=== PATIENT | male | born 1940 | race Caucasian/White ===

== ENCOUNTER 2018-09-09 13:45 | Emergency (ER) | payer MEDICARE, OTHER ==
[~2018-09-09] VITALS: Ht 167.6 cm; Wt 72.7 kg
[~2018-09-09 13:45] MED LIST: ATOR20TA38 PO; FOLI-49 PO; HYDR-762 PO; OLME40TA13 PO; POTA8TAB2 PO; SERT-165 PO; [UNRECOGNIZED DRUG - CODE] IV; [UNRECOGNIZED DRUG - CODE] TP
--- NOTE | 2018-09-09 14:02 | ERD ---
ER Documentation Chief Complaint Chief Complaint [place] HPI The patient is a 77-year-old male, presenting to the ER because of headache for the last 3 days, denies any trauma, denies fever, chills, neck pain, chest pain, dyspnea, abdominal pain, vomiting, dizzy, diarrhea. He drinks every day, denies smoking or using illicit drug Past medical history: Depression, dyslipidemia, chronic bilateral lower extremity cellulitis Past surgical History: None ROS All systems reviewed and are negative except as per history of present illness. Medications Home Meds Active Scripts Clindamycin Hcl* (Clindamycin Hcl*) 300 Mg Capsule, 300 MG PO QID for 10 Days, CAP Prov:MIKY THOMPSON MD 09/09/18 Reported Medications Azelastine/Fluticasone (DYMISTA NASAL SPRAY) 23 Gm [place].pump, 1 SPRAY NASAL BID, #1 BOTTLE TO EACH NOSTRIL 09/09/18 Ketoconazole* (Nizoral*) 120 Ml Shampoo, 1 APPLIC TOP BID, BOTTLE WASH HAIR/SCALP AND RINSE OFF 09/09/18 Tamsulosin Hcl* (Flomax*) 0.4 Mg Cap.er.24h, 0.4 MG PO HS, CAP 09/09/18 Sertraline Hcl* (Sertraline Hcl*) 100 Mg Tablet, 100 MG PO DAILY, #30 TAB 09/09/18 Atorvastatin Calcium* (Atorvastatin Calcium*) 20 Mg Tablet, 20 MG PO QHS, #30 TAB 09/09/18 Celecoxib* (Celebrex*) 200 Mg Capsule, 200 MG PO DAILY, CAP 09/09/18 Icosapent Ethyl (VASCEPA) 1 Gm Capsule, 2 GM PO BID, CAP 09/09/18 Potassium Chloride* (Potassium Chloride*) 8 Meq Capsule.er, 8 MEQ PO DAILY, CAP 09/09/18 Omeprazole* (Omeprazole*) 20 Mg Capsule.dr, 20 MG PO BID, #60 CAP 09/09/18 Dutasteride* (Avodart*) 0.5 Mg Capsule, 0.5 MG PO DAILY, CAP 09/09/18 Furosemide* (Furosemide*) 40 Mg Tablet, 40 MG PO DAILY, TAB 09/09/18 Hydrocodone/Acetaminophen (Colony 10-325 Tablet) 1 Each Tablet, 1 EACH PO BID, TAB 09/09/18 Folic Acid* (Folic Acid*) 1 Mg Tablet, 1 MG PO DAILY, TAB 09/09/18 Olmesartan Medoxomil (Benicar) 40 Mg Tablet, 40 MG PO DAILY, #30 TAB 09/09/18 Discontinued Reported Medications Olmesartan Medoxomil (Benicar) 40 Mg Tablet, 40 MG PO DAILY, TAB 11/16/13 Potassium Chloride* (Klor-Con*) 8 Meq Tablet.sa, 8 MEQ PO DAILY, TAB 11/16/13 Furosemide* (Furosemide*) 40 Mg/4 Ml Vial, 40 MG IV DAILY, VIAL 11/16/13 Sertraline Hcl* (Sertraline Hcl*) 100 Mg Tablet, 100 MG PO DAILY, TAB 11/16/13 Folic Acid* (Folic Acid*) 1 Mg Tablet, 1 MG PO DAILY, TAB 11/16/13 Mineral Oil/Petrolatum,White (Eucerin Creme) 120 Gm Cream.gm., 120 GM TP 11/16/13 Atorvastatin Calcium* (Atorvastatin Calcium*) 20 Mg Tablet, 20 MG PO HS, TAB 11/16/13 Hydrocodone Bit-Acetaminophen* (Colony*) 10-325 Mg Tablet, 1 TAB PO BID PRN for PAIN, TAB 11/16/13 Allergies Allergies: Coded Allergies: No Known Drug Allergy (Verified Allergy, Unknown, 09/09/18) PMhx/Soc Hx Alcohol Use: No Hx Substance Use: No Hx Tobacco Use: No Physical Exam Vitals Vital Signs Date Temp Pulse Resp B/P (MAP) Pulse Ox O2 O2 Flow FiO2 Time Delivery Rate 09/09/18 98.1 76 18 154/79 98 Room Air 17:16 (104) 09/09/18 98.3 92 14 187/76 97 14:08 (113) Physical Exam Const: No acute distress. Head: Atraumatic. Eyes: Normal Conjunctiva. ENT: Normal External Ears, Nose and Mouth. Neck: Full range of motion. No meningismus. Resp: Clear to auscultation bilaterally. Cardio: Regular rate and rhythm. Abd: Soft, non distended, normal bowel sounds, non tender. Skin: No petechiae or rashes. Back: No midline or flank tenderness. Ext: Lower extremity chronic erythema, worse on the left than the right with weeping lesions, no calf tenderness Neur: Awake and alert. No focal deficit Psych: Normal Mood and Affect. Result Diagram: 09/09/18 1421 09/09/18 1421 Results 24 hrs Laboratory Tests Test 09/09/18 14:21 09/09/18 14:32 White Blood Count 4.6 10^3/ul Red Blood Count 3.52 10^6/ul Hemoglobin 10.2 g/dl Hematocrit 30.5 % Mean Corpuscular Volume 86.6 fl Mean Corpuscular Hemoglobin 29.0 pg Mean Corpuscular Hemoglobin Concent 33.4 g/dl Red Cell Distribution Width 15.8 % Platelet Count 82 10^3/UL Mean Platelet Volume 9.2 fl Immature Granulocytes % 0.400 % Neutrophils % 64.2 % Lymphocytes % 20.3 % Monocytes % 12.1 % Eosinophils % 2.4 % Basophils % 0.6 % Nucleated Red Blood Cells % 0.0 /100WBC Immature Granulocytes # 0.020 10^3/ul Neutrophils # 3.0 10^3/ul Lymphocytes # 0.9 10^3/ul Monocytes # 0.6 10^3/ul Eosinophils # 0.1 10^3/ul Basophils # 0.0 10^3/ul Nucleated Red Blood Cells # 0.0 10^3/ul Urine Color STRAW Urine Clarity CLEAR Urine pH 6.0 Urine Specific [place] 1.004 Urine Ketones NEGATIVE mg/dL Urine Nitrite NEGATIVE mg/dL Urine Bilirubin NEGATIVE mg/dL Urine Urobilinogen NEGATIVE mg/dL Urine Leukocyte Esterase NEGATIVE Que/ul Urine Hemoglobin NEGATIVE mg/dL Urine Glucose NEGATIVE mg/dL Urine Total Protein NEGATIVE mg/dl Sodium Level 127 mmol/L Potassium Level 4.3 mmol/L Chloride Level 91 mmol/L Carbon Dioxide Level 26 mmol/L Anion Gap 10 Blood Urea Nitrogen 8 mg/dl Creatinine 0.84 mg/dl Est Glomerular Filtrat Rate mL/min mL/min Glucose Level 126 mg/dl Calcium Level 8.9 mg/dl Total Bilirubin 0.5 mg/dl Direct Bilirubin 0.00 mg/dl Indirect Bilirubin 0.5 mg/dl Aspartate Amino Transf (AST/SGOT) 35 IU/L Alanine Aminotransferase (ALT/SGPT) 33 IU/L Alkaline Phosphatase 126 IU/L Total Protein 7.9 g/dl Albumin 4.3 g/dl Globulin 3.60 g/dl Albumin/Globulin Ratio 1.19 Salicylates Level < 1.0 mg/dl Acetaminophen Level < 10.0 ug/ml Ethyl Alcohol Level < 10.0 mg/dl Bedside Glucose 129 mg/dL Procedures/[place] [id number] Radiology Main Line: [phone] DIAGNOSTIC IMAGING REPORT Patient: LEODAN CAVAZOS : 1940 Age: 77 Sex: M MR #: [id number] DOS: 09/09/18 1417 Ordering MD: MIKY THOMPSON MD Location: E/R Room/Bed: PROCEDURE: CT Brain without contrast. CLINICAL INDICATION: Altered level of consciousness TECHNIQUE: A CT of the brain was performed on a [employer] 64-slice CT scanner utilizing axial imaging from the skull base through the vertex without IV contrast. Multiplanar reformatted images were made. Images were reviewed on a PACS workstation. The CTDIvol is 39.59 mGy and the DLP is 634.23 mGycm. One or more the following dose reduction techniques were utilized: Automated exposure control, adjustment of mA/ or kV according to patient's size, or use of iterative reconstruction technique. DICOM images are available for review. COMPARISON: None FINDINGS: There is no intracranial hemorrhage, mass effect, or midline shift. move ventricles larger than the sulci with confluent patchy hypoattenuation throughout the periventricular white matter. Within the upper right parietal c onvexity there is some volume loss however also mass effect and a underline arachnoid cyst is likely which measures approximate 3.6 by 1.4 cm. [place] holes are seen within the left frontal and parietal calvarium. No subdural fluid collections are present. 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 There is good mcguire-white matter differentiation throughout the cerebral hemispheres. The visualized brainstem and cerebellum are unremarkable. No extra-axial fluid collection is seen. The visualized paranasal sinuses and osseous structures are grossly unremarkable. IMPRESSION: No evidence of acute intracranial pathology. There is predominately central atrophy with microvascular changes. There is likely an arachnoid cyst along the right superior parietal convexity. RPTAT: HH RPhysician Beth Date Time Electronically viewed and signed by Physician Najma on 09/09/2018 16:14 RL/ CC: MIKY THOMPSON MD [id number] [place] [id number] Radiology Main Line: [phone] DIAGNOSTIC IMAGING REPORT Patient: LEODAN CAVAZOS : 1940 Age: 77 Sex: M MR #: [id number] DOS: 09/09/18 1417 Ordering MD: MIKY THOMPSON MD Location: E/R Room/Bed: PROCEDURE: XR Chest. CLINICAL INDICATION: Cough TECHNIQUE: Single portable view of the chest was obtained COMPARISON: No priors for comparison FINDINGS: The trachea is midline. The cardiac silhouette and pulmonary vascularity are prominent. The lungs are clear. The costophrenic angles are sharp. There is atherosclerotic calcification of the aortic knob. IMPRESSION: 1. Cardiomegaly and central pulmonary vascular congestion. 2. Atherosclerotic disease of the aorta. RPTAT: AAPP Physician Maurice Date Time Electronically viewed and signed by Physician Maurice on 09/09/2018 15:13 JL/ CC: MIKY THOMPSON MD [id number] MEDICAL MAKING DECISION: The patient is a 77-year-old male, presenting with acute on chronic bilateral lower extremity cellulitis, chronic hyponatremia due to chronic alcoholism. The family has been here and confirmed this is his normal mental status, he is stable for outpatient follow-up The differential diagnoses considered include but are not limited to cellulitis, abscess, DVT, lymphedema, malnutrition Departure Diagnosis: Primary Impression: Bilateral lower leg cellulitis Additional Impressions: Chronic alcohol abuse Pancytopenia Hyponatremia Condition: Good Comments He was discharged with clindamycin I discussed the findings with the patient. I advised the patient to follow-up with the primary physician and amputation prevention center in about 1-2 days, sooner if needed and return if any concern. Disclaimer: Inadvertent spelling and grammatical errors are likely due to EHR/dictation software use and do not reflect on the overall quality of patient care. Also, please note that the electronic time recorded on this note does not necessarily reflect the actual time of the patient encounter. MIKY THOMPSON MD Sep 09, 2018 14:01
[2018-09-09 14:08] VITALS: Ht 167.6 cm; Wt 72.7 kg
[2018-09-09] MEDS ORDERED: OLME40TA13 PO (16:49)
[2018-09-09] MEDS ORDERED: FOLI-49 PO (16:49)
[2018-09-09] MEDS ORDERED: HYDR-3980 PO (16:50)
[2018-09-09] MEDS ORDERED: DUTA0.5C PO (16:50)
[2018-09-09] MEDS ORDERED: FURO40TA4 PO (16:50)
[2018-09-09] MEDS ORDERED: POTA8CAP PO (16:51)
[2018-09-09] MEDS ORDERED: OMEP20CA16 PO (16:51)
[2018-09-09] MEDS ORDERED: ICOS1CAP PO (16:52)
[2018-09-09] MEDS ORDERED: CELE200C PO (16:52)
[2018-09-09] MEDS ORDERED: TAMS-14 PO (16:53)
[2018-09-09] MEDS ORDERED: SERT-165 PO (16:53)
[2018-09-09] MEDS ORDERED: ATOR20TA38 PO (16:53)
[2018-09-09] MEDS ORDERED: KETO120S5 TOP (16:54)
[2018-09-09] MEDS ORDERED: AZEL23SP NASAL (16:56)
[2018-09-09] MEDS ORDERED: CLIN300C10 PO (16:58)
[2018-09-09 17:16] VITALS: BP 154/79; PULSE 76; RESP 18
== END 2018-09-09 17:17 | disposition home or self-care (01) ==
LOC: E/R 13:45
DX: L03.115 Cellulitis of right lower limb (principal); L03.116 Cellulitis of left lower limb; F10.10 Alcohol abuse, uncomplicated; E87.1 Hypo-osmolality and hyponatremia
CPT/HCPCS: 36415; 70450; 71045; 80053; 80307; 81003; 82962; 85025

== ENCOUNTER 2018-09-11 18:19 | Emergency (ER) | payer MEDICARE, OTHER ==
[~2018-09-11] VITALS: Ht 170.2 cm; Wt 81.8 kg
[~2018-09-11 18:19] MED LIST changes: +AZEL23SP NASAL; +CELE200C PO; +CLIN300C10 PO; +DUTA0.5C PO; +FURO40TA4 PO; +HYDR-3980 PO; -HYDR-762 PO; +ICOS1CAP PO; +KETO120S5 TOP; +OMEP20CA16 PO; +POTA8CAP PO; -POTA8TAB2 PO; +TAMS-14 PO; -[UNRECOGNIZED DRUG - CODE] IV; -[UNRECOGNIZED DRUG - CODE] TP
[2018-09-11] MEDS ORDERED: SOD CHLORIDE 0.9% 1,000 ML IV STA (18:37)
[2018-09-11 18:39] VITALS: Ht 170.2 cm; Wt 81.8 kg
--- NOTE | 2018-09-11 21:51 | ERD ---
ER Documentation Chief Complaint Chief Complaint ETOH INTOXICATION HPI This is a 77-year-old male with a past medical history of significant alcohol abuse, hypertension, hyperlipidemia, constipation who is presenting for a transient episode of altered mental status. The patient reportedly has been drinking beer daily, but he only had a small cup this morning. The patient was evaluated 2 days ago for a mild headache in addition to bilateral lower extremity swelling and redness. The patient was ultimately diagnosed with bilateral lower extremity cellulitis and discharged with a prescription for clindamycin. The patient was also found to have sequelae of chronic alcohol abuse., But according to the patient's family, the patient seemed fine this afternoon while he was taking his clindamycin, the patient reportedly had a syncopal event with intermittent shaking, lasting approximately 1 minute before resolution. He seemed confused after, which is what prompted the family to call an ambulance. At this time, the patient is alert and oriented and has no complaints. He admits to drinking alcohol earlier today, but he does not feel intoxicated. The patient denies feeling sick recently. The patient denies fever or chills. The patient has had no headache or vision changes. The patient does not endorse neck or back pain. The patient denies lightheadedness or dizziness. The patient has had no chest pain or trouble breathing. The patient denies nausea or vomiting. The patient denies abdominal pain. The patient denies changes to bowel movements or urination. The patient has had no focal deficits. The patient has had no weakness or numbness or tingling to the face or extremities. ROS All systems reviewed and are negative except as per history of present illness. Medications Home Meds Active Scripts Clindamycin Hcl* (Clindamycin Hcl*) 300 Mg Capsule, 300 MG PO QID for 10 Days, CAP Prov:MIKY THOMPSON MD 09/09/18 Reported Medications Azelastine/Fluticasone (DYMISTA NASAL SPRAY) 23 Gm [place].pump, 1 SPRAY NASAL BID, #1 BOTTLE TO EACH NOSTRIL 09/09/18 Ketoconazole* (Nizoral*) 120 Ml Shampoo, 1 APPLIC TOP BID, BOTTLE WASH HAIR/SCALP AND RINSE OFF 09/09/18 Tamsulosin Hcl* (Flomax*) 0.4 Mg Cap.er.24h, 0.4 MG PO HS, CAP 09/09/18 Sertraline Hcl* (Sertraline Hcl*) 100 Mg Tablet, 100 MG PO DAILY, #30 TAB 09/09/18 Atorvastatin Calcium* (Atorvastatin Calcium*) 20 Mg Tablet, 20 MG PO QHS, #30 TAB 09/09/18 Celecoxib* (Celebrex*) 200 Mg Capsule, 200 MG PO DAILY, CAP 09/09/18 Icosapent Ethyl (VASCEPA) 1 Gm Capsule, 2 GM PO BID, CAP 09/09/18 Potassium Chloride* (Potassium Chloride*) 8 Meq Capsule.er, 8 MEQ PO DAILY, CAP 09/09/18 Omeprazole* (Omeprazole*) 20 Mg Capsule.dr, 20 MG PO BID, #60 CAP 09/09/18 Dutasteride* (Avodart*) 0.5 Mg Capsule, 0.5 MG PO DAILY, CAP 09/09/18 Furosemide* (Furosemide*) 40 Mg Tablet, 40 MG PO DAILY, TAB 09/09/18 Hydrocodone/Acetaminophen (Somers 10-325 Tablet) 1 Each Tablet, 1 EACH PO BID, TAB 09/09/18 Folic Acid* (Folic Acid*) 1 Mg Tablet, 1 MG PO DAILY, TAB 09/09/18 Olmesartan Medoxomil (Benicar) 40 Mg Tablet, 40 MG PO DAILY, #30 TAB 09/09/18 Discontinued Reported Medications Olmesartan Medoxomil (Benicar) 40 Mg Tablet, 40 MG PO DAILY, TAB 11/16/13 Potassium Chloride* (Klor-Con*) 8 Meq Tablet.sa, 8 MEQ PO DAILY, TAB 11/16/13 Furosemide* (Furosemide*) 40 Mg/4 Ml Vial, 40 MG IV DAILY, VIAL 11/16/13 Sertraline Hcl* (Sertraline Hcl*) 100 Mg Tablet, 100 MG PO DAILY, TAB 11/16/13 Folic Acid* (Folic Acid*) 1 Mg Tablet, 1 MG PO DAILY, TAB 11/16/13 Mineral Oil/Petrolatum,White (Eucerin Creme) 120 Gm Cream.gm., 120 GM TP 11/16/13 Atorvastatin Calcium* (Atorvastatin Calcium*) 20 Mg Tablet, 20 MG PO HS, TAB 11/16/13 Hydrocodone Bit-Acetaminophen* (Somers*) 10-325 Mg Tablet, 1 TAB PO BID PRN for PAIN, TAB 11/16/13 Allergies Allergies: Coded Allergies: No Known Drug Allergy (Verified Allergy, Unknown, 09/11/18) PMhx/Soc Medical and Surgical Hx: pt denies Surgical Hx History of Surgery: No Anesthesia Reaction: No Hx Respiratory Disorders: No Hx Cardiac Disorders: Yes (htn, cholesterol) Hx Psychiatric Problems: No Hx Miscellaneous Medical Probl: Yes (CELLULITIS, aneurysm) Hx Alcohol Use: Yes (daily, heavy use) Hx Substance Use: No Hx Tobacco Use: No Smoking Status: Unknown if ever smoked FmHx Family History: No diabetes Physical Exam Vitals Vital Signs Date Temp Pulse Resp B/P (MAP) Pulse Ox O2 O2 Flow FiO2 Time Delivery Rate 09/11/18 95 14 169/67 99 Room Air 18:50 (101) 09/11/18 97.9 94 20 194/76 97 18:39 (115) Physical Exam Const: No apparent distress, well-developed, well-nourished Head: Normocephalic, Atraumatic Eyes: Normal Conjunctiva. Extraocular movements intact. Pupils equal, round and reactive to light ENT: Normal External Ears, Nose. Poor dentition. Dry mucous membranes. Neck: Full range of motion. No meningismus. Resp: Clear to auscultation bilaterally, No wheezes, rales or rhonchi Cardio: Regular rate and rhythm. No murmurs, rubs or gallops Abd: Soft, non tender, non distended. Normal bowel sounds Skin: No petechiae or rashes Back: No midline tenderness. No CVA tenderness Ext: No cyanosis. Bilateral lower extremity erythema and edema. Neur: Awake and alert, oriented 4. Cranial nerves intact. No facial droop. Normal strength, sensation and coordination. Psych: Normal Mood and Affect Result Diagram: 09/11/18185709/11/181857 Results 24 hrs Laboratory Tests Test 09/11/18 18:58 09/11/18 18:59 09/11/18 19:05 09/11/18 19:23 White Blood Count 5.3 10^3/ul Red Blood Count 3.75 10^6/ul Hemoglobin 10.7 g/dl Hematocrit 33.5 % Mean Corpuscular 89.3 fl Volume Mean Corpuscular 28.5 pg Hemoglobin Mean Corpuscular 31.9 g/dl Hemoglobin Concen t Red Cell 16.4 % Distribution Width Platelet Count 90 10^3/UL Mean Platelet 10.2 fl Volume Immature 0.400 % Granulocytes % Neutrophils % 62.7 % Lymphocytes % 22.3 % Monocytes % 12.9 % Eosinophils % 1.3 % Basophils % 0.4 % Nucleated Red 0.0 /100WBC Blood Cells % Immature 0.020 10^3/ul Granulocytes # Neutrophils # 3.4 10^3/ul Lymphocytes # 1.2 10^3/ul Monocytes # 0.7 10^3/ul Eosinophils # 0.1 10^3/ul Basophils # 0.0 10^3/ul Nucleated Red 0.0 10^3/ul Blood Cells # Sodium Level 137 mmol/L Potassium Level 3.6 mmol/L Chloride Level 99 mmol/L Carbon Dioxide 28 mmol/L Level Anion Gap 10 Blood Urea 8 mg/dl Nitrogen Creatinine 0.94 mg/dl Est Glomerular mL/min Filtrat Rate mL/min Glucose Level 141 mg/dl Calcium Level 9.7 mg/dl Total Bilirubin 0.4 mg/dl Direct Bilirubin 0.00 mg/dl Indirect 0.4 mg/dl Bilirubin Aspartate Amino 36 IU/L Transf (AST/SGOT) Alanine 29 IU/L Aminotransferase (ALT/SGPT) Alkaline 109 IU/L Phosphatase Total Protein 8.0 g/dl Albumin 4.3 g/dl Globulin 3.70 g/dl Albumin/Globulin 1.16 Ratio Salicylates Level < 1.0 mg/dl Acetaminophen < 10.0 ug/ml Level Ethyl Alcohol < 10.0 mg/dl Level Prothrombin Time 14.1 Sec Prothrombin Time 1.1 Ratio INR International 1.08 Normalized Ratio Ammonia < 9 umol/l POC Venous 1.7 mmol/L Lactate Urine Color YELLOW Urine Clarity CLEAR Urine pH 6.0 Urine Specific 1.004 [place] Urine Ketones NEGATIVE mg/dL Urine Nitrite NEGATIVE mg/dL Urine Bilirubin NEGATIVE mg/dL Urine NEGATIVE mg/dL Urobilinogen Urine Leukocyte NEGATIVE Que/ul Esterase Urine Microscopic 0 /HPF RBC Urine Microscopic 1 /HPF WBC Urine Hemoglobin NEGATIVE mg/dL Urine Glucose NEGATIVE mg/dL Urine Total 1+ mg/dl Protein Urine Opiates Negative Screen Urine Negative Barbiturates Urine Negative Amphetamines Screen Urine Negative Benzodiazepines Screen Urine Cocaine Negative Screen Urine Positive Cannabinoids Current Medications Medications Dose Sig/[place] Start Time Status Last (Trade) Ordered Route PRN Stop Time Admin Dose Reason Admin Sodium 1,000 ml @ Q1H STAT 09/11/18 DC 09/11/18 Chloride 1,000 mls/hr IV 18:37 19:06 09/11/18 19:36 Procedures/MDM MDM The patient's presentation warrants further investigation. Previous medical records, if available, were reviewed. LABS The patient's laboratory testing was obtained and reviewed. No emergent treatment was required unless described below. CBC: Mild normocytic anemia, not emergent. Thrombocytopenia, likely from chronic liver disease. No E/o systemic infection. Chemistry: No E/o severe acidosis or alkalosis or renal failure or liver disease or diabetic ketoacidosis PT/INR: No E/o significant coagulopathy Lactate: No E/o severe sepsis Urine: No E/o acute infection or hematuria Tox: No E/o alcohol abuse. E/o marijuana use. No E/o salicylate or acetaminophen use. EKG EKG read by me: Rate/Rhythm: Regular rate and rhythm at a rate of 92 bpm Intervals: Normal [place]: Normal Impression: No evidence of acute ischemia or arrhythmia IMAGING Imaging and Radiology interpretation reviewed. CXR FINDINGS: The heart is enlarged. Mediastinum is not widened. Calcified plaque is seen in the aorta. No hilar masses seen. Lungs are clear of any infiltrates. There is a 2.6 cm rounded mass-like density in the medial left upper lung field. There is no effusion or pneumothorax. The osseous structures appear normal. IMPRESSION: Cardiomegaly. No pneumonia or failure. Question left upper lobe mass. CT is recommended for further evaluation. Electronically viewed and signed by .Samy Resendiz MD, on 09/11/2018 19:50 CT Head from 09/09/2018 FINDINGS: There is no intracranial hemorrhage, mass effect, or midline shift. move ventricles larger than the sulci with confluent patchy hypoattenuation throughout the periventricular white matter. Within the upper right parietal convexity there is some volume loss however also mass effect and a underline arachnoid cyst is likely which measures approximate 3.6 by 1.4 cm. [place] holes are seen within the left frontal and parietal calvarium. No subdural fluid collections are present. 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 There is good mcguire-white matter differentiation throughout the cerebral hemispheres. The visualized brainstem and cerebellum are unremarkable. No extra-axial fluid collection is seen. The visualized paranasal sinuses and osseous structures are grossly unremarkable. IMPRESSION: No evidence of acute intracranial pathology. There is predominately central atrophy with microvascular changes. There is likely an arachnoid cyst along the right superior parietal convexity. Electronically viewed and signed by Physician Najma on 09/09/2018 16:14 TREATMENT/DISPOSITION The patient presents with symptoms of a possible syncopal event. The patient's family reports the patient passing out and having intermittent shaking for about a minute. A seizure is certainly a possibility. The patient does not have a history of seizures. There is no trauma or injury today. The patient reportedly had a headache from 2 days ago, but he does not endorse a headache today. He does not endorse any neck stiffness or pain. Patient has no focal deficits. He is alert and oriented and has a normal neurologic exam. I have decreased suspicion for cerebral ischemia. This was not the worst headache of the patient's life. It was not acutely severe. It was progressive in nature and resolved prior to today. I have decreased suspicion for SAH or other ICH. I have low suspicion for temporal arteritis, cavernous venous thrombosis, subdural hematoma, epidural hematoma, meningitis. The patient did have a CT scan for his headache from 2 days ago that did not reveal any acute intracranial pathology. I do not feel that repeat imaging is warranted today. The patient may follow-up in an outpatient setting for this possible syncope versus seizure event. The patient's alcohol level is currently negative, but he does not have any symptoms concerning for alcohol withdrawal at this time. I have low suspicion for alcohol withdrawal seizure. I do not feel that the patient would benefit from a benzodiazepine taper, as I believe that he will continue to drink and I do not want to allow for concomitant use of alcohol and benzodiazepines. The patient has a reassuring physical exam. The patient is not clinically orthostatic. The patient is not dizzy. I have decreased suspicion for vertigo. The patient has no signs of emergent or symptomatic anemia. The patient does not have any emergent electrolyte or metabolic emergencies. I have decrease suspicion for a thyroid disorder. The patient is not toxic appearing. I have decreased suspicion for an infectious etiology of symptoms. The patient's EKG is reassuring. I have low suspicion for acute coronary syndrome. I do not see evide nce of any emergent cardiac arrhythmia, which includes but is not limited to heart block, Brugada syndrome or WPW. The patient has no heart murmurs or rales. I have low suspicion for hypertrophic cardiomyopathy. I do not see evidence of CHF. The patient does not endorse any chest or pleuritic pain. The history is negative for bleeding or clotting disorders. The patient has not been involved in any recent prolonged trips or surgeries or hospitalizations. The patient has no calf tenderness or swelling. I have decreased suspicion for PE as the etiology of symptoms. There is a question of a left upper lobe mass on the x- ray today, which was not reported on the previous study. The patient may follow-up for this in an outpatient setting, but I do not suspect this to be related to today's events. The [place] Syncope Rule was applied and the patient was found to be low risk for a serious outcome. The patient was treated with IV fluids in the emergency department. DISCHARGE Upon reevaluation of the patient, symptoms have improved. No emergent diagnoses were identified. At this time, I feel that the patient stable for discharge. The patient was instructed to follow-up with a primary care physician in 1-3 days. The patient will be given strict precautions with which to return to the emergency department. Prescriptions: None The patient's blood pressure was elevated at greater than 120/80 while in the emergency department. The patient was otherwise stable with no evidence of hypertensive urgency or emergency. The patient does not require admission for blood pressure control. I have discussed with the patient the risks of hypertension. I have instructed the patient to return to the ER for any new or worsening symptoms including chest pain, shortness of breath, headache, blurred vision, confusion, nausea, vomiting or LOC. I have advised the patient to follow up with the primary care physician for outpatient monitoring and treatment for hypertension in 1-3 days. Disclaimer: Inadvertent spelling and grammatical errors are likely due to EHR/dictation software use and do not reflect on the overall quality of patient care. Note that the electronic time recorded on this note does not necessarily reflect the actual time of the patient encounter. Departure Diagnosis: Primary Impression: Syncope Syncope type: unspecified Qualified Codes: R55 - Syncope and collapse Additional Impressions: Episode of shaking History of alcohol abuse Normocytic anemia Thrombocytopenia Mass of upper lobe of left lung Condition: Stable Patient Instructions: Alcohol Abuse, Anemia, Syncope, Unk Cause, Thrombocytopenia Additional Instructions: A lung mass was found on the x-ray. Please follow-up with your primary care physician, who can help coordinate an outpatient CT scan for further assessment of this. I do not suspect this to be related to today's events. We have a long-standing history of alcohol abuse. Is very important to consider alcohol cessation. Please also discuss with your primary care physician the possibility of rehabilitation. You had a syncopal event today with a possible shaking spell. Syncope is possible. Seizure is also possibility. Please return to the emergency department immediately for recurrence of symptoms. Thank you for for coming to [facility] for your care today. Please ask your nurse or provider if you have questions about your care today and do not leave until all your questions have been answered. Please use any medications given as directed and follow-up with your doctor (or the doctor you were referred to) in the next 1-3 days. If you do not have a primary care doctor you may follow up at the [facility] or [facility] (listed below). You may also use motrin and tylenol as needed for fever and/or pain unless instructed otherwise by your provider or nurse. Indications for more urgent follow-up have been discussed, but you may return to the Emergency Department at ANY time for any worrisome or worsening symptoms. If you have abdominal pain, please know that no test or exam you received is perfect and you should follow up within 8 hours for continued pain. If you had any imaging studies today, such as an X-Ray or CT Scan, these studies will be reviewed later by a radiologist. You will be called if there are important findings that were not identified today, so make sure the contact information you provided at registration is correct. If you received any narcotic pain control medicine today, such as Vicodin, Morphine or Dilaudid, your coordination and judgment may be affected for a number of hours. Please do not drive or operate heavy machinery, and you may want someone to assist you at home. If you were given a prescription for narcotic medication, be aware that it is very addictive- use sparingly and only if necessary. PLEASE SEEK FURTHER EVALUATION AND MANAGEMENT AT YOUR DOCTORS OFFICE WITHIN THE NEXT 1-3 DAYS. IT IS YOUR RESPONSIBILITY TO MAKE AN APPOINTMENT FOR FOLOW-UP CARE. IF YOU HAVE A PRIMARY DOCTOR, PLEASE CALL THEIR OFFICE TO SCHEDULE AN APPOINTM ENT FOR FOLLOW UP. IF YOU DO NOT HAVE A PRIMARY DOCTOR YOU CAN CALL OUR PHYSICIAN REFERRAL HOTLINE AT IF YOU CAN NOT AFFORD TO SEE A PHYSICIAN YOU CAN CHOSE FROM THE FOLLOWING [facility]: [facility] [address] [facility] [address] [facility] [address] [facility] [address] [facility] [address]. [facility]. [address] DIANA BERGER MD Sep 11, 2018 21:43
[2018-09-11 22:25] VITALS: BP 161/66; PULSE 87; RESP 22
[2018-09-12] MEDS ORDERED: LORA-441 PO (19:22)
== END 2018-09-11 22:35 | disposition home or self-care (01) ==
LOC: E/R 18:19
DX: D64.9 Anemia, unspecified (principal); R55 Syncope and collapse; R25.1 Tremor, unspecified; D69.6 Thrombocytopenia, unspecified; R91.8 Other nonspecific abnormal finding of lung field; I10 Essential (primary) hypertension; Z87.898 Personal history of other specified conditions
CPT/HCPCS: 36415; 71045; 80053; 80307; 81001; 82140; 83605; 85025; 85610; 93005; 99285; J7030

== ENCOUNTER 2018-09-12 15:47 | Emergency (ER) | payer MEDICARE, OTHER ==
[~2018-09-12] VITALS: Ht 165.1 cm; Wt 73.0 kg
[2018-09-12 15:55] VITALS: Ht 165.1 cm; Wt 73.0 kg
[2018-09-12] MEDS ORDERED: LORAZEPAM 2 MG INJ IV STA (17:16)
[2018-09-12] MEDS ORDERED: SOD CHLORIDE 0.9% 1,000 ML IV STA (17:16)
[2018-09-12] MEDS ORDERED: MAGNESIUM SULFATE 2 GM, MULTIVITAMINS 10 ML, THIAMINE 100 MG, FOLIC ACID 1 MG in SOD CH... IV STA (17:16)
--- NOTE | 2018-09-12 19:21 | ERD ---
ER Documentation Chief Complaint Chief Complaint SENT BY PMD FOR POSS. WITHDRAW FROM ETOH AND METHADONE. HPI This is a 77-year-old male that states he has a past medical history of alcohol abuse that he drinks several beers a day. He indicated that he no longer wants to consume alcohol and therefore 3 days ago stop drinking beer. Since that time he states he is felt very shaky, anxious but denies any hemoptysis hematemesis and no melanotic stools. The patient is also on methadone which has been taking for the past 8 years. Indicates he has continued to take the methadone. He went to see a primary care physician today who sent him to the emergency department for further evaluation as he was concerned for alcohol withdrawal. The patient indicates he has never experienced seizures when he stopped drinking in the past. He denies a headache. He denies any chest pain or pressure. He has no shortness of breath. He denies any abdominal pain or cramping of the abdomen. ROS All systems reviewed and are negative except as per history of present illness. Medications Home Meds Active Scripts Clindamycin Hcl* (Clindamycin Hcl*) 300 Mg Capsule, 300 MG PO QID for 10 Days, CAP Prov:MIKY THOMPSON MD 09/09/18 Reported Medications Azelastine/Fluticasone (DYMISTA NASAL SPRAY) 23 Gm [place].pump, 1 SPRAY NASAL BID, #1 BOTTLE TO EACH NOSTRIL 09/09/18 Ketoconazole* (Nizoral*) 120 Ml Shampoo, 1 APPLIC TOP BID, BOTTLE WASH HAIR/SCALP AND RINSE OFF 09/09/18 Tamsulosin Hcl* (Flomax*) 0.4 Mg Cap.er.24h, 0.4 MG PO HS, CAP 09/09/18 Sertraline Hcl* (Sertraline Hcl*) 100 Mg Tablet, 100 MG PO DAILY, #30 TAB 09/09/18 Atorvastatin Calcium* (Atorvastatin Calcium*) 20 Mg Tablet, 20 MG PO QHS, #30 TAB 09/09/18 Celecoxib* (Celebrex*) 200 Mg Capsule, 200 MG PO DAILY, CAP 09/09/18 Icosapent Ethyl (VASCEPA) 1 Gm Capsule, 2 GM PO BID, CAP 09/09/18 Potassium Chloride* (Potassium Chloride*) 8 Meq Capsule.er, 8 MEQ PO DAILY, CAP 09/09/18 Omeprazole* (Omeprazole*) 20 Mg Capsule.dr, 20 MG PO BID, #60 CAP 09/09/18 Dutasteride* (Avodart*) 0.5 Mg Capsule, 0.5 MG PO DAILY, CAP 09/09/18 Furosemide* (Furosemide*) 40 Mg Tablet, 40 MG PO DAILY, TAB 09/09/18 Hydrocodone/Acetaminophen ([place] 10-325 Tablet) 1 Each Tablet, 1 EACH PO BID, TAB 09/09/18 Folic Acid* (Folic Acid*) 1 Mg Tablet, 1 MG PO DAILY, TAB 09/09/18 Olmesartan Medoxomil (Benicar) 40 Mg Tablet, 40 MG PO DAILY, #30 TAB 09/09/18 Discontinued Reported Medications Olmesartan Medoxomil (Benicar) 40 Mg Tablet, 40 MG PO DAILY, TAB 11/16/13 Potassium Chloride* (Klor-Con*) 8 Meq Tablet.sa, 8 MEQ PO DAILY, TAB 11/16/13 Furosemide* (Furosemide*) 40 Mg/4 Ml Vial, 40 MG IV DAILY, VIAL 11/16/13 Sertraline Hcl* (Sertraline Hcl*) 100 Mg Tablet, 100 MG PO DAILY, TAB 11/16/13 Folic Acid* (Folic Acid*) 1 Mg Tablet, 1 MG PO DAILY, TAB 11/16/13 Mineral Oil/Petrolatum,White (Eucerin Creme) 120 Gm Cream.gm., 120 GM TP 11/16/13 Atorvastatin Calcium* (Atorvastatin Calcium*) 20 Mg Tablet, 20 MG PO HS, TAB 11/16/13 Hydrocodone Bit-Acetaminophen* ([place]*) 10-325 Mg Tablet, 1 TAB PO BID PRN for PAIN, TAB 11/16/13 Allergies Allergies: Coded Allergies: No Known Drug Allergy (Verified Allergy, Unknown, 09/12/18) PMhx/Soc History of Surgery: No Anesthesia Reaction: No Hx Respiratory Disorders: No Hx Cardiac Disorders: Yes (htn, cholesterol) Hx Psychiatric Problems: No Hx Miscellaneous Medical Probl: Yes (CELLULITIS, aneurysm) Hx Alcohol Use: Yes (daily, heavy use) Hx Substance Use: No Hx Tobacco Use: No Smoking Status: Unknown if ever smoked Physical Exam Vitals Vital Signs Date Temp Pulse Resp B/P (MAP) Pulse Ox O2 O2 Flow FiO2 Time Delivery Rate 09/12/18 97.4 68 20 150/93 97 Room Air 18:55 (112) 09/12/18 97.4 78 20 150/93 97 Room Air 18:08 (112) 09/12/18 97.4 81 20 198/62 97 Room Air 17:07 (107) 09/12/18 97.4 79 20 205/78 97 15:55 (120) Physical Exam Constitutional:Well-developed. Well-nourished. HEENT:Normocephalic. Atraumatic.Pupils were 3 mm equal round reactive to light. Moist mucous membranes.No tonsillar exudates. Neck: No nuchal rigidity. No lymphadenopathy. No posterior cervical spine tenderness or step-offs. Respiratory: Not using accessory muscles of respiration.Lungs were clear to auscultation bilaterally. No rhonchi. No rales. No wheezing. Cardiovascular: Regular rate regular rhythm.No murmurs. No rubs were appreciated.S1, S2 normal. Distal pulses are palpable 2+ bilaterally. GI: Abdomen was soft. Nontender. Non Distended. No pulsatile abdominal masses or bruits. No rebound. No guarding. Bowel sounds were present and normal. Muscle skeletal: Full range of motion of both the upper and lower extremities bilaterally.Normal muscle tone.No assymetrical calf tenderness or swelling. Skin: No petechia, no purpura. No lesions on the palms or the soles of the feet. No maculopapular rash. NEURO: Patient was alert, awake, orientated x3.No facial droop. Gait observed and normal with no ataxia.Speech had regular rate and rhythm. No focal neurological deficits. [place]ix[place]. Result Diagram: 09/12/18 1705 09/12/18 1705 Results 24 hrs Laboratory Tests Test 09/12/18 17:05 White Blood Count 7.1 10^3/ul Red Blood Count 3.86 10^6/ul Hemoglobin 11.0 g/dl Hematocrit 34.8 % Mean Corpuscular Volume 90.2 fl Mean Corpuscular Hemoglobin 28.5 pg Mean Corpuscular Hemoglobin Concent 31.6 g/dl Red Cell Distribution Width 16.8 % Platelet Count 103 10^3/UL Mean Platelet Volume 10.7 fl Immature Granulocytes % 0.400 % Neutrophils % 64.5 % Lymphocytes % 21.8 % Monocytes % 11.4 % Eosinophils % 1.3 % Basophils % 0.6 % Nucleated Red Blood Cells % 0.0 /100WBC Immature Granulocytes # 0.030 10^3/ul Neutrophils # 4.6 10^3/ul Lymphocytes # 1.5 10^3/ul Monocytes # 0.8 10^3/ul Eosinophils # 0.1 10^3/ul Basophils # 0.0 10^3/ul Nucleated Red Blood Cells # 0.0 10^3/ul Prothrombin Time 13.7 Sec Prothrombin Time Ratio 1.1 INR International Normalized Ratio 1.04 Activated Partial Thromboplast Time 27.8 Sec Urine Color YELLOW Urine Clarity CLEAR Urine pH 6.0 Urine Specific [place] 1.009 Urine Ketones NEGATIVE mg/dL Urine Nitrite NEGATIVE mg/dL Urine Bilirubin NEGATIVE mg/dL Urine Urobilinogen NEGATIVE mg/dL Urine Leukocyte Esterase NEGATIVE Que/ul Urine Hemoglobin NEGATIVE mg/dL Urine Glucose NEGATIVE mg/dL Urine Total Protein NEGATIVE mg/dl Sodium Level 135 mmol/L Potassium Level 3.4 mmol/L Chloride Level 99 mmol/L Carbon Dioxide Level 26 mmol/L Anion Gap 10 Blood Urea Nitrogen 7 mg/dl Creatinine 0.81 mg/dl Est Glomerular Filtrat Rate mL/min mL/min Glucose Level 114 mg/dl Calcium Level 9.8 mg/dl Total Bilirubin 0.5 mg/dl Direct Bilirubin 0.00 mg/dl Indirect Bilirubin 0.5 mg/dl Aspartate Amino Transf (AST/SGOT) 44 IU/L Alanine Aminotransferase (ALT/SGPT) 26 IU/L Alkaline Phosphatase 112 IU/L Total Protein 8.6 g/dl Albumin 4.7 g/dl Globulin 3.90 g/dl Albumin/Globulin Ratio 1.20 Salicylates Level < 1.0 mg/dl Acetaminophen Level < 10.0 ug/ml Ethyl Alcohol Level < 10.0 mg/dl Current Medications Medications Dose Sig/Kenrick Start Time Status Last (Trade) Ordered Route PRN Stop Time Admin Dose Reason Admin Sodium 1,000 ml @ Q1H STAT 09/12/18 DC 09/12/18 Chloride 1,000 mls/hr IV 17:16 17:22 09/12/18 18:15 Magnesium 1,015.2 ml Q2H2M STAT 09/12/18 DC 09/12/18 Sulfate 2 @ 500 mls/ IV 17:16 18:25 gm/ hr 09/12/18 19:17 Multivitamins 10 ml/Thiamine HCl 100 mg/Folic Acid 1 mg/Sodium Chloride Lorazepam 1 mg ONCE STAT 09/12/18 DC 09/12/18 (Ativan) IV 17:16 17:22 09/12/18 17:18 Procedures/MDM This is a 77-year-old male who presented to the emergency department with mild alcohol withdrawal. The patient was placed on a telemetry monitor continuous pulse oximetry and IV access was attempted by nursing staff. Her serum ethanol was undetected. The patient had no severe electrolyte abnormalities. The patient received IV Ativan and a banana bag which included folic acid thiamine and multivitamin and magnesium. 12 Lead EKG tracing ordered and reviewed by myself showed: Normal sinus rhythm of 76 bpm and no arrhythmia. IA interval normal. QRS duration normal. Incomplete right bundle branch block No ST segment elevation No ST segment depression. No changes consistent with acute ischemia. Observation Note: Time: 4 hours Family Hx: No Hypertension Evaluation: Multiple exams showed improving symptoms and no evidence of impending delirium tremors The patient was discharged home in fair condition. They were instructed to return to the emergency department at any time if there was any worsening of their condition. The patient stated they would follow up with their PCP in the next 24-48 hours to initiate a suitable medication regimen under the care of their PCP as well as to allow their PCP to monitor any drug reactions. The patient was discharged home with prescriptions after they gave informed consent to the new medication. They were also fully informed by myself on the adverse effects and adverse drug interactions in order to provide adequate safeguards to prevent possible adverse reactions to medications. Departure Diagnosis: Primary Impression: Alcohol withdrawal syndrome Complication of substance-induced condition: uncomplicated Qualified Codes: F10.230 - Alcohol dependence with withdrawal, uncomplicated Condition: HUSSEIN [place] MD Sep 12, 2018 19:21
[2018-09-12] MEDS ORDERED: LORA-441 PO (19:22)
[2018-09-12 21:02] VITALS: BP 180/85; PULSE 70; RESP 20
== END 2018-09-12 21:03 | disposition home or self-care (01) ==
LOC: E/R 15:47
DX: F10.230 Alcohol dependence with withdrawal, uncomplicated (principal); I10 Essential (primary) hypertension
CPT/HCPCS: 71045; 80053; 80307; 81003; 85025; 85610; 85730; 93005; 96365; 96375; 99285; J2060; J3411; J3475; J7030

== ENCOUNTER 2018-09-15 20:19 | Inpatient (IN) | payer MEDICARE, OTHER ==
[~2018-09-15] VITALS: Ht 167.6 cm; Wt 75.7 kg
[~2018-09-15 20:19] MED LIST changes: +LORA-441 PO
[2018-09-15] MEDS ORDERED: VANCOMYCIN 1 GM (PMX) 250 ML IVPB STA (20:23)
[2018-09-15] MEDS ORDERED: PIPER-TAZO 3.375 GM IV (PMX) 100 ML IVPB STA (20:23)
[2018-09-15] MEDS ORDERED: SODIUM CHLORIDE 0.9% 1L BAG IV* STA (20:38)
[2018-09-15] MEDS ORDERED: ACETAMINOPHEN 325 MG TAB PO ONE (21:00)
--- NOTE | 2018-09-15 21:25 | ERD ---
ER Documentation Chief Complaint Chief Complaint Fever HPI Patient is a 77-year-old male with a history of thrombus cytopenia, DVT, and PE who presents with weakness and fever. The patient was brought in by ambulance. He had generalized weakness which started today. He has left leg redness and oozing. He has headache as well. There is skin breakdown over the left leg wound. The patient does have a primary doctor but does not know the name. ROS All systems reviewed and are negative except as per history of present illness. Medications Home Meds Active Scripts Lorazepam* (Ativan*) 0.5 Mg Tablet, 0.5 MG PO Q8H PRN for CONTROL WITHDRAWAL SYMPTOMS, #10 TAB Prov:HUSSEIN SPEARS MD 09/12/18 Clindamycin Hcl* (Clindamycin Hcl*) 300 Mg Capsule, 300 MG PO QID for 10 Days, CAP Prov:MIKY THOMPSON MD 09/09/18 Reported Medications Azelastine/Fluticasone (DYMISTA NASAL SPRAY) 23 Gm [place].pump, 1 SPRAY NASAL BID, #1 BOTTLE TO EACH NOSTRIL 09/09/18 Ketoconazole* (Nizoral*) 120 Ml Shampoo, 1 APPLIC TOP BID, BOTTLE WASH HAIR/SCALP AND RINSE OFF 09/09/18 Tamsulosin Hcl* (Flomax*) 0.4 Mg Cap.er.24h, 0.4 MG PO HS, CAP 09/09/18 Sertraline Hcl* (Sertraline Hcl*) 100 Mg Tablet, 100 MG PO DAILY, #30 TAB 09/09/18 Atorvastatin Calcium* (Atorvastatin Calcium*) 20 Mg Tablet, 20 MG PO QHS, #30 TAB 09/09/18 Celecoxib* (Celebrex*) 200 Mg Capsule, 200 MG PO DAILY, CAP 09/09/18 Icosapent Ethyl (VASCEPA) 1 Gm Capsule, 2 GM PO BID, CAP 09/09/18 Potassium Chloride* (Potassium Chloride*) 8 Meq Capsule.er, 8 MEQ PO DAILY, CAP 09/09/18 Omeprazole* (Omeprazole*) 20 Mg Capsule.dr, 20 MG PO BID, #60 CAP 09/09/18 Dutasteride* (Avodart*) 0.5 Mg Capsule, 0.5 MG PO DAILY, CAP 09/09/18 Furosemide* (Furosemide*) 40 Mg Tablet, 40 MG PO DAILY, TAB 09/09/18 Hydrocodone/Acetaminophen ([place] 10-325 Tablet) 1 Each Tablet, 1 EACH PO BID, TAB 09/09/18 Folic Acid* (Folic Acid*) 1 Mg Tablet, 1 MG PO DAILY, TAB 09/09/18 Olmesartan Medoxomil (Benicar) 40 Mg Tablet, 40 MG PO DAILY, #30 TAB 09/09/18 Discontinued Reported Medications Olmesartan Medoxomil (Benicar) 40 Mg Tablet, 40 MG PO DAILY, TAB 11/16/13 Potassium Chloride* (Klor-Con*) 8 Meq Tablet.sa, 8 MEQ PO DAILY, TAB 11/16/13 Furosemide* (Furosemide*) 40 Mg/4 Ml Vial, 40 MG IV DAILY, VIAL 11/16/13 Sertraline Hcl* (Sertraline Hcl*) 100 Mg Tablet, 100 MG PO DAILY, TAB 11/16/13 Folic Acid* (Folic Acid*) 1 Mg Tablet, 1 MG PO DAILY, TAB 11/16/13 Mineral Oil/Petrolatum,White (Eucerin Creme) 120 Gm Cream.gm., 120 GM TP 11/16/13 Atorvastatin Calcium* (Atorvastatin Calcium*) 20 Mg Tablet, 20 MG PO HS, TAB 11/16/13 Hydrocodone Bit-Acetaminophen* ([place]*) 10-325 Mg Tablet, 1 TAB PO BID PRN for PAIN, TAB 11/16/13 Allergies Allergies: Coded Allergies: No Known Drug Allergy (Verified Allergy, Unknown, 09/12/18) PMhx/Soc History of Surgery: No Anesthesia Reaction: No Hx Neurological Disorder: No 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) Hx Cardiac Disorders: Yes (HTN,hyperlipidemia) Hx Psychiatric Problems: No Hx Miscellaneous Medical Probl: Yes (L leg cellulitis,aneurysm,thrombocytopenia) Hx Alcohol Use: Yes (daily, heavy use) Hx Substance Use: No Hx Tobacco Use: No Smoking Status: Unknown if ever smoked FmHx Family History: No diabetes Physical Exam Vitals Vital Signs Date Temp Pulse Resp B/P (MAP) Pulse Ox O2 O2 Flow FiO2 Time Delivery Rate 09/15/18 100.2 21:13 09/15/18 79 14 167/62 99 Room Air 21:00 (97) 09/15/18 100.2 85 20 134/65 96 Room Air 20:37 (88) 09/15/18 102.5 92 18 175/65 97 20:22 (101) Physical Exam Const: No acute distress Head: Atraumatic Eyes: Normal Conjunctiva ENT: Normal External Ears, Nose and Mouth. Neck: Full range of motion. No meningismus. Resp: Clear to auscultation bilaterally Cardio: Regular rate and rhythm, no murmurs Abd: Soft, non tender, non distended. Normal bowel sounds Skin: Cellulitis of the left lower extremity with skin breakdown and oozing with redness and erythema, no signs of necrotizing fasciitis Back: No midline or flank tenderness Ext: No cyanosis, or edema Neur: Awake and alert Psych: Normal Mood and Affect Result Diagram: 09/15/18203109/15/182031 Results 24 hrs Laboratory Tests Test 09/15/18 20:24 09/15/18 20:32 POC Venous Lactate 0.7 mmol/L White Blood Count 6.2 10^3/ul Red Blood Count 3.42 10^6/ul Hemoglobin 9.8 g/dl Hematocrit 30.2 % Mean Corpuscular Volume 88.3 fl Mean Corpuscular Hemoglobin 28.7 pg Mean Corpuscular Hemoglobin Concent 32.5 g/dl Red Cell Distribution Width 16.0 % Platelet Count 87 10^3/UL Mean Platelet Volume 9.2 fl Immature Granulocytes % 0.300 % Neutrophils % 75.2 % Lymphocytes % 9.6 % Monocytes % 12.5 % Eosinophils % 1.8 % Basophils % 0.6 % Nucleated Red Blood Cells % 0.0 /100WBC Immature Granulocytes # 0.020 10^3/ul Neutrophils # 4.6 10^3/ul Lymphocytes # 0.6 10^3/ul Monocytes # 0.8 10^3/ul Eosinophils # 0.1 10^3/ul Basophils # 0.0 10^3/ul Nucleated Red Blood Cells # 0.0 10^3/ul Prothrombin Time 14.0 Sec Prothrombin Time Ratio 1.1 INR International Normalized Ratio 1.07 Activated Partial Thromboplast Time 30.6 Sec Sodium Level 137 mmol/L Potassium Level 3.9 mmol/L Chloride Level 99 mmol/L Carbon Dioxide Level 29 mmol/L Anion Gap 9 Blood Urea Nitrogen 8 mg/dl Creatinine 0.77 mg/dl Est Glomerular Filtrat Rate mL/min mL/min Glucose Level 123 mg/dl Calcium Level 9.2 mg/dl Total Bilirubin 0.7 mg/dl Direct Bilirubin 0.00 mg/dl Indirect Bilirubin 0.7 mg/dl Aspartate Amino Transf (AST/SGOT) 100 IU/L Alanine Aminotransferase (ALT/SGPT) 58 IU/L Alkaline Phosphatase 211 IU/L Troponin I < 0.012 ng/ml Total Protein 7.4 g/dl Albumin 4.0 g/dl Globulin 3.40 g/dl Albumin/Globulin Ratio 1.17 Current Medications Medications Dose Sig/[place] Start Time Status Last (Trade) Ordered Route PRN Stop Time Admin Dose Reason Admin Vancomycin 250 ml @ ONCE STAT 09/15/18 HCl 125 mls/hr IVPB 20:23 09/15/18 22:22 Piperacillin 100 ml @ ONCE STAT 09/15/18 DC 09/15/18 Sod/ 200 mls/hr IVPB 20:23 20:54 Tazobactam 09/15/18 20:52 Sod Sodium 2,180 ml BOLUS OVER 2 09/15/18 DC 09/15/18 Chloride HOURS STAT 20:38 20:47 (NS) IV* 09/15/18 20:39 650 mg ONCE ONCE 09/15/18 DC Acetaminophen PO 21:00 (Tylenol 09/15/18 21:01 Tab) Ondansetron 4 mg BRIDGE ORDER 09/15/18 HCl (Zofran PRN IV 21:30 Inj) NAUSEA/VOMITI 09/16/18 21:29 NG 650 mg ER BRIDGE 09/15/18 Acetaminophen PRN PO 21:30 (Tylenol .MILD PAIN 09/16/18 21:29 Tab) 1-3 OR TEMP Procedures/MDM Chest x-ray read by radiology. EKG read by me: Rate/Rhythm: Regular rate and rhythm Intervals: Normal Impression: No evidence of ischemia or arrhythmia Patient is a 77-year-old male who presents with acute cellulitis. I doubt sepsis at this time. Initial lactic acid is normal. The patient was given vancomycin and Zosyn as well as a 30 mL/kg fluid bolus. The patient will be admitted to the care of Dr. Cotter to a medical surgical inpatient bed. Departure Diagnosis: Primary Impression: Cellulitis Site of cellulitis: extremity Site of cellulitis of extremity: lower extremity Laterality: left Qualified Codes: L03.116 - Cellulitis of left lower limb Additional Impression: Fever Fever type: unspecified Qualified Codes: R50.9 - Fever, unspecified Condition: SHELLI Saunders MD Sep 15, 2018 21:25
[2018-09-15] MEDS ORDERED: DOCUSATE SODIUM 100 MG CAP PO PRN (21:30)
[2018-09-15] MEDS ORDERED: ONDANSETRON 4 MG INJ IV PRN (21:30)
[2018-09-15] MEDS ORDERED: morphine 2 MG INJ IV PRN (21:30)
[2018-09-15] MEDS ORDERED: ACETAMINOPHEN 325 MG TAB PO PRN (21:30)
[2018-09-15] MEDS ORDERED: NACL 0.9% 3 ML SYG IV SCH (21:30)
[2018-09-15] MEDS ORDERED: BISACODYL (EC) 5 MG TAB PO PRN (21:30)
[2018-09-15] MEDS: HEPARIN 5,000 UNIT/1 ML VIAL SC SCH (21:47)
--- NOTE | 2018-09-15 22:13 | HP ---
Date/Time of Note Date/Time of Note DATE: 09/15/18 TIME: 22:13 Assessment/Plan VTE Prophylaxis SCD applied (from Nsg): Yes (right lower extremity) Pharmacological prophylaxis: NA/contraindicated Pharm contraindication: low risk/ambulating Lines/Catheters IV Catheter Type (from Nrsg): Saline Lock Assessment/Plan Hospital Course This is a 77-year-old male being admitted to the [facility] floor for: 1 left lower extremity cellulitis: There also appear to be chronic skin breakdown changes as well. Vancomycin IV for pharmacy. Will obtain bilateral lower extremity venous Dopplers to rule out DVT. Wound care consult. 2. Hypertension: We will continue on losartan by Dr. gabriela Gomez 3. Anxiety: We will continue Lorazepam, sertraline 4. Hyperlipidemia we will check lipid panel, continue atorvastatin 5. BPH: Continue Flomax, Avodart 6. Thrombocytopenia: Patient has a history of this, further work-up as outpatient. #7 history of DVT/PE: We will obtain bilateral lower extremity Dopplers prior to starting the patient on SCDs. #8 DVT GI prophylaxis: Bilateral lower extremity Dopplers to rule out for DVT and then can start on SCDs. Protonix Further treatment strategy will be implemented as per the clinical course Result Diagram: 09/15/18203109/15/182031 Results 24hrs Laboratory Tests Test 09/15/18 20:24 09/15/18 20:32 POC Venous Lactate 0.7 White Blood Count 6.2 Red Blood Count 3.42 L Hemoglobin 9.8 L Hematocrit 30.2 L Mean Corpuscular Volume 88.3 Mean Corpuscular Hemoglobin 28.7 L Mean Corpuscular Hemoglobin Concent 32.5 Red Cell Distribution Width 16.0 H Platelet Count 87 L Mean Platelet Volume 9.2 Immature Granulocytes % 0.300 Neutrophils % 75.2 Lymphocytes % 9.6 L Monocytes % 12.5 H Eosinophils % 1.8 Basophils % 0.6 Nucleated Red Blood Cells % 0.0 Immature Granulocytes # 0.020 Neutrophils # 4.6 Lymphocytes # 0.6 L Monocytes # 0.8 Eosinophils # 0.1 Basophils # 0.0 Nucleated Red Blood Cells # 0.0 Prothrombin Time 14.0 Prothrombin Time Ratio 1.1 INR International Normalized Ratio 1.07 Activated Partial Thromboplast Time 30.6 Sodium Level 137 Potassium Level 3.9 Chloride Level 99 Carbon Dioxide Level 29 Anion Gap 9 Blood Urea Nitrogen 8 Creatinine 0.77 Est Glomerular Filtrat Rate mL/min Glucose Level 123 Calcium Level 9.2 Total Bilirubin 0.7 Direct Bilirubin 0.00 Indirect Bilirubin 0.7 Aspartate Amino Transf (AST/SGOT) 100 H Alanine Aminotransferase (ALT/SGPT) 58 Alkaline Phosphatase 211 H Troponin I < 0.012 Total Protein 7.4 Albumin 4.0 Globulin 3.40 H Albumin/Globulin Ratio 1.17 HPI/ROS Admit Date/Time Admit Date/Time Hx of Present Illness Chief complaint: Left lower extremity redness swelling times fever This is a 37-year-old male with a history of Hypertension, BPH, anxiety, hyperlipidemia, DVT/PE/thrombocytopenia who presents to the emergency department with symptoms of 1 week of left lower extremity swelling and redness. Patient states that he has had 1 week of left lower extremity leg swelling redness and erythema. He has also had fevers at home. Reports mild pain. Denies any nausea vomiting or diarrhea. Denies any history of IV drug use. Allergies: NKDA Medications: See MARTÍNEZ DIETZ Const: As per HPI Eyes : No pain discharge or redness or change in visual acuity ENT: No pain, sore throat, congestion, congestion, dysphagia or discharge Respiratory: No shortness of breath, cough, sputum, wheezing, or pleuritic pain Cardiovascular: No chest pain, palpitation, PND, or edema GI : no change in appetite, abdominal pain, nausea, vomiting, diarrhea, constipation, or change in the color his stool Genitourinary: No dysuria, hematuria, flank pain , discharge or CVA tenderness Musculoskeletal: No joint pain, back pain, neck pain, restricted range of motion in neck or joints Skin: As per HPI Neuro: No headache, dizziness, syncope, seizure, focal weakness Endocrine: No polyuria, polydipsia, temperature intolerance Psych: No hallucination, depression, anxiety or suicidal ideation PMH/Family/Social Past Medical History Hypertension, BPH, anxiety, hyperlipidemia, DVT/PE/thrombocytopenia Medications Current Medications Vancomycin HCl 250 ml @ 125 mls/hr ONCE STAT IVPB Last administered on 09/15/18at 21:37; Admin Dose 125 MLS/HR; Start 09/15/18 at 20:23; Stop 09/15/18 at 22:22 Ondansetron HCl (Zofran Inj) 4 mg BRIDGE ORDER PRN IV NAUSEA/VOMITING; Start 09/15/18 at 21:30; Stop 09/16/18 at 21:29 Acetaminophen (Tylenol Tab) 650 mg ER BRIDGE PRN PO .MILD PAIN 1-3 OR TEMP; Start 09/15/18 at 21:30; Stop 09/16/18 at 21:29 IV Flush (NS 3 ml) 3 ml PER PROTOCOL IV ; Start 09/15/18 at 21:30 Ondansetron HCl (Zofran Inj) 4 mg Q6H PRN IV NAUSEA/VOMITING; Start 09/15/18 at 21:30 Acetaminophen (Tylenol Tab) 650 mg Q6H PRN PO .PAIN 1-3 OR TEMP; Start 09/15/18 at 21:30 Acetaminophen/ Hydrocodone Bitart ([place] (5/325)) 1 tab Q6H PRN PO .MOD PAIN 4- 6; Start 09/15/18 at 21:30 Morphine Sulfate (morphine) 2 mg Q4H PRN IV .SEVERE PAIN 7-10; Start 09/15/18 at 21:30 Docusate Sodium (Colace) 100 mg Q12H PRN PO .CONSTIPATION; Start 09/15/18 at 21:30 Bisacodyl (Dulcolax) 5 mg DAILY PRN PO .CONSTIPATION; Start 09/15/18 at 21:30 Heparin Sodium (Porcine) (Heparin (5000 Units/1ml)) 5,000 unit Q8 SC ; Start 09/15/18 at 22:00 Coded Allergies: No Known Drug Allergy (Verified Allergy, Unknown, 09/12/18) Past Surgical History Hernia repair, history of brain clot removal, bunion surgery Family History Significant Family History: no pertinent family hx Social History Alcohol Use: sober (Former heavy drinker) Smoking Status: Unknown if ever smoked Drug Use: none Exam/Review of Systems Vital Signs Vitals Vital Signs Date Temp Pulse Resp B/P (MAP) Pulse Ox O2 O2 Flow FiO2 Time Delivery Rate 09/15/18 100.2 21:13 09/15/18 79 14 167/62 99 Room Air 21:00 (97) Exam Exam General: Patient is a pleasant male currently lying in bed in no acute distress HEENT: Atraumatic, normocephalic. The pupils are equal, round and reactive. Extraocular motor are intact Neck: Supple with full range of motion. No rigidity or meningismus Chest: Nontender Lungs: Clear to auscultation bilaterally no crackles rales or wheezing Heart: Normal S1-S2, Regular rhythm and rate. No murmur, S3, or S4 Abdomen: Soft , nontender, nondistended , bowel sounds are present. No guarding no rebound tenderness , No masses or organomegaly. No costovertebral temporal angle mass Extremities: Left lower extremity chronic skin breakdown changes, weeping, erythema and redness Skin: Left lower extremity erythema redness and warmth, weeping, chronic skin breakdown changes Neurologic: Normal mental status, speech normal, cranial nerves II through XII are intact, motor and sensory are intact, Additional Comments PROCEDURE: XR Chest, 1 View CLINICAL INDICATION: Sepsis. TECHNIQUE: Frontal view of the chest. COMPARISON: 09/12/2018 (09/12/2018) FINDINGS: LUNGS: Mild atelectasis at the right lung base. No consolidative infiltrates. PLEURAL SPACE: Unremarkable. No pneumothorax. HEART: Mild cardiomegaly is noted. MEDIASTINUM: Unremarkable. BONES/JOINTS: Unremarkable. VASCULATURE: The abdominal aorta is atherosclerotic. No aneurysm. IMPRESSION: 1. Mild cardiomegaly is noted. 2. Mild atelectasis at the right lung base. No consolidative infiltrates. RPTAT: [facility] Bandar Minor Physician Mental Health Worker Date Time Electronically viewed and signed by Bandar Minor Physician Mental Health Worker on 09/15/2018 21:25 C/ CC: SHELLI MCKEON MD [id number] OSVALDO AJ Sep 15, 2018 22:13
[2018-09-15] MEDS ORDERED: VANCOMYCIN IV PER PHARMACY XX SCH (22:30)
[2018-09-15 23:10] VITALS: BP 187/76; PULSE 101; RESP 20
[2018-09-15 23:30] VITALS: BP 182/77; PULSE 101; RESP 17; Ht 167.6 cm; Wt 75.7 kg
[2018-09-16] VITALS (7 sets, daily range): BP systolic 163–198; BP diastolic 72–79; PULSE 65–98; RESP 17–20
[2018-09-16] MEDS ORDERED: METOPROLOL 25 MG TAB PO ONE
[2018-09-16] MEDS: HEPARIN 5,000 UNIT/1 ML VIAL SC SCH ×3 (06:09→21:56)
[2018-09-16] MEDS: [UNRECOGNIZED DRUG - REMARK] XX SCH ×3 (07:30→23:30)
[2018-09-16] MEDS ORDERED: NON-FORMULARY/PATIENT OWN MED (Azelastine/Fluticasone (Dymista Nasal Spray) 1 SPRAY) NASAL SCH (09:00)
[2018-09-16] MEDS ORDERED: LOSARTAN 50 MG TAB PO SCH (09:00)
[2018-09-16] MEDS: FISH OIL 1,000 MG CAP PO SCH ×2 (09:05→20:22)
[2018-09-16] MEDS: FOLIC ACID 1 MG TAB PO SCH (09:06)
[2018-09-16] MEDS: DUTASTERIDE 0.5 MG CAP PO SCH (09:06)
[2018-09-16] MEDS: SERTRALINE 100 MG TAB PO SCH (09:06)
[2018-09-16] MEDS: PANTOPRAZOLE (EC) 40 MG TAB PO SCH ×2 (09:07→17:30)
[2018-09-16] MEDS ORDERED: MAGNESIUM SULFATE 2 GM/50 ML 50 ML IVPB ONE (10:00)
[2018-09-16] MEDS: ENALAPRILAT 1.25 MG INJ IV PRN ×3 (11:05→20:22)
--- NOTE | 2018-09-16 12:51 | PN ---
Date/Time of Note Date/Time of Note DATE: 09/16/18 TIME: 12:36 Assessment/Plan VTE Prophylaxis Risk score (from Ns)>0 risk: 5 SCD applied (from Ns): Yes Pharmacological prophylaxis: heparin Lines/Catheters IV Catheter Type (from Nrs): Saline Lock Urinary Cath still in place: No Assessment/Plan Assessment/Plan 1. Left lower extremity cellulitis, zosyn/vancomycin, keep left leg elevated 2. Venous stasis dermatitis, US negative for DVT. 3. HTN, increase losartan 4. Anxiety: We will continue Lorazepam, sertraline 5. Hyperlipidemia we will check lipid panel, continue atorvastatin 6. BPH: Continue Flomax, Avodart 7. Thrombocytopenia: Patient has a history of this, further work-up as outpatient. 8. History of DVT/PE 9. Hypomagnesemia, Mg 10. DVT GI prophylaxis:heparin Result Diagram: 09/16/18 0541 09/16/18 0541 Results 24hrs Laboratory Tests Test 09/15/18 20:24 09/15/18 20:32 09/15/18 22:20 09/16/18 00:54 POC Venous Lactate 0.7 White Blood Count 6.2 Red Blood Count 3.42 L Hemoglobin 9.8 L Hematocrit 30.2 L Mean Corpuscular 88.3 Volume Mean Corpuscular 28.7 L Hemoglobin Mean Corpuscular 32.5 Hemoglobin Concent Red Cell 16.0 H Distribution Width Platelet Count 87 L Mean Platelet Volume 9.2 Immature 0.300 Granulocytes % Neutrophils % 75.2 Lymphocytes % 9.6 L Monocytes % 12.5 H Eosinophils % 1.8 Basophils % 0.6 Nucleated Red Blood 0.0 Cells % Immature 0.020 Granulocytes # Neutrophils # 4.6 Lymphocytes # 0.6 L Monocytes # 0.8 Eosinophils # 0.1 Basophils # 0.0 Nucleated Red Blood 0.0 Cells # Prothrombin Time 14.0 Prothrombin Time 1.1 Ratio INR International 1.07 Normalized Ratio Activated 30.6 Partial Thromboplast Time Sodium Level 137 Potassium Level 3.9 Chloride Level 99 Carbon Dioxide Level 29 Anion Gap 9 Blood Urea Nitrogen 8 Creatinine 0.77 Est Glomerular Filtrat Rate mL/min Glucose Level 123 Calcium Level 9.2 Total Bilirubin 0.7 Direct Bilirubin 0.00 Indirect Bilirubin 0.7 Aspartate Amino 100 H Transf (AST/SGOT) Alanine 58 Aminotransferase (AL T/SGPT) Alkaline Phosphatase 211 H Troponin I < 0.012 Total Protein 7.4 Albumin 4.0 Globulin 3.40 H Albumin/Globulin 1.17 Ratio Urine Color STRAW Urine Clarity CLEAR Urine pH 7.0 Urine Specific 1.005 Duarte Urine Ketones NEGATIVE Urine Nitrite NEGATIVE Urine Bilirubin NEGATIVE Urine Urobilinogen NEGATIVE Urine Leukocyte NEGATIVE Esterase Urine Hemoglobin NEGATIVE Urine Glucose NEGATIVE Urine Total Protein NEGATIVE Lactic Acid Level 1.0 1.0 Test 09/16/18 05:41 White Blood Count 5.4 Red Blood Count 3.51 L Hemoglobin 10.1 L Hematocrit 31.4 L Mean Corpuscular 89.5 Volume Mean Corpuscular 28.8 L Hemoglobin Mean Corpuscular 32.2 Hemoglobin Concent Red Cell 16.2 H Distribution Width Platelet Count 86 L Mean Platelet Volume 9.5 Immature 0.400 Granulocytes % Neutrophils % 76.3 Lymphocytes % 9.1 L Monocytes % 12.5 H Eosinophils % 1.1 Basophils % 0.6 Nucleated Red Blood 0.0 Cells % Immature 0.020 Granulocytes # Neutrophils # 4.1 Lymphocytes # 0.5 L Monocytes # 0.7 Eosinophils # 0.1 Basophils # 0.0 Nucleated Red Blood 0.0 Cells # Sodium Level 138 Potassium Level 3.8 Chloride Level 103 Carbon Dioxide Level 29 Anion Gap 6 Blood Urea Nitrogen 7 Creatinine 0.73 Est Glomerular Filtrat Rate mL/min Glucose Level 109 Hemoglobin A1c 5.0 Calcium Level 8.9 Magnesium Level 1.6 L Iron Level 40 Total Iron Binding 420 Capacity Percent Iron 10 L Saturation Ferritin 39.1 Total Bilirubin 0.9 Direct Bilirubin 0.00 Indirect Bilirubin 0.9 Aspartate Amino 155 #H Transf (AST/SGOT) Alanine 87 H Aminotransferase (AL T/SGPT) Alkaline Phosphatase 202 H Total Protein 7.1 Albumin 3.9 Globulin 3.20 Albumin/Globulin 1.21 Ratio Triglycerides Level 69 Cholesterol Level 119 LDL Cholesterol, 51 Calculated HDL Cholesterol 54 Cholesterol/HDL 2.2 Ratio Thyroid Stimulating 0.975 Hormone (TSH) Hepatitis B Surface NEGATIVE Antigen Hepatitis B Surface NEGATIVE Antibody Hepatitis C Antibody NEGATIVE Subjective 24 Hr Interval Summary Free Text/Dictation afebrile Exam/Review of Systems Exam Vitals Vital Signs Date Temp Pulse Resp B/P (MAP) Pulse Ox O2 O2 Flow FiO2 Time Delivery Rate 09/16/18 69 18 185/79 11:04 (114) 09/16/18 98.0 96 Room Air 08:00 Intake and Output 09/15/18 09/15/18 09/16/18 1515:00 23:00 07:00 IntakeIntake Total 2280 ml 450 ml OutputOutput Total 950 ml BalanceBalance 2280 ml -500 ml Constitutional: alert, oriented, well developed Head: normocephalic, atraumatic Eyes: nl conjunctiva, EOMI, nl lids ENMT: nl external ears & nose, nl lips & teeth, nl nasal mucosa & septum Neck: supple, non-tender Respiratory: clear to auscultation, normal air movement; No congested cough, No crackles/rales, No diminished breath sounds, No intercostal retraction, No labored breathing, No respirations, No tactile fremitus, No wheezing, No other Cardiovascular: regular rate and rhythm, nl pulses; No bruits, No diastolic murmur, No edema, No gallop, No irregular rhythm, No jugular venous distention (JVD), No murmurs/extra sounds, No rub, No systolic murmur, No S3, No S4, No other Gastrointestinal: soft, nl liver, spleen, non-tender Musculoskeletal: nl extremities to inspection Extremities: normal pulses, other (hyperpigmentation on both lower extremitites below the knees. There are open scatches on left lower extremity with swelling and redness) Neurological: [employer] II-XII intact, nl mental status, nl speech, nl strength Results Results 24hrs Laboratory Tests Test 09/15/18 20:24 09/15/18 20:32 09/15/18 22:20 09/16/18 00:54 POC Venous Lactate 0.7 White Blood Count 6.2 Red Blood Count 3.42 L Hemoglobin 9.8 L Hematocrit 30.2 L Mean Corpuscular 88.3 Volume Mean Corpuscular 28.7 L Hemoglobin Mean Corpuscular 32.5 Hemoglobin Concent Red Cell 16.0 H Distribution Width Platelet Count 87 L Mean Platelet Volume 9.2 Immature 0.300 Granulocytes % Neutrophils % 75.2 Lymphocytes % 9.6 L Monocytes % 12.5 H Eosinophils % 1.8 Basophils % 0.6 Nucleated Red Blood 0.0 Cells % Immature 0.020 Granulocytes # Neutrophils # 4.6 Lymphocytes # 0.6 L Monocytes # 0.8 Eosinophils # 0.1 Basophils # 0.0 Nucleated Red Blood 0.0 Cells # Prothrombin Time 14.0 Prothrombin Time 1.1 Ratio INR International 1.07 Normalized Ratio Activated 30.6 Partial Thromboplast Time Sodium Level 137 Potassium Level 3.9 Chloride Level 99 Carbon Dioxide Level 29 Anion Gap 9 Blood Urea Nitrogen 8 Creatinine 0.77 Est Glomerular Filtrat Rate mL/min Glucose Level 123 Calcium Level 9.2 Total Bilirubin 0.7 Direct Bilirubin 0.00 Indirect Bilirubin 0.7 Aspartate Amino 100 H Transf (AST/SGOT) Alanine 58 Aminotransferase (AL T/SGPT) Alkaline Phosphatase 211 H Troponin I < 0.012 Total Protein 7.4 Albumin 4.0 Globulin 3.40 H Albumin/Globulin 1.17 Ratio Urine Color STRAW Urine Clarity CLEAR Urine pH 7.0 Urine Specific 1.005 [place]arte Urine Ketones NEGATIVE Urine Nitrite NEGATIVE Urine Bilirubin NEGATIVE Urine Urobilinogen NEGATIVE Urine Leukocyte NEGATIVE Esterase Urine Hemoglobin NEGATIVE Urine Glucose NEGATIVE Urine Total Protein NEGATIVE Lactic Acid Level 1.0 1.0 Test 09/16/18 05:41 White Blood Count 5.4 Red Blood Count 3.51 L Hemoglobin 10.1 L Hematocrit 31.4 L Mean Corpuscular 89.5 Volume Mean Corpuscular 28.8 L Hemoglobin Mean Corpuscular 32.2 Hemoglobin Concent Red Cell 16.2 H Distribution Width Platelet Count 86 L Mean Platelet Volume 9.5 Immature 0.400 Granulocytes % Neutrophils % 76.3 Lymphocytes % 9.1 L Monocytes % 12.5 H Eosinophils % 1.1 Basophils % 0.6 Nucleated Red Blood 0.0 Cells % Immature 0.020 Granulocytes # Neutrophils # 4.1 Lymphocytes # 0.5 L Monocytes # 0.7 Eosinophils # 0.1 Basophils # 0.0 Nucleated Red Blood 0.0 Cells # Sodium Level 138 Potassium Level 3.8 Chloride Level 103 Carbon Dioxide Level 29 Anion Gap 6 Blood Urea Nitrogen 7 Creatinine 0.73 Est Glomerular Filtrat Rate mL/min Glucose Level 109 Hemoglobin A1c 5.0 Calcium Level 8.9 Magnesium Level 1.6 L Iron Level 40 Total Iron Binding 420 Capacity Percent Iron 10 L Saturation Ferritin 39.1 Total Bilirubin 0.9 Direct Bilirubin 0.00 Indirect Bilirubin 0.9 Aspartate Amino 155 #H Transf (AST/SGOT) Alanine 87 H Aminotransferase (AL T/SGPT) Alkaline Phosphatase 202 H Total Protein 7.1 Albumin 3.9 Globulin 3.20 Albumin/Globulin 1.21 Ratio Triglycerides Level 69 Cholesterol Level 119 LDL Cholesterol, 51 Calculated HDL Cholesterol 54 Cholesterol/HDL 2.2 Ratio Thyroid Stimulating 0.975 Hormone (TSH) Hepatitis B Surface NEGATIVE Antigen Hepatitis B Surface NEGATIVE Antibody Hepatitis C Antibody NEGATIVE Medications Medication Current Medications IV Flush (NS 3 ml) 3 ml PER PROTOCOL IV ; Start 09/15/18 at 21:30 Ondansetron HCl (Zofran Inj) 4 mg Q6H PRN IV NAUSEA/VOMITING; Start 09/15/18 at 21:30 Acetaminophen (Tylenol Tab) 650 mg Q6H PRN PO .PAIN 1-3 OR TEMP; Start 09/15/18 at 21:30 Acetaminophen/ Hydrocodone Bitart ([place] (5/325)) 1 tab Q6H PRN PO .MOD PAIN 4- 6; Start 09/15/18 at 21:30 Morphine Sulfate (morphine) 2 mg Q4H PRN IV .SEVERE PAIN 7-10; Start 09/15/18 at 21:30 Docusate Sodium (Colace) 100 mg Q12H PRN PO .CONSTIPATION; Start 09/15/18 at 21:30 Bisacodyl (Dulcolax) 5 mg DAILY PRN PO .CONSTIPATION; Start 09/15/18 at 21:30 Heparin Sodium (Porcine) (Heparin (5000 Units/1ml)) 5,000 unit Q8 SC Last administered on 09/16/18at 06:09; Admin Dose 5,000 UNIT; Start 09/15/18 at 22:00 Vancomycin HCl (Vanco Iv Per Pharmacy) VANCOMYCIN PER PHARMACY PER PROTOCOL XX ; Start 09/15/18 at 22:30 Vancomycin HCl 250 ml @ 125 mls/hr Q24H IVPB ; Start 09/16/18 at 18:00 Enalaprilat (Vasotec Iv) 1.25 mg Q4H PRN IV ELEVATED BLOOD PRESSURE Last administered on 09/16/18at 11:05; Admin Dose 1.25 MG; Start 09/16/18 at 00:00 Atorvastatin Calcium (Lipitor) 20 mg QHS PO ; Start 09/16/18 at 21:00 Dutasteride (Avodart) 0.5 mg DAILY PO Last administered on 09/16/18at 09:06; Admin Dose 0.5 MG; Start 09/16/18 at 09:00 Folic Acid (Folic Acid) 1 mg DAILY PO Last administered on 7/15/19at 09:06; Admin Dose 1 MG; Start 09/16/18 at 09:00 Lorazepam (Ativan) 0.5 mg Q8H PRN PO CONTROL WITHDRAWAL SYMPTOMS; Start 9 at 07:30 Sertraline HCl (Zoloft) 100 mg DAILY PO Last administered on 09/16/18 09:06; Admin Dose 100 MG; Start 09/16/18 at 09:00 Tamsulosin HCl (Flomax) 0.4 mg HS PO ; Start 09/16/18 at 21:00 Miscellaneous Information 1 spray BID NASAL ; Start 09/16/18 at 09:00; Status UNV Fish Oil (Fish Oil) 2,000 mg BID PO Last administered on 09/16/18 09:05; Admin Dose 2,000 MG; Start 09/16/18 at 09:00 Losartan Potassium (Cozaar) 50 mg DAILY PO Last administered on 09/16/18 09:06; Admin Dose 50 MG; Start 09/16/18 at 09:00 Pantoprazole (Protonix Tab) 40 mg BID@0600,1800 PO Last administered on 09/16 09:07; Admin Dose 40 MG; Start 09/16/18 at 07:30 Miscellaneous Information (*Order Clarification Bulletin) DYMISTA NASAL INHALER...IS NON-FORMUL... Q8H XX ; Start 09/16/18 at 07:30 TAMMY ISRAEL MD Sep 16, 2018 12:46
[2018-09-16] MEDS: PIPER-TAZO 3.375 GM IV (PMX) 100 ML IVPB SCH ×2 (13:17→21:49)
[2018-09-16] MEDS: VANCOMYCIN 500 MG (PMX) 100 ML IVPB SCH (14:33)
[2018-09-16] MEDS ORDERED: VANCOMYCIN 1 GM 250 ML IVPB SCH (18:00)
[2018-09-16] MEDS: LORAZEPAM 0.5 MG TAB PO PRN (20:22)
[2018-09-16] MEDS: TAMSULOSIN (SR) 0.4 MG CAP PO SCH (20:22)
[2018-09-16] MEDS ORDERED: ATORVASTATIN 20 MG TAB PO SCH (21:00)
--- NOTE | 2018-09-16 23:14 | QN ---
Documentation Comment transaminitis, US showing cbd dilation. hold statin, mrcp ordered. OSVALDO AJ Sep 16, 2018 23:14
[2018-09-17] VITALS (9 sets, daily range): BP systolic 178–214; BP diastolic 74–88; PULSE 65–95; RESP 16–22
[2018-09-17] MEDS: VANCOMYCIN 500 MG (PMX) 100 ML IVPB SCH ×2 (00:33→13:37)
--- NOTE | 2018-09-17 01:44 | CONS ---
DATE OF ADMISSION: 09/15/2018 DATE OF CONSULTATION: REASON FOR CONSULTATION: Evaluation for lower extremity cellulitis. HISTORY OF PRESENT ILLNESS: This is a 73-year-old male with history of peripheral vascular disease, DVT and a pulmonary embolism, who was admitted because of lower extremity cellulitis. He has been st arted on antibiotics. Part of his workup has included a lower extremity venous duplex which has show ed no evidence of any DVT in bilateral lower extremities. The patient is currently being treated wit h heparin and vancomycin. PAST MEDICAL HISTORY: Hypertension, hyperlipidemia. PAST SURGICAL HISTORY: None. ALLERGIES: NONE. SOCIAL HISTORY: Positive for alcohol use. Negative for tobacco or substance abuse. FAMILY HISTORY: Positive for diabetes. REVIEW OF SYSTEMS: As per HPI. MEDICATIONS: List reviewed. PHYSICAL EXAMINATION: VITAL SIGNS: T-max is 102, pulse is 97, respirations 18, and blood pressure is 134/65. HEENT: Normocephalic, atraumatic. EOMI. CARDIOVASCULAR: Normal S1, S2. No murmurs, gallops or rubs. LUNGS: Clear to auscultation and palpation. ABDOMEN: Soft. EXTREMITIES: Warm. There are palpable femoral pulses, popliteal and pedal pulses are diminished. T here is evidence of left lower extremity skin breakdown and oozing, redness and erythema. LABORATORY VALUES: White count 6.2, hemoglobin 9.8, creatinine 0.77. IMPRESSION: Breakdown of left lower extremity with cellulitis. No evidence of any DVT. The patient does have a history of PE. RECOMMENDATIONS: We will continue anticoagulation, antibiotics, elevation of the leg. Optimize vasc ular status with hydration, avoid vasopressors. Will discuss with the referring physician. Dictated By: MAXIME BOATENG MD FM/HERMELINDO Conf#: [id number] DID#: [id number] CC: OSVALDO AJ MD;*EndCC*
[2018-09-17] MEDS: ENALAPRILAT 1.25 MG INJ IV PRN ×3 (03:30→21:32)
[2018-09-17] MEDS: PANTOPRAZOLE (EC) 40 MG TAB PO SCH ×2 (06:17→17:09)
[2018-09-17] MEDS: PIPER-TAZO 3.375 GM IV (PMX) 100 ML IVPB SCH ×3 (06:18→21:14)
[2018-09-17] MEDS: HEPARIN 5,000 UNIT/1 ML VIAL SC SCH ×3 (06:31→21:28)
[2018-09-17] MEDS: [UNRECOGNIZED DRUG - REMARK] XX SCH ×3 (07:30→23:30)
[2018-09-17] MEDS: LOSARTAN 50 MG TAB PO SCH (08:43)
[2018-09-17] MEDS: FOLIC ACID 1 MG TAB PO SCH (12:04)
[2018-09-17] MEDS: SERTRALINE 100 MG TAB PO SCH (12:04)
[2018-09-17] MEDS: FISH OIL 1,000 MG CAP PO SCH ×2 (12:04→21:14)
[2018-09-17] MEDS: DUTASTERIDE 0.5 MG CAP PO SCH (12:05)
--- NOTE | 2018-09-17 12:40 | PN ---
Date/Time of Note Date/Time of Note DATE: 09/17/18 TIME: 12:38 Assessment/Plan Lines/Catheters IV Catheter Type (from Nrsg): Saline Lock Brown in Place (from Nrsg): No Assessment/Plan Assessment/Plan IMPRESSION: Breakdown of left lower extremity with cellulitis. No evidence of any DVT. The patient does have a history of PE. RECOMMENDATIONS: We will continue anticoagulation, antibiotics, elevation of the leg. Optimize vascular status with hydration, avoid vasopressors. Will discuss with the referring physician. Will check arterial duplex Subjective 24 Hr Interval Summary Constitutional: improved Pain Control: mild Exam/Review of Systems Vital Signs Vitals Vital Signs Date Temp Pulse Resp B/P (MAP) Pulse Ox O2 O2 Flow FiO2 Time Delivery Rate 09/17/18 98.7 78 16 178/74 96 07:42 (108) 09/16/18 Room Air 19:59 Intake and Output 09/16/18 09/16/18 09/17/18 1515:00 23:00 07:00 IntakeIntake Total 150 ml 800 ml 440 ml BalanceBalance 150 ml 800 ml 440 ml Exam Eyes: nl conjunctiva, EOMI, nl lids, nl sclera ENMT: nl external ears & nose, nl lips & teeth, nl nasal mucosa & septum, mucosa pink and moist Neck: supple, non-tender Respiratory: clear to auscultation, normal air movement Cardiovascular: regular rate and rhythm, nl pulses Gastrointestinal: soft, nl liver, spleen, non-tender Musculoskeletal: nl extremities to inspection, nl gait and stance Results Result Diagram: 09/17/18 0652 09/17/18 0652 MAXIME BOATENG MD Sep 17, 2018 12:40
[2018-09-17] MEDS ORDERED: hydrALAzine 20 MG INJ IV ONE (15:15)
--- NOTE | 2018-09-17 16:07 | PN ---
Date/Time of Note Date/Time of Note DATE: 09/17/18 TIME: 16:03 Assessment/Plan VTE Prophylaxis Risk score (from Ns)>0 risk: 4 SCD applied (from Ns): Yes (right lower extremity) Pharmacological prophylaxis: heparin Lines/Catheters IV [facility] Type [facility] Saline Lock Urinary Cath still in place: No Assessment/Plan Hospital Course 1. Left lower extremity cellulitis secondary to venous insufficiency and stasis Continue vancomycin and Zosyn Vascular surgery consultation appreciated, follow-up on arterial ultrasound Continue elevation of leg US negative for DVT 2. Severe hypertension Cozaar at maximum dose, have started Norvasc Hydralazine PRN 3. History of DVT/PE Patient no longer on blood thinners 4. Anxiety Continue Lorazepam, sertraline 5. Hyperlipidemia Continue atorvastatin 6. BPH Continue Flomax, Avodart 7. Thrombocytopenia Patient has a history of this, further work-up as outpatient. Prophylaxis: Heparin Result Diagram: 09/17/18 0652 09/17/18 0652 Results 24hrs Laboratory Tests Test 09/17/18 06:52 White Blood Count 3.5 #L Red Blood Count 3.67 L Hemoglobin 10.4 L Hematocrit 33.7 L Mean Corpuscular Volume 91.8 Mean Corpuscular Hemoglobin 28.3 L Mean Corpuscular Hemoglobin Concent 30.9 L Red Cell Distribution Width 16.1 H Platelet Count 92 L Mean Platelet Volume 11.0 H Immature Granulocytes % 0.600 H Neutrophils % 51.6 Lymphocytes % 29.4 Monocytes % 13.8 H Eosinophils % 4.0 Basophils % 0.6 Nucleated Red Blood Cells % 0.0 Immature Granulocytes # 0.020 Neutrophils # 1.8 Lymphocytes # 1.0 Monocytes # 0.5 Eosinophils # 0.1 Basophils # 0.0 Nucleated Red Blood Cells # 0.0 Sodium Level 139 Potassium Level 3.5 Chloride Level 103 Carbon Dioxide Level 28 Anion Gap 8 Blood Urea Nitrogen 7 Creatinine 0.82 Est Glomerular Filtrat Rate mL/min Glucose Level 110 Calcium Level 9.0 Total Bilirubin 0.6 Direct Bilirubin 0.00 Indirect Bilirubin 0.6 Aspartate Amino Transf (AST/SGOT) 173 H Alanine Aminotransferase (ALT/SGPT) 136 H Alkaline Phosphatase 244 H Total Protein 7.0 Albumin 3.6 Globulin 3.40 H Albumin/Globulin Ratio 1.05 Subjective 24 Hr Interval Summary Constitutional: no complaints Exam/Review of Systems Exam Vitals Vital Signs Date Temp Pulse Resp B/P (MAP) Pulse Ox O2 O2 Flow FiO2 Time Delivery Rate 09/17/18 81 180/74 14:24 (109) 09/17/18 98.7 16 96 07:42 09/16/18 Room Air 19:59 Intake and Output 09/16/18 09/16/18 09/17/18 1515:00 23:00 07:00 IntakeIntake Total 150 ml 800 ml 440 ml BalanceBalance 150 ml 800 ml 440 ml Constitutional: alert, oriented Respiratory: clear to auscultation Cardiovascular: regular rate and rhythm Gastrointestinal: soft; No distended Musculoskeletal: No nl extremities to inspection Results Results 24hrs Laboratory Tests Test 09/17/18 06:52 White Blood Count 3.5 #L Red Blood Count 3.67 L Hemoglobin 10.4 L Hematocrit 33.7 L Mean Corpuscular Volume 91.8 Mean Corpuscular Hemoglobin 28.3 L Mean Corpuscular Hemoglobin Concent 30.9 L Red Cell Distribution Width 16.1 H Platelet Count 92 L Mean Platelet Volume 11.0 H Immature Granulocytes % 0.600 H Neutrophils % 51.6 Lymphocytes % 29.4 Monocytes % 13.8 H Eosinophils % 4.0 Basophils % 0.6 Nucleated Red Blood Cells % 0.0 Immature Granulocytes # 0.020 Neutrophils # 1.8 Lymphocytes # 1.0 Monocytes # 0.5 Eosinophils # 0.1 Basophils # 0.0 Nucleated Red Blood Cells # 0.0 Sodium Level 139 Potassium Level 3.5 Chloride Level 103 Carbon Dioxide Level 28 Anion Gap 8 Blood Urea Nitrogen 7 Creatinine 0.82 Est Glomerular Filtrat Rate mL/min Glucose Level 110 Calcium Level 9.0 Total Bilirubin 0.6 Direct Bilirubin 0.00 Indirect Bilirubin 0.6 Aspartate Amino Transf (AST/SGOT) 173 H Alanine Aminotransferase (ALT/SGPT) 136 H Alkaline Phosphatase 244 H Total Protein 7.0 Albumin 3.6 Globulin 3.40 H Albumin/Globulin Ratio 1.05 Medications Medication Current Medications IV Flush (NS 3 ml) 3 ml PER PROTOCOL IV ; Start 09/15/18 at 21:30 Ondansetron HCl (Zofran Inj) 4 mg Q6H PRN IV NAUSEA/VOMITING; Start 09/15/18 at 21:30 Acetaminophen (Tylenol Tab) 650 mg Q6H PRN PO .PAIN 1-3 OR TEMP; Start 09/15/18 at 21:30 Acetaminophen/ Hydrocodone Bitart ([place] (5/325)) 1 tab Q6H PRN PO .MOD PAIN 4- 6; Start 09/15/18 at 21:30 Morphine Sulfate (morphine) 2 mg Q4H PRN IV .SEVERE PAIN 7-10; Start 09/15/18 at 21:30 Docusate Sodium (Colace) 100 mg Q12H PRN PO .CONSTIPATION; Start 09/15/18 at 21:30 Bisacodyl (Dulcolax) 5 mg DAILY PRN PO .CONSTIPATION; Start 09/15/18 at 21:30 Heparin Sodium (Porcine) (Heparin (5000 Units/1ml)) 5,000 unit Q8 SC Last administered on 09/17/18at 06:31; Admin Dose 5,000 UNIT; Start 09/15/18 at 22:00 Vancomycin HCl (Vanco Iv Per Pharmacy) VANCOMYCIN PER PHARMACY PER PROTOCOL XX ; Start 09/15/18 at 22:30 Enalaprilat (Vasotec Iv) 1.25 mg Q4H PRN IV ELEVATED BLOOD PRESSURE Last administered on 09/17/18 12:04; Admin Dose 1.25 MG; Start 09/16/18 at 00:00 Atorvastatin Calcium (Lipitor) 20 mg QHS PO Last administered on 09/16/18 20:22; Admin Dose 20 MG; Start 09/16/18 at 21:00; Status Hold Dutasteride (Avodart) 0.5 mg DAILY PO Last administered on 09/17/18 12:05; Admin Dose 0.5 MG; Start 09/16/18 at 09:00 Folic Acid (Folic Acid) 1 mg DAILY PO Last administered on 09/17/18 12:04; Admin Dose 1 MG; Start 09/16/18 at 09:00 Lorazepam (Ativan) 0.5 mg Q8H PRN PO CONTROL WITHDRAWAL SYMPTOMS Last administered on 09/16/18 20:22; Admin Dose 0.5 MG; Start 09/16/18 at 07:30 Sertraline HCl (Zoloft) 100 mg DAILY PO Last administered on 09/17/18 12:04; Admin Dose 100 MG; Start 09/16/18 at 09:00 Tamsulosin HCl (Flomax) 0.4 mg HS PO Last administered on 09/16/18at 20:22; Admin Dose 0.4 MG; Start 09/16/18 at 21:00 Miscellaneous Information 1 spray BID NASAL ; Start 09/16/18 at 09:00; Status UNV Fish Oil (Fish Oil) 2,000 mg BID PO Last administered on 09/17/18at 12:04; Admin Dose 2,000 MG; Start 09/16/18 at 09:00 Pantoprazole (Protonix Tab) 40 mg BID@0600,1800 PO Last administered on 09/17/18at 06:17; Admin Dose 40 MG; Start 09/16/18 at 07:30 Miscellaneous Information (*Order Clarification Bulletin) DYMISTA NASAL INHALER...IS NON-FORMUL... Q8H XX ; Start 09/16/18 at 07:30 Vancomycin HCl 100 ml @ 100 mls/hr Q12H IVPB Last administered on 09/17/18at 13:37; Admin Dose 100 MLS/HR; Start 09/16/18 at 13:30 Losartan Potassium (Cozaar) 100 mg DAILY PO Last administered on 09/17/18at 08:43; Admin Dose 100 MG; Start 09/17/18 at 09:00 Piperacillin Sod/ Tazobactam Sod 100 ml @ 100 mls/hr Q8 IVPB Last administered on 09/17/18at 15:22; Admin Dose 100 MLS/HR; Start 09/16/18 at 14:00 Miscellaneous Information (*Rx Drug Level Order Reminder*) VANCOMYCIN TROUGH AT 0030 0030 ONCE XX ; Start 09/18/18 at 00:30; Stop 09/18/18 at 00:31 STUART MATAMOROS Sep 17, 2018 16:07
[2018-09-17] MEDS: LORAZEPAM 0.5 MG TAB PO PRN ×2 (17:09→21:32)
[2018-09-17] MEDS: AMLODIPINE 5 MG TAB PO SCH (17:09)
[2018-09-17] MEDS: hydrALAzine 20 MG INJ IV PRN (18:59)
[2018-09-17] MEDS: TAMSULOSIN (SR) 0.4 MG CAP PO SCH (21:15)
[2018-09-18] MEDS: VANCOMYCIN 750 MG (PMX) 250 ML IVPB SCH ×2 (02:53→14:59)
[2018-09-18 03:52] VITALS: BP 166/76; PULSE 89; RESP 22
[2018-09-18] MEDS ORDERED: LORAZEPAM 2 MG INJ IV ONE (04:30)
[2018-09-18] MEDS ORDERED: HALOPERIDOL 5 MG INJ IM ONE (04:30)
[2018-09-18] MEDS: PANTOPRAZOLE (EC) 40 MG TAB PO SCH ×2 (05:50→17:46)
[2018-09-18] MEDS: PIPER-TAZO 3.375 GM IV (PMX) 100 ML IVPB SCH ×2 (05:51→14:59)
[2018-09-18] MEDS: HEPARIN 5,000 UNIT/1 ML VIAL SC SCH ×3 (06:01→22:07)
[2018-09-18 07:23] VITALS: BP 174/63; PULSE 88; RESP 19
[2018-09-18] MEDS: LORAZEPAM 0.5 MG TAB PO PRN (09:06)
[2018-09-18] MEDS: HYDROCODONE/APAP (5/325) TAB PO PRN ×2 (09:06→20:29)
[2018-09-18] MEDS: DUTASTERIDE 0.5 MG CAP PO SCH (09:06)
[2018-09-18] MEDS: LOSARTAN 50 MG TAB PO SCH (09:08)
[2018-09-18] MEDS: FOLIC ACID 1 MG TAB PO SCH (09:09)
[2018-09-18] MEDS: AMLODIPINE 5 MG TAB PO SCH (09:09)
[2018-09-18] MEDS: SERTRALINE 100 MG TAB PO SCH (09:09)
--- NOTE | 2018-09-18 12:27 | PN ---
Date/Time of Note Date/Time of Note DATE: 09/18/18 TIME: 12:26 Assessment/Plan Lines/Catheters IV Catheter Type (from Nrsg): Saline Lock Bronw in Place (from Nrsg): No Assessment/Plan Assessment/Plan IMPRESSION: Breakdown of left lower extremity with cellulitis. No evidence of any DVT. The patient does have a history of PE. RECOMMENDATIONS: We will continue anticoagulation, antibiotics, elevation of the leg. Optimize vascular status with hydration, avoid vasopressors. Will discuss with the referring physician. Will check arterial duplex Subjective 24 Hr Interval Summary Constitutional: improved Pain Control: mild Exam/Review of Systems Vital Signs Vitals Vital Signs Date Temp Pulse Resp B/P (MAP) Pulse Ox O2 O2 Flow FiO2 Time Delivery Rate 09/18/18 98.0 88 19 174/63 97 07:23 (100) 09/18/18 Room Air 03:52 Intake and Output 09/17/18 09/17/18 09/18/18 1515:00 23:00 07:00 IntakeIntake Total 340 ml 1000 ml 590 ml OutputOutput Total 200 ml 200 ml BalanceBalance 340 ml 800 ml 390 ml Exam Eyes: nl conjunctiva, EOMI, nl lids, nl sclera ENMT: nl external ears & nose, nl lips & teeth, nl nasal mucosa & septum, mucosa pink and moist Neck: supple, non-tender Respiratory: clear to auscultation, normal air movement Cardiovascular: regular rate and rhythm, nl pulses Musculoskeletal: nl extremities to inspection, nl gait and stance Results Result Diagram: 09/18/18 0648 09/18/18 0642 MAXIME BOATENG MD Sep 18, 2018 12:27
[2018-09-18] MEDS: FISH OIL 1,000 MG CAP PO SCH ×2 (15:13→20:25)
--- NOTE | 2018-09-18 15:34 | PN ---
Date/Time of Note Date/Time of Note DATE: 09/18/18 TIME: 15:21 Assessment/Plan VTE Prophylaxis Risk score (from Nsg)>0 risk: 4 SCD applied (from Nsg): Yes Pharmacological prophylaxis: heparin Lines/Catheters IV Catheter Type (from Nrsg): Saline Lock Urinary Cath still in place: No Assessment/Plan Hospital Course 1. Left lower extremity cellulitis secondary to venous insufficiency and stasis Etiology of venous insufficiency and stasis likely secondary to underlying liver disease DC vancomycin and Zosyn and start cefepime ID consultation obtained Vascular surgery consultation appreciated, arterial ultrasound shows no evidence of significant stenosis Continue elevation of leg US negative for DVT 2. Severe hypertension Cozaar at maximum dose, have started Norvasc, increased to 10 mg tomorrow Hydralazine PRN 3. History of DVT/PE Patient no longer on blood thinners 4. Delirium secondary to hospitalization and lack of sleep Encourage increased rest DC Ativan 5. Polysubstance abuse with likely underlying liver disease Patient with history of alcohol abuse as well as opiate abuse Continue multivitamin, folic acid and thiamine 6. 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 Thrombocytopenia like secondary liver disease Monitor 8. Anxiety Continue Lorazepam, sertraline 9. Hyperlipidemia Continue atorvastatin 10. BPH Continue Flomax, Avodart 11. Debility secondary to comorbidities PT eval Patient will likely need intermediate placement, this has been discussed with family and they are in agreement Prophylaxis: Heparin DC planning: Anticipate DC to intermediate the next several days Result Diagram: 09/18/18 0648 09/18/18 0642 Results 24hrs Laboratory Tests Test 09/18/18 00:47 09/18/18 06:42 09/18/18 06:48 Vancomycin Level Trough 7.0 L Sodium Level 140 Potassium Level 3.6 Chloride Level 104 Carbon Dioxide Level 27 Anion Gap 9 Blood Urea Nitrogen 7 Creatinine 0.69 Est Glomerular Filtrat Rate mL/min Glucose Level 129 Calcium Level 8.9 Total Bilirubin 0.5 Direct Bilirubin 0.00 Indirect Bilirubin 0.5 Aspartate Amino Transf (AST/SGOT) 56 #H Alanine Aminotransferase (ALT/SGPT) 89 H Alkaline Phosphatase 182 H Total Protein 6.4 Albumin 3.5 Globulin 2.90 Albumin/Globulin Ratio 1.20 White Blood Count 4.1 L Red Blood Count 3.35 L Hemoglobin 9.5 L Hematocrit 30.0 L Mean Corpuscular Volume 89.6 Mean Corpuscular Hemoglobin 28.4 L Mean Corpuscular Hemoglobin Concent 31.7 L Red Cell Distribution Width 15.9 H Platelet Count 101 L Mean Platelet Volume 10.7 H Immature Granulocytes % 0.200 Neutrophils % 64.7 Lymphocytes % 18.7 Monocytes % 12.8 H Eosinophils % 2.9 Basophils % 0.7 Nucleated Red Blood Cells % 0.0 Immature Granulocytes # 0.010 Neutrophils # 2.6 Lymphocytes # 0.8 Monocytes # 0.5 Eosinophils # 0.1 Basophils # 0.0 Nucleated Red Blood Cells # 0.0 Phosphorus Level 3.0 Magnesium Level 1.8 Ammonia 13 Subjective 24 Hr Interval Summary Constitutional: disoriented Exam/Review of Systems Exam Vitals Vital Signs Date Temp Pulse Resp B/P (MAP) Pulse Ox O2 O2 Flow FiO2 Time Delivery Rate 09/18/18 98.0 88 19 174/63 97 07:23 (100) 09/18/18 Room Air 03:52 Intake and Output 09/17/18 09/17/18 09/18/18 1515:00 23:00 07:00 IntakeIntake Total 340 ml 1000 ml 590 ml OutputOutput Total 200 ml 200 ml BalanceBalance 340 ml 800 ml 390 ml Psych: confusion Respiratory: clear to auscultation Cardiovascular: regular rate and rhythm Gastrointestinal: soft; No distended Musculoskeletal: nl extremities to inspection Results Results 24hrs Laboratory Tests Test 09/18/18 00:47 09/18/18 06:42 09/18/18 06:48 Vancomycin Level Trough 7.0 L Sodium Level 140 Potassium Level 3.6 Chloride Level 104 Carbon Dioxide Level 27 Anion Gap 9 Blood Urea Nitrogen 7 Creatinine 0.69 Est Glomerular Filtrat Rate mL/min Glucose Level 129 Calcium Level 8.9 Total Bilirubin 0.5 Direct Bilirubin 0.00 Indirect Bilirubin 0.5 Aspartate Amino Transf (AST/SGOT) 56 #H Alanine Aminotransferase (ALT/SGPT) 89 H Alkaline Phosphatase 182 H Total Protein 6.4 Albumin 3.5 Globulin 2.90 Albumin/Globulin Ratio 1.20 White Blood Count 4.1 L Red Blood Count 3.35 L Hemoglobin 9.5 L Hematocrit 30.0 L Mean Corpuscular Volume 89.6 Mean Corpuscular Hemoglobin 28.4 L Mean Corpuscular Hemoglobin Concent 31.7 L Red Cell Distribution Width 15.9 H Platelet Count 101 L Mean Platelet Volume 10.7 H Immature Granulocytes % 0.200 Neutrophils % 64.7 Lymphocytes % 18.7 Monocytes % 12.8 H Eosinophils % 2.9 Basophils % 0.7 Nucleated Red Blood Cells % 0.0 Immature Granulocytes # 0.010 Neutrophils # 2.6 Lymphocytes # 0.8 Monocytes # 0.5 Eosinophils # 0.1 Basophils # 0.0 Nucleated Red Blood Cells # 0.0 Phosphorus Level 3.0 Magnesium Level 1.8 Ammonia 13 Medications Medication Current Medications IV Flush (NS 3 ml) 3 ml PER PROTOCOL IV ; Start 09/15/18 at 21:30 Ondansetron HCl (Zofran Inj) 4 mg Q6H PRN IV NAUSEA/VOMITING; Start 09/15/18 at 21:30 Acetaminophen (Tylenol Tab) 650 mg Q6H PRN PO .PAIN 1-3 OR TEMP; Start 09/15/18 at 21:30 Acetaminophen/ Hydrocodone Bitart (Joppa (5/325)) 1 tab Q6H PRN PO .MOD PAIN 4- 6 Last administered on 09/18/18at 09:06; Admin Dose 1 TAB; Start 09/15/18 at 21:30 Morphine Sulfate (morphine) 2 mg Q4H PRN IV .SEVERE PAIN 7-10; Start 09/15/18 at 21:30 Docusate Sodium (Colace) 100 mg Q12H PRN PO .CONSTIPATION; Start 09/15/18 at 21:30 Bisacodyl (Dulcolax) 5 mg DAILY PRN PO .CONSTIPATION; Start 09/15/18 at 21:30 Heparin Sodium (Porcine) (Heparin (5000 Units/1ml)) 5,000 unit Q8 SC Last administered on 09/18/18at 15:09; Admin Dose 5,000 UNIT; Start 09/15/18 at 22:00 Vancomycin HCl (Vanco Iv Per Pharmacy) VANCOMYCIN PER PHARMACY PER PROTOCOL XX ; Start 09/15/18 at 22:30 Enalaprilat (Vasotec Iv) 1.25 mg Q4H PRN IV ELEVATED BLOOD PRESSURE Last administered on 09/17/18 21:32; Admin Dose 1.25 MG; Start 09/16/18 at 00:00 Atorvastatin Calcium (Lipitor) 20 mg QHS PO Last administered on 09/16/18 2 0:22; Admin Dose 20 MG; Start 09/16/18 at 21:00; Status Hold Dutasteride (Avodart) 0.5 mg DAILY PO Last administered on 09/18/18 09:06; Admin Dose 0.5 MG; Start 09/16/18 at 09:00 Folic Acid (Folic Acid) 1 mg DAILY PO Last administered on 09/18/18 09:09; Admin Dose 1 MG; Start 09/16/18 at 09:00 Lorazepam (Ativan) 0.5 mg Q8H PRN PO CONTROL WITHDRAWAL SYMPTOMS Last administered on 09/18/18 09:06; Admin Dose 0.5 MG; Start 09/16/18 at 07:30 Sertraline HCl (Zoloft) 100 mg DAILY PO Last administered on 09/18/18 09:09; Admin Dose 100 MG; Start 09/16/18 at 09:00 Tamsulosin HCl (Flomax) 0.4 mg HS PO Last administered on 09/17/18 21:15; Admin Dose 0.4 MG; Start 09/16/18 at 21:00 Miscellaneous Information 1 spray BID NASAL ; Start 09/16/18 at 09:00; Status UNV Fish Oil (Fish Oil) 2,000 mg BID PO Last administered on 09/18/18 15:13; Admin Dose 2,000 MG; Start 09/16/18 at 09:00 Pantoprazole (Protonix Tab) 40 mg BID@0600,1800 PO Last administered on 09/18/18 05:50; Admin Dose 40 MG; Start 09/16/18 at 07:30 Miscellaneous Information (*Order Clarification Bulletin) DYMISTA NASAL INHAL ER...IS NON-FORMUL... Q8H XX Last administered on 09/17/18 23:30; Admin Dose 1 EA; Start 09/16/18 at 07:30 Losartan Potassium (Cozaar) 100 mg DAILY PO Last administered on 09/18/18 09:08; Admin Dose 100 MG; Start 09/17/18 at 09:00 Piperacillin Sod/ Tazobactam Sod 100 ml @ 100 mls/hr Q8 IVPB Last administered on 09/18/18at 14:59; Admin Dose 100 MLS/HR; Start 09/16/18 at 14:00 Hydralazine HCl (Apresoline) 10 mg Q4H PRN IV sbp>170 Last administered on 09/17/18at 18:59; Admin Dose 10 MG; Start 09/17/18 at 16:30 Vancomycin/Sodium Chloride 250 ml @ 125 mls/hr Q12H IVPB Last administered on 09/18/18at 14:59; Admin Dose 125 MLS/HR; Start 09/18/18 at 02:00 Amlodipine Besylate (Norvasc) 10 mg DAILY PO ; Start 09/19/18 at 09:00 Miscellaneous Information (*Rx Drug Level Order Reminder*) KETAN TR AT 1300 1300 ONCE XX ; Start 09/19/18 at 13:00; Stop 09/19/18 at 13:01 STUART MATAMOROS Sep 18, 2018 15:32
[2018-09-18 16:11] VITALS: BP 155/62; PULSE 87; RESP 0
[2018-09-18] MEDS: MULTIVITAMINS THERAPEUTIC TAB PO SCH (17:42)
[2018-09-18] MEDS: THIAMINE 100 MG TAB PO SCH (17:46)
[2018-09-18] MEDS: ACETAMINOPHEN 325 MG TAB PO PRN (17:46)
[2018-09-18 20:00] VITALS: BP 200/86; PULSE 84; RESP 18
[2018-09-18] MEDS: CEFEPIME 2GM/50 ML (PMX) 50 ML IVPB SCH (20:24)
[2018-09-18] MEDS: TAMSULOSIN (SR) 0.4 MG CAP PO SCH (20:25)
[2018-09-18] MEDS: hydrALAzine 20 MG INJ IV PRN (20:27)
--- NOTE | 2018-09-18 22:45 | CONS ---
DATE OF ADMISSION: 09/15/2018 DATE OF CONSULTATION: 09/18/2018 TYPE OF CONSULTATION: Infectious Disease. REASON FOR CONSULTATION: Antibiotic management. HISTORY OF PRESENT ILLNESS: Cody Willams is an 78-year-old male who was admitted to telemetry with le ft lower extremity cellulitis. The patient comes in with a history of thrombocytopenia, DVT and pulm onary emboli. He presents with weakness and fever. He has generalized weakness. His has left leg r edness and oozing as well as headaches. The patient also has benign prostatic hypertrophy, hyperlipi demia. He has 1-week history of left lower extremity swelling and redness. He also had fever at [facility]. He denies any nausea, vomiting or diarrhea. PAST MEDICAL HISTORY: Essentially as outlined. 1. History of upper left lung mass. 2. Hypertension. 3. Hyperlipidemia. FAMILY HISTORY: Noncontributory. SOCIAL HISTORY: He is a heavy alcohol drinker. He does not smoke or abuse drugs. ALLERGIES: NONE TO PENICILLIN, SULFA OR FOODS. MEDICATIONS: Per chart. REVIEW OF SYSTEMS: As per HPI. HOSPITAL COURSE: The patient was seen by a number of different physicians including Dr. Pennington who not ed that he had left lower extremity cellulitis, was placed on vancomycin and Zosyn, venous stasis de rmatitis, ultrasound negative for DVT. His white count was 5.4 on the 15th with an H and H of 10.1 a nd 31.4, neutrophil count of 75, platelet count of 86,000. BUN and creatinine 7/0.73, glucose of 109 . He was seen by Dr. Aleman for lower extremity cellulitis and Dr. Aleman noted history of per ipheral vascular disease, DVT, pulmonary emboli. The patient was treated with heparin and also vanco mycin. Currently, the vancomycin and Zosyn were stopped and he was started on cefepime. Vascular fernandez rgery consultation was done, severe hypertension. Microbiology: Blood cultures are negative. Urine cultures showed mixed organisms. White count today is 4.1. Urine is negative. Chest x-ray: No ac livier cardiopulmonary disease. No interstitial pulmonary edema, improved right basilar subsegmental at electasis. Abdominal MRI showed mild dilatation of the common duct extends down to the ampulla witho ut evidence of cholelithiasis, choledocholithiasis. This could represent sequelae of prior obstructi on or ambulatory dysfunction. This can be further assessed with ERCP if clinically warranted. IMPRESSION AND PLAN: The patient is currently on cefepime alone. I think that vancomycin would be a ppropriate. His BUN and creatinine are fine. I will place him back on his vancomycin. He is off Zo syn. I will dictate my findings to the hospitalist and the aforementioned consultants. Dictated By: AARON BOUCHER MD, JD/NTS Conf#: [id number] DID#: [id number] CC: OSVALDO AJ MD;*EndCC*
[2018-09-18] MEDS ORDERED: LORAZEPAM 2 MG INJ ONE (23:47)
[2018-09-18] MEDS: ENALAPRILAT 1.25 MG INJ IV PRN (23:51)
[2018-09-19 00:36] VITALS: BP 160/76; PULSE 81; RESP 20
[2018-09-19 04:00] VITALS: BP 163/78; PULSE 89; RESP 20
[2018-09-19] MEDS: HEPARIN 5,000 UNIT/1 ML VIAL SC SCH ×3 (06:20→21:26)
[2018-09-19] MEDS: PANTOPRAZOLE (EC) 40 MG TAB PO SCH ×2 (06:21→17:26)
[2018-09-19 08:01] VITALS: BP 174/77; PULSE 99; RESP 20
[2018-09-19] MEDS: CEFEPIME 2GM/50 ML (PMX) 50 ML IVPB SCH ×2 (08:27→21:17)
[2018-09-19] MEDS: FISH OIL 1,000 MG CAP PO SCH ×2 (08:27→21:17)
[2018-09-19] MEDS: SERTRALINE 100 MG TAB PO SCH (08:27)
[2018-09-19] MEDS: FOLIC ACID 1 MG TAB PO SCH (08:27)
[2018-09-19] MEDS: DUTASTERIDE 0.5 MG CAP PO SCH (08:27)
[2018-09-19] MEDS: HYDROCODONE/APAP (5/325) TAB PO PRN (08:28)
[2018-09-19] MEDS: MULTIVITAMINS THERAPEUTIC TAB PO SCH (08:28)
[2018-09-19] MEDS: THIAMINE 100 MG TAB PO SCH (08:28)
[2018-09-19] MEDS: LOSARTAN 50 MG TAB PO SCH (08:29)
[2018-09-19] MEDS: AMLODIPINE 10 MG TAB PO SCH (08:54)
[2018-09-19] MEDS ORDERED: MULTIVITAMINS 10 ML, THIAMINE 100 MG, FOLIC ACID 1 MG in SOD CHLORIDE 0.9% 1,000 ML IVPB SCH (09:00)
[2018-09-19 12:00] VITALS: BP 153/79; PULSE 89; RESP 19
[2018-09-19 16:00] VITALS: BP 152/74; PULSE 88; RESP 19
--- NOTE | 2018-09-19 16:13 | PN ---
Date/Time of Note Date/Time of Note DATE: 09/19/18 TIME: 16:09 Assessment/Plan VTE Prophylaxis Risk score (from Nsg)>0 risk: 4 Pharmacological prophylaxis: heparin Lines/Catheters IV Catheter Type (from Nrsg): Saline Lock Urinary Cath still in place: No Assessment/Plan Hospital Course 1. Left lower extremity cellulitis secondary to venous insufficiency and stasis Etiology of venous insufficiency and stasis likely secondary to underlying liver disease Continue cefepime ID consultation appreciated Vascular surgery consultation appreciated, arterial ultrasound shows no evidence of significant stenosis Continue elevation of leg US negative for DVT 2. Severe hypertension-improving Cozaar and Norvasc now at maximum doses BP has improved but will also start chlorthalidone starting tomorrow morning Hydralazine PRN 3. History of DVT/PE Patient no longer on blood thinners 4. Delirium secondary to hospitalization and lack of sleep-resolved Patient back to normal mentation Encourage increased rest DC Ativan 5. Polysubstance abuse with likely underlying liver disease Patient with history of alcohol abuse as well as opiate abuse Continue multivitamin, folic acid and thiamine 6. 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 Thrombocytopenia like secondary liver disease Monitor 8. Anxiety Continue sertraline 9. Hyperlipidemia Continue atorvastatin 10. BPH Continue Flomax, Avodart 11. Debility secondary to comorbidities PT eval Patient will need care home placement, this has been discussed with family and patient and they are in agreement Prophylaxis: Heparin DC planning: Blood pressure still elevated, anticipate DC to care home tomorrow Result Diagram: 09/19/18 0712 09/19/18 0712 Results 24hrs Laboratory Tests Test 09/19/18 07:12 White Blood Count 3.4 L Red Blood Count 3.66 L Hemoglobin 10.3 L Hematocrit 32.9 L Mean Corpuscular Volume 89.9 Mean Corpuscular Hemoglobin 28.1 L Mean Corpuscular Hemoglobin Concent 31.3 L Red Cell Distribution Width 16.1 H Platelet Count 113 L Mean Platelet Volume 9.8 Immature Granulocytes % 0.300 Neutrophils % 51.8 Lymphocytes % 30.3 Monocytes % 11.9 H Eosinophils % 4.5 Basophils % 1.2 Nucleated Red Blood Cells % 0.0 Immature Granulocytes # 0.010 Neutrophils # 1.8 Lymphocytes # 1.0 Monocytes # 0.4 Eosinophils # 0.2 Basophils # 0.0 Nucleated Red Blood Cells # 0.0 Sodium Level 142 Potassium Level 3.5 Chloride Level 106 Carbon Dioxide Level 26 Anion Gap 10 Blood Urea Nitrogen 6 L Creatinine 0.66 Est Glomerular Filtrat Rate mL/min Glucose Level 124 Calcium Level 9.5 Magnesium Level 1.8 Total Bilirubin 0.5 Direct Bilirubin 0.00 Indirect Bilirubin 0.5 Aspartate Amino Transf (AST/SGOT) 45 Alanine Aminotransferase (ALT/SGPT) 69 Alkaline Phosphatase 175 H Total Protein 7.4 # Albumin 4.0 Globulin 3.40 H Albumin/Globulin Ratio 1.17 Subjective 24 Hr Interval Summary Constitutional: no complaints Exam/Review of Systems Exam Vitals Vital Signs Date Temp Pulse Resp B/P (MAP) Pulse Ox O2 O2 Flow FiO2 Time Delivery Rate 09/19/18 98.0 89 19 153/79 98 12:00 (103) 09/19/18 Room Air 04:00 Intake and Output 09/18/18 09/18/18 09/19/18 1515:00 23:00 07:00 OutputOutput Total 1 ml 300 ml BalanceBalance -1 ml -300 ml Constitutional: alert, oriented Respiratory: clear to auscultation Cardiovascular: regular rate and rhythm Gastrointestinal: soft; No distended Musculoskeletal: No nl extremities to inspection Results Results 24hrs Laboratory Tests Test 09/19/18 07:12 White Blood Count 3.4 L Red Blood Count 3.66 L Hemoglobin 10.3 L Hematocrit 32.9 L Mean Corpuscular Volume 89.9 Mean Corpuscular Hemoglobin 28.1 L Mean Corpuscular Hemoglobin Concent 31.3 L Red Cell Distribution Width 16.1 H Platelet Count 113 L Mean Platelet Volume 9.8 Immature Granulocytes % 0.300 Neutrophils % 51.8 Lymphocytes % 30.3 Monocytes % 11.9 H Eosinophils % 4.5 Basophils % 1.2 Nucleated Red Blood Cells % 0.0 Immature Granulocytes # 0.010 Neutrophils # 1.8 Lymphocytes # 1.0 Monocytes # 0.4 Eosinophils # 0.2 Basophils # 0.0 Nucleated Red Blood Cells # 0.0 Sodium Level 142 Potassium Level 3.5 Chloride Level 106 Carbon Dioxide Level 26 Anion Gap 10 Blood Urea Nitrogen 6 L Creatinine 0.66 Est Glomerular Filtrat Rate mL/min Glucose Level 124 Calcium Level 9.5 Magnesium Level 1.8 Total Bilirubin 0.5 Direct Bilirubin 0.00 Indirect Bilirubin 0.5 Aspartate Amino Transf (AST/SGOT) 45 Alanine Aminotransferase (ALT/SGPT) 69 Alkaline Phosphatase 175 H Total Protein 7.4 # Albumin 4.0 Globulin 3.40 H Albumin/Globulin Ratio 1.17 Medications Medication Current Medications IV Flush (NS 3 ml) 3 ml PER PROTOCOL IV ; Start 09/15/18 at 21:30 Ondansetron HCl (Zofran Inj) 4 mg Q6H PRN IV NAUSEA/VOMITING; Start 09/15/18 at 21:30 Acetaminophen (Tylenol Tab) 650 mg Q6H PRN PO .PAIN 1-3 OR TEMP Last administered on 09/18/18at 17:46; Admin Dose 650 MG; Start 09/15/18 at 21:30 Acetaminophen/ Hydrocodone Bitart (Ennice (5/325)) 1 tab Q6H PRN PO .MOD PAIN 4- 6 Last administered on 09/19/18at 08:28; Admin Dose 1 TAB; Start 09/15/18 at 21:30 Morphine Sulfate (morphine) 2 mg Q4H PRN IV .SEVERE PAIN 7-10; Start 09/15/18 at 21:30 Docusate Sodium (Colace) 100 mg Q12H PRN PO .CONSTIPATION Last administered on 09/18/18at 20:25; Admin Dose 100 MG; Start 09/15/18 at 21:30 Bisacodyl (Dulcolax) 5 mg DAILY PRN PO .CONSTIPATION; Start 09/15/18 at 21:30 Heparin Sodium (Porcine) (Heparin (5000 Units/1ml)) 5,000 unit Q8 SC Last a dministered on 09/19/18at 06:20; Admin Dose 5,000 UNIT; Start 09/15/18 at 22:00 Enalaprilat (Vasotec Iv) 1.25 mg Q4H PRN IV ELEVATED BLOOD PRESSURE Last administered on 09/18/18at 23:51; Admin Dose 1.25 MG; Start 09/16/18 at 00:00 Atorvastatin Calcium (Lipitor) 20 mg QHS PO Last administered on 09/16/18 20:22; Admin Dose 20 MG; Start 09/16/18 at 21:00; Status Hold Dutasteride (Avodart) 0.5 mg DAILY PO Last administered on 09/19/18 08:27; Admin Dose 0.5 MG; Start 09/16/18 at 09:00 Folic Acid (Folic Acid) 1 mg DAILY PO Last administered on 09/19/18 08:27; Admin Dose 1 MG; Start 09/16/18 at 09:00 Sertraline HCl (Zoloft) 100 mg DAILY PO Last administered on 09/19/18 08:27; Admin Dose 100 MG; Start 09/16/18 at 09:00 Tamsulosin HCl (Flomax) 0.4 mg HS PO Last administered on 09/18/18 20:25; Admin Dose 0.4 MG; Start 09/16/18 at 21:00 Fish Oil (Fish Oil) 2,000 mg BID PO Last administered on 09/19/18 08:27; Admin Dose 2,000 MG; Start 09/16/18 at 09:00 Pantoprazole (Protonix Tab) 40 mg BID@0600,1800 PO Last administered on 09/19/18 06:21; Admin Dose 40 MG; Start 09/16/18 at 07:30 Losartan Potassium (Cozaar) 100 mg DAILY PO Last administered on 09/19/18 08:29; Admin Dose 100 MG; Start 09/17/18 at 09:00 Hydralazine HCl (Apresoline) 10 mg Q4H PRN IV sbp>170 Last administered on 09/18/18 20:27; Admin Dose 10 MG; Start 09/17/18 at 16:30 Amlodipine Besylate (Norvasc) 10 mg DAILY PO Last administered on 09/19/18 08:54; Admin Dose 10 MG; Start 09/19/18 at 09:00 Cefepime HCl 50 ml @ 100 mls/hr Q12 IVPB Last administered on 09/19/18 08:27; Admin Dose 100 MLS/HR; Start 09/18/18 at 21:00 Multivitamins Therapeutic (Theragran) 1 tab DAILY PO Last administered on 09/19/18 08:28; Admin Dose 1 TAB; Start 09/18/18 at 16:00 Thiamine HCl (Vitamin B1) 100 mg DAILY PO Last administered on 09/19/18at 08:28; Admin Dose 100 MG; Start 09/18/18 at 16:00 STUART MATAMOROS Sep 19, 2018 16:13
[2018-09-19 19:15] VITALS: BP 178/79; PULSE 85; RESP 18
--- NOTE | 2018-09-19 19:31 | PN ---
DATE: 09/19/2018 TIME OF EXAMINATION: 1300 SUBJECTIVE: The patient is alert, feels good, eating lunch. Denies pain, no fevers overnight. WBC 3.4, no shift, no bands, platelets 113. BUN 6, creatinine 0.66. MICROBIOLOGY: Blood cultures negative. MRSA swab negative. Chest x-ray 2 days ago revealed no evidence for acute cardiopulmonary disease. ANTIMICROBIALS: The patient is on: 1. Cefepime. 2. Vancomycin. PHYSICAL EXAMINATION: GENERAL: This is a well-developed, chronically ill-appearing, elderly man who is alert, in no distre ss. HEENT: Head atraumatic, normocephalic. Sclerae anicteric. Buccal mucosa pink. NECK: Supple. CHEST: Rise symmetrical. Breath sounds clear, diminished to bases. HEART: S1, S2. ABDOMEN: Soft, bowel sounds present. EXTREMITIES: Bilateral lower extremities chronic venous stasis, left lower extremity Ramirez wrap. ASSESSMENT: 1. Bilateral lower extremities, chronic venous stasis with left lower extremity cellulitis. 2. Hypertension. 3. History of polysubstance abuse. 4. Improving transaminitis. 5. History of deep venous thrombosis and pulmonary embolism. PLAN: The patient remains stable and overall improving. Continue present care, antibiotics. Keep l ower extremities elevated. Vascular surgery recommendations noted. Dictated By: MARCIANO NAYLOR COT ASSEMBLER for AARON BOUCHER MD NI/NTS Conf#: [id number] DID#: [id number] CC: FARA OCONNELL MD;*EndCC*
[2018-09-19] MEDS: hydrALAzine 20 MG INJ IV PRN (19:36)
--- NOTE | 2018-09-19 19:39 | PN ---
Date/Time of Note Date/Time of Note DATE: 09/19/18 TIME: 19:38 Assessment/Plan Lines/Catheters IV C[facility]ter Type (from [facility]): Saline Lock Brown in Place (from Nrs): No Assessment/Plan Assessment/Plan IMPRESSION: Breakdown of left lower extremity with cellulitis.Venous stasis ulceration. No evidence of any DVT. The patient does have a history of PE. RECOMMENDATIONS: We will continue anticoagulation, antibiotics, elevation of the leg. Optimize vascular status with hydration, avoid vasopressors. BP control. Optimize vascular status. Will discuss with the referring physician. Will check arterial duplex Exam/Review of Systems Vital Signs Vitals Vital Signs Date Temp Pulse Resp B/P (MAP) Pulse Ox O2 O2 Flow FiO2 Time Delivery Rate 09/19/18 98.5 85 18 178/79 99 Room Air 19:15 (112) Intake and Output 09/18/18 09/18/18 09/19/18 1515:00 23:00 07:00 OutputOutput Total 1 ml 300 ml BalanceBalance -1 ml -300 ml Exam Eyes: nl conjunctiva, EOMI, nl lids, nl sclera ENMT: nl external ears & nose, nl lips & teeth, nl nasal mucosa & septum, mucosa pink and moist Neck: supple, non-tender Respiratory: clear to auscultation, normal air movement Cardiovascular: regular rate and rhythm, nl pulses Gastrointestinal: soft, nl liver, spleen, non-tender Musculoskeletal: nl extremities to inspection, nl gait and stance Extremities: normal pulses Results Result Diagram: 09/19/18 0712 09/19/18 0712 MAXIME BOATENG MD Sep 19, 2018 19:39
[2018-09-19] MEDS: TAMSULOSIN (SR) 0.4 MG CAP PO SCH (21:17)
[2018-09-20] VITALS (7 sets, daily range): BP systolic 138–192; BP diastolic 69–81; PULSE 78–119; RESP 18–20
[2018-09-20] MEDS: ENALAPRILAT 1.25 MG INJ IV PRN (01:57)
[2018-09-20] MEDS: hydrALAzine 20 MG INJ IV PRN (03:24)
[2018-09-20] MEDS: PANTOPRAZOLE (EC) 40 MG TAB PO SCH ×2 (05:40→17:29)
[2018-09-20] MEDS: HEPARIN 5,000 UNIT/1 ML VIAL SC SCH ×3 (05:45→21:55)
[2018-09-20] MEDS: DUTASTERIDE 0.5 MG CAP PO SCH (09:20)
[2018-09-20] MEDS: CEFEPIME 2GM/50 ML (PMX) 50 ML IVPB SCH (09:20)
[2018-09-20] MEDS: FISH OIL 1,000 MG CAP PO SCH ×2 (09:20→21:42)
[2018-09-20] MEDS: MULTIVITAMINS THERAPEUTIC TAB PO SCH (09:20)
[2018-09-20] MEDS: FOLIC ACID 1 MG TAB PO SCH (09:20)
[2018-09-20] MEDS: AMLODIPINE 10 MG TAB PO SCH (09:21)
[2018-09-20] MEDS: CHLORTHALIDONE 25 MG TAB PO SCH (09:21)
[2018-09-20] MEDS: SERTRALINE 100 MG TAB PO SCH (09:21)
[2018-09-20] MEDS: LOSARTAN 50 MG TAB PO SCH (09:21)
[2018-09-20] MEDS: THIAMINE 100 MG TAB PO SCH (09:21)
[2018-09-20] MEDS: HYDROCODONE/APAP (5/325) TAB PO PRN (10:02)
--- NOTE | 2018-09-20 14:39 | PN ---
Date/Time of Note Date/Time of Note DATE: 09/20/18 TIME: 14:32 Assessment/Plan VTE Prophylaxis Risk score (from Nsg)>0 risk: 7 Pharmacological prophylaxis: heparin Lines/Catheters IV Catheter Type (from Nrsg): Peripheral IV Urinary Cath still in place: No Assessment/Plan Hospital Course 1. Left lower extremity cellulitis secondary to venous insufficiency and stasis Etiology of venous insufficiency and stasis likely secondary to underlying liver disease Continue cefepime ID consultation appreciated Vascular surgery consultation appreciated, arterial ultrasound shows no evidence of significant stenosis Continue elevation of leg US negative for DVT 2. Severe hypertension-improving Cozaar and Norvasc now at maximum doses Patient started on chlorthalidone today Hydralazine PRN 3. History of DVT/PE Patient no longer on blood thinners 4. Delirium secondary to opiate withdrawal, prolonged hospitalization and lack of sleep-patient mentation has been labile and today is more confused than yesterday and was delirious overnight Patient has been on methadone for the past 9 years for unclear reasons Patient also has a history of alcohol abuse Psych eval Encourage increased rest DC Ativan Start melatonin 5. Polysubstance abuse with likely underlying liver disease Patient with history of alcohol abuse as well as opiate abuse Continue multivitamin, folic acid and thiamine 6. 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 Thrombocytopenia like secondary liver disease Monitor 8. Anxiety Continue sertraline 9. Hyperlipidemia Continue atorvastatin 10. BPH Continue Flomax, Avodart 11. Debility secondary to comorbidities PT eval Patient will need longterm placement, this has been discussed with family and patient and they are in agreement Prophylaxis: Heparin DC planning: Blood pressure still elevated and patient still with mild delirium, anticipate DC to longterm in the coming days, psych eval pending Result Diagram: 09/19/18 0712 09/19/18 0712 Subjective 24 Hr Interval Summary Constitutional: no complaints Exam/Review of Systems Exam Vitals Vital Signs Date Temp Pulse Resp B/P (MAP) Pulse Ox O2 O2 Flow FiO2 Time Delivery Rate 09/20/18 97.6 103 18 165/70 96 Room Air 11:40 (101) Intake and Output 09/19/18 09/19/18 09/20/18 1515:00 23:00 07:00 IntakeIntake Total 360 ml 1170 ml OutputOutput Total 1 ml 400 ml BalanceBalance 359 ml 770 ml Constitutional: alert Psych: confusion Respiratory: clear to auscultation Cardiovascular: regular rate and rhythm Gastrointestinal: soft; No distended Musculoskeletal: nl extremities to inspection Medications Medication Current Medications IV Flush (NS 3 ml) 3 ml PER PROTOCOL IV ; Start 09/15/18 at 21:30 Ondansetron HCl (Zofran Inj) 4 mg Q6H PRN IV NAUSEA/VOMITING; Start 09/15/18 at 21:30 Acetaminophen (Tylenol Tab) 650 mg Q6H PRN PO .PAIN 1-3 OR TEMP Last administered on 09/18/18 17:46; Admin Dose 650 MG; Start 09/15/18 at 21:30 Acetaminophen/ Hydrocodone Bitart ([place] (5/325)) 1 tab Q6H PRN PO .MOD PAIN 4- 6 Last administered on 09/20/18 10:02; Admin Dose 1 TAB; Start 09/15/18 at 21:30 Morphine Sulfate (morphine) 2 mg Q4H PRN IV .SEVERE PAIN 7-10; Start 09/15/18 at 21:30 Docusate Sodium (Colace) 100 mg Q12H PRN PO .CONSTIPATION Last administered on 09/18/18 20:25; Admin Dose 100 MG; Start 09/15/18 at 21:30 Bisacodyl (Dulcolax) 5 mg DAILY PRN PO .CONSTIPATION; Start 09/15/18 at 21:30 Heparin Sodium (Porcine) (Heparin (5000 Units/1ml)) 5,000 unit Q8 SC Last administered on 09/20/18 13:34; Admin Dose 5,000 UNIT; Start 09/15/18 at 22:00 Enalaprilat (Vasotec Iv) 1.25 mg Q4H PRN IV ELEVATED BLOOD PRESSURE Last administered on 09/20/18 01:57; Admin Dose 1.25 MG; Start 09/16/18 at 00:00 Atorvastatin Calcium (Lipitor) 20 mg QHS PO Last administered on 09/16/18 20:22; Admin Dose 20 MG; Start 09/16/18 at 21:00; Status Hold Dutasteride (Avodart) 0.5 mg DAILY PO Last administered on 09/20/18 09:20; Admin Dose 0.5 MG; Start 09/16/18 at 09:00 Folic Acid (Folic Acid) 1 mg DAILY PO Last administered on 09/20/18 09:20; Admin Dose 1 MG; Start 09/16/18 at 09:00 Sertraline HCl (Zoloft) 100 mg DAILY PO Last administered on 09/20/18 09:21; Admin Dose 100 MG; Start 09/16/18 at 09:00 Tamsulosin HCl (Flomax) 0.4 mg HS PO Last administered on 09/19/18 21:17; Admin Dose 0.4 MG; Start 09/16/18 at 21:00 Fish Oil (Fish Oil) 2,000 mg BID PO Last administered on 09/20/18 09:20; Admin Dose 2,000 MG; Start 09/16/18 at 09:00 Pantoprazole (Protonix Tab) 40 mg BID@0600,1800 PO Last administered on 09/20/18 05:40; Admin Dose 40 MG; Start 09/16/18 at 07:30 Losartan Potassium (Cozaar) 100 mg DAILY PO Last administered on 09/20/18 09:21; Admin Dose 100 MG; Start 09/17/18 at 09:00 Hydralazine HCl (Apresoline) 10 mg Q4H PRN IV sbp>170 Last administered on 09/20/18 03:24; Admin Dose 10 MG; Start 09/17/18 at 16:30 Amlodipine Besylate (Norvasc) 10 mg DAILY PO Last administered on 09/20/18 09: 21; Admin Dose 10 MG; Start 09/19/18 at 09:00 Cefepime HCl 50 ml @ 100 mls/hr Q12 IVPB Last administered on 09/20/18 09:20; Admin Dose 100 MLS/HR; Start 09/18/18 at 21:00 Multivitamins Therapeutic (Theragran) 1 tab DAILY PO Last administered on 09/20/18 09:20; Admin Dose 1 TAB; Start 09/18/18 at 16:00 Thiamine HCl (Vitamin B1) 100 mg DAILY PO Last administered on 09/20/18at 09:21; Admin Dose 100 MG; Start 09/18/18 at 16:00 Chlorthalidone (Hygroton) 25 mg DAILY PO Last administered on 09/20/18at 09:21; Admin Dose 25 MG; Start 09/20/18 at 09:00 Melatonin (Melatonin) 5 mg HS PO ; Start 09/20/18 at 21:00 STUART MATAMOROS Sep 20, 2018 14:39
--- NOTE | 2018-09-20 14:44 | CONS ---
Assessment/Plan Assessment/Plan Hospital Course (Demo Recall) Alert, feels good, no fevers MICROBIOLOGY: Blood cultures negative. MRSA swab negative. Chest x-ray 2 days ago revealed no evidence for acute cardiopulmonary disease. ANTIMICROBIALS: 1. Cefepime. 2. Vancomycin. PHYSICAL EXAMINATION: GENERAL: This is a well-developed, chronically ill-appearing, elderly man who is alert, in no distress. HEENT: Head atraumatic, normocephalic. Sclerae anicteric. Buccal mucosa pink. NECK: Supple. CHEST: Rise symmetrical. Breath sounds clear, diminished to bases. HEART: S1, S2. ABDOMEN: Soft, bowel sounds present. EXTREMITIES: Bilateral lower extremities chronic venous stasis, left lower extremity Ramirez wrapped. ASSESSMENT: 1. Bilateral lower extremities, chronic venous stasis with left lower extremity cellulitis. 2. Hypertension. 3. History of polysubstance abuse. 4. Improving transaminitis. 5. History of deep venous thrombosis and pulmonary embolism. PLAN: The patient remains stable, vascular surgery on case, change abx to oral Doxycycline Consultation Date/Type/Reason Admit Date/Time Sep 15, 2018 at 21:15 Initial Consult Date Type of Consult id Date/Time of Note DATE: 09/20/18 TIME: 14:42 Exam/Review of Systems Exam Vitals Vital Signs Date Temp Pulse Resp B/P (MAP) Pulse Ox O2 O2 Flow FiO2 Time Delivery Rate 09/20/18 97.6 103 18 165/70 96 Room Air 11:40 (101) Intake and Output 09/19/18 09/19/18 09/20/18 1515:00 23:00 07:00 IntakeIntake Total 360 ml 1170 ml OutputOutput Total 1 ml 400 ml BalanceBalance 359 ml 770 ml Results Result Diagram: 09/19/18 0712 09/19/18 0712 Medications Medication Current Medications IV Flush (NS 3 ml) 3 ml PER PROTOCOL IV ; Start 09/15/18 at 21:30 Ondansetron HCl (Zofran Inj) 4 mg Q6H PRN IV NAUSEA/VOMITING; Start 09/15/18 at 21:30 Acetaminophen (Tylenol Tab) 650 mg Q6H PRN PO .PAIN 1-3 OR TEMP Last admin istered on 09/18/18at 17:46; Admin Dose 650 MG; Start 09/15/18 at 21:30 Acetaminophen/ Hydrocodone Bitart ([place] (5/325)) 1 tab Q6H PRN PO .MOD PAIN 4- 6 Last administered on 09/20/18 10:02; Admin Dose 1 TAB; Start 09/15/18 at 21:30 Morphine Sulfate (morphine) 2 mg Q4H PRN IV .SEVERE PAIN 7-10; Start 09/15/18 at 21:30 Docusate Sodium (Colace) 100 mg Q12H PRN PO .CONSTIPATION Last administered on 09/18/18 20:25; Admin Dose 100 MG; Start 09/15/18 at 21:30 Bisacodyl (Dulcolax) 5 mg DAILY PRN PO .CONSTIPATION; Start 09/15/18 at 21:30 Heparin Sodium (Porcine) (Heparin (5000 Units/1ml)) 5,000 unit Q8 SC Last administered on 09/20/18 13:34; Admin Dose 5,000 UNIT; Start 09/15/18 at 22:00 Enalaprilat (Vasotec Iv) 1.25 mg Q4H PRN IV ELEVATED BLOOD PRESSURE Last administered on 09/20/18 01:57; Admin Dose 1.25 MG; Start 09/16/18 at 00:00 Atorvastatin Calcium (Lipitor) 20 mg QHS PO Last administered on 09/16/18 20:22; Admin Dose 20 MG; Start 09/16/18 at 21:00; Status Hold Dutasteride (Avodart) 0.5 mg DAILY PO Last administered on 09/20/18 09:20; Admin Dose 0.5 MG; Start 09/16/18 at 09:00 Folic Acid (Folic Acid) 1 mg DAILY PO Last administered on 09/20/18 09:20; Admin Dose 1 MG; Start 09/16/18 at 09:00 Sertraline HCl (Zoloft) 100 mg DAILY PO Last administered on 09/20/18 09:21; Admin Dose 100 MG; Start 09/16/18 at 09:00 Tamsulosin HCl (Flomax) 0.4 mg HS PO Last administered on 09/19/18 21:17; Admin Dose 0.4 MG; Start 09/16/18 at 21:00 Fish Oil (Fish Oil) 2,000 mg BID PO Last administered on 09/20/18 09:20; Admin Dose 2,000 MG; Start 09/16/18 at 09:00 Pantoprazole (Protonix Tab) 40 mg BID@0600,1800 PO Last administered on 09/20/18 05:40; Admin Dose 40 MG; Start 09/16/18 at 07:30 Losartan Potassium (Cozaar) 100 mg DAILY PO Last administered on 09/20/18 09:21; Admin Dose 100 MG; Start 09/17/18 at 09:00 Hydralazine HCl (Apresoline) 10 mg Q4H PRN IV sbp>170 Last administered on 09/20/18 03:24; Admin Dose 10 MG; Start 09/17/18 at 16:30 Amlodipine Besylate (Norvasc) 10 mg DAILY PO Last administered on 09/20/18 09:21; Admin Dose 10 MG; Start 09/19/18 at 09:00 Cefepime HCl 50 ml @ 100 mls/hr Q12 IVPB Last administered on 09/20/18 09:20; Admin Dose 100 MLS/HR; Start 09/18/18 at 21:00 Multivitamins Therapeutic (Theragran) 1 tab DAILY PO Last administered on 09/20/18 09:20; Admin Dose 1 TAB; Start 09/18/18 at 16:00 Thiamine HCl (Vitamin B1) 100 mg DAILY PO Last administered on 09/20/18 09:21; Admin Dose 100 MG; Start 09/18/18 at 16:00 Chlorthalidone (Hygroton) 25 mg DAILY PO Last administered on 09/20/18 09:21; Admin Dose 25 MG; Start 09/20/18 at 09:00 Melatonin (Melatonin) 5 mg HS PO ; Start 09/20/18 at 21:00 MARCIANO NAYLOR NP Sep 20, 2018 14:44
[2018-09-20] MEDS: LORAZEPAM 0.5 MG TAB PO PRN (14:51)
[2018-09-20] MEDS: DOXYCYCLINE 100 MG TAB PO SCH ×2 (17:29→23:36)
--- NOTE | 2018-09-20 19:04 | PN ---
Date/Time of Note Date/Time of Note DATE: 09/20/18 TIME: 19:03 Assessment/Plan Lines/Catheters IV Catheter Type (from Nrsg): Peripheral IV Brown in Place (from Nrsg): No Assessment/Plan Assessment/Plan Assessment/Plan IMPRESSION: Breakdown of left lower extremity with cellulitis.Venous stasis ulceration. No evidence of any DVT. The patient does have a history of PE. RECOMMENDATIONS: We will continue anticoagulation, antibiotics, elevation of the leg. Optimize vascular status with hydration, avoid vasopressors. BP control. Optimize vascular status. Will discuss with the referring physician. BP control Subjective 24 Hr Interval Summary Constitutional: improved Pain Control: mild Exam/Review of Systems Vital Signs Vitals Vital Signs Date Temp Pulse Resp B/P (MAP) Pulse Ox O2 O2 Flow FiO2 Time Delivery Rate 09/20/18 98.0 105 20 152/70 96 Room Air 15:54 (97) Intake and Output 09/19/18 09/19/18 09/20/18 1414:59 22:59 06:59 IntakeIntake Total 360 ml 1170 ml OutputOutput Total 1 ml 400 ml BalanceBalance 359 ml 770 ml Exam Eyes: nl conjunctiva, EOMI, nl lids, nl sclera ENMT: nl external ears & nose, nl lips & teeth, nl nasal mucosa & septum, mucosa pink and moist Neck: supple, non-tender Respiratory: clear to auscultation, normal air movement Cardiovascular: regular rate and rhythm, nl pulses Gastrointestinal: soft, nl liver, spleen, non-tender Musculoskeletal: nl extremities to inspection, nl gait and stance Results Result Diagram: 09/19/18 0712 09/19/18 0712 MAXIME BOATENG MD Sep 20, 2018 19:04
[2018-09-20] MEDS ORDERED: IOHEXOL 100 ML ONE (20:53)
[2018-09-20] MEDS ORDERED: SOD CHLORIDE 0.9% 100 ML ONE (20:53)
[2018-09-20] MEDS ORDERED: IOHEXOL 350MG/ML 50 ML BTL ONE (20:53)
[2018-09-20] MEDS ORDERED: MELATONIN 5 MG TABLET PO SCH ×2 (21:00)
[2018-09-20] MEDS: TAMSULOSIN (SR) 0.4 MG CAP PO SCH (21:42)
[2018-09-21] VITALS (12 sets, daily range): BP systolic 138–197; BP diastolic 64–118; PULSE 78–126; RESP 18–22
[2018-09-21] MEDS: DIPHENHYDRAMINE 25 MG CAP PO PRN (02:06)
[2018-09-21] MEDS: ACETAMINOPHEN 325 MG TAB PO PRN ×2 (02:10→20:35)
[2018-09-21] MEDS: hydrALAzine 20 MG INJ IV PRN ×3 (04:08→19:53)
[2018-09-21] MEDS ORDERED: NALOXONE (0.4 MG/ML) INJ IV ONE ×2 (05:30→06:00)
[2018-09-21] MEDS ORDERED: METOPROLOL 5 MG INJ IV ONE (05:30)
--- NOTE | 2018-09-21 05:44 | EN ---
Date/Time of Note Date/Time of Note DATE: 09/21/18 TIME: 05:39 Event Note Medicine Medicine Event Note An PULMONARY PHYSICAL THERAPIST was called about 15 minutes ago because the patient became unresponsive. On physical exam, patient spontaneously able to open his eyes. He was not moving his extremities. His upper extremities are essentially flaccid. Patient is nonverbal at this time. Systolic blood pressure almost 200. According to the nurse, patient had received Benadryl, but no narcotics or Ativan. He was given Narcan 0.41 and then patient became more responsive. He was given another additional 0.4 mg of Narcan and now patient appears to be agitated like he was before. Patient has a history of polysubstance abuse and also withdrawal. Currently he is not oriented even though he attempted to say his name when asked. He is now moving all his extremities. He is also given 5 mg IV metoprolol. PLAN -Stat head CT -Telemetry neurology evaluation CELINE LAZARO MD Sep 21, 2018 05:44
[2018-09-21] MEDS: PANTOPRAZOLE (EC) 40 MG TAB PO SCH ×2 (06:00→17:13)
[2018-09-21] MEDS ORDERED: HALOPERIDOL 5 MG INJ IM ONE (06:00)
[2018-09-21] MEDS: ONDANSETRON 4 MG INJ IV PRN ×2 (06:08→18:36)
[2018-09-21] MEDS: HEPARIN 5,000 UNIT/1 ML VIAL SC SCH ×3 (06:41→21:31)
[2018-09-21] MEDS: DOXYCYCLINE 100 MG TAB PO SCH ×2 (08:53→20:35)
[2018-09-21] MEDS: FOLIC ACID 1 MG TAB PO SCH (08:53)
[2018-09-21] MEDS: THIAMINE 100 MG TAB PO SCH (08:53)
[2018-09-21] MEDS: DUTASTERIDE 0.5 MG CAP PO SCH (08:53)
[2018-09-21] MEDS: MULTIVITAMINS THERAPEUTIC TAB PO SCH (08:53)
[2018-09-21] MEDS: SERTRALINE 100 MG TAB PO SCH (08:53)
[2018-09-21] MEDS: LOSARTAN 50 MG TAB PO SCH (08:54)
[2018-09-21] MEDS: AMLODIPINE 10 MG TAB PO SCH (08:54)
[2018-09-21] MEDS: CHLORTHALIDONE 25 MG TAB PO SCH (08:54)
--- NOTE | 2018-09-21 09:32 | PSY ---
Date/Time of Note Date/Time of Note DATE: 09/21/18 TIME: 09:27 Psychiatric Subjective Eval Consent Pt consented to telemedicine: No Subjective Evaluation Patient location: inpatient History of present illness Patient is a 78-year-old male with underlying medical history of Hypertension, BPH, DVT/PE/thrombocytopenia and hyperlipidemia. Patient is recently admitted to the telemetry unit for left lower extremity swelling and redness. On a [id number] evaluation, patient is alert oriented, able to respond to questions appropriately. Patient states his depression is controlled with medication. He denies anxiety denies suicidal ideation and contracted for safety. Patient also complained of difficulty sleeping, explained risk and benefits of trazodone to help him with depression and sleep and he verbalized understanding. Hospitalization: other Medical history Problems Medical Problems: (1) Alcohol abuse Status: Acute (2) Alcohol withdrawal syndrome Status: Acute (3) Bilateral lower leg cellulitis Status: Acute (4) Bleeding from varicose vein Status: Acute (5) Cellulitis Status: Acute (6) Cellulitis Status: Acute (7) Chronic alcohol abuse Status: Acute (8) Episode of shaking Status: Acute (9) Fever Status: Acute (10) History of alcohol abuse Status: Acute (11) Hyponatremia Status: Acute (12) Mass of upper lobe of left lung Status: Acute (13) Normocytic anemia Status: Acute (14) Pancytopenia Status: Acute (15) Syncope Status: Acute (16) Thrombocytopenia Status: Acute Allergies: Coded Allergies: No Known Drug Allergy (Verified Allergy, Unknown, 09/12/18) Substance Abuse Substance abuse history: Yes (Alcohol abuse) Prior substance abuse treatmen: Yes Social History Marital status: other DPA/Conservatorship: No Psychiatric Objective Eval Review of Systems: Review of Systems: Not Applicable Physical Examination: Sleep: Adequate Appetite: Decreased Energy: Decreased Interest: Decreased Mental Status Examination: Appearance: Poor Hygiene Psychomotor Activity: Slow Behavior: Cooperative Speech: Soft AFFECT: Flat Mood: Depressed Though Process: Linear Thought Content: Normal Orientation: x3 Cognition: Alert Insight: Intact Judgement: Intact Attention Span: Intact Laboratory Results Laboratory Tests Test 09/21/18 05:21 09/21/18 05:35 09/21/18 06:24 Bedside Glucose 191 mg/dL Prothrombin Time 12.9 Sec Prothrombin Time Ratio 1.0 INR International Normalized Ratio 0.96 Activated Partial Thromboplast Time 27.7 Sec Platelet Count 132 10^3/UL Assessment and Plan Assessment/Diagnosis Diagnosis Major depressive disorder severe recurrent without psychosis, rule out delirium Recommendation/Plan Medication Management Zoloft 100 mg daily, trazodone 25 milligrams at bedtime Multiple antipsychotics: No Discharge Disposition: Other Legal Status: Voluntary CASH FLYNN NP Sep 21, 2018 09:32
[2018-09-21] MEDS: FISH OIL 1,000 MG CAP PO SCH ×2 (10:42→20:35)
[2018-09-21] MEDS: LORAZEPAM 0.5 MG TAB PO PRN (10:45)
--- NOTE | 2018-09-21 11:49 | CONS ---
Assessment/Plan Assessment/Plan Hospital Course (Demo Recall) ID PROGRESS NOTE CURRENT ABX: DAY # =>Doxycycline s/p Vanco IV + Cefepime 24H INTERVAL SUMMARY * Patient is confused, 78 yo M with acute encephalopathy on chronic vascular cerebral changes. * I met with daughters at bedside -- gave them update on BLEXT chronic venous stasis dermatitis, acute cellulitis, now on PO Doxy DIAGNOSTIC IMAGING * 09/21/18 CT Brain: 1. Moderate to severe generalized cerebral volume loss.2. Mild to moderate nonspecific chronic microvascular ischemic disease.3. 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 No evidence of intracranial masses hemorrhages or midline shift. 5. Unremarkable cranioplasty of roscoe hole posterior left parietal calvarium. * 09/17/18 CXR: 1. No evidence for acute cardiopulmonary disease. MICRO * (-)MRSA Nares * 09/15/18 URINE CULTURE Final Organism 1 MIXED GRAM POSITIVE ORGANISMS COLONY COUNT <10,000 CFU/ml * 09/15/18 BCX (-) PHYSICAL EXAMINATION: GENERAL: VSS, NAD HEENT: AT, NC, NECK: Supple, CHEST: Rise symmetrical HEART: Pulse RRR ABDOMEN: Benign EXTREMITIES: Warm, dry -- chronic BLEXT venous stasis hyperpigmentation changes w/left cellulitis improving SKIN: No rash, no diaphoresis ID ASSESSMENT 78 yo M admit with: 1. Bilateral lower extremities, chronic venous stasis with left lower extremity cellulitis. 2. Hypertension. 3. History of polysubstance abuse. 4. Improving transaminitis. 5. History of deep venous thrombosis and pulmonary embolism. (-)MRSA Nares ABX ALLERGIES: KNDA INVASIVES: PIV CURRENT ABX: DAY # => Doxycycline ID RECOMMENDATIONS/PLAN: 1. I met with daughters at bedside -- gave them update on BLEXT chronic venous stasis dermatitis, acute cellulitis, now on PO Doxy . Consultation Date/Type/Reason Admit Date/Time Sep 15, 2018 at 21:15 Initial Consult Date Date/Time of Note DATE: 09/21/18 TIME: 11:49 Exam/Review of Systems Exam Vitals Vital Signs Date Temp Pulse Resp B/P (MAP) Pulse Ox O2 O2 Flow FiO2 Time Delivery Rate 09/21/18 97.7 78 20 180/75 94 11:02 (110) 09/21/18 Room Air 07:32 Intake and Output 09/20/18 09/20/18 09/21/18 1515:00 23:00 07:00 IntakeIntake Total 50 ml 1280 ml 200 ml OutputOutput Total 3 ml 601 ml BalanceBalance 50 ml 1277 ml -401 ml Results Result Diagram: 09/21/18 0624 09/19/18 0712 Results 24hrs Laboratory Tests Test 09/21/18 05:21 09/21/18 05:35 09/21/18 06:24 09/21/18 11:30 Bedside Glucose 191 252 H Prothrombin Time 12.9 Prothrombin Time 1.0 Ratio INR International 0.96 Normalized Ratio Activated 27.7 Partial Thromboplast Time Platelet Count 132 L Medications Medication Current Medications IV Flush (NS 3 ml) 3 ml PER PROTOCOL IV ; Start 09/15/18 at 21:30 Ondansetron HCl (Zofran Inj) 4 mg Q6H PRN IV NAUSEA/VOMITING Last administered on 09/21/18at 06:08; Admin Dose 4 MG; Start 09/15/18 at 21:30 Acetaminophen (Tylenol Tab) 650 mg Q6H PRN PO .PAIN 1-3 OR TEMP Last administered on 09/21/18at 02:10; Admin Dose 650 MG; Start 09/15/18 at 21:30 Acetaminophen/ Hydrocodone Bitart ([place] (5/325)) 1 tab Q6H PRN PO .MOD PAIN 4- 6 Last administered on 09/20/18at 10:02; Admin Dose 1 TAB; Start 09/15/18 at 21:30 Morphine Sulfate (morphine) 2 mg Q4H PRN IV .SEVERE PAIN 7-10; Start 09/15/18 at 21:30 Docusate Sodium (Colace) 100 mg Q12H PRN PO .CONSTIPATION Last administered on 09/18/18at 20:25; Admin Dose 100 MG; Start 09/15/18 at 21:30 Bisacodyl (Dulcolax) 5 mg DAILY PRN PO .CONSTIPATION; Start 09/15/18 at 21:30 Heparin Sodium (Porcine) (Heparin (5000 Units/1ml)) 5,000 unit Q8 SC Last administered on 09/21/18at 06:41; Admin Dose 5,000 UNIT; Start 09/15/18 at 22:00 Enalaprilat (Vasotec Iv) 1.25 mg Q4H PRN IV ELEVATED BLOOD PRESSURE Last administered on 09/20/18 01:57; Admin Dose 1.25 MG; Start 09/16/18 at 00:00 Atorvastatin Calcium (Lipitor) 20 mg QHS PO Last administered on 09/16/18 20:22; Admin Dose 20 MG; Start 09/16/18 at 21:00; Status Hold Dutasteride (Avodart) 0.5 mg DAILY PO Last administered on 09/21/18 08:53; A dmin Dose 0.5 MG; Start 09/16/18 at 09:00 Folic Acid (Folic Acid) 1 mg DAILY PO Last administered on 09/21/18 08:53; Admin Dose 1 MG; Start 09/16/18 at 09:00 Sertraline HCl (Zoloft) 100 mg DAILY PO Last administered on 09/21/18 08:53; Admin Dose 100 MG; Start 09/16/18 at 09:00 Tamsulosin HCl (Flomax) 0.4 mg HS PO Last administered on 09/20/18 21:42; Admin Dose 0.4 MG; Start 09/16/18 at 21:00 Fish Oil (Fish Oil) 2,000 mg BID PO Last administered on 09/21/18 10:42; Admin Dose 2,000 MG; Start 09/16/18 at 09:00 Pantoprazole (Protonix Tab) 40 mg BID@0600,1800 PO Last administered on 9at 17:29; Admin Dose 40 MG; Start 09/16/18 at 07:30 Losartan Potassium (Cozaar) 100 mg DAILY PO Last administered on 09/21/18 08:54; Admin Dose 100 MG; Start 09/17/18 at 09:00 Hydralazine HCl (Apresoline) 10 mg Q4H PRN IV sbp>170 Last administered on 09/21/18 04:08; Admin Dose 10 MG; Start 09/17/18 at 16:30 Amlodipine Besylate (Norvasc) 10 mg DAILY PO Last administered on 09/21/18 08:54; Admin Dose 10 MG; Start 09/19/18 at 09:00 Multivitamins Therapeutic (Theragran) 1 tab DAILY PO Last administered on 09/21/18 08:53; Admin Dose 1 TAB; Start 09/18/18 at 16:00 Thiamine HCl (Vitamin B1) 100 mg DAILY PO Last administered on 09/21/18at 08:53; Admin Dose 100 MG; Start 09/18/18 at 16:00 Chlorthalidone (Hygroton) 25 mg DAILY PO Last administered on 09/21/18at 08:54; Admin Dose 25 MG; Start 09/20/18 at 09:00 Lorazepam (Ativan) 0.5 mg Q8H PRN PO ANXIETY Last administered on 09/21/18at 10: 45; Admin Dose 0.5 MG; Start 09/20/18 at 15:00 Doxycycline Hyclate (Vibramycin) 100 mg BID PO Last administered on 09/21/18at 08:53; Admin Dose 100 MG; Start 09/20/18 at 15:30 Diphenhydramine HCl (Benadryl) 25 mg Q6H PRN PO ITCHING Last administered on 09/21/18at 02:06; Admin Dose 25 MG; Start 09/21/18 at 02:00; Stop 09/23/18 at 01:59 Trazodone HCl (Desyrel) 25 mg HS PO ; Start 09/21/18 at 21:00 JUSTA FLORES NP Sep 21, 2018 11:49
--- NOTE | 2018-09-21 13:18 | PN ---
Date/Time of Note Date/Time of Note DATE: 09/21/18 TIME: 13:14 Assessment/Plan VTE Prophylaxis Risk score (from Nsg)>0 risk: 3 Pharmacological prophylaxis: heparin Lines/Catheters IV Catheter Type (from Nrsg): Saline Lock Urinary Cath still in place: No Assessment/Plan Hospital Course 1. Left lower extremity cellulitis secondary to venous insufficiency and stasis- improved Etiology of venous insufficiency and stasis likely secondary to underlying liver disease Status post cefepime, patient transitioned to doxycycline p.o. ID consultation appreciated Vascular surgery consultation appreciated, arterial ultrasound shows no evidence of significant stenosis Continue elevation of leg US negative for DVT 2. Severe hypertension-improving Continue Cozaar, chlorthalidone and Norvasc which are all now at maximum doses Hydralazine PRN 3. History of DVT/PE Patient no longer on blood thinners 4. Delirium secondary to opiate withdrawal, prolonged hospitalization and lack of sleep-patient mentation has been labile and today is more confused than yesterday and was delirious overnight Patient has been on methadone for the past 9 years for unclear reasons Patient also has a history of alcohol abuse Psych eval appreciated Encourage increased rest Continue Ativan due to opiate withdrawal Melatonin in the evenings 5. Polysubstance abuse with likely underlying liver disease Patient with history of alcohol abuse as well as opiate abuse Continue multivitamin, folic acid and thiamine 6. 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 Thrombocytopenia like secondary liver disease Monitor 8. Anxiety Continue sertraline 9. Hyperlipidemia Continue atorvastatin 10. BPH Continue Flomax, Avodart 11. Debility secondary to comorbidities PT eval Patient will need either [facility] placement versus being in the care of 1 of the daughters versus drug rehab program Prophylaxis: Heparin DC planning: Patient still with severe delirium and opiate withdrawal, daughters are not interested in [facility] placement and are deciding between bringing him home under their care versus inpatient drug rehab programs Result Diagram: 09/21/18 0624 09/19/18 0712 Results 24hrs Laboratory Tests Test 09/21/18 05:21 09/21/18 05:35 09/21/18 06:24 09/21/18 11:30 Bedside Glucose 191 252 H Prothrombin Time 12.9 Prothrombin Time 1.0 Ratio INR International 0.96 Normalized Ratio Activated 27.7 Partial Thromboplast Time Platelet Count 132 L Subjective 24 Hr Interval Summary Constitutional: disoriented Exam/Review of Systems Exam Vitals Vital Signs Date Temp Pulse Resp B/P (MAP) Pulse Ox O2 O2 Flow FiO2 Time Delivery Rate 09/21/18 97.7 78 20 180/75 94 11:02 (110) 09/21/18 Room Air 07:32 Intake and Output 09/20/18 09/20/18 09/21/18 1515:00 23:00 07:00 IntakeIntake Total 50 ml 1280 ml 200 ml OutputOutput Total 3 ml 601 ml BalanceBalance 50 ml 1277 ml -401 ml Psych: confusion Respiratory: clear to auscultation Cardiovascular: regular rate and rhythm Gastrointestinal: soft; No distended Musculoskeletal: nl extremities to inspection Results Results 24hrs Laboratory Tests Test 09/21/18 05:21 09/21/18 05:35 09/21/18 06:24 09/21/18 11:30 Bedside Glucose 191 252 H Prothrombin Time 12.9 Prothrombin Time 1.0 Ratio INR International 0.96 Normalized Ratio Activated 27.7 Partial Thromboplast Time Platelet Count 132 L Medications Medication Current Medications IV Flush (NS 3 ml) 3 ml PER PROTOCOL IV ; Start 09/15/18 at 21:30 Ondansetron HCl (Zofran Inj) 4 mg Q6H PRN IV NAUSEA/VOMITING Last administered on 09/21/18at 06:08; Admin Dose 4 MG; Start 09/15/18 at 21:30 Acetaminophen (Tylenol Tab) 650 mg Q6H PRN PO .PAIN 1-3 OR TEMP Last administered on 09/21/18at 02:10; Admin Dose 650 MG; Start 09/15/18 at 21:30 Acetaminophen/ Hydrocodone Bitart ([place] (5/325)) 1 tab Q6H PRN PO .MOD PAIN 4- 6 Last administered on 09/20/18at 10:02; Admin Dose 1 TAB; Start 09/15/18 at 21:30 Morphine Sulfate (morphine) 2 mg Q4H PRN IV .SEVERE PAIN 7-10; Start 09/15/18 at 21:30 Docusate Sodium (Colace) 100 mg Q12H PRN PO .CONSTIPATION Last administered on 09/18/18 20:25; Admin Dose 100 MG; Start 09/15/18 at 21:30 Bisacodyl (Dulcolax) 5 mg DAILY PRN PO .CONSTIPATION; Start 09/15/18 at 21:30 Heparin Sodium (Porcine) (Heparin (5000 Units/1ml)) 5,000 unit Q8 SC Last administered on 09/21/18 06:41; Admin Dose 5,000 UNIT; Start 09/15/18 at 22:00 Enalaprilat (Vasotec Iv) 1.25 mg Q4H PRN IV ELEVATED BLOOD PRESSURE Last administered on 09/20/18 01:57; Admin Dose 1.25 MG; Start 09/16/18 at 00:00 Atorvastatin Calcium (Lipitor) 20 mg QHS PO Last administered on 09/16/18 20:22; Admin Dose 20 MG; Start 09/16/18 at 21:00; Status Hold Dutasteride (Avodart) 0.5 mg DAILY PO Last administered on 09/21/18 08:53; Admin Dose 0.5 MG; Start 09/16/18 at 09:00 Folic Acid (Folic Acid) 1 mg DAILY PO Last administered on 09/21/18 08:53; Admin Dose 1 MG; Start 09/16/18 at 09:00 Sertraline HCl (Zoloft) 100 mg DAILY PO Last administered on 09/21/18 08:53; Admin Dose 100 MG; Start 09/16/18 at 09:00 Tamsulosin HCl (Flomax) 0.4 mg HS PO Last administered on 09/20/18 21:42; Admin Dose 0.4 MG; Start 09/16/18 at 21:00 Fish Oil (Fish Oil) 2,000 mg BID PO Last administered on 09/21/18 10:42; Admin Dose 2,000 MG; Start 09/16/18 at 09:00 Pantoprazole (Protonix Tab) 40 mg BID@0600,1800 PO Last administered on 09/20/18 17:29; Admin Dose 40 MG; Start 09/16/18 at 07:30 Losartan Potassium (Cozaar) 100 mg DAILY PO Last administered on 09/21/18 08:54; Admin Dose 100 MG; Start 09/17/18 at 09:00 Hydralazine HCl (Apresoline) 10 mg Q4H PRN IV sbp>170 Last administered on 09/21/18 04:08; Admin Dose 10 MG; Start 09/17/18 at 16:30 Amlodipine Besylate (Norvasc) 10 mg DAILY PO Last administered on 09/21/18 08:54; Admin Dose 10 MG; Start 09/19/18 at 09:00 Multivitamins Therapeutic (Theragran) 1 tab DAILY PO Last administered on 08:53; Admin Dose 1 TAB; Start 09/18/18 at 16:00 Thiamine HCl (Vitamin B1) 100 mg DAILY PO Last administered on 09/21/18 08:53; Admin Dose 100 MG; Start 09/18/18 at 16:00 Chlorthalidone (Hygroton) 25 mg DAILY PO Last administered on 09/21/18 08:54; Admin Dose 25 MG; Start 09/20/18 at 09:00 Lorazepam (Ativan) 0.5 mg Q8H PRN PO ANXIETY Last administered on 09/21/18 10:45; Admin Dose 0.5 MG; Start 09/20/18 at 15:00 Doxycycline Hyclate (Vibramycin) 100 mg BID PO Last administered on 09/21/18 08:53; Admin Dose 100 MG; Start 09/20/18 at 15:30 Diphenhydramine HCl (Benadryl) 25 mg Q6H PRN PO ITCHING Last administered on 09/21/18 02:06; Admin Dose 25 MG; Start 09/21/18 at 02:00; Stop 09/23/18 at 01:59 Trazodone HCl (Desyrel) 25 mg HS PO ; Start 09/21/18 at 21:00 STUART MATAMOROS Sep 21, 2018 13:18
[2018-09-21] MEDS: NITROGLYCERIN (SL) 0.4 MG TAB SL PRN ×2 (13:44→13:59)
[2018-09-21] MEDS ORDERED: LORAZEPAM 2 MG INJ IV PRN (19:00)
[2018-09-21] MEDS: 1/2 NS + KCL 20 MEQ 1,000 ML IV SCH (19:52)
[2018-09-21] MEDS: traZODone 50 MG TAB PO SCH (20:35)
[2018-09-21] MEDS: TAMSULOSIN (SR) 0.4 MG CAP PO SCH (20:35)
[2018-09-22] VITALS (8 sets, daily range): BP systolic 136–179; BP diastolic 61–74; PULSE 106–116; RESP 18–22
[2018-09-22] MEDS: hydrALAzine 20 MG INJ IV PRN ×2 (00:28→16:45)
[2018-09-22] MEDS: ONDANSETRON 4 MG INJ IV PRN (02:20)
[2018-09-22] MEDS: PANTOPRAZOLE (EC) 40 MG TAB PO SCH ×2 (05:14→17:15)
[2018-09-22] MEDS: HEPARIN 5,000 UNIT/1 ML VIAL SC SCH ×3 (05:23→21:12)
[2018-09-22] MEDS: ACETAMINOPHEN 325 MG TAB PO PRN (06:09)
[2018-09-22] MEDS ORDERED: NALOXONE (0.4 MG/ML) INJ ONE (07:00)
[2018-09-22] MEDS ORDERED: METOPROLOL 5 MG INJ ONE (07:00)
[2018-09-22] MEDS: DOXYCYCLINE 100 MG TAB PO SCH ×2 (08:43→20:50)
[2018-09-22] MEDS: LOSARTAN 50 MG TAB PO SCH (08:44)
[2018-09-22] MEDS: THIAMINE 100 MG TAB PO SCH (08:44)
[2018-09-22] MEDS: FISH OIL 1,000 MG CAP PO SCH ×2 (08:44→20:51)
[2018-09-22] MEDS: AMLODIPINE 10 MG TAB PO SCH (08:44)
[2018-09-22] MEDS: CHLORTHALIDONE 25 MG TAB PO SCH (08:44)
[2018-09-22] MEDS: FOLIC ACID 1 MG TAB PO SCH (08:44)
[2018-09-22] MEDS: MULTIVITAMINS THERAPEUTIC TAB PO SCH (08:45)
[2018-09-22] MEDS: SERTRALINE 100 MG TAB PO SCH (08:45)
[2018-09-22] MEDS: DUTASTERIDE 0.5 MG CAP PO SCH (08:45)
--- NOTE | 2018-09-22 10:29 | PN ---
Date/Time of Note Date/Time of Note DATE: 09/22/18 TIME: 10:28 Assessment/Plan Lines/Catheters IV Catheter Type (from Nrsg): Peripheral IV Brown in Place (from Nrsg): No Assessment/Plan Assessment/Plan IMPRESSION: Breakdown of left lower extremity with cellulitis.Venous stasis ulceration. No evidence of any DVT. The patient does have a history of PE. RECOMMENDATIONS: We will continue anticoagulation, antibiotics, elevation of the leg. Optimize vascular status with hydration, avoid vasopressors. BP control. Optimize vascular status. Will discuss with the referring physician. BP control DC planning Subjective 24 Hr Interval Summary Constitutional: improved Pain Control: mild Exam/Review of Systems Vital Signs Vitals Vital Signs Date Temp Pulse Resp B/P (MAP) Pulse Ox O2 O2 Flow FiO2 Time Delivery Rate 09/22/18 98.1 114 22 142/63 96 Room Air 08:00 (89) 09/21/18 4.0 23:36 Intake and Output 09/21/18 09/21/18 09/22/18 1515:00 23:00 07:00 IntakeIntake Total 200 ml 1020 ml OutputOutput Total 1 ml 710 ml 300 ml BalanceBalance 199 ml -710 ml 720 ml Exam ENMT: nl external ears & nose, nl lips & teeth, nl nasal mucosa & septum, mucosa pink and moist Neck: supple, non-tender Respiratory: clear to auscultation, normal air movement Cardiovascular: regular rate and rhythm, nl pulses Gastrointestinal: soft, nl liver, spleen, non-tender Musculoskeletal: nl extremities to inspection, nl gait and stance Results Result Diagram: 09/22/18 0544 09/22/18 0544 MAXIME BOATENG MD Sep 22, 2018 10:29
--- NOTE | 2018-09-22 10:30 | PN ---
Date/Time of Note Date/Time of Note DATE: 09/21/18 TIME: 10:29 Assessment/Plan Lines/Catheters IV Catheter Type (from Nrsg): Peripheral IV Brown in Place (from Nrsg): No Assessment/Plan Assessment/Plan IMPRESSION: Breakdown of left lower extremity with cellulitis.Venous stasis ulceration. No evidence of any DVT. The patient does have a history of PE. RECOMMENDATIONS: We will continue anticoagulation, antibiotics, elevation of the leg. Optimize vascular status with hydration, avoid vasopressors. BP control. Optimize vascular status. Will discuss with the referring physician. BP control DC planning Subjective 24 Hr Interval Summary Constitutional: improved Pain Control: mild Exam/Review of Systems Vital Signs Vitals Vital Signs Date Temp Pulse Resp B/P (MAP) Pulse Ox O2 O2 Flow FiO2 Time Delivery Rate 09/22/18 98.1 114 22 142/63 96 Room Air 08:00 (89) 09/21/18 4.0 23:36 Intake and Output 09/21/18 09/21/18 09/22/18 1414:59 22:59 06:59 IntakeIntake Total 200 ml 1020 ml OutputOutput Total 1 ml 710 ml 300 ml BalanceBalance 199 ml -710 ml 720 ml Exam Eyes: nl conjunctiva, EOMI, nl lids, nl sclera ENMT: nl external ears & nose, nl lips & teeth, nl nasal mucosa & septum, mucosa pink and moist Neck: supple, non-tender Respiratory: clear to auscultation, normal air movement Cardiovascular: regular rate and rhythm, nl pulses Gastrointestinal: soft, nl liver, spleen, non-tender Musculoskeletal: nl extremities to inspection, nl gait and stance Results Result Diagram: 09/22/18 0544 09/22/18 0544 MAXIME BOATENG MD Sep 22, 2018 10:30
[2018-09-22] MEDS: 1/2 NS + KCL 20 MEQ 1,000 ML IV SCH (11:10)
--- NOTE | 2018-09-22 13:05 | CONS ---
Assessment/Plan Assessment/Plan Hospital Course (Demo Recall) ID PROGRESS NOTE CURRENT ABX: DAY # =>Doxycycline s/p Vanco IV + Cefepime 24H INTERVAL SUMMARY * Patient is awake, alert, oriented to name -- -remains confused, 78 yo M with acute encephalopathy on chronic vascular cerebral changes. * Acute on chronic LEFT Lower EXT vascular wound == ABX tapered to Doxycycline * Patient seen by CT surgeon who noted " Breakdown of left lower extremity with cellulitis.Venous stasis ulceration. No evidence of any DVT. The patient does have a history of PE." DIAGNOSTIC IMAGING * 09/21/18 CT Brain: 1. Moderate to severe generalized cerebral volume loss.2. Mild to moderate nonspecific chronic microvascular ischemic disease.3. 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 No evidence of intracranial masses hemorrhages or midline shift. 5. Unremarkable cranioplasty of roscoe hole posterior left parietal calvarium. * 09/17/18 CXR: 1. No evidence for acute cardiopulmonary disease. MICRO * (-)MRSA Nares * 09/15/18 URINE CULTURE Final Organism 1 MIXED GRAM POSITIVE ORGANISMS COLONY COUNT <10,000 CFU/ml * 09/15/18 BCX (-) PHYSICAL EXAMINATION: GENERAL: VSS, NAD HEENT: AT, NC, NECK: Supple, CHEST: Rise symmetrical HEART: Pulse RRR ABDOMEN: Benign EXTREMITIES: Warm, dry -- chronic BLEXT venous stasis hyperpigmentation changes w/left cellulitis improving SKIN: No rash, no diaphoresis ID ASSESSMENT 78 yo M admit with: 1. Bilateral lower extremities, chronic venous stasis with left lower extremity cellulitis. 2. Hypertension. 3. History of polysubstance abuse. 4. Improving transaminitis. 5. History of deep venous thrombosis and pulmonary embolism. (-)MRSA Nares ABX ALLERGIES: KNDA INVASIVES: PIV CURRENT ABX: DAY # => Doxycycline ID RECOMMENDATIONS/PLAN: 1. Continue Doxycycline for left lower extremity cellulitis venous stasis ulcer. . Consultation Date/Type/Reason Admit Date/Time Sep 15, 2018 at 21:15 Initial Consult Date Date/Time of Note DATE: 09/22/18 TIME: 12:53 Exam/Review of Systems Exam Vitals Vital Signs Date Temp Pulse Resp B/P (MAP) Pulse Ox O2 O2 Flow FiO2 Time Delivery Rate 09/22/18 98.6 112 22 153/65 96 Room Air 11:31 (94) 09/21/18 4.0 23:36 Intake and Output 09/21/18 09/21/18 09/22/18 1515:00 23:00 07:00 IntakeIntake Total 200 ml 1020 ml OutputOutput Total 1 ml 710 ml 300 ml BalanceBalance 199 ml -710 ml 720 ml Results Result Diagram: 09/22/18 0544 09/22/18 0544 Results 24hrs Laboratory Tests Test 09/22/18 05:44 White Blood Count 11.1 #H Red Blood Count 4.04 L Hemoglobin 11.5 L Hematocrit 35.7 L Mean Corpuscular Volume 88.4 Mean Corpuscular Hemoglobin 28.5 L Mean Corpuscular Hemoglobin Concent 32.2 Red Cell Distribution Width 16.1 H Platelet Count 160 # Mean Platelet Volume 9.7 Immature Granulocytes % 0.400 Neutrophils % 84.1 H Lymphocytes % 7.1 L Monocytes % 8.1 Eosinophils % 0.1 Basophils % 0.2 Nucleated Red Blood Cells % 0.0 Immature Granulocytes # 0.050 H Neutrophils # 9.4 H Lymphocytes # 0.8 Monocytes # 0.9 Eosinophils # 0.0 Basophils # 0.0 Nucleated Red Blood Cells # 0.0 Sodium Level 138 Potassium Level 3.4 L Chloride Level 99 Carbon Dioxide Level 27 Anion Gap 12 Blood Urea Nitrogen 21 H Creatinine 0.87 Est Glomerular Filtrat Rate mL/min Glucose Level 178 Calcium Level 10.2 Phosphorus Level 4.2 Magnesium Level 1.7 Total Bilirubin 0.3 Direct Bilirubin 0.00 Indirect Bilirubin 0.3 Aspartate Amino Transf (AST/SGOT) 46 Alanine Aminotransferase (ALT/SGPT) 65 Alkaline Phosphatase 147 H Total Protein 8.2 H Albumin 4.4 Globulin 3.80 H Albumin/Globulin Ratio 1.15 Medications Medication Current Medications IV Flush (NS 3 ml) 3 ml PER PROTOCOL IV ; Start 09/15/18 at 21:30 Ondansetron HCl (Zofran Inj) 4 mg Q6H PRN IV NAUSEA/VOMITING Last administered on 09/22/18at 02:20; Admin Dose 4 MG; Start 09/15/18 at 21:30 Acetaminophen (Tylenol Tab) 650 mg Q6H PRN PO .PAIN 1-3 OR TEMP Last administered on 09/22/18at 06:09; Admin Dose 650 MG; Start 09/15/18 at 21:30 Acetaminophen/ Hydrocodone Bitart ([place] (5/325)) 1 tab Q6H PRN PO .MOD PAIN 4- 6 Last administered on 09/20/18 10:02; Admin Dose 1 TAB; Start 09/15/18 at 21:30 Morphine Sulfate (morphine) 2 mg Q4H PRN IV .SEVERE PAIN 7-10; Start 09/15/18 at 21:30 Docusate Sodium (Colace) 100 mg Q12H PRN PO .CONSTIPATION Last administered on 09/18/18 20:25; Admin Dose 100 MG; Start 09/15/18 at 21:30 Bisacodyl (Dulcolax) 5 mg DAILY PRN PO .CONSTIPATION; Start 09/15/18 at 21:30 Heparin Sodium (Porcine) (Heparin (5000 Units/1ml)) 5,000 unit Q8 SC Last administered on 09/22/18 05:23; Admin Dose 5,000 UNIT; Start 09/15/18 at 22:00 Enalaprilat (Vasotec Iv) 1.25 mg Q4H PRN IV ELEVATED BLOOD PRESSURE Last administered on 09/20/18 01:57; Admin Dose 1.25 MG; Start 09/16/18 at 00:00 Atorvastatin Calcium (Lipitor) 20 mg QHS PO Last administered on 09/16/18 20:22; Admin Dose 20 MG; Start 09/16/18 at 21:00; Status Hold Dutasteride (Avodart) 0.5 mg DAILY PO Last administered on 09/22/18 08:45; Admin Dose 0.5 MG; Start 09/16/18 at 09:00 Folic Acid (Folic Acid) 1 mg DAILY PO Last administered on 09/22/18 08:44; Admin Dose 1 MG; Start 09/16/18 at 09:00 Sertraline HCl (Zoloft) 100 mg DAILY PO Last administered on 09/22/18 08:45; Admin Dose 100 MG; Start 09/16/18 at 09:00 Tamsulosin HCl (Flomax) 0.4 mg HS PO Last administered on 09/21/18 20:35; Admin Dose 0.4 MG; Start 09/16/18 at 21:00 Fish Oil (Fish Oil) 2,000 mg BID PO Last administered on 09/22/18 08:44; Admin Dose 2,000 MG; Start 09/16/18 at 09:00 Pantoprazole (Protonix Tab) 40 mg BID@0600,1800 PO Last administered on 09/22/18 05:14; Admin Dose 40 MG; Start 09/16/18 at 07:30 Losartan Potassium (Cozaar) 100 mg DAILY PO Last administered on 09/22/18 08:44; Admin Dose 100 MG; Start 09/17/18 at 09:00 Hydralazine HCl (Apresoline) 10 mg Q4H PRN IV sbp>170 Last administered on 09/22/18 00:28; Admin Dose 10 MG; Start 09/17/18 at 16:30 Amlodipine Besylate (Norvasc) 10 mg DAILY PO Last administered on 09/22/18 08:44; Admin Dose 10 MG; Start 09/19/18 at 09:00 Multivitamins Therapeutic (Theragran) 1 tab DAILY PO Last administered on 09/22/18 08:45; Admin Dose 1 TAB; Start 09/18/18 at 16:00 Thiamine HCl (Vitamin B1) 100 mg DAILY PO Last administered on 09/22/18 08:44; Admin Dose 100 MG; Start 09/18/18 at 16:00 Chlorthalidone (Hygroton) 25 mg DAILY PO Last administered on 09/22/18 08:44; Admin Dose 25 MG; Start 09/20/18 at 09:00 Doxycycline Hyclate (Vibramycin) 100 mg BID PO Last administered on 09/22/18 08:43; Admin Dose 100 MG; Start 09/20/18 at 15:30 Diphenhydramine HCl (Benadryl) 25 mg Q6H PRN PO ITCHING Last administered on 09/21/18 02:06; Admin Dose 25 MG; Start 09/21/18 at 02:00; Stop 09/23/18 at 01:59 Trazodone HCl (Desyrel) 25 mg HS PO Last administered on 09/21/18 20:35; Admin Dose 25 MG; Start 09/21/18 at 21:00 Nitroglycerin (Nitroglycerin (Sl Tab) 0.4 Mg) 1 tab Q5M PRN SL ANGINA Last administered on 09/21/18 13:59; Admin Dose 1 TAB; Start 09/21/18 at 14:00 Lorazepam (Ativan) 0.5 mg Q8H PRN IV AGITATION/ANXIETY; Start 09/21/18 at 19:00 Potassium Chloride/Sodium Chloride 1,000 ml @ 60 mls/hr [id number] IV Last administered on 09/22/18at 11:10; Admin Dose 60 MLS/HR; Start 09/21/18 at 19:00 JUSTA FLORES NP Sep 22, 2018 13:04
[2018-09-22] MEDS ORDERED: morphine 2 MG INJ IV STA (18:37)
--- NOTE | 2018-09-22 19:10 | PN ---
Date/Time of Note Date/Time of Note DATE: 09/22/18 TIME: 18:59 Assessment/Plan VTE Prophylaxis Risk score (from Nsg)>0 risk: 7 Pharmacological prophylaxis: heparin Lines/Catheters IV Catheter Type (from Nrsg): Peripheral IV Urinary Cath still in place: No Assessment/Plan Hospital Course 1. Left lower extremity cellulitis secondary to venous insufficiency and stasis- improved Etiology of venous insufficiency and stasis likely secondary to underlying liver disease Status post cefepime, patient transitioned to doxycycline p.o. ID consultation appreciated Vascular surgery consultation appreciated, arterial ultrasound shows no evidence of significant stenosis Continue elevation of leg US negative for DVT 2. Severe hypertension-improving Continue Cozaar, chlorthalidone and Norvasc which are all now at maximum doses Hydralazine PRN 3. History of DVT/PE Patient no longer on blood thinners 4. Delirium secondary to opiate withdrawal, prolonged hospitalization and lack of sleep-patient mentation has been extremely labile Patient has been on methadone for the past 9 years for unclear reasons Patient also has a history of alcohol abuse Psych eval appreciated Encourage increased rest Continue Ativan due to opiate withdrawal Melatonin in the evenings Morphine 1 mg IV x1 today due to difficulty with withdrawals and worsening mentation, may need further opioids to ease with withdrawal 5. Polysubstance abuse with likely underlying liver disease Patient with history of alcohol abuse as well as opiate abuse Continue multivitamin, folic acid and thiamine Patient is vomiting today and will start banana bag tomorrow 6. 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 Thrombocytopenia like secondary liver disease Monitor 8. Anxiety Continue sertraline 9. Hyperlipidemia Continue atorvastatin 10. BPH Continue Flomax, Avodart 11. Debility secondary to comorbidities PT eval Patient will need either residential placement versus being in the care of 1 of the daughters versus drug rehab program 12. Urinary retention likely secondary to neurogenic bladder from decreased functional status In and out Brown catheterization, trying to resist placing indwelling catheter due to high probability of patient pulling on catheter Urology consultation obtained 13. Nausea and vomiting with abdominal distention-suspect ileus Symptoms started today KUB to evaluate for ileus Replace potassium Prophylaxis: Heparin DC planning: Patient still with severe delirium and opiate withdrawal, daughters are not interested in residential placement and are deciding between bringing him home under their care versus inpatient drug rehab programs Result Diagram: 09/22/18 0544 09/22/18 0544 Results 24hrs Laboratory Tests Test 09/22/18 05:44 09/22/18 18:34 White Blood Count 11.1 #H Red Blood Count 4.04 L Hemoglobin 11.5 L Hematocrit 35.7 L Mean Corpuscular Volume 88.4 Mean Corpuscular Hemoglobin 28.5 L Mean Corpuscular Hemoglobin Concent 32.2 Red Cell Distribution Width 16.1 H Platelet Count 160 # Mean Platelet Volume 9.7 Immature Granulocytes % 0.400 Neutrophils % 84.1 H Lymphocytes % 7.1 L Monocytes % 8.1 Eosinophils % 0.1 Basophils % 0.2 Nucleated Red Blood Cells % 0.0 Immature Granulocytes # 0.050 H Neutrophils # 9.4 H Lymphocytes # 0.8 Monocytes # 0.9 Eosinophils # 0.0 Basophils # 0.0 Nucleated Red Blood Cells # 0.0 Sodium Level 138 Potassium Level 3.4 L Chloride Level 99 Carbon Dioxide Level 27 Anion Gap 12 Blood Urea Nitrogen 21 H Creatinine 0.87 Est Glomerular Filtrat Rate mL/min Glucose Level 178 Calcium Level 10.2 Phosphorus Level 4.2 Magnesium Level 1.7 Total Bilirubin 0.3 Direct Bilirubin 0.00 Indirect Bilirubin 0.3 Aspartate Amino Transf (AST/SGOT) 46 Alanine Aminotransferase (ALT/SGPT) 65 Alkaline Phosphatase 147 H Total Protein 8.2 H Albumin 4.4 Globulin 3.80 H Albumin/Globulin Ratio 1.15 Bedside Glucose 167 Subjective 24 Hr Interval Summary Constitutional: disoriented Exam/Review of Systems Exam Vitals Vital Signs Date Temp Pulse Resp B/P (MAP) Pulse Ox O2 O2 Flow FiO2 Time Delivery Rate 09/22/18 136/61 18:31 (86) 09/22/18 97.9 106 22 96 Room Air 16:32 09/21/18 4.0 23:36 Intake and Output 09/21/18 09/21/18 09/22/18 1515:00 23:00 07:00 IntakeIntake Total 200 ml 1020 ml OutputOutput Total 1 ml 710 ml 300 ml BalanceBalance 199 ml -710 ml 720 ml Psych: confusion Respiratory: clear to auscultation Cardiovascular: regular rate and rhythm Gastrointestinal: soft; No distended Musculoskeletal: nl extremities to inspection Results Results 24hrs Laboratory Tests Test 09/22/18 05:44 09/22/18 18:34 White Blood Count 11.1 #H Red Blood Count 4.04 L Hemoglobin 11.5 L Hematocrit 35.7 L Mean Corpuscular Volume 88.4 Mean Corpuscular Hemoglobin 28.5 L Mean Corpuscular Hemoglobin Concent 32.2 Red Cell Distribution Width 16.1 H Platelet Count 160 # Mean Platelet Volume 9.7 Immature Granulocytes % 0.400 Neutrophils % 84.1 H Lymphocytes % 7.1 L Monocytes % 8.1 Eosinophils % 0.1 Basophils % 0.2 Nucleated Red Blood Cells % 0.0 Immature Granulocytes # 0.050 H Neutrophils # 9.4 H Lymphocytes # 0.8 Monocytes # 0.9 Eosinophils # 0.0 Basophils # 0.0 Nucleated Red Blood Cells # 0.0 Sodium Level 138 Potassium Level 3.4 L Chloride Level 99 Carbon Dioxide Level 27 Anion Gap 12 Blood Urea Nitrogen 21 H Creatinine 0.87 Est Glomerular Filtrat Rate mL/min Glucose Level 178 Calcium Level 10.2 Phosphorus Level 4.2 Magnesium Level 1.7 Total Bilirubin 0.3 Direct Bilirubin 0.00 Indirect Bilirubin 0.3 Aspartate Amino Transf (AST/SGOT) 46 Alanine Aminotransferase (ALT/SGPT) 65 Alkaline Phosphatase 147 H Total Protein 8.2 H Albumin 4.4 Globulin 3.80 H Albumin/Globulin Ratio 1.15 Bedside Glucose 167 Medications Medication Current Medications IV Flush (NS 3 ml) 3 ml PER PROTOCOL IV ; Start 09/15/18 at 21:30 Ondansetron HCl (Zofran Inj) 4 mg Q6H PRN IV NAUSEA/VOMITING Last administered on 09/22/18at 02:20; Admin Dose 4 MG; Start 09/15/18 at 21:30 Acetaminophen (Tylenol Tab) 650 mg Q6H PRN PO .PAIN 1-3 OR TEMP Last ad ministered on 09/22/18at 06:09; Admin Dose 650 MG; Start 09/15/18 at 21:30 Acetaminophen/ Hydrocodone Bitart ([place] (5/325)) 1 tab Q6H PRN PO .MOD PAIN 4- 6 Last administered on 09/20/18 10:02; Admin Dose 1 TAB; Start 09/15/18 at 21:30 Morphine Sulfate (morphine) 2 mg Q4H PRN IV .SEVERE PAIN 7-10; Start 09/15/18 at 21:30 Docusate Sodium (Colace) 100 mg Q12H PRN PO .CONSTIPATION Last administered on 09/18/18 20:25; Admin Dose 100 MG; Start 09/15/18 at 21:30 Bisacodyl (Dulcolax) 5 mg DAILY PRN PO .CONSTIPATION; Start 09/15/18 at 21:30 Heparin Sodium (Porcine) (Heparin (5000 Units/1ml)) 5,000 unit Q8 SC Last administered on 09/22/18 13:27; Admin Dose 5,000 UNIT; Start 09/15/18 at 22:00 Enalaprilat (Vasotec Iv) 1.25 mg Q4H PRN IV ELEVATED BLOOD PRESSURE Last administered on 09/20/18 01:57; Admin Dose 1.25 MG; Start 09/16/18 at 00:00 Atorvastatin Calcium (Lipitor) 20 mg QHS PO Last administered on 09/16/18 20:22; Admin Dose 20 MG; Start 09/16/18 at 21:00; Status Hold Dutasteride (Avodart) 0.5 mg DAILY PO Last administered on 09/22/18 08:45; Admin Dose 0.5 MG; Start 09/16/18 at 09:00 Folic Acid (Folic Acid) 1 mg DAILY PO Last administered on 09/22/18 08:44; Admin Dose 1 MG; Start 09/16/18 at 09:00 Sertraline HCl (Zoloft) 100 mg DAILY PO Last administered on 09/22/18 08:45; Admin Dose 100 MG; Start 09/16/18 at 09:00 Tamsulosin HCl (Flomax) 0.4 mg HS PO Last administered on 09/21/18 20:35; Admin Dose 0.4 MG; Start 09/16/18 at 21:00 Fish Oil (Fish Oil) 2,000 mg BID PO Last administered on 09/22/18 08:44; Admin Dose 2,000 MG; Start 09/16/18 at 09:00 Pantoprazole (Protonix Tab) 40 mg BID@0600,1800 PO Last administered on 09/22/18 17:15; Admin Dose 40 MG; Start 09/16/18 at 07:30 Losartan Potassium (Cozaar) 100 mg DAILY PO Last administered on 09/22/18 08:4 4; Admin Dose 100 MG; Start 09/17/18 at 09:00 Hydralazine HCl (Apresoline) 10 mg Q4H PRN IV sbp>170 Last administered on 09/22/18 16:45; Admin Dose 10 MG; Start 09/17/18 at 16:30 Amlodipine Besylate (Norvasc) 10 mg DAILY PO Last administered on 09/22/18 08:44; Admin Dose 10 MG; Start 09/19/18 at 09:00 Multivitamins Therapeutic (Theragran) 1 tab DAILY PO Last administered on 09/22/18 08:45; Admin Dose 1 TAB; Start 09/18/18 at 16:00 Thiamine HCl (Vitamin B1) 100 mg DAILY PO Last administered on 09/22/18 08:44; Admin Dose 100 MG; Start 09/18/18 at 16:00 Chlorthalidone (Hygroton) 25 mg DAILY PO Last administered on 09/22/18 08:44; Admin Dose 25 MG; Start 09/20/18 at 09:00 Doxycycline Hyclate (Vibramycin) 100 mg BID PO Last administered on 09/22/18 08:43; Admin Dose 100 MG; Start 09/20/18 at 15:30 Diphenhydramine HCl (Benadryl) 25 mg Q6H PRN PO ITCHING Last administered on 09/21/18 02:06; Admin Dose 25 MG; Start 09/21/18 at 02:00; Stop 09/23/18 at 01:59 Trazodone HCl (Desyrel) 25 mg HS PO Last administered on 09/21/18 20:35; Admin Dose 25 MG; Start 09/21/18 at 21:00 Nitroglycerin (Nitroglycerin (Sl Tab) 0.4 Mg) 1 tab Q5M PRN SL ANGINA Last administered on 09/21/18 13:59; Admin Dose 1 TAB; Start 09/21/18 at 14:00 Lorazepam (Ativan) 0.5 mg Q8H PRN IV AGITATION/ANXIETY; Start 09/21/18 at 19:00 Potassium Chloride/Sodium Chloride 1,000 ml @ 60 mls/hr [id number] IV Last administered on 09/22/18at 11:10; Admin Dose 60 MLS/HR; Start 09/21/18 at 19:00 Multivitamins 10 ml/Thiamine HCl 100 mg/Folic Acid 1 mg/Sodium Chloride 1,011.2 ml @ 125 mls/ hr DAILY@09 IVPB ; Start 09/23/18 at 09:00 STUART MATAMOROS Sep 22, 2018 19:09
[2018-09-22] MEDS ORDERED: POTASSIUM CHLORIDE 100 ML IVPB SCH (19:30)
[2018-09-22] MEDS: DIPHENHYDRAMINE 25 MG CAP PO PRN (19:39)
[2018-09-22] MEDS ORDERED: POTASSIUM CHLORIDE (SR) 20 MEQ TAB PO STA (20:06)
[2018-09-22] MEDS: TAMSULOSIN (SR) 0.4 MG CAP PO SCH (20:50)
[2018-09-22] MEDS: traZODone 50 MG TAB PO SCH (20:51)
[2018-09-23] VITALS (8 sets, daily range): BP systolic 134–180; BP diastolic 57–78; PULSE 99–122; RESP 18–20
[2018-09-23] MEDS: 1/2 NS + KCL 20 MEQ 1,000 ML IV SCH (04:20)
[2018-09-23] MEDS: ENALAPRILAT 1.25 MG INJ IV PRN (04:28)
[2018-09-23] MEDS: PANTOPRAZOLE (EC) 40 MG TAB PO SCH ×2 (05:18→18:03)
[2018-09-23] MEDS: HEPARIN 5,000 UNIT/1 ML VIAL SC SCH ×3 (05:31→21:31)
--- NOTE | 2018-09-23 08:18 | CONS ---
Assessment/Plan Assessment/Plan Hospital Course (Demo Recall) 78-year-old male admitted to the hospital because of left lower extremity cellulitis. He was noted to have difficulty urinating and had to be catheterized on a couple of occasions. One time 600 mL drained and another time 450 mL drained. The patient complains of hesitancy. It takes him a long time to urinate. Prior to his admission he used to have nocturia x2 and during the day he voids every 3 hours. He denies any dysuria. There is no history of gross hematuria and he states he feels he does empty his bladder. Prior to admission he also has been on tamsulosin and dutasteride. On the examination the bladder was full and the patient wanted to urinate. Rectal exam showed prostate that is not large and it is soft. He then went to the bathroom and urinated 500 mL and bladder scan showed 54 mL postvoid residual Impression: Patient does have hesitancy, he may have difficulty urinating while in bed. I doubt that the prostate is obstructing. Plan: May continue the tamsulosin and dutasteride. Encourage him to go to the bathroom and check his postvoid residual. Avoid any muscle relaxant and sleeping pills if possible. Consultation Date/Type/Reason Admit Date/Time Sep 15, 2018 at 21:15 Date of Consultation: Sep 23, 2018 Type of Consult Urology Reason for Consultation Urinary retention Requesting Provider: STUART MATAMOROS Date/Time of Note DATE: 09/23/18 TIME: 08:00 Hx of Present Illness 78-year-old male admitted to the hospital because of left lower extremity cellulitis. He was noted to have difficulty urinating and had to be catheterized on a couple of occasions. One time 600 mL drained and another time 450 mL drained. The patient complains of hesitancy. It takes him a long time to urinate. Prior to his admission he used to have nocturia x2 and during the day he voids every 3 hours. He denies any dysuria. There is no history of gross hematuria and he states he feels he does empty his bladder. Prior to admission he also has been on tamsulosin and dutasteride. Constitutional: no complaints Eyes: no complaints ENT: no complaints Respiratory: no complaints; No shortness of breath, No wheezing Cardiovascular: No chest pain Gastrointestinal: No nausea, No vomiting Genitourinary: other (Urinary hesitancy, see HPI) Musculoskeletal: no complaints Skin: no complaints Neurologic: no complaints, other (History of? Craniotomy for blood clot about 7 years ago. Patient states he fell about 20 times) Endocrine: no complaints Lymphatic: no complaints Psychological: anxiety Past Medical History Medical History: high cholesterol, hypertension, other (Anxiety and thrombocytopenia, history of DVT and PE) Home Meds Active Scripts Lorazepam* (Ativan*) 0.5 Mg Tablet, 0.5 MG PO Q8H PRN for CONTROL WITHDRAWAL SYMPTOMS, #10 TAB Prov:HUSSEIN SPEARS MD 09/12/18 Clindamycin Hcl* (Clindamycin Hcl*) 300 Mg Capsule, 300 MG PO QID for 10 Days, CAP Prov:MIKY THOMPSON MD 09/09/18 Reported Medications Azelastine/Fluticasone (DYMISTA NASAL SPRAY) 23 Gm [place].pump, 1 SPRAY NASAL BID, #1 BOTTLE TO EACH NOSTRIL 09/09/18 Ketoconazole* (Nizoral*) 120 Ml Shampoo, 1 APPLIC TOP BID, BOTTLE WASH HAIR/SCALP AND RINSE OFF 09/09/18 Tamsulosin Hcl* (Flomax*) 0.4 Mg Cap.er.24h, 0.4 MG PO HS, CAP 09/09/18 Sertraline Hcl* (Sertraline Hcl*) 100 Mg Tablet, 100 MG PO DAILY, #30 TAB 09/09/18 Atorvastatin Calcium* (Atorvastatin Calcium*) 20 Mg Tablet, 20 MG PO QHS, #30 TAB 09/09/18 Celecoxib* (Celebrex*) 200 Mg Capsule, 200 MG PO DAILY, CAP 09/09/18 Icosapent Ethyl (VASCEPA) 1 Gm Capsule, 2 GM PO BID, CAP 09/09/18 Potassium Chloride* (Potassium Chloride*) 8 Meq Capsule.er, 8 MEQ PO DAILY, CAP 09/09/18 Omeprazole* (Omeprazole*) 20 Mg Capsule.dr, 20 MG PO BID, #60 CAP 09/09/18 Dutasteride* (Avodart*) 0.5 Mg Capsule, 0.5 MG PO DAILY, CAP 09/09/18 Furosemide* (Furosemide*) 40 Mg Tablet, 40 MG PO DAILY, TAB 09/09/18 Hydrocodone/Acetaminophen ([place] 10-325 Tablet) 1 Each Tablet, 1 EACH PO BID, TAB 09/09/18 Folic Acid* (Folic Acid*) 1 Mg Tablet, 1 MG PO DAILY, TAB 09/09/18 Olmesartan Medoxomil (Benicar) 40 Mg Tablet, 40 MG PO DAILY, #30 TAB 09/09/18 Medications Current Medications IV Flush (NS 3 ml) 3 ml PER PROTOCOL IV ; Start 09/15/18 at 21:30 Ondansetron HCl (Zofran Inj) 4 mg Q6H PRN IV NAUSEA/VOMITING Last administered on 09/22/18at 02:20; Admin Dose 4 MG; Start 09/15/18 at 21:30 Acetaminophen (Tylenol Tab) 650 mg Q6H PRN PO .PAIN 1-3 OR TEMP Last administered on 09/22/18 06:09; Admin Dose 650 MG; Start 09/15/18 at 21:30 Acetaminophen/ Hydrocodone Bitart ([place] (5/325)) 1 tab Q6H PRN PO .MOD PAIN 4- 6 Last administered on 09/20/18 10:02; Admin Dose 1 TAB; Start 09/15/18 at 21:30 Morphine Sulfate (morphine) 2 mg Q4H PRN IV .SEVERE PAIN 7-10; Start 09/15/18 at 21:30 Docusate Sodium (Colace) 100 mg Q12H PRN PO .CONSTIPATION Last administered on 09/18/18 20:25; Admin Dose 100 MG; Start 09/15/18 at 21:30 Bisacodyl (Dulcolax) 5 mg DAILY PRN PO .CONSTIPATION; Start 09/15/18 at 21:30 Heparin Sodium (Porcine) (Heparin (5000 Units/1ml)) 5,000 unit Q8 SC Last administered on 09/23/18 05:31; Admin Dose 5,000 UNIT; Start 09/15/18 at 22:00 Enalaprilat (Vasotec Iv) 1.25 mg Q4H PRN IV ELEVATED BLOOD PRESSURE Last administered on 09/23/18 04:28; Admin Dose 1.25 MG; Start 09/16/18 at 00:00 Atorvastatin Calcium (Lipitor) 20 mg QHS PO Last administered on 09/16/18 20:22; Admin Dose 20 MG; Start 09/16/18 at 21:00; Status Hold Dutasteride (Avodart) 0.5 mg DAILY PO Last administered on 09/22/18 08:45; Admin Dose 0.5 MG; Start 09/16/18 at 09:00 Sertraline HCl (Zoloft) 100 mg DAILY PO Last administered on 09/22/18 08:45; Admin Dose 100 MG; Start 09/16/18 at 09:00 Tamsulosin HCl (Flomax) 0.4 mg HS PO Last administered on 09/22/18 20:50; Admin Dose 0.4 MG; Start 09/16/18 at 21:00 Fish Oil (Fish Oil) 2,000 mg BID PO Last administered on 09/22/18 20:51; Admin Dose 2,000 MG; Start 09/16/18 at 09:00 Pantoprazole (Protonix Tab) 40 mg BID@0600,1800 PO Last administered on 09/23/18 05:18; Admin Dose 40 MG; Start 09/16/18 at 07:30 Losartan Potassium (Cozaar) 100 mg DAILY PO Last administered on 09/22/18 08:44; Admin Dose 100 MG; Start 09/17/18 at 09:00 Hydralazine HCl (Apresoline) 10 mg Q4H PRN IV sbp>170 Last administered on 09/22/18 16:45; Admin Dose 10 MG; Start 09/17/18 at 16:30 Amlodipine Besylate (Norvasc) 10 mg DAILY PO Last administered on 09/22/18 08:44; Admin Dose 10 MG; Start 09/19/18 at 09:00 Chlorthalidone (Hygroton) 25 mg DAILY PO Last administered on 09/22/18 08:44; Admin Dose 25 MG; Start 09/20/18 at 09:00 Doxycycline Hyclate (Vibramycin) 100 mg BID PO Last administered on 09/22/18 20:50; Admin Dose 100 MG; Start 09/20/18 at 15:30 Trazodone HCl (Desyrel) 25 mg HS PO Last administered on 09/21/18 20:35; Admin Dose 25 MG; Start 09/21/18 at 21:00 Nitroglycerin (Nitroglycerin (Sl Tab) 0.4 Mg) 1 tab Q5M PRN SL ANGINA Last administered on 09/21/18at 13:59; Admin Dose 1 TAB; Start 09/21/18 at 14:00 Lorazepam (Ativan) 0.5 mg Q8H PRN IV AGITATION/ANXIETY; Start 09/21/18 at 19:00 Potassium Chloride/Sodium Chloride 1,000 ml @ 60 mls/hr [id number] IV Last administered on 09/23/18at 04:20; Admin Dose 60 MLS/HR; Start 09/21/18 at 19:00 Multivitamins 10 ml/Thiamine HCl 100 mg/Folic Acid 1 mg/Sodium Chloride 1,011.2 ml @ 125 mls/ hr DAILY@09 IVPB ; Start 09/23/18 at 09:00 Morphine Sulfate (Ms Contin (Er)) 15 mg ONCE PO ; Start 09/23/18 at 09:00; Stop 09/23/18 at 12:00 Allergies: Coded Allergies: No Known Drug Allergy (Verified Allergy, Unknown, 09/12/18) Past Surgical History Past Surgical Hx: other (History of hernia repair and the surgery on the head for brain clot removal and bunion surgery) Social History Alcohol Use: sober (Former heavy drinker) Smoking Status: Never smoker Drug Use: none Exam/Review of Systems Exam Vitals Vital Signs Date Temp Pulse Resp B/P (MAP) Pulse Ox O2 O2 Flow FiO2 Time Delivery Rate 09/23/18 97.5 114 20 163/57 97 Room Air 07:42 (92) 09/21/18 4.0 23:36 Intake and Output 09/22/18 09/22/18 09/23/18 1515:00 23:00 07:00 IntakeIntake Total 1000 ml 550 ml 720 ml OutputOutput Total 1500 ml 450 ml BalanceBalance 1000 ml -950 ml 270 ml Constitutional: alert Psych: anxiety Head: normocephalic Eyes: nl conjunctiva ENMT: nl external ears & nose Neck: supple Respiratory: normal air movement; No wheezing Cardiovascular: No jugular venous distention (JVD) Gastrointestinal: soft, non-tender Genitourinary - Male: nl penis, nl scrotum, other (Rectal exam: Prostate is not large) Extremities: other (Cellulitis of the left lower extremity); No calf tenderness Neurological: nl mental status Skin: nl turgor Results Result Diagram: 09/23/18 0551 09/23/18 0551 Results 24hrs Laboratory Tests Test 09/22/18 18:34 09/23/18 05:51 Bedside Glucose 167 White Blood Count 8.8 # Red Blood Count 4.04 L Hemoglobin 11.5 L Hematocrit 35.8 L Mean Corpuscular Volume 88.6 Mean Corpuscular Hemoglobin 28.5 L Mean Corpuscular Hemoglobin Concent 32.1 Red Cell Distribution Width 16.0 H Platelet Count 160 Mean Platelet Volume 9.7 Immature Granulocytes % 0.600 H Neutrophils % 79.2 H Lymphocytes % 12.6 L Monocytes % 7.2 Eosinophils % 0.2 Basophils % 0.2 Nucleated Red Blood Cells % 0.0 Immature Granulocytes # 0.050 H Neutrophils # 7.0 Lymphocytes # 1.1 Monocytes # 0.6 Eosinophils # 0.0 Basophils # 0.0 Nucleated Red Blood Cells # 0.0 Sodium Level 133 L Potassium Level 3.9 Chloride Level 97 Carbon Dioxide Level 27 Anion Gap 9 Blood Urea Nitrogen 18 Creatinine 0.71 Est Glomerular Filtrat Rate mL/min Glucose Level 149 Calcium Level 9.8 Magnesium Level 1.6 L Imaging Imaging He did have a CT angiogram and I looked at it. His kidneys are normal he has right renal cyst. His prostate is not large to cause him any obstruction Medications Medication Current Medications IV Flush (NS 3 ml) 3 ml PER PROTOCOL IV ; Start 09/15/18 at 21:30 Ondansetron HCl (Zofran Inj) 4 mg Q6H PRN IV NAUSEA/VOMITING Last administered on 09/22/18at 02:20; Admin Dose 4 MG; Start 09/15/18 at 21:30 Acetaminophen (Tylenol Tab) 650 mg Q6H PRN PO .PAIN 1-3 OR TEMP Last administered on 09/22/18at 06:09; Admin Dose 650 MG; Start 09/15/18 at 21:30 Acetaminophen/ Hydrocodone Bitart ([place] (5/325)) 1 tab Q6H PRN PO .MOD PAIN 4- 6 Last administered on 09/20/18at 10:02; Admin Dose 1 TAB; Start 09/15/18 at 21:30 Morphine Sulfate (morphine) 2 mg Q4H PRN IV .SEVERE PAIN 7-10; Start 09/15/18 at 21:30 Docusate Sodium (Colace) 100 mg Q12H PRN PO .CONSTIPATION Last administered on 09/18/18 20:25; Admin Dose 100 MG; Start 09/15/18 at 21:30 Bisacodyl (Dulcolax) 5 mg DAILY PRN PO .CONSTIPATION; Start 09/15/18 at 21:30 Heparin Sodium (Porcine) (Heparin (5000 Units/1ml)) 5,000 unit Q8 SC Last administered on 09/23/18 05:31; Admin Dose 5,000 UNIT; Start 09/15/18 at 22:00 Enalaprilat (Vasotec Iv) 1.25 mg Q4H PRN IV ELEVATED BLOOD PRESSURE Last adm inistered on 09/23/18 04:28; Admin Dose 1.25 MG; Start 09/16/18 at 00:00 Atorvastatin Calcium (Lipitor) 20 mg QHS PO Last administered on 09/16/18 20:22; Admin Dose 20 MG; Start 09/16/18 at 21:00; Status Hold Dutasteride (Avodart) 0.5 mg DAILY PO Last administered on 09/22/18 08:45; Admin Dose 0.5 MG; Start 09/16/18 at 09:00 Sertraline HCl (Zoloft) 100 mg DAILY PO Last administered on 09/22/18 08:45; Admin Dose 100 MG; Start 09/16/18 at 09:00 Tamsulosin HCl (Flomax) 0.4 mg HS PO Last administered on 09/22/18 20:50; Admin Dose 0.4 MG; Start 09/16/18 at 21:00 Fish Oil (Fish Oil) 2,000 mg BID PO Last administered on 09/22/18 20:51; Admin Dose 2,000 MG; Start 09/16/18 at 09:00 Pantoprazole (Protonix Tab) 40 mg BID@0600,1800 PO Last administered on 09/23/18 05:18; Admin Dose 40 MG; Start 09/16/18 at 07:30 Losartan Potassium (Cozaar) 100 mg DAILY PO Last administered on 09/22/18 08:44; Admin Dose 100 MG; Start 09/17/18 at 09:00 Hydralazine HCl (Apresoline) 10 mg Q4H PRN IV sbp>170 Last administered on 09/22/18 16:45; Admin Dose 10 MG; Start 09/17/18 at 16:30 Amlodipine Besylate (Norvasc) 10 mg DAILY PO Last administered on 09/22/18at 08:44; Admin Dose 10 MG; Start 09/19/18 at 09:00 Chlorthalidone (Hygroton) 25 mg DAILY PO Last administered on 09/22/18 08:44; Admin Dose 25 MG; Start 09/20/18 at 09:00 Doxycycline Hyclate (Vibramycin) 100 mg BID PO Last administered on 09/22/18at 20:50; Admin Dose 100 MG; Start 09/20/18 at 15:30 Trazodone HCl (Desyrel) 25 mg HS PO Last administered on 09/21/18at 20:35; Admin Dose 25 MG; Start 09/21/18 at 21:00 Nitroglycerin (Nitroglycerin (Sl Tab) 0.4 Mg) 1 tab Q5M PRN SL ANGINA Last administered on 09/21/18at 13:59; Admin Dose 1 TAB; Start 09/21/18 at 14:00 Lorazepam (Ativan) 0.5 mg Q8H PRN IV AGITATION/ANXIETY; Start 09/21/18 at 19:00 Potassium Chloride/Sodium Chloride 1,000 ml @ 60 mls/hr [id number] IV Last administered on 09/23/18at 04:20; Admin Dose 60 MLS/HR; Start 09/21/18 at 19:00 Multivitamins 10 ml/Thiamine HCl 100 mg/Folic Acid 1 mg/Sodium Chloride 1,011.2 ml @ 125 mls/ hr DAILY@09 IVPB ; Start 09/23/18 at 09:00 Morphine Sulfate (Ms Contin (Er)) 15 mg ONCE PO ; Start 09/23/18 at 09:00; Stop 09/23/18 at 12:00 STEFF SOTO MD Sep 23, 2018 08:11
[2018-09-23] MEDS ORDERED: morphine (ER) 15 MG TAB PO SCH (09:00)
[2018-09-23] MEDS ORDERED: MAGNESIUM SULFATE 2 GM/50 ML 50 ML IVPB ONE (09:30)
--- NOTE | 2018-09-23 09:32 | CONS ---
Date/Time of Note Date/Time of Note DATE: 09/23/18 TIME: 09:28 Consult Date/Type/Reason Admit Date Sep 15, 2018 at 21:15 Type of Consult Psych Ordering Provider: STUART MATAMOROS Subjective Patient was interviewed today he is alert and oriented with periods of forgetfulness Mini-Mental status exam done and patient scored 9 over the 30. Patient is pleasant but has major cognitive impairments. He is still continues to denies suicidal ideation denies homicidal ideation, states his depression is controlled with medication and contracted for safety Objective Patient Appearance: Appropriate dress Voice Loudness: Mildly Soft/Quiet Mood and Affect Description: Cooperative Mood or Affect: Cooperative Speech Pattern: Clear Thought Process: Intact Hallucination Type: None Delusion Description: Not Present Assessment/Plan Recommendations Patient has major cognitive impairment. His Mini-Mental status score was 9/30 Continue current medications and provide supportive therapy He does not meet criteria for 5150 hold CASH FLYNN NP Sep 23, 2018 09:32
[2018-09-23] MEDS: FISH OIL 1,000 MG CAP PO SCH ×2 (09:47→21:24)
[2018-09-23] MEDS: SERTRALINE 100 MG TAB PO SCH (09:47)
[2018-09-23] MEDS: DUTASTERIDE 0.5 MG CAP PO SCH (09:47)
[2018-09-23] MEDS: DOXYCYCLINE 100 MG TAB PO SCH ×2 (09:47→21:24)
[2018-09-23] MEDS: AMLODIPINE 10 MG TAB PO SCH (09:48)
[2018-09-23] MEDS: LOSARTAN 50 MG TAB PO SCH (09:49)
[2018-09-23] MEDS: CHLORTHALIDONE 25 MG TAB PO SCH (09:49)
--- NOTE | 2018-09-23 10:09 | RADRPT ---
Vent Rate: 63 bpm RR Interval: 956 msec SC Interval: 185 msec QRS Duration: 92 msec QT Interval: 431 msec QTC Interval: 441 msec P-R-T [facility]: 67 - 17 - 63 degrees Sinus rhythm...normal P axis, V-rate 50- 99 Atrial premature complexes in couplets...pair SV complexes w/ short R-R Electronically Signed By: Deni Philippe
[2018-09-23] MEDS: MULTIVITAMINS 10 ML, THIAMINE 100 MG, FOLIC ACID 1 MG in SOD CHLORIDE 0.9% 1,000 ML IVPB SCH (10:14)
[2018-09-23] MEDS: NITROGLYCERIN (SL) 0.4 MG TAB SL PRN (11:33)
[2018-09-23] MEDS ORDERED: SALINE 0.65% 45 ML NAS SPRAY NASAL PRN (13:00)
[2018-09-23] MEDS ORDERED: SOD CHLORIDE 0.9% 1,000 ML IV SCH (13:00)
[2018-09-23] MEDS ORDERED: METHADONE (1 MG/ML 5 ML PO UD SYG) PO SCH (13:00)
[2018-09-23] MEDS ORDERED: DICYCLOMINE 10 MG CAP PO PRN (13:30)
--- NOTE | 2018-09-23 15:18 | CONS ---
Assessment/Plan Assessment/Plan Hospital Course (Demo Recall) Alert, feels good MICROBIOLOGY: Blood cultures negative. MRSA swab negative. Chest x-ray 2 days ago revealed no evidence for acute cardiopulmonary disease. ANTIMICROBIALS: Doxycycline PHYSICAL EXAMINATION: GENERAL: This is a well-developed, chronically ill-appearing, elderly man who is alert, in no distress. HEENT: Head atraumatic, normocephalic. Sclerae anicteric. Buccal mucosa pink. NECK: Supple. CHEST: Rise symmetrical. Breath sounds clear, diminished to bases. HEART: S1, S2. ABDOMEN: Soft, bowel sounds present. EXTREMITIES: Bilateral lower extremities chronic venous stasis, left lower extremity Ramirez wrapped. ASSESSMENT: 1. Bilateral lower extremities, chronic venous stasis with left lower extremity cellulitis. 2. Hypertension. 3. History of polysubstance abuse. 4. Improving transaminitis. 5. History of deep venous thrombosis and pulmonary embolism. PLAN: The patient remains stable, vascular surgery on case, continue abx Consultation Date/Type/Reason Admit Date/Time Sep 15, 2018 at 21:15 Initial Consult Date Type of Consult id Requesting Provider: STUART MATAMOROS Date/Time of Note DATE: 09/23/18 TIME: 15:18 Exam/Review of Systems Exam Vitals Vital Signs Date Temp Pulse Resp B/P (MAP) Pulse Ox O2 O2 Flow FiO2 Time Delivery Rate 09/23/18 122 134/67 11:41 (89) 09/23/18 97.4 20 100 Room Air 11:11 09/21/18 4.0 23:36 Intake and Output 09/22/18 09/22/18 09/23/18 1515:00 23:00 07:00 IntakeIntake Total 1000 ml 550 ml 720 ml OutputOutput Total 1500 ml 450 ml BalanceBalance 1000 ml -950 ml 270 ml Results Result Diagram: 09/23/18 0551 09/23/18 0551 Results 24hrs Laboratory Tests Test 09/22/18 18:34 09/23/18 05:51 Bedside Glucose 167 White Blood Count 8.8 # Red Blood Count 4.04 L Hemoglobin 11.5 L Hematocrit 35.8 L Mean Corpuscular Volume 88.6 Mean Corpuscular Hemoglobin 28.5 L Mean Corpuscular Hemoglobin Concent 32.1 Red Cell Distribution Width 16.0 H Platelet Count 160 Mean Platelet Volume 9.7 Immature Granulocytes % 0.600 H Neutrophils % 79.2 H Lymphocytes % 12.6 L Monocytes % 7.2 Eosinophils % 0.2 Basophils % 0.2 Nucleated Red Blood Cells % 0.0 Immature Granulocytes # 0.050 H Neutrophils # 7.0 Lymphocytes # 1.1 Monocytes # 0.6 Eosinophils # 0.0 Basophils # 0.0 Nucleated Red Blood Cells # 0.0 Sodium Level 133 L Potassium Level 3.9 Chloride Level 97 Carbon Dioxide Level 27 Anion Gap 9 Blood Urea Nitrogen 18 Creatinine 0.71 Est Glomerular Filtrat Rate mL/min Glucose Level 149 Calcium Level 9.8 Magnesium Level 1.6 L Medications Medication Current Medications IV Flush (NS 3 ml) 3 ml PER PROTOCOL IV ; Start 09/15/18 at 21:30 Ondansetron HCl (Zofran Inj) 4 mg Q6H PRN IV NAUSEA/VOMITING Last administered on 09/22/18at 02:20; Admin Dose 4 MG; Start 09/15/18 at 21:30 Acetaminophen (Tylenol Tab) 650 mg Q6H PRN PO .PAIN 1-3 OR TEMP Last administered on 09/22/18at 06:09; Admin Dose 650 MG; Start 09/15/18 at 21:30 Acetaminophen/ Hydrocodone Bitart ([place] (5/325)) 1 tab Q6H PRN PO .MOD PAIN 4- 6 Last administered on 09/20/18 10:02; Admin Dose 1 TAB; Start 09/15/18 at 21:30 Morphine Sulfate (morphine) 2 mg Q4H PRN IV .SEVERE PAIN 7-10; Start 09/15/18 at 21:30 Docusate Sodium (Colace) 100 mg Q12H PRN PO .CONSTIPATION Last administered on 09/18/18at 20:25; Admin Dose 100 MG; Start 09/15/18 at 21:30 Bisacodyl (Dulcolax) 5 mg DAILY PRN PO .CONSTIPATION; Start 09/15/18 at 21:30 Heparin Sodium (Porcine) (Heparin (5000 Units/1ml)) 5,000 unit Q8 SC Last administered on 09/23/18 05:31; Admin Dose 5,000 UNIT; Start 09/15/18 at 22:00 Enalaprilat (Vasotec Iv) 1.25 mg Q4H PRN IV ELEVATED BLOOD PRESSURE Last administered on 09/23/18 04:28; Admin Dose 1.25 MG; Start 09/16/18 at 00:00 Atorvastatin Calcium (Lipitor) 20 mg QHS PO Last administered on 09/16/18 20:22; Admin Dose 20 MG; Start 09/16/18 at 21:00; Status Hold Dutasteride (Avodart) 0.5 mg DAILY PO Last administered on 09/23/18 09:47; A dmin Dose 0.5 MG; Start 09/16/18 at 09:00 Sertraline HCl (Zoloft) 100 mg DAILY PO Last administered on 09/23/18 09:47; Admin Dose 100 MG; Start 09/16/18 at 09:00 Tamsulosin HCl (Flomax) 0.4 mg HS PO Last administered on 09/22/18 20:50; Admin Dose 0.4 MG; Start 09/16/18 at 21:00 Fish Oil (Fish Oil) 2,000 mg BID PO Last administered on 09/23/18 09:47; Admin Dose 2,000 MG; Start 09/16/18 at 09:00 Pantoprazole (Protonix Tab) 40 mg BID@0600,1800 PO Last administered on 09/23/18 05:18; Admin Dose 40 MG; Start 09/16/18 at 07:30 Losartan Potassium (Cozaar) 100 mg DAILY PO Last administered on 09/23/18 09:49; Admin Dose 100 MG; Start 09/17/18 at 09:00 Hydralazine HCl (Apresoline) 10 mg Q4H PRN IV sbp>170 Last administered on 09/22/18 16:45; Admin Dose 10 MG; Start 09/17/18 at 16:30 Amlodipine Besylate (Norvasc) 10 mg DAILY PO Last administered on 09/23/18 09:48; Admin Dose 10 MG; Start 09/19/18 at 09:00 Chlorthalidone (Hygroton) 25 mg DAILY PO Last administered on 09/23/18 09:49; Admin Dose 25 MG; Start 09/20/18 at 09:00 Doxycycline Hyclate (Vibramycin) 100 mg BID PO Last administered on 09/23/18 09:47; Admin Dose 100 MG; Start 09/20/18 at 15:30 Trazodone HCl (Desyrel) 25 mg HS PO Last administered on 09/21/18at 20:35; Admin Dose 25 MG; Start 09/21/18 at 21:00 Nitroglycerin (Nitroglycerin (Sl Tab) 0.4 Mg) 1 tab Q5M PRN SL ANGINA Last administered on 09/23/18at 11:33; Admin Dose 1 TAB; Start 09/21/18 at 14:00 Lorazepam (Ativan) 0.5 mg Q8H PRN IV AGITATION/ANXIETY; Start 09/21/18 at 19:00 Multivitamins 10 ml/Thiamine HCl 100 mg/Folic Acid 1 mg/Sodium Chloride 1,011.2 ml @ 125 mls/ hr DAILY@09 IVPB Last administered on 09/23/18at 10:14; Admin Dose 125 MLS/HR; Start 09/23/18 at 09:00 Lidocaine (Lidoderm) 1 patch DAILY TD ; Start 09/23/18 at 13:00 Sodium Chloride 1,000 ml @ 50 mls/hr Q20H IV ; Start 09/23/18 at 13:00 Sodium Chloride (Deep Sea) 2 spray Q4H PRN NASAL congestion; Start 09/23/18 at 13:00 Dicyclomine HCl (Bentyl) 10 mg QID PRN PO abdominal cramping; Start 09/23/18 at 13:30 Eye Lubricant (Artificial Tears Oph) 2 drop QID BOTH EYES ; Start 09/23/18 at 13:30 Methadone HCl (Methadone Liq) 5 mg Q8 PO ; Start 09/23/18 at 14:00 MARCIANO NAYLOR NP Sep 23, 2018 15:18
[2018-09-23] MEDS: METHADONE (1 MG/ML 5 ML PO UD SYG) PO SCH ×2 (16:01→21:25)
[2018-09-23] MEDS: ARTIFICIAL TEARS 15 ML OPH BOTH EYES SCH ×3 (16:01→22:12)
[2018-09-23] MEDS: LIDOCAINE 5% PATCH TD SCH (16:03)
--- NOTE | 2018-09-23 16:50 | PN ---
Date/Time of Note Date/Time of Note DATE: 09/23/18 TIME: 16:50 Assessment/Plan Lines/Catheters IV Catheter Type (from Nrsg): Peripheral IV Brown in Place (from Nrsg): No Assessment/Plan Assessment/Plan IMPRESSION: Breakdown of left lower extremity with cellulitis.Venous stasis ulceration. No evidence of any DVT. The patient does have a history of PE. RECOMMENDATIONS: We will continue anticoagulation, antibiotics, elevation of the leg. Optimize vascular status with hydration, avoid vasopressors. BP control. Optimize vascular status. Urology work-up BP control Subjective 24 Hr Interval Summary Constitutional: improved Pain Control: mild Exam/Review of Systems Vital Signs Vitals Vital Signs Date Temp Pulse Resp B/P (MAP) Pulse Ox O2 O2 Flow FiO2 Time Delivery Rate 09/23/18 97.6 110 20 159/71 97 Room Air 15:23 (100) 09/21/18 4.0 23:36 Intake and Output 09/22/18 09/22/18 09/23/18 1515:00 23:00 07:00 IntakeIntake Total 1000 ml 550 ml 720 ml OutputOutput Total 1500 ml 450 ml BalanceBalance 1000 ml -950 ml 270 ml Exam Eyes: nl conjunctiva, EOMI, nl lids, nl sclera ENMT: nl external ears & nose, nl lips & teeth, nl nasal mucosa & septum, mucosa pink and moist Neck: supple, non-tender Respiratory: clear to auscultation, normal air movement Cardiovascular: regular rate and rhythm, nl pulses Gastrointestinal: soft, nl liver, spleen, non-tender Musculoskeletal: nl extremities to inspection, nl gait and stance Results Result Diagram: 09/23/18 0551 09/23/18 0551 MAXIME BOATENG MD Sep 23, 2018 16:50
--- NOTE | 2018-09-23 17:11 | RADRPT ---
Echocardiogram Report Patient Name: LEODAN CAVAZOSPatient ID: [id number] : 07-16-1941 (78y )Study Date: 09/23/2018 2:46:08 PM Gender: MAccession #: [id number] Tech: Kris Roberts [facility] Location: 529 Ref.Physician: JOSUE MUNIZ Height(Cm): BSA: Weight(Kg): Quality: AdequateOrder Physician: JOSUE MUNIZ Account #: Procedures: Echocardiographic Report: Transthoracic echocardiogram with complete 2D, M-Mode, and doppler examination. Indications: Evaluate Left Ventricular function. Measurements: 2D/M Mode Doppler Measurement Value Normal Range Measurement Value Normal Range LVIDd 2D 3.4 [ 4.2 - 5.8 ] cm AV Peak Ej 1.5 [ 100.0 - 170.0 ] cm/sec LVIDs 2D 2.3 [ 2.5 - 4.0 ] cm AV Peak PG 9.0 [ 2.0 - 9.0 ] mmHg LVPWd 2D 0.9 [ 0.6 - 1.0 ] cm LVOT Peak Ej 1.1 [ 70.0 - 110.0 ] cm/sec IVSd 2D 1.6 [ 0.6 - 1.0 ] cm LVOT Peak PG 5.0 [ 2.0 - 6.0 ] mmHg AoR Diam 2D 3.1 [ 2.6 - 3.4 ] cm MV E Peak Ej 0.5 [ 60.0 - 130.0 ] cm/sec EDV 2D 46.8 [ 62.0 - 150.0 ] ml MV A Peak Ej 1.0 [ 100.0 - 120.0 ] cm/sec ESV 2D 18.3 [ 21.0 - 61.0 ] ml MV E/A 0.5 [ 0.8 - 1.5 ] ratio EF 2D 60.9 [ 52.0 - 72.0 ] percent MV Decel Time 169 [ 104 - 258 ] msec LA Dimen 2D 3.7 [ 3.0 - 4.0 ] cm Lat E` Ej 0.1 [ 10.0 - 15.0 ] cm/sec Lateral E/E` 7.9 [ 1.0 - 2.0 ] ratio Med E` Ej 0.1 cm/sec MV E/A 0.5 [ 0.8 - 1.5 ] ratio TR Peak Ej 2.2 [ 100.0 - 280.0 ] cm/sec TR Peak PG 19.0 mmHg RVSP 22.0 [ 10.0 - 36.0 ] mmHg RA Pressure 3.0 mmHg Findings: Left Ventricle: Normal left ventricular systolic function. Normal left ventricular cavity size. Moderate asymmetric septal hypertrophy. Ejection fraction is visually estimated at 65 %. Tissue Doppler/Mitral Doppler indices are consistent with impaired relaxation (Stage I diastolic dysfunction). Right Ventricle: Normal right ventricular size. Normal right ventricular systolic function. Left Atrium: The left atrium is normal in size. Right Atrium: The right atrium is normal in size. Mitral Valve: Normal appearance of the mitral valve. Mild mitral annular calcification. Trace mitral regurgitation. Aortic Valve: No hemodynamically significant aortic stenosis by doppler. Aortic cusps appear mildly calcified. Mild aortic valve regurgitation. Tricuspid Valve: Normal appearance of the tricuspid valve. The estimated Peak RVSP is 22 mmHg. There is trace tricuspid regurgitation. Pulmonic Valve: Pulmonic valve not well visualized. Pericardium: Normal pericardium with no significant pericardial effusion. Aorta: Normal aortic root. IVC: Normal size and normal respiratory collapse consistent with normal right atrial pressure. Conclusions: Normal left ventricular systolic function. Normal left ventricular cavity size. Moderate asymmetric septal hypertrophy. Ejection fraction is visually estimated at 65 %. Tissue Doppler/Mitral Doppler indices are consistent with impaired relaxation (Stage I diastolic dysfunction). Normal appearance of the mitral valve. Mild mitral annular calcification. Trace mitral regurgitation. Normal appearance of the tricuspid valve. The estimated Peak RVSP is 22 mmHg. There is trace tricuspid regurgitation. No hemodynamically significant aortic stenosis by doppler. Aortic cusps appear mildly calcified. Mild aortic valve regurgitation. Electronically Signed By: Omar Diaz 2018-09-23 17:10:38 PDT
--- NOTE | 2018-09-23 17:52 | PN ---
Date/Time of Note Date/Time of Note DATE: 09/23/18 TIME: 17:39 Assessment/Plan VTE Prophylaxis Risk score (from Nsg)>0 risk: 10 SCD applied (from Nsg): No SCD contraindicated: other Pharmacological prophylaxis: heparin Lines/Catheters IV Catheter Type (from Nrsg): Peripheral IV Urinary Cath still in place: No Assessment/Plan Assessment/Plan 1. LLE cellulitis- improving - ID on board and appreciate recommendations. continue on PO Doxy and will continue local wound care - most likely secondary to PAD - encouraged to keep leg elevated when in bed - US negative for DVT 2. PAD - Arterial studies noted and will need eventual Vasc intervention which was discussed with family at bedside - continue BP control - Vascular surgery consultation appreciated. Optimize hydration and avoid pressors if needed 3. Uncontrolled Hypertension-improving - Remains stable - will continue adjusting BP medications as needed 4. Delirium secondary to Methadone withdrawal - unsure why Methadone was held at time of admission but requested dosing from Methadone clinic - per daughters he may be getting anywhere from 20-80mg daily since pt brother is not consistent with dosing given in liquid form as outpatient - will resume methadone at low dose and restart home dose when clarified 5. h/o alcohol abuse - alcoholic hepatitis appreciate at time of admission but resolved - no signs of DTs but will continue banana bag for now and start folate and thia mine 6. History of DVT/PE - DVT negative on US Patient no longer on blood thinners 7. Alcoholic hepatitis - imaging studies reviewed and no signs of cirrhosis 8. Acute rhinosinusitis - will start on nasal saline rinse and if continues can try Flonase. Patient has a history of multiple nose bleeds as outpatient so will avoid for now 9. Thrombocytopenia- resolved 10. Urinary retention - Urology on board and appreciate recommendations. no enlarged prostate on examination. Will continue flomax and avodart. bladder scans as needed 11. Anxiety - Continue sertraline 12. Hyperlipidemia - Continue atorvastatin 13. Gait instability - PT consulted - family does not want SNF placement at this time and requesting transfer to [facility]. CM consulted but discussed with family lateral transfer may not be possible 14. Abdominal cramping - most likely secondary to methadone withdrawal - Bentyl PRN 15. Disposition - Will restart Methadone and monitor for improvement in withdrawal sx - PT to evaluate given patient more awake but still slightly confused - CM on board for possible transfer to [facility] Result Diagram: 09/23/18 0551 09/23/18 0551 Results 24hrs Laboratory Tests Test 09/22/18 18:34 09/23/18 05:51 Bedside Glucose 167 White Blood Count 8.8 # Red Blood Count 4.04 L Hemoglobin 11.5 L Hematocrit 35.8 L Mean Corpuscular Volume 88.6 Mean Corpuscular Hemoglobin 28.5 L Mean Corpuscular Hemoglobin Concent 32.1 Red Cell Distribution Width 16.0 H Platelet Count 160 Mean Platelet Volume 9.7 Immature Granulocytes % 0.600 H Neutrophils % 79.2 H Lymphocytes % 12.6 L Monocytes % 7.2 Eosinophils % 0.2 Basophils % 0.2 Nucleated Red Blood Cells % 0.0 Immature Granulocytes # 0.050 H Neutrophils # 7.0 Lymphocytes # 1.1 Monocytes # 0.6 Eosinophils # 0.0 Basophils # 0.0 Nucleated Red Blood Cells # 0.0 Sodium Level 133 L Potassium Level 3.9 Chloride Level 97 Carbon Dioxide Level 27 Anion Gap 9 Blood Urea Nitrogen 18 Creatinine 0.71 Est Glomerular Filtrat Rate mL/min Glucose Level 149 Calcium Level 9.8 Magnesium Level 1.6 L Subjective 24 Hr Interval Summary Free Text/Dictation Patient remains pleasantly confused but answering some questions appropriately. complaining of abdominal cramping as well as facial pressure. He continues to complain of pressure and warmth in his eyes and face bilaterally. Also c/o his lower back feeling hot. Daughters at bedside. Exam/Review of Systems Exam Vitals Vital Signs Date Temp Pulse Resp B/P (MAP) Pulse Ox O2 O2 Flow FiO2 Time Delivery Rate 09/23/18 97.6 110 20 159/71 97 Room Air 15:23 (100) 09/21/18 4.0 23:36 Intake and Output 09/22/18 09/22/18 09/23/18 1515:00 23:00 07:00 IntakeIntake Total 1000 ml 550 ml 720 ml OutputOutput Total 1500 ml 450 ml BalanceBalance 1000 ml -950 ml 270 ml Exam General: Patient is a pleasant male, moments of confusion but answering questions appropriately Neck: Supple Chest: Nontender Lungs: Clear to auscultation bilaterally no crackles rales or wheezing Heart: Normal S1-S2, Regular rhythm and rate. No murmur, S3, or S4 Abdomen: Soft , nontender, nondistended , bowel sounds are present. No guarding no rebound tenderness Extremities: venous changes bilaterally. dressing on LLE with no discharge. no edema appreciated Results Results 24hrs Laboratory Tests Test 09/22/18 18:34 09/23/18 05:51 Bedside Glucose 167 White Blood Count 8.8 # Red Blood Count 4.04 L Hemoglobin 11.5 L Hematocrit 35.8 L Mean Corpuscular Volume 88.6 Mean Corpuscular Hemoglobin 28.5 L Mean Corpuscular Hemoglobin Concent 32.1 Red Cell Distribution Width 16.0 H Platelet Count 160 Mean Platelet Volume 9.7 Immature Granulocytes % 0.600 H Neutrophils % 79.2 H Lymphocytes % 12.6 L Monocytes % 7.2 Eosinophils % 0.2 Basophils % 0.2 Nucleated Red Blood Cells % 0.0 Immature Granulocytes # 0.050 H Neutrophils # 7.0 Lymphocytes # 1.1 Monocytes # 0.6 Eosinophils # 0.0 Basophils # 0.0 Nucleated Red Blood Cells # 0.0 Sodium Level 133 L Potassium Level 3.9 Chloride Level 97 Carbon Dioxide Level 27 Anion Gap 9 Blood Urea Nitrogen 18 Creatinine 0.71 Est Glomerular Filtrat Rate mL/min Glucose Level 149 Calcium Level 9.8 Magnesium Level 1.6 L Medications Medication Current Medications IV Flush (NS 3 ml) 3 ml PER PROTOCOL IV ; Start 09/15/18 at 21:30 Ondansetron HCl (Zofran Inj) 4 mg Q6H PRN IV NAUSEA/VOMITING Last administered on 09/22/18at 02:20; Admin Dose 4 MG; Start 09/15/18 at 21:30 Acetaminophen (Tylenol Tab) 650 mg Q6H PRN PO .PAIN 1-3 OR TEMP Last administered on 09/22/18at 06:09; Admin Dose 650 MG; Start 09/15/18 at 21:30 Acetaminophen/ Hydrocodone Bitart ([place] (5/325)) 1 tab Q6H PRN PO .MOD PAIN 4- 6 Last administered on 09/20/18at 10:02; Admin Dose 1 TAB; Start 09/15/18 at 21:30 Morphine Sulfate (morphine) 2 mg Q4H PRN IV .SEVERE PAIN 7-10; Start 09/15/18 at 21:30 Docusate Sodium (Colace) 100 mg Q12H PRN PO .CONSTIPATION Last administered on 09/18/18 20:25; Admin Dose 100 MG; Start 09/15/18 at 21:30 Bisacodyl (Dulcolax) 5 mg DAILY PRN PO .CONSTIPATION; Start 09/15/18 at 21:30 Heparin Sodium (Porcine) (Heparin (5000 Units/1ml)) 5,000 unit Q8 SC Last administered on 09/23/18 16:33; Admin Dose 5,000 UNIT; Start 09/15/18 at 22:00 Enalaprilat (Vasotec Iv) 1.25 mg Q4H PRN IV ELEVATED BLOOD PRESSURE Last administered on 09/23/18 04:28; Admin Dose 1.25 MG; Start 09/16/18 at 00:00 Atorvastatin Calcium (Lipitor) 20 mg QHS PO Last administered on 09/16/18 20:22; Admin Dose 20 MG; Start 09/16/18 at 21:00; Status Hold Dutasteride (Avodart) 0.5 mg DAILY PO Last administered on 09/23/18 09:47; Admin Dose 0.5 MG; Start 09/16/18 at 09:00 Sertraline HCl (Zoloft) 100 mg DAILY PO Last administered on 09/23/18 09:47; Admin Dose 100 MG; Start 09/16/18 at 09:00 Tamsulosin HCl (Flomax) 0.4 mg HS PO Last administered on 09/22/18 20:50; Admin Dose 0.4 MG; Start 09/16/18 at 21:00 Fish Oil (Fish Oil) 2,000 mg BID PO Last administered on 09/23/18 09:47; Admin Dose 2,000 MG; Start 09/16/18 at 09:00 Pantoprazole (Protonix Tab) 40 mg BID@0600,1800 PO Last administered on 09/23/18 05:18; Admin Dose 40 MG; Start 09/16/18 at 07:30 Losartan Potassium (Cozaar) 100 mg DAILY PO Last administered on 09/23/18 09:49; Admin Dose 100 MG; Start 09/17/18 at 09:00 Hydralazine HCl (Apresoline) 10 mg Q4H PRN IV sbp>170 Last administered on 09/22/18 16:45; Admin Dose 10 MG; Start 09/17/18 at 16:30 Amlodipine Besylate (Norvasc) 10 mg DAILY PO Last administered on 09/23/18 09:48; Admin Dose 10 MG; Start 09/19/18 at 09:00 Chlorthalidone (Hygroton) 25 mg DAILY PO Last administered on 09/23/18 09:49; Admin Dose 25 MG; Start 09/20/18 at 09:00 Doxycycline Hyclate (Vibramycin) 100 mg BID PO Last administered on 09/23/18 09:47; Admin Dose 100 MG; Start 09/20/18 at 15:30 Trazodone HCl (Desyrel) 25 mg HS PO Last administered on 09/21/18 20:35; Admin Dose 25 MG; Start 09/21/18 at 21:00 Nitroglycerin (Nitroglycerin (Sl Tab) 0.4 Mg) 1 tab Q5M PRN SL ANGINA Last adm inistered on 09/23/18 11:33; Admin Dose 1 TAB; Start 09/21/18 at 14:00 Lorazepam (Ativan) 0.5 mg Q8H PRN IV AGITATION/ANXIETY; Start 09/21/18 at 19:00 Multivitamins 10 ml/Thiamine HCl 100 mg/Folic Acid 1 mg/Sodium Chloride 1,011.2 ml @ 125 mls/ hr DAILY@09 IVPB Last administered on 09/23/18 10:14; Admin Dose 125 MLS/HR; Start 09/23/18 at 09:00 Lidocaine (Lidoderm) 1 patch DAILY TD Last administered on 09/23/18 16:03; Admin Dose 1 PATCH; Start 09/23/18 at 13:00 Sodium Chloride (Deep Sea) 2 spray Q4H PRN NASAL congestion Last administered on 09/23/18 16:02; Admin Dose 2 SPRAY; Start 09/23/18 at 13:00 Dicyclomine HCl (Bentyl) 10 mg QID PRN PO abdominal cramping; Start 09/23/18 at 13:30 Eye Lubricant (Artificial Tears Oph) 2 drop QID BOTH EYES Last administered on 09/23/18 16:01; Admin Dose 2 DROP; Start 09/23/18 at 13:30 Methadone HCl (Methadone Liq) 5 mg Q8 PO Last administered on 09/23/18 16:01; Admin Dose 5 MG; Start 09/23/18 at 14:00 Sodium Chloride 1,000 ml @ 50 mls/hr Q20H IV ; Start 09/23/18 at 20:00 JOSUE MUNIZ MD Sep 23, 2018 17:52
[2018-09-23] MEDS: hydrALAzine 20 MG INJ IV PRN (20:01)
[2018-09-23] MEDS: traZODone 50 MG TAB PO SCH (21:24)
[2018-09-23] MEDS: TAMSULOSIN (SR) 0.4 MG CAP PO SCH (21:24)
[2018-09-24] MEDS: SOD CHLORIDE 0.9% 1,000 ML IV SCH ×2 (00:13→15:54)
[2018-09-24 00:29] VITALS: BP 166/72; PULSE 98; RESP 20
[2018-09-24 04:42] VITALS: BP 130/63; PULSE 110; RESP 18
[2018-09-24] MEDS: PANTOPRAZOLE (EC) 40 MG TAB PO SCH ×2 (06:38→17:16)
[2018-09-24] MEDS: METHADONE (1 MG/ML 5 ML PO UD SYG) PO SCH ×3 (06:38→21:19)
[2018-09-24] MEDS: HEPARIN 5,000 UNIT/1 ML VIAL SC SCH ×3 (06:58→21:21)
[2018-09-24 07:50] VITALS: BP 165/70; PULSE 108; RESP 18
[2018-09-24] MEDS: ARTIFICIAL TEARS 15 ML OPH BOTH EYES SCH ×4 (08:49→21:14)
[2018-09-24] MEDS: LIDOCAINE 5% PATCH TD SCH (08:50)
[2018-09-24] MEDS: FISH OIL 1,000 MG CAP PO SCH ×2 (08:50→21:12)
[2018-09-24] MEDS: DOXYCYCLINE 100 MG TAB PO SCH ×2 (08:50→21:12)
[2018-09-24] MEDS: DUTASTERIDE 0.5 MG CAP PO SCH (08:51)
[2018-09-24] MEDS: AMLODIPINE 10 MG TAB PO SCH (08:51)
[2018-09-24] MEDS: SERTRALINE 100 MG TAB PO SCH (08:51)
[2018-09-24] MEDS: LOSARTAN 50 MG TAB PO SCH (08:51)
[2018-09-24] MEDS: CHLORTHALIDONE 25 MG TAB PO SCH (08:51)
[2018-09-24] MEDS: MULTIVITAMINS 10 ML, THIAMINE 100 MG, FOLIC ACID 1 MG in SOD CHLORIDE 0.9% 1,000 ML IVPB SCH (08:56)
[2018-09-24] MEDS ORDERED: METOPROLOL 25 MG TAB PO SCH (09:30)
[2018-09-24 11:54] VITALS: BP_SYST 156; BP_SYST 163; BP_DIAS 69; PULSE 106; RESP 17
[2018-09-24] MEDS ORDERED: FOLIC ACID 1 MG TAB PO SCH (12:00)
[2018-09-24] MEDS ORDERED: THIAMINE 100 MG TAB PO SCH (12:00)
[2018-09-24] MEDS: OLOPATADINE 0.1% 5 ML OPH BOTH EYES SCH ×2 (13:16→21:29)
--- NOTE | 2018-09-24 13:23 | CONS ---
Assessment/Plan Assessment/Plan Hospital Course (Demo Recall) Alert, looks comfortable, c/o abdominal pain, no fevers, no n/v/d, abdomen soft MICROBIOLOGY: Blood cultures negative. MRSA swab negative. Chest x-ray 2 days ago revealed no evidence for acute cardiopulmonary disease. ANTIMICROBIALS: Doxycycline PHYSICAL EXAMINATION: GENERAL: This is a well-developed, chronically ill-appearing, elderly man who is alert, in no distress. HEENT: Head atraumatic, normocephalic. Sclerae anicteric. Buccal mucosa pink. NECK: Supple. CHEST: Rise symmetrical. Breath sounds clear, diminished to bases. HEART: S1, S2. ABDOMEN: Soft, bowel sounds present. EXTREMITIES: Bilateral lower extremities chronic venous stasis, left lower extremity Ramirez wrapped. ASSESSMENT: 1. Bilateral lower extremities, chronic venous stasis with left lower extremity cellulitis. 2. Hypertension. 3. History of polysubstance abuse. 4. Improving transaminitis. 5. History of deep venous thrombosis and pulmonary embolism. PLAN: The patient remains stable, vascular surgery on case, continue abx Consultation Date/Type/Reason Admit Date/Time Sep 15, 2018 at 21:15 Initial Consult Date Type of Consult id Requesting Provider: STUART MATAMOROS Date/Time of Note DATE: 09/24/18 TIME: 13:22 Exam/Review of Systems Exam Vitals Vital Signs Date Temp Pulse Resp B/P (MAP) Pulse Ox O2 O2 Flow FiO2 Time Delivery Rate 09/24/18 97.5 106 17 156/69 98 11:54 (98) 09/23/18 Room Air 15:23 09/21/18 4.0 23:36 Intake and Output 09/23/18 09/23/18 09/24/18 1515:00 23:00 07:00 IntakeIntake Total 360 ml 500 ml OutputOutput Total 1000 ml 1875 ml 1020 ml BalanceBalance -640 ml -1875 ml -520 ml Results Result Diagram: 09/24/18 0651 09/24/18 0651 Results 24hrs Laboratory Tests Test 09/24/18 06:51 White Blood Count 6.3 # Red Blood Count 4.07 L Hemoglobin 11.7 L Hematocrit 36.0 L Mean Corpuscular Volume 88.5 Mean Corpuscular Hemoglobin 28.7 L Mean Corpuscular Hemoglobin Concent 32.5 Red Cell Distribution Width 15.6 H Platelet Count 145 Mean Platelet Volume 10.0 Immature Granulocytes % 0.500 H Neutrophils % 70.1 Lymphocytes % 19.0 Monocytes % 9.3 Eosinophils % 0.5 Basophils % 0.6 Nucleated Red Blood Cells % 0.0 Immature Granulocytes # 0.030 Neutrophils # 4.4 Lymphocytes # 1.2 Monocytes # 0.6 Eosinophils # 0.0 Basophils # 0.0 Nucleated Red Blood Cells # 0.0 Sodium Level 129 L Potassium Level 3.5 Chloride Level 94 L Carbon Dioxide Level 23 Anion Gap 12 Blood Urea Nitrogen 15 Creatinine 0.65 Glucose Level 141 Calcium Level 9.3 Phosphorus Level 3.0 Magnesium Level 1.7 Albumin 4.1 Medications Medication Current Medications IV Flush (NS 3 ml) 3 ml PER PROTOCOL IV ; Start 09/15/18 at 21:30 Ondansetron HCl (Zofran Inj) 4 mg Q6H PRN IV NAUSEA/VOMITING Last administered on 09/22/18at 02:20; Admin Dose 4 MG; Start 09/15/18 at 21:30 Acetaminophen (Tylenol Tab) 650 mg Q6H PRN PO .PAIN 1-3 OR TEMP Last administered on 09/22/18at 06:09; Admin Dose 650 MG; Start 09/15/18 at 21:30 Acetaminophen/ Hydrocodone Bitart ([place] (5/325)) 1 tab Q6H PRN PO .MOD PAIN 4- 6 Last administered on 09/20/18at 10:02; Admin Dose 1 TAB; Start 09/15/18 at 21:30 Morphine Sulfate (morphine) 2 mg Q4H PRN IV .SEVERE PAIN 7-10; Start 09/15/18 at 21:30 Docusate Sodium (Colace) 100 mg Q12H PRN PO .CONSTIPATION Last administered on 09/18/18at 20:25; Admin Dose 100 MG; Start 09/15/18 at 21:30 Bisacodyl (Dulcolax) 5 mg DAILY PRN PO .CONSTIPATION; Start 09/15/18 at 21:30 Heparin Sodium (Porcine) (Heparin (5000 Units/1ml)) 5,000 unit Q8 SC Last administered on 09/24/18at 13:16; Admin Dose 5,000 UNIT; Start 09/15/18 at 22:00 Enalaprilat (Vasotec Iv) 1.25 mg Q4H PRN IV ELEVATED BLOOD PRESSURE Last administered on 09/23/18 04:28; Admin Dose 1.25 MG; Start 09/16/18 at 00:00 Atorvastatin Calcium (Lipitor) 20 mg QHS PO Last administered on 09/16/18 20:22; Admin Dose 20 MG; Start 09/16/18 at 21:00; Status Hold Dutasteride (Avodart) 0.5 mg DAILY PO Last administered on 09/24/18 08:51; Admin Dose 0.5 MG; Start 09/16/18 at 09:00 Sertraline HCl (Zoloft) 100 mg DAILY PO Last administered on 09/24/18 08:51; Admin Dose 100 MG; Start 09/16/18 at 09:00 Tamsulosin HCl (Flomax) 0.4 mg HS PO Last administered on 09/23/18 21:24; Admin Dose 0.4 MG; Start 09/16/18 at 21:00 Fish Oil (Fish Oil) 2,000 mg BID PO Last administered on 09/24/18 08:50; Admin Dose 2,000 MG; Start 09/16/18 at 09:00 Pantoprazole (Protonix Tab) 40 mg BID@0600,1800 PO Last administered on 09/24/18 06:38; Admin Dose 40 MG; Start 09/16/18 at 07:30 Losartan Potassium (Cozaar) 100 mg DAILY PO Last administered on 09/24/18 08: 51; Admin Dose 100 MG; Start 09/17/18 at 09:00 Hydralazine HCl (Apresoline) 10 mg Q4H PRN IV sbp>170 Last administered on 09/23/18 20:01; Admin Dose 10 MG; Start 09/17/18 at 16:30 Amlodipine Besylate (Norvasc) 10 mg DAILY PO Last administered on 09/24/18 08:51; Admin Dose 10 MG; Start 09/19/18 at 09:00 Doxycycline Hyclate (Vibramycin) 100 mg BID PO Last administered on 09/24/18 08:50; Admin Dose 100 MG; Start 09/20/18 at 15:30 Trazodone HCl (Desyrel) 25 mg HS PO Last administered on 09/23/18 21:24; Admin Dose 25 MG; Start 09/21/18 at 21:00 Nitroglycerin (Nitroglycerin (Sl Tab) 0.4 Mg) 1 tab Q5M PRN SL ANGINA Last administered on 09/23/18 11:33; Admin Dose 1 TAB; Start 09/21/18 at 14:00 Lorazepam (Ativan) 0.5 mg Q8H PRN IV AGITATION/ANXIETY; Start 09/21/18 at 19:00 Multivitamins 10 ml/Thiamine HCl 100 mg/Folic Acid 1 mg/Sodium Chloride 1,011.2 ml @ 125 mls/ hr DAILY@09 IVPB Last administered on 09/24/18 08:56; Admin Dose 125 MLS/HR; Start 09/23/18 at 09:00; Stop 09/24/18 at 17:00 Lidocaine (Lidoderm) 1 patch DAILY TD Last administered on 09/24/18 08:50; Admin Dose 1 PATCH; Start 09/23/18 at 13:00 Sodium Chloride (Deep Sea) 2 spray Q4H PRN NASAL congestion Last administered on 09/23/18 16:02; Admin Dose 2 SPRAY; Start 09/23/18 at 13:00 Dicyclomine HCl (Bentyl) 10 mg QID PRN PO abdominal cramping; Start 09/23/18 at 13:30 Eye Lubricant (Artificial Tears Oph) 2 drop QID BOTH EYES Last administered on 09/24/18 13:16; Admin Dose 2 DROP; Start 09/23/18 at 13:30 Methadone HCl (Methadone Liq) 5 mg Q8 PO Last administered on 09/24/18 13:16; Admin Dose 5 MG; Start 09/23/18 at 14:00 Sodium Chloride 1,000 ml @ 50 mls/hr Q20H IV Last administered on 09/24/18 00 :13; Admin Dose 50 MLS/HR; Start 09/23/18 at 20:00 Metoprolol Tartrate (Lopressor) 25 mg BID PO Last administered on 09/24/18 09:30; Admin Dose 25 MG; Start 09/24/18 at 09:30 Olopatadine HCl (Patanol 0.1% Oph) 1 drop BID BOTH EYES Last administered on 09/24/18 13:16; Admin Dose 1 DROP; Start 09/24/18 at 12:00 Thiamine HCl (Vitamin B1) 100 mg DAILY PO ; Start 09/25/18 at 09:00 Folic Acid (Folic Acid) 1 mg DAILY PO ; Start 09/25/18 at 09:00 Multivitamins/ Minerals (Theragran-M) 1 tab DAILY PO ; Start 09/25/18 at 09:00 MARCIANO NAYLOR NP Sep 24, 2018 13:23
[2018-09-24 15:45] VITALS: BP 168/72; PULSE 105; RESP 18
--- NOTE | 2018-09-24 16:21 | PN ---
Date/Time of Note Date/Time of Note DATE: 09/24/18 TIME: 16:15 Assessment/Plan VTE Prophylaxis Risk score (from Nsg)>0 risk: 5 SCD applied (from Ns): No SCD contraindicated: other Pharmacological prophylaxis: heparin Lines/Catheters IV Catheter Type (from Nrs): Peripheral IV Urinary Cath still in place: No Assessment/Plan Assessment/Plan 1. LLE cellulitis- improving - ID on board and appreciate recommendations. continue on PO Doxy and will c ontinue local wound care - most likely secondary to PAD - encouraged to keep leg elevated when in bed - US negative for DVT 2. PAD - Arterial studies noted e - continue BP control - Vascular surgery consultation appreciated. Optimize hydration and avoid pressors if needed 3. Uncontrolled Hypertension-improving - Remains stable - will start BB BID and d/c chlorthalidone given low Na 4. Delirium - most likely component of hospital delirium - methadone restarted yesterday and will continue low dose at this time since patient tolerating - per daughters he may be getting anywhere from 20-80mg daily since pt brother is not consistent with dosing given in liquid form as outpatient 5. h/o alcohol abuse - alcoholic hepatitis appreciate at time of admission but resolved - no signs of DTs but will continue banana bag for now and start folate and thiamine and MVI tomorrow 6. 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 Alcoholic hepatitis - imaging studies reviewed and no signs of cirrhosis 8. Acute rhinosinusitis - continue nasal saline and added Pataday for eye burning 9. Thrombocytopenia- resolved 10. Urinary retention - Urology on board and appreciate recommendations. no enlarged prostate on examination. adjustments made to medications given patient persists with urgency and retention 11. Anxiety - Continue sertraline 12. Hyperlipidemia - Continue atorvastatin 13. Gait instability - PT on board 14. Abdominal cramping - Bentyl and simethicone PRN 15. Disposition - Discussed with family if BP improves and ambulating with more steadiness, may be easier to d/c home and if would like to take to [facility], can drive them on their own given lateral transfer may not happen at this time. Result Diagram: 09/24/18 0651 09/24/18 0651 Results 24hrs Laboratory Tests Test 09/24/18 06:51 White Blood Count 6.3 # Red Blood Count 4.07 L Hemoglobin 11.7 L Hematocrit 36.0 L Mean Corpuscular Volume 88.5 Mean Corpuscular Hemoglobin 28.7 L Mean Corpuscular Hemoglobin Concent 32.5 Red Cell Distribution Width 15.6 H Platelet Count 145 Mean Platelet Volume 10.0 Immature Granulocytes % 0.500 H Neutrophils % 70.1 Lymphocytes % 19.0 Monocytes % 9.3 Eosinophils % 0.5 Basophils % 0.6 Nucleated Red Blood Cells % 0.0 Immature Granulocytes # 0.030 Neutrophils # 4.4 Lymphocytes # 1.2 Monocytes # 0.6 Eosinophils # 0.0 Basophils # 0.0 Nucleated Red Blood Cells # 0.0 Sodium Level 129 L Potassium Level 3.5 Chloride Level 94 L Carbon Dioxide Level 23 Anion Gap 12 Blood Urea Nitrogen 15 Creatinine 0.65 Glucose Level 141 Calcium Level 9.3 Phosphorus Level 3.0 Magnesium Level 1.7 Albumin 4.1 Subjective 24 Hr Interval Summary Free Text/Dictation Patient still pleasantly confused but answering questions appropriately. Still with burning of eyes and discomfort in abdominal area. Exam/Review of Systems Exam Vitals Vital Signs Date Temp Pulse Resp B/P (MAP) Pulse Ox O2 O2 Flow FiO2 Time Delivery Rate 09/24/18 98.6 105 18 168/72 97 15:45 (104) 09/23/18 Room Air 15:23 09/21/18 4.0 23:36 Intake and Output 09/23/18 09/23/18 09/24/18 1515:00 23:00 07:00 IntakeIntake Total 360 ml 500 ml OutputOutput Total 1000 ml 1875 ml 1020 ml BalanceBalance -640 ml -1875 ml -520 ml Exam General: Patient is a pleasant male, moments of confusion but answering questions appropriately Neck: Supple Chest: Nontender Lungs: Clear to auscultation bilaterally no crackles rales or wheezing Heart: Normal S1-S2, Regular rhythm, tachycardia. No murmur, S3, or S4 Abdomen: Soft , nontender, protuberant , bowel sounds are present. No guarding no rebound tenderness Extremities: venous changes bilaterally. dressing on LLE with no discharge. no edema appreciated Results Results 24hrs Laboratory Tests Test 09/24/18 06:51 White Blood Count 6.3 # Red Blood Count 4.07 L Hemoglobin 11.7 L Hematocrit 36.0 L Mean Corpuscular Volume 88.5 Mean Corpuscular Hemoglobin 28.7 L Mean Corpuscular Hemoglobin Concent 32.5 Red Cell Distribution Width 15.6 H Platelet Count 145 Mean Platelet Volume 10.0 Immature Granulocytes % 0.500 H Neutrophils % 70.1 Lymphocytes % 19.0 Monocytes % 9.3 Eosinophils % 0.5 Basophils % 0.6 Nucleated Red Blood Cells % 0.0 Immature Granulocytes # 0.030 Neutrophils # 4.4 Lymphocytes # 1.2 Monocytes # 0.6 Eosinophils # 0.0 Basophils # 0.0 Nucleated Red Blood Cells # 0.0 Sodium Level 129 L Potassium Level 3.5 Chloride Level 94 L Carbon Dioxide Level 23 Anion Gap 12 Blood Urea Nitrogen 15 Creatinine 0.65 Glucose Level 141 Calcium Level 9.3 Phosphorus Level 3.0 Magnesium Level 1.7 Albumin 4.1 Medications Medication Current Medications IV Flush (NS 3 ml) 3 ml PER PROTOCOL IV ; Start 09/15/18 at 21:30 Ondansetron HCl (Zofran Inj) 4 mg Q6H PRN IV NAUSEA/VOMITING Last administered on 09/22/18at 02:20; Admin Dose 4 MG; Start 09/15/18 at 21:30 Acetaminophen (Tylenol Tab) 650 mg Q6H PRN PO .PAIN 1-3 OR TEMP Last administered on 09/22/18at 06:09; Admin Dose 650 MG; Start 09/15/18 at 21:30 Acetaminophen/ Hydrocodone Bitart ([place] (5/325)) 1 tab Q6H PRN PO .MOD PAIN 4- 6 Last administered on 09/20/18at 10:02; Admin Dose 1 TAB; Start 09/15/18 at 21:30 Morphine Sulfate (morphine) 2 mg Q4H PRN IV .SEVERE PAIN 7-10; Start 09/15/18 at 21:30 Docusate Sodium (Colace) 100 mg Q12H PRN PO .CONSTIPATION Last administered on 09/18/18at 20:25; Admin Dose 100 MG; Start 09/15/18 at 21:30 Bisacodyl (Dulcolax) 5 mg DAILY PRN PO .CONSTIPATION; Start 09/15/18 at 21:30 Heparin Sodium (Porcine) (Heparin (5000 Units/1ml)) 5,000 unit Q8 SC Last administered on 09/24/18at 13:16; Admin Dose 5,000 UNIT; Start 09/15/18 at 22:00 Enalaprilat (Vasotec Iv) 1.25 mg Q4H PRN IV ELEVATED BLOOD PRESSURE Last ad ministered on 09/23/18 04:28; Admin Dose 1.25 MG; Start 09/16/18 at 00:00 Atorvastatin Calcium (Lipitor) 20 mg QHS PO Last administered on 09/16/18 20:22; Admin Dose 20 MG; Start 09/16/18 at 21:00; Status Hold Dutasteride (Avodart) 0.5 mg DAILY PO Last administered on 09/24/18 08:51; Admin Dose 0.5 MG; Start 09/16/18 at 09:00 Sertraline HCl (Zoloft) 100 mg DAILY PO Last administered on 09/24/18 08:51; Admin Dose 100 MG; Start 09/16/18 at 09:00 Tamsulosin HCl (Flomax) 0.4 mg HS PO Last administered on 09/23/18 21:24; Admin Dose 0.4 MG; Start 09/16/18 at 21:00 Fish Oil (Fish Oil) 2,000 mg BID PO Last administered on 09/24/18 08:50; Admin Dose 2,000 MG; Start 09/16/18 at 09:00 Pantoprazole (Protonix Tab) 40 mg BID@0600,1800 PO Last administered on 09/24/18 06:38; Admin Dose 40 MG; Start 09/16/18 at 07:30 Losartan Potassium (Cozaar) 100 mg DAILY PO Last administered on 09/24/18 08:51; Admin Dose 100 MG; Start 09/17/18 at 09:00 Hydralazine HCl (Apresoline) 10 mg Q4H PRN IV sbp>170 Last administered on 09/23/18 20:01; Admin Dose 10 MG; Start 09/17/18 at 16:30 Amlodipine Besylate (Norvasc) 10 mg DAILY PO Last administered on 09/24/18 08:51; Admin Dose 10 MG; Start 09/19/18 at 09:00 Doxycycline Hyclate (Vibramycin) 100 mg BID PO Last administered on 09/24/18 08:50; Admin Dose 100 MG; Start 09/20/18 at 15:30 Trazodone HCl (Desyrel) 25 mg HS PO Last administered on 09/23/18 21:24; Admin Dose 25 MG; Start 09/21/18 at 21:00 Nitroglycerin (Nitroglycerin (Sl Tab) 0.4 Mg) 1 tab Q5M PRN SL ANGINA Last administered on 09/23/18 11:33; Admin Dose 1 TAB; Start 09/21/18 at 14:00 Lorazepam (Ativan) 0.5 mg Q8H PRN IV AGITATION/ANXIETY; Start 09/21/18 at 19:00 Multivitamins 10 ml/Thiamine HCl 100 mg/Folic Acid 1 mg/Sodium Chloride 1,011.2 ml @ 125 mls/ hr DAILY@09 IVPB Last administered on 09/24/18 08:56; Admin Dose 125 MLS/HR; Start 09/23/18 at 09:00; Stop 09/24/18 at 17:00 Lidocaine (Lidoderm) 1 patch DAILY TD Last administered on 09/24/18 08:50; Admin Dose 1 PATCH; Start 09/23/18 at 13:00 Sodium Chloride (Deep Sea) 2 spray Q4H PRN NASAL congestion Last administered on 09/23/18 16:02; Admin Dose 2 SPRAY; Start 09/23/18 at 13:00 Dicyclomine HCl (Bentyl) 10 mg QID PRN PO abdominal cramping; Start 09/23/18 at 13:30 Eye Lubricant (Artificial Tears Oph) 2 drop QID BOTH EYES Last administered on 09/24/18 13:16; Admin Dose 2 DROP; Start 09/23/18 at 13:30 Methadone HCl (Methadone Liq) 5 mg Q8 PO Last administered on 09/24/18 13:16; Admin Dose 5 MG; Start 09/23/18 at 14:00 Sodium Chloride 1,000 ml @ 50 mls/hr Q20H IV Last administered on 09/24/18 00:13; Admin Dose 50 MLS/HR; Start 09/23/18 at 20:00 Metoprolol Tartrate (Lopressor) 25 mg BID PO Last administered on 09/24/18 09:30; Admin Dose 25 MG; Start 09/24/18 at 09:30 Olopatadine HCl (Patanol 0.1% Oph) 1 drop BID BOTH EYES Last administered on 7/23/19at 13:16; Admin Dose 1 DROP; Start 09/24/18 at 12:00 Thiamine HCl (Vitamin B1) 100 mg DAILY PO ; Start 09/25/18 at 09:00 Folic Acid (Folic Acid) 1 mg DAILY PO ; Start 09/25/18 at 09:00 Multivitamins/ Minerals (Theragran-M) 1 tab DAILY PO ; Start 09/25/18 at 09:00 JOSUE MUNIZ MD Sep 24, 2018 16:21
--- NOTE | 2018-09-24 19:26 | CONS ---
Consult Date/Type/Reason Admit Date/Time Sep 15, 2018 at 21:15 Initial Consult Date 09/23/18 Type of Consultation: Urology Reason for Consultation Possible urinary retention Requesting Provider: STUART MATAMOROS Date/Time of Note DATE: 09/24/18 TIME: 19:24 Subjective Patient has episode of confusions and he pulls out his IV. He has been voiding Objective Vitals Vital Signs Date Temp Pulse Resp B/P (MAP) Pulse Ox O2 O2 Flow FiO2 Time Delivery Rate 09/24/18 98.6 105 18 168/72 97 15:45 (104) 09/23/18 Room Air 15:23 09/21/18 4.0 23:36 Intake and Output 09/23/18 09/23/18 09/24/18 1515:00 23:00 07:00 IntakeIntake Total 360 ml 500 ml OutputOutput Total 1000 ml 1875 ml 1020 ml BalanceBalance -640 ml -1875 ml -520 ml Exam The abdomen is soft, the bladder is not distended. Results/Medications Result Diagram: 09/24/18 0651 09/24/18 0651 Results 24 hrs Laboratory Tests Test 09/24/18 06:51 White Blood Count 6.3 # Red Blood Count 4.07 L Hemoglobin 11.7 L Hematocrit 36.0 L Mean Corpuscular Volume 88.5 Mean Corpuscular Hemoglobin 28.7 L Mean Corpuscular Hemoglobin Concent 32.5 Red Cell Distribution Width 15.6 H Platelet Count 145 Mean Platelet Volume 10.0 Immature Granulocytes % 0.500 H Neutrophils % 70.1 Lymphocytes % 19.0 Monocytes % 9.3 Eosinophils % 0.5 Basophils % 0.6 Nucleated Red Blood Cells % 0.0 Immature Granulocytes # 0.030 Neutrophils # 4.4 Lymphocytes # 1.2 Monocytes # 0.6 Eosinophils # 0.0 Basophils # 0.0 Nucleated Red Blood Cells # 0.0 Sodium Level 129 L Potassium Level 3.5 Chloride Level 94 L Carbon Dioxide Level 23 Anion Gap 12 Blood Urea Nitrogen 15 Creatinine 0.65 Glucose Level 141 Calcium Level 9.3 Phosphorus Level 3.0 Magnesium Level 1.7 Albumin 4.1 Home Meds Active Scripts Lorazepam* (Ativan*) 0.5 Mg Tablet, 0.5 MG PO Q8H PRN for CONTROL WITHDRAWAL SYMPTOMS, #10 TAB Prov:HUSSEIN SPEARS MD 09/12/18 Clindamycin Hcl* (Clindamycin Hcl*) 300 Mg Capsule, 300 MG PO QID for 10 Days, CAP Prov:MIKY THOMPSON MD 09/09/18 Reported Medications Azelastine/Fluticasone (DYMISTA NASAL SPRAY) 23 Gm [place].pump, 1 SPRAY NASAL BID, #1 BOTTLE TO EACH NOSTRIL 09/09/18 Ketoconazole* (Nizoral*) 120 Ml Shampoo, 1 APPLIC TOP BID, BOTTLE WASH HAIR/SCALP AND RINSE OFF 09/09/18 Tamsulosin Hcl* (Flomax*) 0.4 Mg Cap.er.24h, 0.4 MG PO HS, CAP 09/09/18 Sertraline Hcl* (Sertraline Hcl*) 100 Mg Tablet, 100 MG PO DAILY, #30 TAB 09/09/18 Atorvastatin Calcium* (Atorvastatin Calcium*) 20 Mg Tablet, 20 MG PO QHS, #30 TAB 09/09/18 Celecoxib* (Celebrex*) 200 Mg Capsule, 200 MG PO DAILY, CAP 09/09/18 Icosapent Ethyl (VASCEPA) 1 Gm Capsule, 2 GM PO BID, CAP 09/09/18 Potassium Chloride* (Potassium Chloride*) 8 Meq Capsule.er, 8 MEQ PO DAILY, CAP 09/09/18 Omeprazole* (Omeprazole*) 20 Mg Capsule.dr, 20 MG PO BID, #60 CAP 09/09/18 Dutasteride* (Avodart*) 0.5 Mg Capsule, 0.5 MG PO DAILY, CAP 09/09/18 Furosemide* (Furosemide*) 40 Mg Tablet, 40 MG PO DAILY, TAB 09/09/18 Hydrocodone/Acetaminophen ([place] 10-325 Tablet) 1 Each Tablet, 1 EACH PO BID, TAB 09/09/18 Folic Acid* (Folic Acid*) 1 Mg Tablet, 1 MG PO DAILY, TAB 09/09/18 Olmesartan Medoxomil (Benicar) 40 Mg Tablet, 40 MG PO DAILY, #30 TAB 09/09/18 Medications Current Medications IV Flush (NS 3 ml) 3 ml PER PROTOCOL IV ; Start 09/15/18 at 21:30 Ondansetron HCl (Zofran Inj) 4 mg Q6H PRN IV NAUSEA/VOMITING Last administered on 09/22/18at 02:20; Admin Dose 4 MG; Start 09/15/18 at 21:30 Acetaminophen (Tylenol Tab) 650 mg Q6H PRN PO .PAIN 1-3 OR TEMP Last administered on 09/22/18 06:09; Admin Dose 650 MG; Start 09/15/18 at 21:30 Acetaminophen/ Hydrocodone Bitart ([place] (5/325)) 1 tab Q6H PRN PO .MOD PAIN 4- 6 Last administered on 09/20/18 10:02; Admin Dose 1 TAB; Start 09/15/18 at 21:30 Morphine Sulfate (morphine) 2 mg Q4H PRN IV .SEVERE PAIN 7-10; Start 09/15/18 at 21:30 Docusate Sodium (Colace) 100 mg Q12H PRN PO .CONSTIPATION Last administered on 09/18/18 20:25; Admin Dose 100 MG; Start 09/15/18 at 21:30 Bisacodyl (Dulcolax) 5 mg DAILY PRN PO .CONSTIPATION; Start 09/15/18 at 21:30 Heparin Sodium (Porcine) (Heparin (5000 Units/1ml)) 5,000 unit Q8 SC Last administered on 09/24/18 13:16; Admin Dose 5,000 UNIT; Start 09/15/18 at 22:00 Enalaprilat (Vasotec Iv) 1.25 mg Q4H PRN IV ELEVATED BLOOD PRESSURE Last administered on 09/23/18 04:28; Admin Dose 1.25 MG; Start 09/16/18 at 00:00 Atorvastatin Calcium (Lipitor) 20 mg QHS PO Last administered on 09/16/18 20:22; Admin Dose 20 MG; Start 09/16/18 at 21:00; Status Hold Dutasteride (Avodart) 0.5 mg DAILY PO Last administered on 09/24/18 08:51; Admin Dose 0.5 MG; Start 09/16/18 at 09:00 Sertraline HCl (Zoloft) 100 mg DAILY PO Last administered on 09/24/18 08:51; Admin Dose 100 MG; Start 09/16/18 at 09:00 Tamsulosin HCl (Flomax) 0.4 mg HS PO Last administered on 09/23/18 21:24; Admin Dose 0.4 MG; Start 09/16/18 at 21:00 Fish Oil (Fish Oil) 2,000 mg BID PO Last administered on 09/24/18 08:50; Admin Dose 2,000 MG; Start 09/16/18 at 09:00 Pantoprazole (Protonix Tab) 40 mg BID@0600,1800 PO Last administered on 09/24/18 17:16; Admin Dose 40 MG; Start 09/16/18 at 07:30 Losartan Potassium (Cozaar) 100 mg DAILY PO Last administered on 09/24/18 08:51; Admin Dose 100 MG; Start 09/17/18 at 09:00 Hydralazine HCl (Apresoline) 10 mg Q4H PRN IV sbp>170 Last administered on 09/23/18 20:01; Admin Dose 10 MG; Start 09/17/18 at 16:30 Amlodipine Besylate (Norvasc) 10 mg DAILY PO Last administered on 09/24/18 08:51; Admin Dose 10 MG; Start 09/19/18 at 09:00 Doxycycline Hyclate (Vibramycin) 100 mg BID PO Last administered on 09/24/18 08:50; Admin Dose 100 MG; Start 09/20/18 at 15:30 Trazodone HCl (Desyrel) 25 mg HS PO Last administered on 09/23/18 21:24; Admin Dose 25 MG; Start 09/21/18 at 21:00 Nitroglycerin (Nitroglycerin (Sl Tab) 0.4 Mg) 1 tab Q5M PRN SL ANGINA Last administered on 09/23/18 11:33; Admin Dose 1 TAB; Start 09/21/18 at 14:00 Lorazepam (Ativan) 0.5 mg Q8H PRN IV AGITATION/ANXIETY; Start 09/21/18 at 19:00 Lidocaine (Lidoderm) 1 patch DAILY TD Last administered on 09/24/18 08:50; Admin Dose 1 PATCH; Start 09/23/18 at 13:00 Sodium Chloride (Deep Sea) 2 spray Q4H PRN NASAL congestion Last administered on 09/23/18 16:02; Admin Dose 2 SPRAY; Start 09/23/18 at 13:00 Dicyclomine HCl (Bentyl) 10 mg QID PRN PO abdominal cramping; Start 09/23/18 at 13:30 Eye Lubricant (Artificial Tears Oph) 2 drop QID BOTH EYES Last administered on 09/24/18at 17:16; Admin Dose 2 DROP; Start 09/23/18 at 13:30 Methadone HCl (Methadone Liq) 5 mg Q8 PO Last administered on 09/24/18at 13:16; Admin Dose 5 MG; Start 09/23/18 at 14:00 Sodium Chloride 1,000 ml @ 50 mls/hr Q20H IV Last administered on 09/24/18at 00:13; Admin Dose 50 MLS/HR; Start 09/23/18 at 20:00 Olopatadine HCl (Patanol 0.1% Oph) 1 drop BID BOTH EYES Last administered on 09/24/18at 13:16; Admin Dose 1 DROP; Start 09/24/18 at 12:00 Thiamine HCl (Vitamin B1) 100 mg DAILY PO ; Start 09/25/18 at 09:00 Folic Acid (Folic Acid) 1 mg DAILY PO ; Start 09/25/18 at 09:00 Multivitamins/ Minerals (Theragran-M) 1 tab DAILY PO ; Start 09/25/18 at 09:00 Simethicone (Mylicon) 80 mg Q6H PRN PO DISTENSION/GAS/BLOATING; Start 09/24/18 at 16:30 Metoprolol Tartrate (Lopressor) 50 mg BID PO ; Start 09/24/18 at 21:00 Neomycin/ Polymyxin/ Bacitracin (Neosporin (Ud Pkt)) 1 applic TID TOP ; Start 09/24/18 at 21:00 Assessment/Plan Hospital Course (Demo Recall) 78-year-old male admitted to the hospital because of left lower extremity cellulitis. He was noted to have difficulty urinating and had to be catheterized on a couple of occasions. One time 600 mL drained and another time 450 mL drained. The patient complains of hesitancy. It takes him a long time to urinate. Prior to his admission he used to have nocturia x2 and during the day he voids every 3 hours. He denies any dysuria. There is no history of gross hematuria and he states he feels he does empty his bladder. Prior to admission he also has been on tamsulosin and dutasteride. On the examination the bladder was full and the patient wanted to urinate. Rectal exam showed prostate that is not large and it is soft. He then went to the bathroom and urinated 500 mL and bladder scan showed 54 mL postvoid residual Today the patient has been voiding and the record of his voiding is as follows: Pt voided 720 ml, bladder scanner done for PVR noted to be 44 ml Pt voided 650 ml, bladder scanner done for PVR noted to be 29 ml Pt voided 450 ml, bladder scanner done for PVR noted to be 40 ml Based on this record from today he seems to be voiding well and no need for ur ological intervention. STEFF SOTO MD Sep 24, 2018 19:26
[2018-09-24 20:00] VITALS: BP 150/66; PULSE 108; RESP 22
[2018-09-24] MEDS: traZODone 50 MG TAB PO SCH (21:12)
[2018-09-24] MEDS: TAMSULOSIN (SR) 0.4 MG CAP PO SCH (21:13)
[2018-09-24] MEDS: METOPROLOL 50 MG TAB PO SCH (21:13)
[2018-09-24] MEDS: NEOMYC/POLYMYX/BACIT 0.9 GM OINT TOP SCH (21:29)
[2018-09-25 00:39] VITALS: BP 145/68; PULSE 67; RESP 20
[2018-09-25 04:00] VITALS: BP 132/55; PULSE 65; RESP 18
[2018-09-25] MEDS: METHADONE (1 MG/ML 5 ML PO UD SYG) PO SCH ×3 (05:27→22:01)
[2018-09-25] MEDS: PANTOPRAZOLE (EC) 40 MG TAB PO SCH ×2 (05:27→17:02)
[2018-09-25] MEDS: HEPARIN 5,000 UNIT/1 ML VIAL SC SCH ×3 (05:30→22:06)
[2018-09-25 07:42] VITALS: BP 139/65; PULSE 80; RESP 17
--- NOTE | 2018-09-25 08:06 | CONS ---
Consult Date/Type/Reason Admit Date/Time Sep 15, 2018 at 21:15 Initial Consult Date 09/23/18 Type of Consultation: Urology Reason for Consultation Question of neurogenic bladder Requesting Provider: STUART MATAMOROS Date/Time of Note DATE: 09/25/18 TIME: 08:02 Subjective Patient is awake and alert and appears to be comfortable. He has been voiding well and did not need any catheterization Objective Vitals Vital Signs Date Temp Pulse Resp B/P (MAP) Pulse Ox O2 O2 Flow FiO2 Time Delivery Rate 09/25/18 98.3 80 17 139/65 98 07:42 (89) 09/23/18 Room Air 15:23 09/21/18 4.0 23:36 Intake and Output 09/24/18 09/24/18 09/25/18 1515:00 23:00 07:00 IntakeIntake Total 730 ml 250 ml OutputOutput Total 2270 ml 1600 ml 800 ml BalanceBalance -1540 ml -1350 ml -800 ml Exam Abdomen is soft and the bladder is not distended. Results/Medications Result Diagram: 09/24/18 0651 09/24/18 0651 Home Meds Active Scripts Lorazepam* (Ativan*) 0.5 Mg Tablet, 0.5 MG PO Q8H PRN for CONTROL WITHDRAWAL SYMPTOMS, #10 TAB Prov:HUSSEIN SPEARS MD 09/12/18 Clindamycin Hcl* (Clindamycin Hcl*) 300 Mg Capsule, 300 MG PO QID for 10 Days, CAP Prov:MIKY THOMPSON MD 09/09/18 Reported Medications Azelastine/Fluticasone (DYMISTA NASAL SPRAY) 23 Gm [place].pump, 1 SPRAY NASAL BID, #1 BOTTLE TO EACH NOSTRIL 09/09/18 Ketoconazole* (Nizoral*) 120 Ml Shampoo, 1 APPLIC TOP BID, BOTTLE WASH HAIR/SCALP AND RINSE OFF 09/09/18 Tamsulosin Hcl* (Flomax*) 0.4 Mg Cap.er.24h, 0.4 MG PO HS, CAP 09/09/18 Sertraline Hcl* (Sertraline Hcl*) 100 Mg Tablet, 100 MG PO DAILY, #30 TAB 09/09/18 Atorvastatin Calcium* (Atorvastatin Calcium*) 20 Mg Tablet, 20 MG PO QHS, #30 TAB 09/09/18 Celecoxib* (Celebrex*) 200 Mg Capsule, 200 MG PO DAILY, CAP 09/09/18 Icosapent Ethyl (VASCEPA) 1 Gm Capsule, 2 GM PO BID, CAP 09/09/18 Potassium Chloride* (Potassium Chloride*) 8 Meq Capsule.er, 8 MEQ PO DAILY, CAP 09/09/18 Omeprazole* (Omeprazole*) 20 Mg Capsule.dr, 20 MG PO BID, #60 CAP 09/09/18 Dutasteride* (Avodart*) 0.5 Mg Capsule, 0.5 MG PO DAILY, CAP 09/09/18 Furosemide* (Furosemide*) 40 Mg Tablet, 40 MG PO DAILY, TAB 09/09/18 Hydrocodone/Acetaminophen ([place] 10-325 Tablet) 1 Each Tablet, 1 EACH PO BID, TAB 09/09/18 Folic Acid* (Folic Acid*) 1 Mg Tablet, 1 MG PO DAILY, TAB 09/09/18 Olmesartan Medoxomil (Benicar) 40 Mg Tablet, 40 MG PO DAILY, #30 TAB 09/09/18 Medications Current Medications IV Flush (NS 3 ml) 3 ml PER PROTOCOL IV ; Start 09/15/18 at 21:30 Ondansetron HCl (Zofran Inj) 4 mg Q6H PRN IV NAUSEA/VOMITING Last administered on 09/22/18at 02:20; Admin Dose 4 MG; Start 09/15/18 at 21:30 Acetaminophen (Tylenol Tab) 650 mg Q6H PRN PO .PAIN 1-3 OR TEMP Last administered on 09/22/18at 06:09; Admin Dose 650 MG; Start 09/15/18 at 21:30 Acetaminophen/ Hydrocodone Bitart ([place] (5/325)) 1 tab Q6H PRN PO .MOD PAIN 4- 6 Last administered on 09/20/18at 10:02; Admin Dose 1 TAB; Start 09/15/18 at 21:30 Morphine Sulfate (morphine) 2 mg Q4H PRN IV .SEVERE PAIN 7-10; Start 09/15/18 at 21:30 Docusate Sodium (Colace) 100 mg Q12H PRN PO .CONSTIPATION Last administered on 09/18/18at 20:25; Admin Dose 100 MG; Start 09/15/18 at 21:30 Bisacodyl (Dulcolax) 5 mg DAILY PRN PO .CONSTIPATION; Start 09/15/18 at 21:30 Heparin Sodium (Porcine) (Heparin (5000 Units/1ml)) 5,000 unit Q8 SC Last administered on 09/25/18 05:30; Admin Dose 5,000 UNIT; Start 09/15/18 at 22:00 Enalaprilat (Vasotec Iv) 1.25 mg Q4H PRN IV ELEVATED BLOOD PRESSURE Last administered on 09/23/18 04:28; Admin Dose 1.25 MG; Start 09/16/18 at 00:00 Atorvastatin Calcium (Lipitor) 20 mg QHS PO Last administered on 09/16/18 20:22; Admin Dose 20 MG; Start 09/16/18 at 21:00; Status Hold Dutasteride (Avodart) 0.5 mg DAILY PO Last administered on 09/24/18 08:51; Admin Dose 0.5 MG; Start 09/16/18 at 09:00 Sertraline HCl (Zoloft) 100 mg DAILY PO Last administered on 09/24/18 08:51; Admin Dose 100 MG; Start 09/16/18 at 09:00 Tamsulosin HCl (Flomax) 0.4 mg HS PO Last administered on 09/24/18 21:13; Admin Dose 0.4 MG; Start 09/16/18 at 21:00 Fish Oil (Fish Oil) 2,000 mg BID PO Last administered on 09/24/18 21:12; Admin Dose 2,000 MG; Start 09/16/18 at 09:00 Pantoprazole (Protonix Tab) 40 mg BID@0600,1800 PO Last administered on 09/25/18 05:27; Admin Dose 40 MG; Start 09/16/18 at 07:30 Losartan Potassium (Cozaar) 100 mg DAILY PO Last administered on 09/24/18 08 :51; Admin Dose 100 MG; Start 09/17/18 at 09:00 Hydralazine HCl (Apresoline) 10 mg Q4H PRN IV sbp>170 Last administered on 09/23/18 20:01; Admin Dose 10 MG; Start 09/17/18 at 16:30 Amlodipine Besylate (Norvasc) 10 mg DAILY PO Last administered on 09/24/18 08:51; Admin Dose 10 MG; Start 09/19/18 at 09:00 Doxycycline Hyclate (Vibramycin) 100 mg BID PO Last administered on 09/24/18 21:12; Admin Dose 100 MG; Start 09/20/18 at 15:30 Trazodone HCl (Desyrel) 25 mg HS PO Last administered on 09/24/18 21:12; Admin Dose 25 MG; Start 09/21/18 at 21:00 Nitroglycerin (Nitroglycerin (Sl Tab) 0.4 Mg) 1 tab Q5M PRN SL ANGINA Last administered on 09/23/18 11:33; Admin Dose 1 TAB; Start 09/21/18 at 14:00 Lorazepam (Ativan) 0.5 mg Q8H PRN IV AGITATION/ANXIETY; Start 09/21/18 at 19:00 Lidocaine (Lidoderm) 1 patch DAILY TD Last administered on 09/24/18 08:50; Admin Dose 1 PATCH; Start 09/23/18 at 13:00 Sodium Chloride ([place]) 2 spray Q4H PRN NASAL congestion Last administered on 09/23/18 16:02; Admin Dose 2 SPRAY; Start 09/23/18 at 13:00 Dicyclomine HCl (Bentyl) 10 mg QID PRN PO abdominal cramping; Start 09/23/18 at 13:30 Eye Lubricant (Artificial Tears Oph) 2 drop QID BOTH EYES Last administered on 09/24/18 21:14; Admin Dose 2 DROP; Start 09/23/18 at 13:30 Methadone HCl (Methadone Liq) 5 mg Q8 PO Last administered on 09/25/18 05:27; Admin Dose 5 MG; Start 09/23/18 at 14:00 Sodium Chloride 1,000 ml @ 50 mls/hr Q20H IV Last administered on 09/24/18 00:13; Admin Dose 50 MLS/HR; Start 09/23/18 at 20:00 Olopatadine HCl (Patanol 0.1% Oph) 1 drop BID BOTH EYES Last administered on 09/24/18 21:29; Admin Dose 1 DROP; Start 09/24/18 at 12:00 Thiamine HCl (Vitamin B1) 100 mg DAILY PO ; Start 09/25/18 at 09:00 Folic Acid (Folic Acid) 1 mg DAILY PO ; Start 09/25/18 at 09:00 Multivitamins/ Minerals (Theragran-M) 1 tab DAILY PO ; Start 09/25/18 at 09:00 Simethicone (Mylicon) 80 mg Q6H PRN PO DISTENSION/GAS/BLOATING; Start 09/24/18 at 16:30 Metoprolol Tartrate (Lopressor) 50 mg BID PO Last administered on 09/24/18at 21:13; Admin Dose 50 MG; Start 09/24/18 at 21:00 Neomycin/ Polymyxin/ Bacitracin (Neosporin (Ud Pkt)) 1 applic TID TOP Last administered on 09/24/18at 21:29; Admin Dose 1 APPLIC; Start 09/24/18 at 21:00 Assessment/Plan Hospital Course (Demo Recall) 78-year-old male admitted to the hospital because of left lower extremity cellulitis. He was noted to have difficulty urinating and had to be catheterized on a couple of occasions. One time 600 mL drained and another time 450 mL drained. The patient complains of hesitancy. It takes him a long time to urinate. Prior to his admission he used to have nocturia x2 and during the day he voids every 3 hours. He denies any dysuria. There is no history of gross hematuria and he states he feels he does empty his bladder. Prior to admission he also has been on tamsulosin and dutasteride. On the examination the bladder was full and the patient wanted to urinate. Rectal exam showed prostate that is not large and it is soft. He then went to the bathroom and urinated 500 mL and bladder scan showed 54 mL postvoid residual Yesterday the patient he was voiding well and the record of his voiding were as follows: Pt voided 720 ml, bladder scanner done for PVR noted to be 44 ml Pt voided 650 ml, bladder scanner done for PVR noted to be 29 ml Pt voided 450 ml, bladder scanner done for PVR noted to be 40 ml During last night he continued to urinate well and he had good urine output and there was no need to do catheterization on him. STEFF SOTO MD Sep 25, 2018 08:05
[2018-09-25] MEDS: THIAMINE 100 MG TAB PO SCH (08:36)
[2018-09-25] MEDS: MULTIVITAMINS/MINERALS TAB PO SCH (08:36)
[2018-09-25] MEDS: FISH OIL 1,000 MG CAP PO SCH ×2 (08:36→20:40)
[2018-09-25] MEDS: SERTRALINE 100 MG TAB PO SCH (08:37)
[2018-09-25] MEDS: FOLIC ACID 1 MG TAB PO SCH (08:37)
[2018-09-25] MEDS: DOXYCYCLINE 100 MG TAB PO SCH ×2 (08:37→20:40)
[2018-09-25] MEDS: METOPROLOL 50 MG TAB PO SCH ×2 (08:37→20:40)
[2018-09-25] MEDS: DUTASTERIDE 0.5 MG CAP PO SCH (08:37)
[2018-09-25] MEDS: LOSARTAN 50 MG TAB PO SCH (08:38)
[2018-09-25] MEDS: AMLODIPINE 10 MG TAB PO SCH (08:38)
[2018-09-25] MEDS: ARTIFICIAL TEARS 15 ML OPH BOTH EYES SCH ×4 (08:38→20:46)
[2018-09-25] MEDS: LIDOCAINE 5% PATCH TD SCH (08:39)
[2018-09-25] MEDS: OLOPATADINE 0.1% 5 ML OPH BOTH EYES SCH ×2 (08:39→20:46)
[2018-09-25] MEDS: NEOMYC/POLYMYX/BACIT 0.9 GM OINT TOP SCH ×3 (08:39→20:40)
[2018-09-25] MEDS ORDERED: MAGNESIUM SULFATE 2 GM/50 ML 50 ML IVPB ONE (09:30)
--- NOTE | 2018-09-25 11:10 | CONS ---
Assessment/Plan Assessment/Plan Hospital Course (Demo Recall) Alert, looks comfortable, no fevers MICROBIOLOGY: Blood cultures negative. MRSA swab negative. ANTIMICROBIALS: Doxycycline PHYSICAL EXAMINATION: GENERAL: This is a well-developed, chronically ill-appearing, elderly man who is alert, in no distress. HEENT: Head atraumatic, normocephalic. Sclerae anicteric. Buccal mucosa pink. NECK: Supple. CHEST: Rise symmetrical. Breath sounds clear, diminished to bases. HEART: S1, S2. ABDOMEN: Soft, bowel sounds present. EXTREMITIES: Bilateral lower extremities chronic venous stasis, left lower extremity [place] wrapped. ASSESSMENT: 1. Bilateral lower extremities chronic venous stasis /left lower extremity cellulitis. 2. Hypertension. 3. History of polysubstance abuse. 4. Improving transaminitis. 5. History of deep venous thrombosis and pulmonary embolism. PLAN: The patient remains stable, continue abx, pending tx to [facility] Consultation Date/Type/Reason Admit Date/Time Sep 15, 2018 at 21:15 Initial Consult Date Type of Consult id Requesting Provider: STUART MATAMOROS Date/Time of Note DATE: 09/25/18 TIME: 11:09 Exam/Review of Systems Exam Vitals Vital Signs Date Temp Pulse Resp B/P (MAP) Pulse Ox O2 O2 Flow FiO2 Time Delivery Rate 09/25/18 98.3 80 17 139/65 98 07:42 (89) 09/23/18 Room Air 15:23 09/21/18 4.0 23:36 Intake and Output 09/24/18 09/24/18 09/25/18 1515:00 23:00 07:00 IntakeIntake Total 730 ml 250 ml OutputOutput Total 2270 ml 1600 ml 800 ml BalanceBalance -1540 ml -1350 ml -800 ml Results Result Diagram: 09/25/18 0746 09/25/18 0746 Results 24hrs Laboratory Tests Test 09/25/18 07:46 White Blood Count 7.3 Red Blood Count 4.23 L Hemoglobin 12.0 L Hematocrit 37.4 L Mean Corpuscular Volume 88.4 Mean Corpuscular Hemoglobin 28.4 L Mean Corpuscular Hemoglobin Concent 32.1 Red Cell Distribution Width 15.5 H Platelet Count 167 Mean Platelet Volume 9.8 Immature Granulocytes % 0.700 H Neutrophils % 65.2 Lymphocytes % 21.1 Monocytes % 10.9 Eosinophils % 1.6 Basophils % 0.5 Nucleated Red Blood Cells % 0.0 Immature Granulocytes # 0.050 H Neutrophils # 4.8 Lymphocytes # 1.5 Monocytes # 0.8 Eosinophils # 0.1 Basophils # 0.0 Nucleated Red Blood Cells # 0.0 Sodium Level 132 L Potassium Level 3.4 L Chloride Level 96 L Carbon Dioxide Level 26 Anion Gap 10 Blood Urea Nitrogen 18 Creatinine 0.85 Glucose Level 139 Calcium Level 9.6 Phosphorus Level 3.9 Magnesium Level 1.7 Albumin 4.1 Medications Medication Current Medications IV Flush (NS 3 ml) 3 ml PER PROTOCOL IV ; Start 09/15/18 at 21:30 Ondansetron HCl (Zofran Inj) 4 mg Q6H PRN IV NAUSEA/VOMITING Last administered on 09/22/18 02:20; Admin Dose 4 MG; Start 09/15/18 at 21:30 Acetaminophen (Tylenol Tab) 650 mg Q6H PRN PO .PAIN 1-3 OR TEMP Last administered on 09/22/18 06:09; Admin Dose 650 MG; Start 09/15/18 at 21:30 Acetaminophen/ Hydrocodone Bitart ([place] (5/325)) 1 tab Q6H PRN PO .MOD PAIN 4- 6 Last administered on 09/20/18 10:02; Admin Dose 1 TAB; Start 09/15/18 at 21:30 Morphine Sulfate (morphine) 2 mg Q4H PRN IV .SEVERE PAIN 7-10; Start 09/15/18 at 21:30 Docusate Sodium (Colace) 100 mg Q12H PRN PO .CONSTIPATION Last administered on 09/18/18 20:25; Admin Dose 100 MG; Start 09/15/18 at 21:30 Bisacodyl (Dulcolax) 5 mg DAILY PRN PO .CONSTIPATION; Start 09/15/18 at 21:30 Heparin Sodium (Porcine) (Heparin (5000 Units/1ml)) 5,000 unit Q8 SC Last administered on 09/25/18 05:30; Admin Dose 5,000 UNIT; Start 09/15/18 at 22:00 Enalaprilat (Vasotec Iv) 1.25 mg Q4H PRN IV ELEVATED BLOOD PRESSURE Last administered on 09/23/18 04:28; Admin Dose 1.25 MG; Start 09/16/18 at 00:00 Atorvastatin Calcium (Lipitor) 20 mg QHS PO Last administered on 09/16/18 20:22; Admin Dose 20 MG; Start 09/16/18 at 21:00; Status Hold Dutasteride (Avodart) 0.5 mg DAILY PO Last administered on 09/25/18 08:37; Admin Dose 0.5 MG; Start 09/16/18 at 09:00 Sertraline HCl (Zoloft) 100 mg DAILY PO Last administered on 09/25/18 08:37; Admin Dose 100 MG; Start 09/16/18 at 09:00 Tamsulosin HCl (Flomax) 0.4 mg HS PO Last administered on 09/24/18 21:13; Admin Dose 0.4 MG; Start 09/16/18 at 21:00 Fish Oil (Fish Oil) 2,000 mg BID PO Last administered on 09/25/18 08:36; Admin Dose 2,000 MG; Start 09/16/18 at 09:00 Pantoprazole (Protonix Tab) 40 mg BID@0600,1800 PO Last administered on 09/25/18 05:27; Admin Dose 40 MG; Start 09/16/18 at 07:30 Losartan Potassium (Cozaar) 100 mg DAILY PO Last administered on 09/25/18 08:38; Admin Dose 100 MG; Start 09/17/18 at 09:00 Hydralazine HCl (Apresoline) 10 mg Q4H PRN IV sbp>170 Last administered on 09/23/18 20:01; Admin Dose 10 MG; Start 09/17/18 at 16:30 Amlodipine Besylate (Norvasc) 10 mg DAILY PO Last administered on 09/25/18 08:38; Admin Dose 10 MG; Start 09/19/18 at 09:00 Doxycycline Hyclate (Vibramycin) 100 mg BID PO Last administered on 09/25/18 08:37; Admin Dose 100 MG; Start 09/20/18 at 15:30 Trazodone HCl (Desyrel) 25 mg HS PO Last administered on 09/24/18 21:12; Admin Dose 25 MG; Start 09/21/18 at 21:00 Nitroglycerin (Nitroglycerin (Sl Tab) 0.4 Mg) 1 tab Q5M PRN SL ANGINA Last ad ministered on 09/23/18 11:33; Admin Dose 1 TAB; Start 09/21/18 at 14:00 Lorazepam (Ativan) 0.5 mg Q8H PRN IV AGITATION/ANXIETY; Start 09/21/18 at 19:00 Lidocaine (Lidoderm) 1 patch DAILY TD Last administered on 09/25/18 08:39; Admin Dose 1 PATCH; Start 09/23/18 at 13:00 Sodium Chloride (Deep Sea) 2 spray Q4H PRN NASAL congestion Last administered on 09/23/18 16:02; Admin Dose 2 SPRAY; Start 09/23/18 at 13:00 Dicyclomine HCl (Bentyl) 10 mg QID PRN PO abdominal cramping; Start 09/23/18 at 13:30 Eye Lubricant (Artificial Tears Oph) 2 drop QID BOTH EYES Last administered on 09/25/18 08:38; Admin Dose 2 DROP; Start 09/23/18 at 13:30 Methadone HCl (Methadone Liq) 5 mg Q8 PO Last administered on 09/25/18 05:27; Admin Dose 5 MG; Start 09/23/18 at 14:00 Olopatadine HCl (Patanol 0.1% Oph) 1 drop BID BOTH EYES Last administered on 09/25/18 08:39; Admin Dose 1 DROP; Start 09/24/18 at 12:00 Thiamine HCl (Vitamin B1) 100 mg DAILY PO Last administered on 09/25/18 08:36; Admin Dose 100 MG; Start 09/25/18 at 09:00 Folic Acid (Folic Acid) 1 mg DAILY PO Last administered on 09/25/18 08:37; Admin Dose 1 MG; Start 09/25/18 at 09:00 Multivitamins/ Minerals (Theragran-M) 1 tab DAILY PO Last administered on 09/25/18 08:36; Admin Dose 1 TAB; Start 09/25/18 at 09:00 Simethicone (Mylicon) 80 mg Q6H PRN PO DISTENSION/GAS/BLOATING; Start 09/24/18 at 16:30 Metoprolol Tartrate (Lopressor) 50 mg BID PO Last administered on 09/25/18 08:37; Admin Dose 50 MG; Start 7/23/19 at 21:00 Neomycin/ Polymyxin/ Bacitracin (Neosporin (Ud Pkt)) 1 applic TID TOP Last administered on 09/25/18at 08:39; Admin Dose 1 APPLIC; Start 09/24/18 at 21:00 Potassium Chloride 40 meq/ Sodium Chloride 1,000 ml @ 50 mls/hr Q20H IV ; Start 09/25/18 at 09:30 Magnesium Sulfate 50 ml @ 25 mls/hr ONCE ONCE IVPB Last administered on 09/25/18at 10:01; Admin Dose 25 MLS/HR; Start 09/25/18 at 09:30; Stop 09/25/18 at 11:29 MARCIANO NAYLOR NP Sep 25, 2018 11:10
[2018-09-25] MEDS: POTASSIUM CHLORIDE 40 MEQ in SOD CHLORIDE 0.9% 1,000 ML IV SCH (11:34)
[2018-09-25 12:00] VITALS: BP 135/60; PULSE 69; RESP 18
--- NOTE | 2018-09-25 13:02 | PN ---
Date/Time of Note Date/Time of Note DATE: 09/25/18 TIME: 12:56 Assessment/Plan VTE Prophylaxis Risk score (from Nsg)>0 risk: 10 SCD applied (from Ns): No SCD contraindicated: other Pharmacological prophylaxis: heparin Lines/Catheters IV Catheter Type (from Nrs): Peripheral IV Urinary Cath still in place: No Assessment/Plan Assessment/Plan 1. LLE cellulitis- improving - ID on board and appreciate recommendations. continue on PO Doxy and will continue local wound care - most likely secondary to PAD - encouraged to keep leg elevated when in bed - US negative for DVT 2. PAD - Arterial studies noted - continue BP control - Vascular surgery consultation appreciated. Optimize hydration 3. Uncontrolled Hypertension-improving - Remains stable - continue current medications and will adjust as needed 4. Delirium- resolving - most likely component of hospital delirium - discussed with family patient should not linger longer than needed to avoid worsening delirium 5. h/o alcohol abuse - alcoholic hepatitis appreciate at time of admission but resolved - no signs of DTs - discussed cessation and patient agrees to no longer drink after discharge 6. 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 Alcoholic hepatitis- resolved - imaging studies reviewed and no signs of cirrhosis 8. Acute rhinosinusitis- resolved 9. Thrombocytopenia- resolved 10. Urinary retention- resolved - Urology on board and appreciate recommendations. 11. Anxiety - Continue sertraline 12. Hyperlipidemia - Continue atorvastatin 13. Gait instability - PT on board 14. Abdominal cramping- resolved - Bentyl and simethicone PRN 15. h/o metadone use - patient was on supposedly 82mg as outpatient. Per pt he was never seen by a physician at the clinic. Family requesting resources for a new methadone clinic with hopes to wean patient off completely. SW consulted for resources - doing well on 5 mg TID 16. Disposition - patient still with hyponatremia and gait instability - Family does not want patient d/c to SNF since not satisfied with surround facilities - CM consulted for HHPT and additional resources per family request Result Diagram: 09/25/18 0746 09/25/18 0746 Results 24hrs Laboratory Tests Test 09/25/18 07:46 White Blood Count 7.3 Red Blood Count 4.23 L Hemoglobin 12.0 L Hematocrit 37.4 L Mean Corpuscular Volume 88.4 Mean Corpuscular Hemoglobin 28.4 L Mean Corpuscular Hemoglobin Concent 32.1 Red Cell Distribution Width 15.5 H Platelet Count 167 Mean Platelet Volume 9.8 Immature Granulocytes % 0.700 H Neutrophils % 65.2 Lymphocytes % 21.1 Monocytes % 10.9 Eosinophils % 1.6 Basophils % 0.5 Nucleated Red Blood Cells % 0.0 Immature Granulocytes # 0.050 H Neutrophils # 4.8 Lymphocytes # 1.5 Monocytes # 0.8 Eosinophils # 0.1 Basophils # 0.0 Nucleated Red Blood Cells # 0.0 Sodium Level 132 L Potassium Level 3.4 L Chloride Level 96 L Carbon Dioxide Level 26 Anion Gap 10 Blood Urea Nitrogen 18 Creatinine 0.85 Glucose Level 139 Calcium Level 9.6 Phosphorus Level 3.9 Magnesium Level 1.7 Albumin 4.1 Subjective 24 Hr Interval Summary Free Text/Dictation Patient states hes feeling better. No longer experiencing urinary retention, abdominal discomfort, or burning of eyes. Requesting to shower as well. Exam/Review of Systems Exam Vitals Vital Signs Date Temp Pulse Resp B/P (MAP) Pulse Ox O2 O2 Flow FiO2 Time Delivery Rate 09/25/18 98.1 69 18 135/60 97 12:00 (85) 09/23/18 Room Air 15:23 09/21/18 4.0 23:36 Intake and Output 09/24/18 09/24/18 09/25/18 1515:00 23:00 07:00 IntakeIntake Total 730 ml 250 ml OutputOutput Total 2270 ml 1600 ml 800 ml BalanceBalance -1540 ml -1350 ml -800 ml Exam General: Patient is a pleasant male, answering questions appropriately Neck: Supple Chest: Nontender Lungs: Clear to auscultation bilaterally no crackles rales or wheezing Heart: Normal S1-S2, Regular rate and rhythm, No murmur, S3, or S4 Abdomen: Soft , nontender, protuberant , bowel sounds are present. No guarding no rebound tenderness Extremities: venous changes bilaterally. dressing on LLE with no discharge. no edema appreciated Results Results 24hrs Laboratory Tests Test 09/25/18 07:46 White Blood Count 7.3 Red Blood Count 4.23 L Hemoglobin 12.0 L Hematocrit 37.4 L Mean Corpuscular Volume 88.4 Mean Corpuscular Hemoglobin 28.4 L Mean Corpuscular Hemoglobin Concent 32.1 Red Cell Distribution Width 15.5 H Platelet Count 167 Mean Platelet Volume 9.8 Immature Granulocytes % 0.700 H Neutrophils % 65.2 Lymphocytes % 21.1 Monocytes % 10.9 Eosinophils % 1.6 Basophils % 0.5 Nucleated Red Blood Cells % 0.0 Immature Granulocytes # 0.050 H Neutrophils # 4.8 Lymphocytes # 1.5 Monocytes # 0.8 Eosinophils # 0.1 Basophils # 0.0 Nucleated Red Blood Cells # 0.0 Sodium Level 132 L Potassium Level 3.4 L Chloride Level 96 L Carbon Dioxide Level 26 Anion Gap 10 Blood Urea Nitrogen 18 Creatinine 0.85 Glucose Level 139 Calcium Level 9.6 Phosphorus Level 3.9 Magnesium Level 1.7 Albumin 4.1 Medications Medication Current Medications IV Flush (NS 3 ml) 3 ml PER PROTOCOL IV ; Start 09/15/18 at 21:30 Ondansetron HCl (Zofran Inj) 4 mg Q6H PRN IV NAUSEA/VOMITING Last administered on 09/22/18at 02:20; Admin Dose 4 MG; Start 09/15/18 at 21:30 Acetaminophen (Tylenol Tab) 650 mg Q6H PRN PO .PAIN 1-3 OR TEMP Last administered on 09/22/18at 06:09; Admin Dose 650 MG; Start 09/15/18 at 21:30 Acetaminophen/ Hydrocodone Bitart ([place] (5/325)) 1 tab Q6H PRN PO .MOD PAIN 4- 6 Last administered on 09/20/18at 10:02; Admin Dose 1 TAB; Start 09/15/18 at 21:30 Morphine Sulfate (morphine) 2 mg Q4H PRN IV .SEVERE PAIN 7-10; Start 09/15/18 at 21:30 Docusate Sodium (Colace) 100 mg Q12H PRN PO .CONSTIPATION Last administered on 09/18/18at 20:25; Admin Dose 100 MG; Start 09/15/18 at 21:30 Bisacodyl (Dulcolax) 5 mg DAILY PRN PO .CONSTIPATION; Start 09/15/18 at 21:30 Heparin Sodium (Porcine) (Heparin (5000 Units/1ml)) 5,000 unit Q8 SC Last admi nistered on 09/25/18at 05:30; Admin Dose 5,000 UNIT; Start 09/15/18 at 22:00 Enalaprilat (Vasotec Iv) 1.25 mg Q4H PRN IV ELEVATED BLOOD PRESSURE Last administered on 09/23/18 04:28; Admin Dose 1.25 MG; Start 09/16/18 at 00:00 Atorvastatin Calcium (Lipitor) 20 mg QHS PO Last administered on 09/16/18 20:22; Admin Dose 20 MG; Start 09/16/18 at 21:00; Status Hold Dutasteride (Avodart) 0.5 mg DAILY PO Last administered on 09/25/18 08:37; Admin Dose 0.5 MG; Start 09/16/18 at 09:00 Sertraline HCl (Zoloft) 100 mg DAILY PO Last administered on 09/25/18 08:37; Admin Dose 100 MG; Start 09/16/18 at 09:00 Tamsulosin HCl (Flomax) 0.4 mg HS PO Last administered on 09/24/18 21:13; Admin Dose 0.4 MG; Start 09/16/18 at 21:00 Fish Oil (Fish Oil) 2,000 mg BID PO Last administered on 09/25/18 08:36; Admin Dose 2,000 MG; Start 09/16/18 at 09:00 Pantoprazole (Protonix Tab) 40 mg BID@0600,1800 PO Last administered on 09/25/18 05:27; Admin Dose 40 MG; Start 09/16/18 at 07:30 Losartan Potassium (Cozaar) 100 mg DAILY PO Last administered on 09/25/18 08:38; Admin Dose 100 MG; Start 09/17/18 at 09:00 Hydralazine HCl (Apresoline) 10 mg Q4H PRN IV sbp>170 Last administered on 09/23/18 20:01; Admin Dose 10 MG; Start 09/17/18 at 16:30 Amlodipine Besylate (Norvasc) 10 mg DAILY PO Last administered on 09/25/18 08:38; Admin Dose 10 MG; Start 09/19/18 at 09:00 Doxycycline Hyclate (Vibramycin) 100 mg BID PO Last administered on 09/25/18 08:37; Admin Dose 100 MG; Start 09/20/18 at 15:30 Trazodone HCl (Desyrel) 25 mg HS PO Last administered on 7/23/19at 21:12; Admin Dose 25 MG; Start 09/21/18 at 21:00 Nitroglycerin (Nitroglycerin (Sl Tab) 0.4 Mg) 1 tab Q5M PRN SL ANGINA Last administered on 09/23/18 11:33; Admin Dose 1 TAB; Start 09/21/18 at 14:00 Lorazepam (Ativan) 0.5 mg Q8H PRN IV AGITATION/ANXIETY; Start 09/21/18 at 19:00 Lidocaine (Lidoderm) 1 patch DAILY TD Last administered on 09/25/18 08:39; Admin Dose 1 PATCH; Start 09/23/18 at 13:00 Sodium Chloride ([place]) 2 spray Q4H PRN NASAL congestion Last administered on 09/23/18 16:02; Admin Dose 2 SPRAY; Start 09/23/18 at 13:00 Dicyclomine HCl (Bentyl) 10 mg QID PRN PO abdominal cramping; Start 09/23/18 at 13:30 Eye Lubricant (Artificial Tears Oph) 2 drop QID BOTH EYES Last administered on 09/25/18 08:38; Admin Dose 2 DROP; Start 09/23/18 at 13:30 Methadone HCl (Methadone Liq) 5 mg Q8 PO Last administered on 09/25/18 05:27; Admin Dose 5 MG; Start 09/23/18 at 14:00 Olopatadine HCl (Patanol 0.1% Oph) 1 drop BID BOTH EYES Last administered on 09/25/18 08:39; Admin Dose 1 DROP; Start 09/24/18 at 12:00 Thiamine HCl (Vitamin B1) 100 mg DAILY PO Last administered on 09/25/18 08:36; Admin Dose 100 MG; Start 09/25/18 at 09:00 Folic Acid (Folic Acid) 1 mg DAILY PO Last administered on 09/25/18 08:37; Admin Dose 1 MG; Start 09/25/18 at 09:00 Multivitamins/ Minerals (Theragran-M) 1 tab DAILY PO Last administered on 09/25/18 08:36; Admin Dose 1 TAB; Start 09/25/18 at 09:00 Simethicone (Mylicon) 80 mg Q6H PRN PO DISTENSION/GAS/BLOATING; Start 09/24/18 at 16:30 Metoprolol Tartrate (Lopressor) 50 mg BID PO Last administered on 09/25/18 08:37; Admin Dose 50 MG; Start 09/24/18 at 21:00 Neomycin/ Polymyxin/ Bacitracin (Neosporin (Ud Pkt)) 1 applic TID TOP Last administered on 09/25/18 08:39; Admin Dose 1 APPLIC; Start 09/24/18 at 21:00 Potassium Chloride 40 meq/ Sodium Chloride 1,000 ml @ 50 mls/hr Q20H IV Last administered on 09/25/18at 11:34; Admin Dose 50 MLS/HR; Start 09/25/18 at 09:30 JOSUE MUNIZ MD Sep 25, 2018 13:02
[2018-09-25 15:15] VITALS: BP 136/66; PULSE 60; RESP 17
[2018-09-25] MEDS: TAMSULOSIN (SR) 0.4 MG CAP PO SCH (20:39)
[2018-09-25] MEDS: traZODone 50 MG TAB PO SCH (20:40)
[2018-09-25 20:59] VITALS: BP 156/75; PULSE 70; RESP 18
[2018-09-26 00:09] VITALS: BP 109/46; PULSE 61; RESP 20
[2018-09-26 04:40] VITALS: BP 119/57; PULSE 66; RESP 18
[2018-09-26] MEDS: METHADONE (1 MG/ML 5 ML PO UD SYG) PO SCH ×3 (05:35→21:22)
[2018-09-26] MEDS: HEPARIN 5,000 UNIT/1 ML VIAL SC SCH ×3 (06:01→21:46)
[2018-09-26] MEDS: PANTOPRAZOLE (EC) 40 MG TAB PO SCH ×2 (06:09→16:59)
[2018-09-26 07:10] VITALS: BP 114/57; PULSE 67; RESP 18
--- NOTE | 2018-09-26 08:04 | CONS ---
Consult Date/Type/Reason Admit Date/Time Sep 15, 2018 at 21:15 Initial Consult Date 09/23/18 Type of Consultation: Urology Reason for Consultation Question of neurogenic bladder Requesting Provider: STUART MATAMOROS Date/Time of Note DATE: 09/26/18 TIME: 08:03 Subjective Patient is awake and alert and has no urinary complaints but he has itching. Objective Vitals Vital Signs Date Temp Pulse Resp B/P (MAP) Pulse Ox O2 O2 Flow FiO2 Time Delivery Rate 09/26/18 97.7 67 18 114/57 95 Room Air 07:10 (76) Intake and Output 09/25/18 09/25/18 09/26/18 1515:00 23:00 07:00 IntakeIntake Total 350 ml 250 ml OutputOutput Total 400 ml 450 ml 600 ml BalanceBalance -50 ml -200 ml -600 ml Exam The bladder is not distended and he has been voiding well. Results/Medications Result Diagram: 09/26/18 0542 09/26/18 0546 Results 24 hrs Laboratory Tests Test 09/26/18 05:42 09/26/18 05:46 White Blood Count 7.2 Red Blood Count 4.18 L Hemoglobin 12.0 L Hematocrit 37.4 L Mean Corpuscular Volume 89.5 Mean Corpuscular Hemoglobin 28.7 L Mean Corpuscular Hemoglobin Concent 32.1 Red Cell Distribution Width 15.3 H Platelet Count 154 Mean Platelet Volume 9.7 Immature Granulocytes % 1.100 H Neutrophils % 57.5 Lymphocytes % 26.1 Monocytes % 11.0 Eosinophils % 3.2 Basophils % 1.1 Nucleated Red Blood Cells % 0.0 Immature Granulocytes # 0.080 H Neutrophils # 4.1 Lymphocytes # 1.9 Monocytes # 0.8 Eosinophils # 0.2 Basophils # 0.1 Nucleated Red Blood Cells # 0.0 Sodium Level 137 Potassium Level 3.9 Chloride Level 100 Carbon Dioxide Level 27 Anion Gap 10 Blood Urea Nitrogen 19 Creatinine 0.87 Glucose Level 107 Calcium Level 9.8 Phosphorus Level 4.2 Magnesium Level 2.0 Albumin 4.2 Home Meds Active Scripts Lorazepam* (Ativan*) 0.5 Mg Tablet, 0.5 MG PO Q8H PRN for CONTROL WITHDRAWAL SYMPTOMS, #10 TAB Prov:HUSSEIN SPEARS MD 09/12/18 Clindamycin Hcl* (Clindamycin Hcl*) 300 Mg Capsule, 300 MG PO QID for 10 Days, CAP Prov:MIKY THOMPSON MD 09/09/18 Reported Medications Azelastine/Fluticasone (DYMISTA NASAL SPRAY) 23 Gm [place].pump, 1 SPRAY NASAL BID, #1 BOTTLE TO EACH NOSTRIL 09/09/18 Ketoconazole* (Nizoral*) 120 Ml Shampoo, 1 APPLIC TOP BID, BOTTLE WASH HAIR/SCALP AND RINSE OFF 09/09/18 Tamsulosin Hcl* (Flomax*) 0.4 Mg Cap.er.24h, 0.4 MG PO HS, CAP 09/09/18 Sertraline Hcl* (Sertraline Hcl*) 100 Mg Tablet, 100 MG PO DAILY, #30 TAB 09/09/18 Atorvastatin Calcium* (Atorvastatin Calcium*) 20 Mg Tablet, 20 MG PO QHS, #30 TAB 09/09/18 Celecoxib* (Celebrex*) 200 Mg Capsule, 200 MG PO DAILY, CAP 09/09/18 Icosapent Ethyl (VASCEPA) 1 Gm Capsule, 2 GM PO BID, CAP 09/09/18 Potassium Chloride* (Potassium Chloride*) 8 Meq Capsule.er, 8 MEQ PO DAILY, CAP 09/09/18 Omeprazole* (Omeprazole*) 20 Mg Capsule.dr, 20 MG PO BID, #60 CAP 09/09/18 Dutasteride* (Avodart*) 0.5 Mg Capsule, 0.5 MG PO DAILY, CAP 09/09/18 Furosemide* (Furosemide*) 40 Mg Tablet, 40 MG PO DAILY, TAB 09/09/18 Hydrocodone/Acetaminophen ([place] 10-325 Tablet) 1 Each Tablet, 1 EACH PO BID, TAB 09/09/18 Folic Acid* (Folic Acid*) 1 Mg Tablet, 1 MG PO DAILY, TAB 09/09/18 Olmesartan Medoxomil (Benicar) 40 Mg Tablet, 40 MG PO DAILY, #30 TAB 09/09/18 Medications Current Medications IV Flush (NS 3 ml) 3 ml PER PROTOCOL IV ; Start 09/15/18 at 21:30 Ondansetron HCl (Zofran Inj) 4 mg Q6H PRN IV NAUSEA/VOMITING Last administered on 09/22/18at 02:20; Admin Dose 4 MG; Start 09/15/18 at 21:30 Acetaminophen (Tylenol Tab) 650 mg Q6H PRN PO .PAIN 1-3 OR TEMP Last administered on 09/22/18 06:09; Admin Dose 650 MG; Start 09/15/18 at 21:30 Acetaminophen/ Hydrocodone Bitart ([place] (5/325)) 1 tab Q6H PRN PO .MOD PAIN 4- 6 Last administered on 09/20/18 10:02; Admin Dose 1 TAB; Start 09/15/18 at 21:30 Morphine Sulfate (morphine) 2 mg Q4H PRN IV .SEVERE PAIN 7-10; Start 09/15/18 at 21:30 Docusate Sodium (Colace) 100 mg Q12H PRN PO .CONSTIPATION Last administered on 09/18/18 20:25; Admin Dose 100 MG; Start 09/15/18 at 21:30 Bisacodyl (Dulcolax) 5 mg DAILY PRN PO .CONSTIPATION; Start 09/15/18 at 21:30 Heparin Sodium (Porcine) (Heparin (5000 Units/1ml)) 5,000 unit Q8 SC Last administered on 09/26/18 06:01; Admin Dose 5,000 UNIT; Start 09/15/18 at 22:00 Enalaprilat (Vasotec Iv) 1.25 mg Q4H PRN IV ELEVATED BLOOD PRESSURE Last administered on 09/23/18 04:28; Admin Dose 1.25 MG; Start 09/16/18 at 00:00 Atorvastatin Calcium (Lipitor) 20 mg QHS PO Last administered on 09/16/18 20:22; Admin Dose 20 MG; Start 09/16/18 at 21:00; Status Hold Dutasteride (Avodart) 0.5 mg DAILY PO Last administered on 09/25/18 08:37; Admin Dose 0.5 MG; Start 09/16/18 at 09:00 Sertraline HCl (Zoloft) 100 mg DAILY PO Last administered on 09/25/18 08:37; Admin Dose 100 MG; Start 09/16/18 at 09:00 Tamsulosin HCl (Flomax) 0.4 mg HS PO Last administered on 09/25/18 20:39; Admin Dose 0.4 MG; Start 09/16/18 at 21:00 Fish Oil (Fish Oil) 2,000 mg BID PO Last administered on 09/25/18 20:40; Admin Dose 2,000 MG; Start 09/16/18 at 09:00 Pantoprazole (Protonix Tab) 40 mg BID@0600,1800 PO Last administered on 09/26/18 06:09; Admin Dose 40 MG; Start 09/16/18 at 07:30 Losartan Potassium (Cozaar) 100 mg DAILY PO Last administered on 09/25/18 08:38; Admin Dose 100 MG; Start 09/17/18 at 09:00 Hydralazine HCl (Apresoline) 10 mg Q4H PRN IV sbp>170 Last administered on 09/23/18 20:01; Admin Dose 10 MG; Start 09/17/18 at 16:30 Amlodipine Besylate (Norvasc) 10 mg DAILY PO Last administered on 09/25/18 08:38; Admin Dose 10 MG; Start 09/19/18 at 09:00 Doxycycline Hyclate (Vibramycin) 100 mg BID PO Last administered on 09/25/18 20:40; Admin Dose 100 MG; Start 09/20/18 at 15:30 Trazodone HCl (Desyrel) 25 mg HS PO Last administered on 09/25/18 20:40; Admin Dose 25 MG; Start 09/21/18 at 21:00 Nitroglycerin (Nitroglycerin (Sl Tab) 0.4 Mg) 1 tab Q5M PRN SL ANGINA Last administered on 09/23/18 11:33; Admin Dose 1 TAB; Start 09/21/18 at 14:00 Lorazepam (Ativan) 0.5 mg Q8H PRN IV AGITATION/ANXIETY; Start 09/21/18 at 19:00 Lidocaine (Lidoderm) 1 patch DAILY TD Last administered on 09/25/18 08:39; Admin Dose 1 PATCH; Start 09/23/18 at 13:00 Sodium Chloride ([place]) 2 spray Q4H PRN NASAL congestion Last administered on 09/23/18 16:02; Admin Dose 2 SPRAY; Start 09/23/18 at 13:00 Dicyclomine HCl (Bentyl) 10 mg QID PRN PO abdominal cramping; Start 09/23/18 at 13:30 Eye Lubricant (Artificial Tears Oph) 2 drop QID BOTH EYES Last administered on 09/25/18 20:46; Admin Dose 2 DROP; Start 09/23/18 at 13:30 Methadone HCl (Methadone Liq) 5 mg Q8 PO Last administered on 09/26/18 05:35; Admin Dose 5 MG; Start 09/23/18 at 14:00 Olopatadine HCl (Patanol 0.1% Oph) 1 drop BID BOTH EYES Last administered on 09/25/18 20:46; Admin Dose 1 DROP; Start 09/24/18 at 12:00 Thiamine HCl (Vitamin B1) 100 mg DAILY PO Last administered on 09/25/18 08:36; Admin Dose 100 MG; Start 09/25/18 at 09:00 Folic Acid (Folic Acid) 1 mg DAILY PO Last administered on 09/25/18 08:37; Admin Dose 1 MG; Start 09/25/18 at 09:00 Multivitamins/ Minerals (Theragran-M) 1 tab DAILY PO Last administered on 09/25/18 08:36; Admin Dose 1 TAB; Start 09/25/18 at 09:00 Simethicone (Mylicon) 80 mg Q6H PRN PO DISTENSION/GAS/BLOATING; Start 09/24/18 at 16:30 Metoprolol Tartrate (Lopressor) 50 mg BID PO Last administered on 09/25/18 20:40; Admin Dose 50 MG; Start 09/24/18 at 21:00 Neomycin/ Polymyxin/ Bacitracin (Neosporin (Ud Pkt)) 1 applic TID TOP Last administered on 09/25/18 20:40; Admin Dose 1 APPLIC; Start 09/24/18 at 21:00 Potassium Chloride 40 meq/ Sodium Chloride 1,000 ml @ 50 mls/hr Q20H IV Last administered on 09/25/18 11:34; Admin Dose 50 MLS/HR; Start 09/25/18 at 09:30 Assessment/Plan Hospital Course (Demo Recall) 78-year-old male admitted to the hospital because of left lower extremity cellulitis. He was noted to have difficulty urinating and had to be catheterized on a couple of occasions. One time 600 mL drained and another time 450 mL drained. The patient complains of hesitancy. It takes him a long time to urinate. Prior to his admission he used to have nocturia x2 and during the day he voids every 3 hours. He denies any dysuria. There is no history of gross hematuria and he states he feels he does empty his bladder. Prior to admission he also has been on tamsulosin and dutasteride. On the examination the bladder was full and the patient wanted to urinate. Rectal exam showed prostate that is not large and it is soft. He then went to the bathroom and urinated 500 mL and bladder scan showed 54 mL postvoid residual Patient has been voiding well since and his postvoid residual has been low. Urologically he is doing well. STEFF SOTO MD Sep 26, 2018 08:04
[2018-09-26] MEDS: DUTASTERIDE 0.5 MG CAP PO SCH (08:19)
[2018-09-26] MEDS: FOLIC ACID 1 MG TAB PO SCH (08:19)
[2018-09-26] MEDS: MULTIVITAMINS/MINERALS TAB PO SCH (08:19)
[2018-09-26] MEDS: THIAMINE 100 MG TAB PO SCH (08:19)
[2018-09-26] MEDS: SERTRALINE 100 MG TAB PO SCH (08:19)
[2018-09-26] MEDS: FISH OIL 1,000 MG CAP PO SCH ×2 (08:19→21:15)
[2018-09-26] MEDS: DOXYCYCLINE 100 MG TAB PO SCH ×2 (08:19→21:15)
[2018-09-26] MEDS: METOPROLOL 50 MG TAB PO SCH (08:20)
[2018-09-26] MEDS: AMLODIPINE 10 MG TAB PO SCH (08:21)
[2018-09-26] MEDS: OLOPATADINE 0.1% 5 ML OPH BOTH EYES SCH ×2 (08:21→21:17)
[2018-09-26] MEDS: LOSARTAN 50 MG TAB PO SCH (08:21)
[2018-09-26] MEDS: LIDOCAINE 5% PATCH TD SCH (08:28)
[2018-09-26] MEDS: ARTIFICIAL TEARS 15 ML OPH BOTH EYES SCH ×4 (09:18→21:17)
[2018-09-26] MEDS: NEOMYC/POLYMYX/BACIT 0.9 GM OINT TOP SCH ×3 (09:19→21:16)
--- NOTE | 2018-09-26 10:41 | CONS ---
Assessment/Plan Assessment/Plan Hospital Course (Demo Recall) No events over night, looks comfortable, no fevers MICROBIOLOGY: Blood cultures negative. MRSA swab negative. ANTIMICROBIALS: Doxycycline PHYSICAL EXAMINATION: GENERAL: This is a well-developed, chronically ill-appearing, elderly man who is alert, in no distress. HEENT: Head atraumatic, normocephalic. Sclerae anicteric. Buccal mucosa pink. NECK: Supple. CHEST: Rise symmetrical. Breath sounds clear, diminished to bases. HEART: S1, S2. ABDOMEN: Soft, bowel sounds present. EXTREMITIES: Bilateral lower extremities chronic venous stasis, left lower extremity Ramirez wrapped. ASSESSMENT: 1. Bilateral lower extremities chronic venous stasis /left lower extremity cellulitis. 2. Hypertension. 3. History of polysubstance abuse. 4. Improving transaminitis. 5. History of deep venous thrombosis and pulmonary embolism. PLAN: The patient remains stable, continue abx, pending tx to [facility] Consultation Date/Type/Reason Admit Date/Time Sep 15, 2018 at 21:15 Initial Consult Date Type of Consult id Requesting Provider: STUART MATAMOROS Date/Time of Note DATE: 09/26/18 TIME: 10:40 Exam/Review of Systems Exam Vitals Vital Signs Date Temp Pulse Resp B/P (MAP) Pulse Ox O2 O2 Flow FiO2 Time Delivery Rate 09/26/18 97.7 67 18 114/57 95 Room Air 07:10 (76) Intake and Output 09/25/18 09/25/18 09/26/18 1515:00 23:00 07:00 IntakeIntake Total 350 ml 250 ml OutputOutput Total 400 ml 450 ml 600 ml BalanceBalance -50 ml -200 ml -600 ml Results Result Diagram: 09/26/18 0542 09/26/18 0546 Results 24hrs Laboratory Tests Test 09/26/18 05:42 09/26/18 05:46 White Blood Count 7.2 Red Blood Count 4.18 L Hemoglobin 12.0 L Hematocrit 37.4 L Mean Corpuscular Volume 89.5 Mean Corpuscular Hemoglobin 28.7 L Mean Corpuscular Hemoglobin Concent 32.1 Red Cell Distribution Width 15.3 H Platelet Count 154 Mean Platelet Volume 9.7 Immature Granulocytes % 1.100 H Neutrophils % 57.5 Lymphocytes % 26.1 Monocytes % 11.0 Eosinophils % 3.2 Basophils % 1.1 Nucleated Red Blood Cells % 0.0 Immature Granulocytes # 0.080 H Neutrophils # 4.1 Lymphocytes # 1.9 Monocytes # 0.8 Eosinophils # 0.2 Basophils # 0.1 Nucleated Red Blood Cells # 0.0 Sodium Level 137 Potassium Level 3.9 Chloride Level 100 Carbon Dioxide Level 27 Anion Gap 10 Blood Urea Nitrogen 19 Creatinine 0.87 Glucose Level 107 Calcium Level 9.8 Phosphorus Level 4.2 Magnesium Level 2.0 Albumin 4.2 Medications Medication Current Medications IV Flush (NS 3 ml) 3 ml PER PROTOCOL IV ; Start 09/15/18 at 21:30 Ondansetron HCl (Zofran Inj) 4 mg Q6H PRN IV NAUSEA/VOMITING Last administered on 09/22/18at 02:20; Admin Dose 4 MG; Start 09/15/18 at 21:30 Acetaminophen (Tylenol Tab) 650 mg Q6H PRN PO .PAIN 1-3 OR TEMP Last adminis tered on 09/22/18at 06:09; Admin Dose 650 MG; Start 09/15/18 at 21:30 Acetaminophen/ Hydrocodone Bitart ([place] (5/325)) 1 tab Q6H PRN PO .MOD PAIN 4- 6 Last administered on 09/20/18at 10:02; Admin Dose 1 TAB; Start 09/15/18 at 21:30 Morphine Sulfate (morphine) 2 mg Q4H PRN IV .SEVERE PAIN 7-10; Start 09/15/18 at 21:30 Docusate Sodium (Colace) 100 mg Q12H PRN PO .CONSTIPATION Last administered on 09/18/18at 20:25; Admin Dose 100 MG; Start 09/15/18 at 21:30 Bisacodyl (Dulcolax) 5 mg DAILY PRN PO .CONSTIPATION; Start 09/15/18 at 21:30 Heparin Sodium (Porcine) (Heparin (5000 Units/1ml)) 5,000 unit Q8 SC Last administered on 09/26/18at 06:01; Admin Dose 5,000 UNIT; Start 09/15/18 at 22:00 Enalaprilat (Vasotec Iv) 1.25 mg Q4H PRN IV ELEVATED BLOOD PRESSURE Last administered on 09/23/18at 04:28; Admin Dose 1.25 MG; Start 09/16/18 at 00:00 Atorvastatin Calcium (Lipitor) 20 mg QHS PO Last administered on 09/16/18 20:22; Admin Dose 20 MG; Start 09/16/18 at 21:00; Status Hold Dutasteride (Avodart) 0.5 mg DAILY PO Last administered on 09/26/18 08:19; Admin Dose 0.5 MG; Start 09/16/18 at 09:00 Sertraline HCl (Zoloft) 100 mg DAILY PO Last administered on 09/26/18 08:19; Admin Dose 100 MG; Start 09/16/18 at 09:00 Tamsulosin HCl (Flomax) 0.4 mg HS PO Last administered on 09/25/18 20:39; Admin Dose 0.4 MG; Start 09/16/18 at 21:00 Fish Oil (Fish Oil) 2,000 mg BID PO Last administered on 09/26/18 08:19; Admin Dose 2,000 MG; Start 09/16/18 at 09:00 Pantoprazole (Protonix Tab) 40 mg BID@0600,1800 PO Last administered on 09/26/18 06:09; Admin Dose 40 MG; Start 09/16/18 at 07:30 Losartan Potassium (Cozaar) 100 mg DAILY PO Last administered on 09/26/18 08:21; Admin Dose 100 MG; Start 09/17/18 at 09:00 Hydralazine HCl (Apresoline) 10 mg Q4H PRN IV sbp>170 Last administered on 20:01; Admin Dose 10 MG; Start 09/17/18 at 16:30 Amlodipine Besylate (Norvasc) 10 mg DAILY PO Last administered on 09/26/18 08:21; Admin Dose 10 MG; Start 09/19/18 at 09:00 Doxycycline Hyclate (Vibramycin) 100 mg BID PO Last administered on 09/26/18 08:19; Admin Dose 100 MG; Start 09/20/18 at 15:30 Trazodone HCl (Desyrel) 25 mg HS PO Last administered on 09/25/18 20:40; Admin Dose 25 MG; Start 09/21/18 at 21:00 Nitroglycerin (Nitroglycerin (Sl Tab) 0.4 Mg) 1 tab Q5M PRN SL ANGINA Last administered on 09/23/18 11:33; Admin Dose 1 TAB; Start 09/21/18 at 14:00 Lorazepam (Ativan) 0.5 mg Q8H PRN IV AGITATION/ANXIETY; Start 09/21/18 at 19:00 Lidocaine (Lidoderm) 1 patch DAILY TD Last administered on 09/26/18 08:28; Admin Dose 1 PATCH; Start 09/23/18 at 13:00 Sodium Chloride (Deep Sea) 2 spray Q4H PRN NASAL congestion Last administered on 09/23/18 16:02; Admin Dose 2 SPRAY; Start 09/23/18 at 13:00 Dicyclomine HCl (Bentyl) 10 mg QID PRN PO abdominal cramping; Start 09/23/18 at 13:30 Eye Lubricant (Artificial Tears Oph) 2 drop QID BOTH EYES Last administered on 09/26/18 09:18; Admin Dose 2 DROP; Start 09/23/18 at 13:30 Methadone HCl (Methadone Liq) 5 mg Q8 PO Last administered on 09/26/18 05:35; Admin Dose 5 MG; Start 09/23/18 at 14:00 Olopatadine HCl (Patanol 0.1% Oph) 1 drop BID BOTH EYES Last administered on 09/26/18 08:21; Admin Dose 1 DROP; Start 09/24/18 at 12:00 Thiamine HCl (Vitamin B1) 100 mg DAILY PO Last administered on 09/26/18 08:19; Admin Dose 100 MG; Start 09/25/18 at 09:00 Folic Acid (Folic Acid) 1 mg DAILY PO Last administered on 09/26/18 08:19; Admin Dose 1 MG; Start 09/25/18 at 09:00 Multivitamins/ Minerals (Theragran-M) 1 tab DAILY PO Last administered on 09/26/18 08:19; Admin Dose 1 TAB; Start 09/25/18 at 09:00 Simethicone (Mylicon) 80 mg Q6H PRN PO DISTENSION/GAS/BLOATING; Start 09/24/18 at 16:30 Metoprolol Tartrate (Lopressor) 50 mg BID PO Last administered on 09/26/18 08:20; Admin Dose 50 MG; Start 09/24/18 at 21:00 Neomycin/ Polymyxin/ Bacitracin (Neosporin (Ud Pkt)) 1 applic TID TOP Last administered on 09/26/18at 09:19; Admin Dose 1 APPLIC; Start 09/24/18 at 21:00 Potassium Chloride 40 meq/ Sodium Chloride 1,000 ml @ 50 mls/hr Q20H IV Last administered on 09/25/18at 11:34; Admin Dose 50 MLS/HR; Start 09/25/18 at 09:30 MARCIANO NAYLOR NP Sep 26, 2018 10:41
[2018-09-26 11:15] VITALS: BP 101/57; PULSE 60; RESP 18
[2018-09-26] MEDS: POTASSIUM CHLORIDE 40 MEQ in SOD CHLORIDE 0.9% 1,000 ML IV SCH (13:26)
--- NOTE | 2018-09-26 16:28 | PN ---
Date/Time of Note Date/Time of Note DATE: 09/26/18 TIME: 16:20 Assessment/Plan VTE Prophylaxis Risk score (from Ns)>0 risk: 4 SCD applied (from Ns): No SCD contraindicated: low risk/ambulating Pharmacological prophylaxis: NA/contraindicated Pharm contraindication: low risk/ambulating Lines/Catheters Urinary Cath still in place: No Assessment/Plan Assessment/Plan 1. LLE cellulitis- improving - ID on board and appreciate recommendations. continue on PO Doxy - most likely secondary to PAD - encouraged to keep leg elevated when in bed - US negative for DVT 2. PAD - Arterial studies noted - continue BP control - Vascular surgery consultation appreciated. Optimize hydration 3. Uncontrolled Hypertension-improved - will d/c BB given patient now with low BP and HR - Remains stable - continue current medications and will adjust as needed 4. Acute Delirium - Patient with confusion when he does not sleep well. Will try Melatonin to night and if need Trazadone PRN 5. h/o alcohol abuse - alcoholic hepatitis appreciate at time of admission but resolved - no signs of DTs - discussed cessation and patient agrees to no longer drink after discharge 6. 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 Alcoholic hepatitis- resolved - imaging studies reviewed and no signs of cirrhosis 8. Acute rhinosinusitis- resolved 9. Thrombocytopenia- resolved 10. Urinary retention- resolved - Urology on board and appreciate recommendations. 11. Anxiety - Continue sertraline 12. Hyperlipidemia - Continue atorvastatin 13. Gait instability - PT on board 14. Abdominal cramping- resolved - Bentyl and simethicone PRN 15. h/o metadone use - daughter plans to visit new methadone clinic referrals. Will request to continue on 5mg TID rather than 82 mg daily 16. Disposition - Once patient more steady on his feed, will d/c home - CM consulted for HHPT and additional resources per family request Result Diagram: 09/26/18 0542 09/26/18 0546 Results 24hrs Laboratory Tests Test 09/26/18 05:42 09/26/18 05:46 White Blood Count 7.2 Red Blood Count 4.18 L Hemoglobin 12.0 L Hematocrit 37.4 L Mean Corpuscular Volume 89.5 Mean Corpuscular Hemoglobin 28.7 L Mean Corpuscular Hemoglobin Concent 32.1 Red Cell Distribution Width 15.3 H Platelet Count 154 Mean Platelet Volume 9.7 Immature Granulocytes % 1.100 H Neutrophils % 57.5 Lymphocytes % 26.1 Monocytes % 11.0 Eosinophils % 3.2 Basophils % 1.1 Nucleated Red Blood Cells % 0.0 Immature Granulocytes # 0.080 H Neutrophils # 4.1 Lymphocytes # 1.9 Monocytes # 0.8 Eosinophils # 0.2 Basophils # 0.1 Nucleated Red Blood Cells # 0.0 Sodium Level 137 Potassium Level 3.9 Chloride Level 100 Carbon Dioxide Level 27 Anion Gap 10 Blood Urea Nitrogen 19 Creatinine 0.87 Glucose Level 107 Calcium Level 9.8 Phosphorus Level 4.2 Magnesium Level 2.0 Albumin 4.2 Subjective 24 Hr Interval Summary Free Text/Dictation Patient doing well but per daughter, did not sleep well last night so slightly confused today. Ambulating with FWW but still loses balance when turning quickly. Exam/Review of Systems Exam Vitals Vital Signs Date Temp Pulse Resp B/P (MAP) Pulse Ox O2 O2 Flow FiO2 Time Delivery Rate 09/26/18 97.9 60 18 101/57 96 11:15 (72) 09/26/18 Room Air 07:10 Intake and Output 09/25/18 09/25/18 09/26/18 1515:00 23:00 07:00 IntakeIntake Total 350 ml 250 ml OutputOutput Total 400 ml 450 ml 600 ml BalanceBalance -50 ml -200 ml -600 ml Exam General: Patient is a pleasant male, answering questions appropriately Neck: Supple Chest: Nontender Lungs: Clear to auscultation bilaterally no crackles rales or wheezing Heart: Normal S1-S2, Regular rate and rhythm, No murmur, S3, or S4 Abdomen: Soft , nontender, protuberant , bowel sounds are present. No guarding no rebound tenderness Extremities: venous changes bilaterally. dressing on LLE with no discharge. no edema appreciated Results Results 24hrs Laboratory Tests Test 09/26/18 05:42 09/26/18 05:46 White Blood Count 7.2 Red Blood Count 4.18 L Hemoglobin 12.0 L Hematocrit 37.4 L Mean Corpuscular Volume 89.5 Mean Corpuscular Hemoglobin 28.7 L Mean Corpuscular Hemoglobin Concent 32.1 Red Cell Distribution Width 15.3 H Platelet Count 154 Mean Platelet Volume 9.7 Immature Granulocytes % 1.100 H Neutrophils % 57.5 Lymphocytes % 26.1 Monocytes % 11.0 Eosinophils % 3.2 Basophils % 1.1 Nucleated Red Blood Cells % 0.0 Immature Granulocytes # 0.080 H Neutrophils # 4.1 Lymphocytes # 1.9 Monocytes # 0.8 Eosinophils # 0.2 Basophils # 0.1 Nucleated Red Blood Cells # 0.0 Sodium Level 137 Potassium Level 3.9 Chloride Level 100 Carbon Dioxide Level 27 Anion Gap 10 Blood Urea Nitrogen 19 Creatinine 0.87 Glucose Level 107 Calcium Level 9.8 Phosphorus Level 4.2 Magnesium Level 2.0 Albumin 4.2 Medications Medication Current Medications IV Flush (NS 3 ml) 3 ml PER PROTOCOL IV ; Start 09/15/18 at 21:30 Ondansetron HCl (Zofran Inj) 4 mg Q6H PRN IV NAUSEA/VOMITING Last administered on 09/22/18 02:20; Admin Dose 4 MG; Start 09/15/18 at 21:30 Acetaminophen (Tylenol Tab) 650 mg Q6H PRN PO .PAIN 1-3 OR TEMP Last administered on 09/22/18 06:09; Admin Dose 650 MG; Start 09/15/18 at 21:30 Acetaminophen/ Hydrocodone Bitart ([place] (5/325)) 1 tab Q6H PRN PO .MOD PAIN 4- 6 Last administered on 09/20/18 10:02; Admin Dose 1 TAB; Start 09/15/18 at 21:30 Morphine Sulfate (morphine) 2 mg Q4H PRN IV .SEVERE PAIN 7-10; Start 09/15/18 at 21:30 Docusate Sodium (Colace) 100 mg Q12H PRN PO .CONSTIPATION Last administered on 09/18/18 20:25; Admin Dose 100 MG; Start 09/15/18 at 21:30 Bisacodyl (Dulcolax) 5 mg DAILY PRN PO .CONSTIPATION; Start 09/15/18 at 21:30 Heparin Sodium (Porcine) (Heparin (5000 Units/1ml)) 5,000 unit Q8 SC Last administered on 09/26/18 13:28; Admin Dose 5,000 UNIT; Start 09/15/18 at 22:00 Enalaprilat (Vasotec Iv) 1.25 mg Q4H PRN IV ELEVATED BLOOD PRESSURE Last administered on 09/23/18 04:28; Admin Dose 1.25 MG; Start 09/16/18 at 00:00 Atorvastatin Calcium (Lipitor) 20 mg QHS PO Last administered on 09/16/18 20:22; Admin Dose 20 MG; Start 09/16/18 at 21:00; Status Hold Dutasteride (Avodart) 0.5 mg DAILY PO Last administered on 09/26/18 08:19; Ad min Dose 0.5 MG; Start 09/16/18 at 09:00 Sertraline HCl (Zoloft) 100 mg DAILY PO Last administered on 09/26/18 08:19; Admin Dose 100 MG; Start 09/16/18 at 09:00 Tamsulosin HCl (Flomax) 0.4 mg HS PO Last administered on 09/25/18 20:39; Admin Dose 0.4 MG; Start 09/16/18 at 21:00 Fish Oil (Fish Oil) 2,000 mg BID PO Last administered on 09/26/18 08:19; Admin Dose 2,000 MG; Start 09/16/18 at 09:00 Pantoprazole (Protonix Tab) 40 mg BID@0600,1800 PO Last administered on 09/26/18 06:09; Admin Dose 40 MG; Start 09/16/18 at 07:30 Losartan Potassium (Cozaar) 100 mg DAILY PO Last administered on 09/26/18 08:21; Admin Dose 100 MG; Start 09/17/18 at 09:00 Hydralazine HCl (Apresoline) 10 mg Q4H PRN IV sbp>170 Last administered on 09/23/18 20:01; Admin Dose 10 MG; Start 09/17/18 at 16:30 Amlodipine Besylate (Norvasc) 10 mg DAILY PO Last administered on 09/26/18 08:21; Admin Dose 10 MG; Start 09/19/18 at 09:00 Doxycycline Hyclate (Vibramycin) 100 mg BID PO Last administered on 09/26/18 08:19; Admin Dose 100 MG; Start 09/20/18 at 15:30 Nitroglycerin (Nitroglycerin (Sl Tab) 0.4 Mg) 1 tab Q5M PRN SL ANGINA Last administered on 09/23/18 11:33; Admin Dose 1 TAB; Start 09/21/18 at 14:00 Lorazepam (Ativan) 0.5 mg Q8H PRN IV AGITATION/ANXIETY; Start 09/21/18 at 19:00 Lidocaine (Lidoderm) 1 patch DAILY TD Last administered on 09/26/18 08:28; Admin Dose 1 PATCH; Start 09/23/18 at 13:00 Sodium Chloride (Deep Sea) 2 spray Q4H PRN NASAL congestion Last administered on 09/23/18 16:02; Admin Dose 2 SPRAY; Start 09/23/18 at 13:00 Dicyclomine HCl (Bentyl) 10 mg QID PRN PO abdominal cramping; Start 09/23/18 at 13:30 Eye Lubricant (Artificial Tears Oph) 2 drop QID BOTH EYES Last administered on 09/26/18 13:26; Admin Dose 2 DROP; Start 09/23/18 at 13:30 Methadone HCl (Methadone Liq) 5 mg Q8 PO Last administered on 09/26/18 13:26; Admin Dose 5 MG; Start 09/23/18 at 14:00 Olopatadine HCl (Patanol 0.1% Oph) 1 drop BID BOTH EYES Last administered on 09/26/18 08:21; Admin Dose 1 DROP; Start 09/24/18 at 12:00 Thiamine HCl (Vitamin B1) 100 mg DAILY PO Last administered on 09/26/18 08:19; Admin Dose 100 MG; Start 09/25/18 at 09:00 Folic Acid (Folic Acid) 1 mg DAILY PO Last administered on 09/26/18 08:19; Admin Dose 1 MG; Start 09/25/18 at 09:00 Multivitamins/ Minerals (Theragran-M) 1 tab DAILY PO Last administered on 09/26/18 08:19; Admin Dose 1 TAB; Start 09/25/18 at 09:00 Simethicone (Mylicon) 80 mg Q6H PRN PO DISTENSION/GAS/BLOATING; Start 09/24/18 at 16:30 Neomycin/ Polymyxin/ Bacitracin (Neosporin (Ud Pkt)) 1 applic TID TOP Last administered on 09/26/18 13:26; Admin Dose 1 APPLIC; Start 09/24/18 at 21:00 Potassium Chloride 40 meq/ Sodium Chloride 1,000 ml @ 50 mls/hr Q20H IV Last administered on 7/24/19at 11:34; Admin Dose 50 MLS/HR; Start 09/25/18 at 09:30 Trazodone HCl (Desyrel) 50 mg HS PRN PO insomnia; Start 09/26/18 at 11:30 Melatonin (Melatonin) 3 mg HS PO ; Start 09/26/18 at 21:00 JOSUE MUNIZ MD Sep 26, 2018 16:28
[2018-09-26 20:00] VITALS: BP_SYST 105; BP_SYST 109; BP_DIAS 51; BP_DIAS 72; PULSE 97; RESP 18
[2018-09-26] MEDS ORDERED: METOPROLOL 25 MG TAB PO SCH (21:00)
[2018-09-26] MEDS ORDERED: MELATONIN 3 MG TABLET PO SCH (21:00)
[2018-09-26] MEDS: TAMSULOSIN (SR) 0.4 MG CAP PO SCH (21:15)
[2018-09-27] VITALS: BP 118/56; PULSE 72; RESP 19
[2018-09-27] MEDS: traZODone 50 MG TAB PO PRN (00:27)
[2018-09-27] MEDS: POTASSIUM CHLORIDE 40 MEQ in SOD CHLORIDE 0.9% 1,000 ML IV SCH ×2 (01:30→06:10)
[2018-09-27 04:00] VITALS: BP 150/67; PULSE 71; RESP 18
[2018-09-27] MEDS: METHADONE (1 MG/ML 5 ML PO UD SYG) PO SCH ×3 (06:00→21:04)
[2018-09-27] MEDS: PANTOPRAZOLE (EC) 40 MG TAB PO SCH ×2 (06:00→18:43)
[2018-09-27] MEDS: HEPARIN 5,000 UNIT/1 ML VIAL SC SCH ×3 (06:00→21:30)
[2018-09-27 07:24] VITALS: BP 138/53; PULSE 82; RESP 18
[2018-09-27] MEDS: OLOPATADINE 0.1% 5 ML OPH BOTH EYES SCH ×2 (09:00→21:05)
[2018-09-27] MEDS: ARTIFICIAL TEARS 15 ML OPH BOTH EYES SCH ×4 (09:00→21:05)
[2018-09-27] MEDS: DUTASTERIDE 0.5 MG CAP PO SCH (09:03)
[2018-09-27] MEDS: SERTRALINE 100 MG TAB PO SCH (09:03)
[2018-09-27] MEDS: FISH OIL 1,000 MG CAP PO SCH ×2 (09:03→21:04)
[2018-09-27] MEDS: THIAMINE 100 MG TAB PO SCH (09:04)
[2018-09-27] MEDS: LOSARTAN 50 MG TAB PO SCH (09:04)
[2018-09-27] MEDS: MULTIVITAMINS/MINERALS TAB PO SCH (09:04)
[2018-09-27] MEDS: FOLIC ACID 1 MG TAB PO SCH (09:04)
[2018-09-27] MEDS: DOXYCYCLINE 100 MG TAB PO SCH ×2 (09:05→21:04)
[2018-09-27] MEDS: AMLODIPINE 10 MG TAB PO SCH (09:05)
[2018-09-27] MEDS: LIDOCAINE 5% PATCH TD SCH (09:06)
[2018-09-27] MEDS: NEOMYC/POLYMYX/BACIT 0.9 GM OINT TOP SCH ×3 (09:06→21:06)
[2018-09-27] MEDS: POLYETHYLENE GLYCOL 17 GM PACKET PO SCH (10:30)
[2018-09-27] MEDS ORDERED: DOCUSATE SODIUM 100 MG CAP PO PRN (10:30)
[2018-09-27 11:21] VITALS: BP 137/56; PULSE 76; RESP 18
--- NOTE | 2018-09-27 11:31 | CONS ---
Assessment/Plan Assessment/Plan Hospital Course (Demo Recall) All noted. No events over night MICROBIOLOGY: Blood cultures negative. MRSA swab negative. ANTIMICROBIALS: Doxycycline PHYSICAL EXAMINATION: GENERAL: This is a well-developed, chronically ill-appearing, elderly man who is alert, in no distress. HEENT: Head atraumatic, normocephalic. Sclerae anicteric. Buccal mucosa pink. NECK: Supple. CHEST: Rise symmetrical. Breath sounds clear, diminished to bases. HEART: S1, S2. ABDOMEN: Soft, bowel sounds present. EXTREMITIES: Bilateral lower extremities chronic venous stasis, left lower extremity Ramirez wrapped. ASSESSMENT: 1. Bilateral lower extremities chronic venous stasis /left lower extremity cellulitis. 2. Hypertension. 3. History of polysubstance abuse. 4. Improving transaminitis. 5. History of deep venous thrombosis and pulmonary embolism. PLAN: The patient remains unchanged, continue present care Consultation Date/Type/Reason Admit Date/Time Sep 15, 2018 at 21:15 Initial Consult Date Type of Consult id Requesting Provider: STUART MATAMOROS Date/Time of Note DATE: 09/27/18 TIME: 11:30 Exam/Review of Systems Exam Vitals Vital Signs Date Temp Pulse Resp B/P (MAP) Pulse Ox O2 O2 Flow FiO2 Time Delivery Rate 09/27/18 98.6 76 18 137/56 95 11:21 (83) 09/26/18 Room Air 07:10 Intake and Output 09/26/18 09/26/18 09/27/18 1414:59 22:59 06:59 IntakeIntake Total 240 ml 450 ml BalanceBalance 240 ml 450 ml Results Result Diagram: 09/26/18 0542 09/26/18 0546 Medications Medication Current Medications IV Flush (NS 3 ml) 3 ml PER PROTOCOL IV ; Start 09/15/18 at 21:30 Ondansetron HCl (Zofran Inj) 4 mg Q6H PRN IV NAUSEA/VOMITING Last administered on 09/22/18at 02:20; Admin Dose 4 MG; Start 09/15/18 at 21:30 Acetaminophen (Tylenol Tab) 650 mg Q6H PRN PO .PAIN 1-3 OR TEMP Last administered on 09/22/18at 06:09; Admin Dose 650 MG; Start 09/15/18 at 21:30 Acetaminophen/ Hydrocodone Bitart ([place] (5/325)) 1 tab Q6H PRN PO .MOD PAIN 4- 6 Last administered on 09/20/18 10:02; Admin Dose 1 TAB; Start 09/15/18 at 2 1:30 Morphine Sulfate (morphine) 2 mg Q4H PRN IV .SEVERE PAIN 7-10; Start 09/15/18 at 21:30 Docusate Sodium (Colace) 100 mg Q12H PRN PO .CONSTIPATION Last administered on 09/18/18 20:25; Admin Dose 100 MG; Start 09/15/18 at 21:30 Bisacodyl (Dulcolax) 5 mg DAILY PRN PO .CONSTIPATION; Start 09/15/18 at 21:30 Heparin Sodium (Porcine) (Heparin (5000 Units/1ml)) 5,000 unit Q8 SC Last administered on 09/26/18 21:46; Admin Dose 5,000 UNIT; Start 09/15/18 at 22:00 Enalaprilat (Vasotec Iv) 1.25 mg Q4H PRN IV ELEVATED BLOOD PRESSURE Last administered on 09/23/18 04:28; Admin Dose 1.25 MG; Start 09/16/18 at 00:00 Atorvastatin Calcium (Lipitor) 20 mg QHS PO Last administered on 09/16/18 20:22; Admin Dose 20 MG; Start 09/16/18 at 21:00; Status Hold Dutasteride (Avodart) 0.5 mg DAILY PO Last administered on 09/27/18 09:03; Admin Dose 0.5 MG; Start 09/16/18 at 09:00 Sertraline HCl (Zoloft) 100 mg DAILY PO Last administered on 09/27/18 09:03; Admin Dose 100 MG; Start 09/16/18 at 09:00 Tamsulosin HCl (Flomax) 0.4 mg HS PO Last administered on 09/26/18 21:15; Admin Dose 0.4 MG; Start 09/16/18 at 21:00 Fish Oil (Fish Oil) 2,000 mg BID PO Last administered on 09/27/18 09:03; Admin Dose 2,000 MG; Start 09/16/18 at 09:00 Pantoprazole (Protonix Tab) 40 mg BID@0600,1800 PO Last administered on 09/26/18 16:59; Admin Dose 40 MG; Start 09/16/18 at 07:30 Losartan Potassium (Cozaar) 100 mg DAILY PO Last administered on 09/27/18 09:04; Admin Dose 100 MG; Start 09/17/18 at 09:00 Hydralazine HCl (Apresoline) 10 mg Q4H PRN IV sbp>170 Last administered on 09/23/18 20:01; Admin Dose 10 MG; Start 09/17/18 at 16:30 Amlodipine Besylate (Norvasc) 10 mg DAILY PO Last administered on 09/27/18 09:05; Admin Dose 10 MG; Start 09/19/18 at 09:00 Doxycycline Hyclate (Vibramycin) 100 mg BID PO Last administered on 09/27/18 09:05; Admin Dose 100 MG; Start 09/20/18 at 15:30 Nitroglycerin (Nitroglycerin (Sl Tab) 0.4 Mg) 1 tab Q5M PRN SL ANGINA Last administered on 09/23/18 11:33; Admin Dose 1 TAB; Start 09/21/18 at 14:00 Lorazepam (Ativan) 0.5 mg Q8H PRN IV AGITATION/ANXIETY; Start 09/21/18 at 19:00 Lidocaine (Lidoderm) 1 patch DAILY TD Last administered on 09/27/18 09:06; Admin Dose 1 PATCH; Start 09/23/18 at 13:00 Sodium Chloride (Deep Sea) 2 spray Q4H PRN NASAL congestion Last administered on 09/23/18 16:02; Admin Dose 2 SPRAY; Start 09/23/18 at 13:00 Dicyclomine HCl (Bentyl) 10 mg QID PRN PO abdominal cramping; Start 09/23/18 at 13:30 Eye Lubricant (Artificial Tears Oph) 2 drop QID BOTH EYES Last administered on 09/26/18 21:17; Admin Dose 2 DROP; Start 09/23/18 at 13:30 Methadone HCl (Methadone Liq) 5 mg Q8 PO Last administered on 09/26/18 21:22; Admin Dose 5 MG; Start 09/23/18 at 14:00; Stop 09/27/18 at 23:55 Olopatadine HCl (Patanol 0.1% Oph) 1 drop BID BOTH EYES Last administered on 09/26/18 21:17; Admin Dose 1 DROP; Start 09/24/18 at 12:00 Thiamine HCl (Vitamin B1) 100 mg DAILY PO Last administered on 09/27/18 09:04; Admin Dose 100 MG; Start 09/25/18 at 09:00 Folic Acid (Folic Acid) 1 mg DAILY PO Last administered on 09/27/18 09:04; Admin Dose 1 MG; Start 09/25/18 at 09:00 Multivitamins/ Minerals (Theragran-M) 1 tab DAILY PO Last administered on 09/27/18 09:04; Admin Dose 1 TAB; Start 09/25/18 at 09:00 Simethicone (Mylicon) 80 mg Q6H PRN PO DISTENSION/GAS/BLOATING; Start 09/24/18 at 16:30 Neomycin/ Polymyxin/ Bacitracin (Neosporin (Ud Pkt)) 1 applic TID TOP Last administered on 09/27/18 09:06; Admin Dose 1 APPLIC; Start 09/24/18 at 21:00 Trazodone HCl (Desyrel) 50 mg HS PRN PO insomnia Last administered on 09/27/18at 00:27; Admin Dose 50 MG; Start 09/26/18 at 11:30 Melatonin (Melatonin) 5 mg HS PO ; Start 09/27/18 at 21:00 Polyethylene Glycol (Miralax) 17 gm DAILY PO ; Start 09/27/18 at 10:30 Methadone HCl (Methadone) 15 mg DAILY PO ; Start 09/28/18 at 09:00; Status MARCIANO TALLEY NP Sep 27, 2018 11:31
[2018-09-27 15:30] VITALS: BP 120/60; PULSE 86; RESP 18
--- NOTE | 2018-09-27 16:58 | PN ---
Date/Time of Note Date/Time of Note DATE: 09/27/18 TIME: 16:53 Assessment/Plan VTE Prophylaxis Risk score (from Nsg)>0 risk: 3 SCD applied (from Nsg): Yes Pharmacological prophylaxis: other Lines/Catheters IV Catheter Type (from Nrsg): Peripheral IV Urinary Cath still in place: No Assessment/Plan Assessment/Plan 1. LLE cellulitis- stable - ID on board and appreciate recommendations. continue on PO Doxy - most likely secondary to PAD - encouraged to keep leg elevated when in bed - US negative for DVT 2. PAD - Arterial studies noted - continue BP control - Vascular surgery consultation appreciated. 3. Uncontrolled Hypertension-resolved - Remains stable - continue current medications and will adjust as needed 4. Acute Delirium - will increased Melatonin dose tonight. Discussed with daughter, patient will improve once home in familiar setting - Patient with confusion when he does not sleep well. 5. h/o alcohol abuse - alcoholic hepatitis appreciate at time of admission but resolved - no signs of DTs - discussed cessation and patient agrees to no longer drink after discharge 6. 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 Alcoholic hepatitis- resolved - imaging studies reviewed and no signs of cirrhosis 8. Acute rhinosinusitis- resolved 9. Thrombocytopenia- resolved 10. Urinary retention- resolved - Urology on board and appreciate recommendations. 11. Anxiety - Continue sertraline 12. Hyperlipidemia - Continue atorvastatin 13. Gait instability - PT on board 14. Abdominal cramping- resolved - Bentyl and simethicone PRN 15. 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 Disposition - Will monitor patient on daily dose of methadone which will be started tomorrow. if tolerating, will d/d home sunday and follow up with Methadone clinic on sunday Result Diagram: 09/26/18 0542 09/26/18 0546 Subjective 24 Hr Interval Summary Free Text/Dictation Patient was confused overnight and unable to sleep. Per daughter, she was called around 10pm given patients confusion and agitation. This am patient remained pleasant and had no acute issues. Exam/Review of Systems Exam Vitals Vital Signs Date Temp Pulse Resp B/P (MAP) Pulse Ox O2 O2 Flow FiO2 Time Delivery Rate 09/27/18 98.5 86 18 120/60 95 15:30 (80) 09/26/18 Room Air 07:10 Intake and Output 09/26/18 09/26/18 09/27/18 1515:00 23:00 07:00 IntakeIntake Total 240 ml 450 ml BalanceBalance 240 ml 450 ml Exam General: Patient is a pleasant male, answering questions appropriately Neck: Supple Chest: Nontender Lungs: Clear to auscultation bilaterally no crackles rales or wheezing Heart: Normal S1-S2, Regular rate and rhythm, No murmur, S3, or S4 Abdomen: Soft , nontender, protuberant , bowel sounds are present. No guarding no rebound tenderness Extremities: venous changes bilaterally. dressing on LLE with no discharge. no edema appreciated Medications Medication Current Medications IV Flush (NS 3 ml) 3 ml PER PROTOCOL IV ; Start 09/15/18 at 21:30 Ondansetron HCl (Zofran Inj) 4 mg Q6H PRN IV NAUSEA/VOMITING Last administered on 09/22/18at 02:20; Admin Dose 4 MG; Start 09/15/18 at 21:30 Acetaminophen (Tylenol Tab) 650 mg Q6H PRN PO .PAIN 1-3 OR TEMP Last administered on 09/22/18at 06:09; Admin Dose 650 MG; Start 09/15/18 at 21:30 Acetaminophen/ Hydrocodone Bitart ([place] (5/325)) 1 tab Q6H PRN PO .MOD PAIN 4- 6 Last administered on 09/20/18at 10:02; Admin Dose 1 TAB; Start 09/15/18 at 21:30 Morphine Sulfate (morphine) 2 mg Q4H PRN IV .SEVERE PAIN 7-10; Start 09/15/18 at 21:30 Docusate Sodium (Colace) 100 mg Q12H PRN PO .CONSTIPATION Last administered on 09/18/18at 20:25; Admin Dose 100 MG; Start 09/15/18 at 21:30 Bisacodyl (Dulcolax) 5 mg DAILY PRN PO .CONSTIPATION; Start 09/15/18 at 21:30 Heparin Sodium (Porcine) (Heparin (5000 Units/1ml)) 5,000 unit Q8 SC Last administered on 09/26/18at 21:46; Admin Dose 5,000 UNIT; Start 09/15/18 at 22:00 Enalaprilat (Vasotec Iv) 1.25 mg Q4H PRN IV ELEVATED BLOOD PRESSURE Last administered on 09/23/18 04:28; Admin Dose 1.25 MG; Start 09/16/18 at 00:00 Atorvastatin Calcium (Lipitor) 20 mg QHS PO Last administered on 09/16/18 20:22; Admin Dose 20 MG; Start 09/16/18 at 21:00; Status Hold Dutasteride (Avodart) 0.5 mg DAILY PO Last administered on 09/27/18 09:03; Admin Dose 0.5 MG; Start 09/16/18 at 09:00 Sertraline HCl (Zoloft) 100 mg DAILY PO Last administered on 09/27/18 09:03; Admin Dose 100 MG; Start 09/16/18 at 09:00 Tamsulosin HCl (Flomax) 0.4 mg HS PO Last administered on 09/26/18 21:15; Admin Dose 0.4 MG; Start 09/16/18 at 21:00 Fish Oil (Fish Oil) 2,000 mg BID PO Last administered on 09/27/18 09:03; Admin Dose 2,000 MG; Start 09/16/18 at 09:00 Pantoprazole (Protonix Tab) 40 mg BID@0600,1800 PO Last administered on 09/26/18 16:59; Admin Dose 40 MG; Start 09/16/18 at 07:30 Losartan Potassium (Cozaar) 100 mg DAILY PO Last administered on 09/27/18 09:04; Admin Dose 100 MG; Start 09/17/18 at 09:00 Hydralazine HCl (Apresoline) 10 mg Q4H PRN IV sbp>170 Last administered on 09/23/18 20:01; Admin Dose 10 MG; Start 09/17/18 at 16:30 Amlodipine Besylate (Norvasc) 10 mg DAILY PO Last administered on 09/27/18 09:05; Admin Dose 10 MG; Start 09/19/18 at 09:00 Doxycycline Hyclate (Vibramycin) 100 mg BID PO Last administered on 09/27/18 09:05; Admin Dose 100 MG; Start 09/20/18 at 15:30 Nitroglycerin (Nitroglycerin (Sl Tab) 0.4 Mg) 1 tab Q5M PRN SL ANGINA Last administered on 09/23/18 11:33; Admin Dose 1 TAB; Start 09/21/18 at 14:00 Lorazepam (Ativan) 0.5 mg Q8H PRN IV AGITATION/ANXIETY; Start 09/21/18 at 19:00 Lidocaine (Lidoderm) 1 patch DAILY TD Last administered on 09/27/18 09:06; Admin Dose 1 PATCH; Start 09/23/18 at 13:00 Sodium Chloride (Deep Sea) 2 spray Q4H PRN NASAL congestion Last administered on 09/23/18 16:02; Admin Dose 2 SPRAY; Start 09/23/18 at 13:00 Dicyclomine HCl (Bentyl) 10 mg QID PRN PO abdominal cramping; Start 09/23/18 at 13:30 Eye Lubricant (Artificial Tears Oph) 2 drop QID BOTH EYES Last administered on 09/27/18 13:47; Admin Dose 2 DROP; Start 09/23/18 at 13:30 Methadone HCl (Methadone Liq) 5 mg Q8 PO Last administered on 09/27/18 13:47; Admin Dose 5 MG; Start 09/23/18 at 14:00; Stop 09/27/18 at 23:55 Olopatadine HCl (Patanol 0.1% Oph) 1 drop BID BOTH EYES Last administered on 09/26/18 21:17; Admin Dose 1 DROP; Start 09/24/18 at 12:00 Thiamine HCl (Vitamin B1) 100 mg DAILY PO Last administered on 09/27/18 09:04; Admin Dose 100 MG; Start 09/25/18 at 09:00 Folic Acid (Folic Acid) 1 mg DAILY PO Last administered on 09/27/18 09:04; Admin Dose 1 MG; Start 09/25/18 at 09:00 Multivitamins/ Minerals (Theragran-M) 1 tab DAILY PO Last administered on 09/27/18 09:04; Admin Dose 1 TAB; Start 09/25/18 at 09:00 Simethicone (Mylicon) 80 mg Q6H PRN PO DISTENSION/GAS/BLOATING; Start 09/24/18 at 16:30 Neomycin/ Polymyxin/ Bacitracin (Neosporin (Ud Pkt)) 1 applic TID TOP Last administered on 09/27/18 13:41; Admin Dose 1 APPLIC; Start 7/23/19 at 21:00 Trazodone HCl (Desyrel) 50 mg HS PRN PO insomnia Last administered on 09/27/18at 00:27; Admin Dose 50 MG; Start 09/26/18 at 11:30 Melatonin (Melatonin) 5 mg HS PO ; Start 09/27/18 at 21:00 Polyethylene Glycol (Miralax) 17 gm DAILY PO ; Start 09/27/18 at 10:30 Methadone HCl (Methadone) 15 mg DAILY PO ; Start 09/28/18 at 09:00 JOSUE MUNIZ MD Sep 27, 2018 16:58
[2018-09-27 20:35] VITALS: BP 144/60; PULSE 74; RESP 20
[2018-09-27] MEDS: MELATONIN 5 MG TABLET PO SCH (21:04)
[2018-09-27] MEDS: TAMSULOSIN (SR) 0.4 MG CAP PO SCH (21:04)
[2018-09-28] VITALS (7 sets, daily range): BP systolic 110–147; BP diastolic 53–66; PULSE 76–96; RESP 17–20
[2018-09-28] MEDS: traZODone 50 MG TAB PO PRN (00:14)
[2018-09-28] MEDS: ACETAMINOPHEN 325 MG TAB PO PRN ×2 (00:14→21:03)
[2018-09-28] MEDS: PANTOPRAZOLE (EC) 40 MG TAB PO SCH ×2 (05:32→17:16)
[2018-09-28] MEDS: HEPARIN 5,000 UNIT/1 ML VIAL SC SCH ×3 (05:40→21:25)
[2018-09-28] MEDS: ARTIFICIAL TEARS 15 ML OPH BOTH EYES SCH ×4 (09:19→21:25)
[2018-09-28] MEDS: LIDOCAINE 5% PATCH TD SCH (09:19)
[2018-09-28] MEDS: POLYETHYLENE GLYCOL 17 GM PACKET PO SCH (09:19)
[2018-09-28] MEDS: DUTASTERIDE 0.5 MG CAP PO SCH (09:20)
[2018-09-28] MEDS: OLOPATADINE 0.1% 5 ML OPH BOTH EYES SCH ×2 (09:20→20:58)
[2018-09-28] MEDS: AMLODIPINE 10 MG TAB PO SCH (09:20)
[2018-09-28] MEDS: MULTIVITAMINS/MINERALS TAB PO SCH (09:20)
[2018-09-28] MEDS: FISH OIL 1,000 MG CAP PO SCH ×2 (09:20→20:57)
[2018-09-28] MEDS: DOXYCYCLINE 100 MG TAB PO SCH ×2 (09:20→20:57)
[2018-09-28] MEDS: METHADONE 5 MG TAB PO SCH (09:21)
[2018-09-28] MEDS: THIAMINE 100 MG TAB PO SCH (09:22)
[2018-09-28] MEDS: LOSARTAN 50 MG TAB PO SCH (09:22)
[2018-09-28] MEDS: FOLIC ACID 1 MG TAB PO SCH (09:22)
[2018-09-28] MEDS: SERTRALINE 100 MG TAB PO SCH (09:22)
--- NOTE | 2018-09-28 12:42 | CONS ---
Consult Date/Type/Reason Admit Date/Time Sep 15, 2018 at 21:15 Initial Consult Date 09/23/18 Type of Consultation: Urology Reason for Consultation Question of neurogenic bladder Requesting Provider: STUART MATAMOROS Date/Time of Note DATE: 09/28/18 TIME: 12:35 Subjective Patient states that he is voiding well and has no dysuria Objective Vitals Vital Signs Date Temp Pulse Resp B/P (MAP) Pulse Ox O2 O2 Flow FiO2 Time Delivery Rate 09/28/18 97.9 85 17 110/53 98 Room Air 11:48 (72) Intake and Output 09/27/18 09/27/18 09/28/18 1515:00 23:00 07:00 IntakeIntake Total 1550 ml 300 ml OutputOutput Total 1200 ml BalanceBalance -1200 ml 1550 ml 300 ml Exam Abdomen is soft, the bladder is not distended and his urine is clear Results/Medications Result Diagram: 09/26/18 0542 09/26/18 0546 Home Meds Active Scripts Lorazepam* (Ativan*) 0.5 Mg Tablet, 0.5 MG PO Q8H PRN for CONTROL WITHDRAWAL SYMPTOMS, #10 TAB Prov:HUSSEIN SPEARS MD 09/12/18 Clindamycin Hcl* (Clindamycin Hcl*) 300 Mg Capsule, 300 MG PO QID for 10 Days, CAP Prov:MIKY THOMPSON MD 09/09/18 Reported Medications Azelastine/Fluticasone (DYMISTA NASAL SPRAY) 23 Gm [place].pump, 1 SPRAY NASAL BID, #1 BOTTLE TO EACH NOSTRIL 09/09/18 Ketoconazole* (Nizoral*) 120 Ml Shampoo, 1 APPLIC TOP BID, BOTTLE WASH HAIR/SCALP AND RINSE OFF 09/09/18 Tamsulosin Hcl* (Flomax*) 0.4 Mg Cap.er.24h, 0.4 MG PO HS, CAP 09/09/18 Sertraline Hcl* (Sertraline Hcl*) 100 Mg Tablet, 100 MG PO DAILY, #30 TAB 09/09/18 Atorvastatin Calcium* (Atorvastatin Calcium*) 20 Mg Tablet, 20 MG PO QHS, #30 TAB 09/09/18 Celecoxib* (Celebrex*) 200 Mg Capsule, 200 MG PO DAILY, CAP 09/09/18 Icosapent Ethyl (VASCEPA) 1 Gm Capsule, 2 GM PO BID, CAP 09/09/18 Potassium Chloride* (Potassium Chloride*) 8 Meq Capsule.er, 8 MEQ PO DAILY, CAP 09/09/18 Omeprazole* (Omeprazole*) 20 Mg Capsule.dr, 20 MG PO BID, #60 CAP 09/09/18 Dutasteride* (Avodart*) 0.5 Mg Capsule, 0.5 MG PO DAILY, CAP 09/09/18 Furosemide* (Furosemide*) 40 Mg Tablet, 40 MG PO DAILY, TAB 09/09/18 Hydrocodone/Acetaminophen ([place] 10-325 Tablet) 1 Each Tablet, 1 EACH PO BID, TAB 09/09/18 Folic Acid* (Folic Acid*) 1 Mg Tablet, 1 MG PO DAILY, TAB 09/09/18 Olmesartan Medoxomil (Benicar) 40 Mg Tablet, 40 MG PO DAILY, #30 TAB 09/09/18 Medications Current Medications IV Flush (NS 3 ml) 3 ml PER PROTOCOL IV ; Start 09/15/18 at 21:30 Ondansetron HCl (Zofran Inj) 4 mg Q6H PRN IV NAUSEA/VOMITING Last administered on 09/22/18at 02:20; Admin Dose 4 MG; Start 09/15/18 at 21:30 Acetaminophen (Tylenol Tab) 650 mg Q6H PRN PO .PAIN 1-3 OR TEMP Last administered on 09/28/18at 00:14; Admin Dose 650 MG; Start 09/15/18 at 21:30 Acetaminophen/ Hydrocodone Bitart ([place] (5/325)) 1 tab Q6H PRN PO .MOD PAIN 4- 6 Last administered on 09/20/18at 10:02; Admin Dose 1 TAB; Start 09/15/18 at 21:30 Morphine Sulfate (morphine) 2 mg Q4H PRN IV .SEVERE PAIN 7-10; Start 09/15/18 at 21:30 Docusate Sodium (Colace) 100 mg Q12H PRN PO .CONSTIPATION Last administered on 09/18/18at 20:25; Admin Dose 100 MG; Start 09/15/18 at 21:30 Bisacodyl (Dulcolax) 5 mg DAILY PRN PO .CONSTIPATION; Start 09/15/18 at 21:30 Heparin Sodium (Porcine) (Heparin (5000 Units/1ml)) 5,000 unit Q8 SC Last administered on 09/28/18 05:40; Admin Dose 5,000 UNIT; Start 09/15/18 at 22:00 Enalaprilat (Vasotec Iv) 1.25 mg Q4H PRN IV ELEVATED BLOOD PRESSURE Last administered on 09/23/18 04:28; Admin Dose 1.25 MG; Start 09/16/18 at 00:00 Atorvastatin Calcium (Lipitor) 20 mg QHS PO Last administered on 09/16/18 20:22; Admin Dose 20 MG; Start 09/16/18 at 21:00; Status Hold Dutasteride (Avodart) 0.5 mg DAILY PO Last administered on 09/28/18 09:20; Admin Dose 0.5 MG; Start 09/16/18 at 09:00 Sertraline HCl (Zoloft) 100 mg DAILY PO Last administered on 09/28/18 09:22; A dmin Dose 100 MG; Start 09/16/18 at 09:00 Tamsulosin HCl (Flomax) 0.4 mg HS PO Last administered on 09/27/18 21:04; Admin Dose 0.4 MG; Start 09/16/18 at 21:00 Fish Oil (Fish Oil) 2,000 mg BID PO Last administered on 09/28/18 09:20; Admin Dose 2,000 MG; Start 09/16/18 at 09:00 Pantoprazole (Protonix Tab) 40 mg BID@0600,1800 PO Last administered on 09/28/18 05:32; Admin Dose 40 MG; Start 09/16/18 at 07:30 Losartan Potassium (Cozaar) 100 mg DAILY PO Last administered on 09/28/18 09:22; Admin Dose 100 MG; Start 09/17/18 at 09:00 Hydralazine HCl (Apresoline) 10 mg Q4H PRN IV sbp>170 Last administered on 09/23/18 20:01; Admin Dose 10 MG; Start 09/17/18 at 16:30 Amlodipine Besylate (Norvasc) 10 mg DAILY PO Last administered on 09/28/18 09:20; Admin Dose 10 MG; Start 09/19/18 at 09:00 Doxycycline Hyclate (Vibramycin) 100 mg BID PO Last administered on 09/28/18 09:20; Admin Dose 100 MG; Start 09/20/18 at 15:30 Nitroglycerin (Nitroglycerin (Sl Tab) 0.4 Mg) 1 tab Q5M PRN SL ANGINA Last administered on 09/23/18 11:33; Admin Dose 1 TAB; Start 09/21/18 at 14:00 Lorazepam (Ativan) 0.5 mg Q8H PRN IV AGITATION/ANXIETY; Start 09/21/18 at 19:00 Lidocaine (Lidoderm) 1 patch DAILY TD Last administered on 09/28/18 09:19; Admin Dose 1 PATCH; Start 09/23/18 at 13:00 Sodium Chloride (Deep Sea) 2 spray Q4H PRN NASAL congestion Last administered on 09/23/18 16:02; Admin Dose 2 SPRAY; Start 09/23/18 at 13:00 Dicyclomine HCl (Bentyl) 10 mg QID PRN PO abdominal cramping; Start 09/23/18 at 13:30 Eye Lubricant (Artificial Tears Oph) 2 drop QID BOTH EYES Last administered on 09/28/18 09:19; Admin Dose 2 DROP; Start 09/23/18 at 13:30 Olopatadine HCl (Patanol 0.1% Oph) 1 drop BID BOTH EYES Last administered on 09/28/18 09:20; Admin Dose 1 DROP; Start 09/24/18 at 12:00 Thiamine HCl (Vitamin B1) 100 mg DAILY PO Last administered on 09/28/18 09:22; Admin Dose 100 MG; Start 09/25/18 at 09:00 Folic Acid (Folic Acid) 1 mg DAILY PO Last administered on 09/28/18 09:22; Admin Dose 1 MG; Start 09/25/18 at 09:00 Multivitamins/ Minerals (Theragran-M) 1 tab DAILY PO Last administered on 09/28/18 09:20; Admin Dose 1 TAB; Start 09/25/18 at 09:00 Simethicone (Mylicon) 80 mg Q6H PRN PO DISTENSION/GAS/BLOATING; Start 09/24/18 at 16:30 Neomycin/ Polymyxin/ Bacitracin (Neosporin (Ud Pkt)) 1 applic TID TOP Last administered on 09/27/18 21:06; Admin Dose 1 APPLIC; Start 09/24/18 at 21:00 Trazodone HCl (Desyrel) 50 mg HS PRN PO insomnia Last administered on 09/28/18at 00:14; Admin Dose 50 MG; Start 09/26/18 at 11:30 Melatonin (Melatonin) 5 mg HS PO Last administered on 09/27/18at 21:04; Admin Dose 5 MG; Start 09/27/18 at 21:00 Polyethylene Glycol (Miralax) 17 gm DAILY PO Last administered on 09/28/18at 09:19; Admin Dose 17 GM; Start 09/27/18 at 10:30 Methadone HCl (Methadone) 15 mg DAILY PO Last administered on 09/28/18at 09:21; Admin Dose 15 MG; Start 09/28/18 at 09:00 Assessment/Plan Hospital Course (Demo Recall) 78-year-old male admitted to the hospital because of left lower extremity cellulitis. He was noted to have difficulty urinating and had to be catheterized on a couple of occasions. One time 600 mL drained and another time 450 mL drained. The patient complains of hesitancy. It takes him a long time to urinate. Prior to his admission he used to have nocturia x2 and during the day he voids every 3 hours. He denies any dysuria. There is no history of gross hematuria and he states he feels he does empty his bladder. Prior to admission he also has been on tamsulosin and dutasteride. The patient has been voiding well. He denies any dysuria. The postvoid residual has been small. Patient is doing well from a urological standpoint STEFF SOTO MD Sep 28, 2018 12:42
[2018-09-28] MEDS: NEOMYC/POLYMYX/BACIT 0.9 GM OINT TOP SCH ×3 (13:00→20:59)
--- NOTE | 2018-09-28 14:43 | PN ---
Date/Time of Note Date/Time of Note DATE: 09/28/18 TIME: 14:37 Assessment/Plan VTE Prophylaxis Risk score (from Nsg)>0 risk: 3 SCD applied (from Ns): No SCD contraindicated: low risk/ambulating Pharmacological prophylaxis: NA/contraindicated Pharm contraindication: low risk/ambulating Lines/Catheters IV Catheter Type (from Nrs): Peripheral IV Urinary Cath still in place: No Assessment/Plan Assessment/Plan 1. LLE cellulitis- stable - ID on board and appreciate recommendations. continue on PO Doxy - most likely secondary to PAD - encouraged to keep leg elevated when in bed - US negative for DVT 2. PAD - Arterial studies noted - continue BP control - Vascular surgery consultation appreciated. 3. Uncontrolled Hypertension-resolved - Remains stable - continue current medications and will adjust as needed 4. Acute Delirium - Patient with confusion when he does not sleep well. 5. h/o alcohol abuse - alcoholic hepatitis appreciate at time of admission but resolved - no signs of DTs - discussed cessation and patient agrees to no longer drink after discharge 6. 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 Alcoholic hepatitis- resolved - imaging studies reviewed and no signs of cirrhosis 8. Acute rhinosinusitis- resolved 9. Thrombocytopenia- resolved 10. Urinary retention- resolved - Urology on board and appreciate recommendations. 11. Anxiety - Continue sertraline 12. Hyperlipidemia - Continue atorvastatin 13. Gait instability - PT on board 14. Abdominal cramping- resolved - Bentyl and simethicone PRN 15. 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 Disposition - Will plan to discharge tomorrow given unable to get dose of Methadone over the weekend. Family will take him on Sunday to the clinic. PCP appointment on 10/03 Result Diagram: 09/26/18 0542 09/26/18 0546 Subjective 24 Hr Interval Summary Free Text/Dictation Patient states hes doing excellent and slept well last night. Thinks he is still a little tired from the melatonin. Complaining of boredom and requesting to go home. Discussed discharge plan for tomorrow. Exam/Review of Systems Exam Vitals Vital Signs Date Temp Pulse Resp B/P (MAP) Pulse Ox O2 O2 Flow FiO2 Time Delivery Rate 09/28/18 97.9 85 17 110/53 98 Room Air 11:48 (72) Intake and Output 09/27/18 09/27/18 09/28/18 1515:00 23:00 07:00 IntakeIntake Total 1550 ml 300 ml OutputOutput Total 1200 ml BalanceBalance -1200 ml 1550 ml 300 ml Exam General: Patient is a pleasant male, answering questions appropriately Chest: Nontender Lungs: Clear to auscultation bilaterally no crackles rales or wheezing Heart: Normal S1-S2, Regular rate and rhythm, No murmur, S3, or S4 Abdomen: Soft , nontender, protuberant , bowel sounds are present. No guarding no rebound tenderness Extremities: venous changes bilaterally. dressing on LLE with no discharge. no edema appreciated Medications Medication Current Medications IV Flush (NS 3 ml) 3 ml PER PROTOCOL IV ; Start 09/15/18 at 21:30 Ondansetron HCl (Zofran Inj) 4 mg Q6H PRN IV NAUSEA/VOMITING Last administered on 09/22/18 02:20; Admin Dose 4 MG; Start 09/15/18 at 21:30 Acetaminophen (Tylenol Tab) 650 mg Q6H PRN PO .PAIN 1-3 OR TEMP Last administered on 09/28/18at 00:14; Admin Dose 650 MG; Start 09/15/18 at 21:30 Acetaminophen/ Hydrocodone Bitart ([place] (5/325)) 1 tab Q6H PRN PO .MOD PAIN 4- 6 Last administered on 09/20/18 10:02; Admin Dose 1 TAB; Start 09/15/18 at 21:30 Morphine Sulfate (morphine) 2 mg Q4H PRN IV .SEVERE PAIN 7-10; Start 09/15/18 at 21:30 Docusate Sodium (Colace) 100 mg Q12H PRN PO .CONSTIPATION Last administered on 09/18/18 20:25; Admin Dose 100 MG; Start 09/15/18 at 21:30 Bisacodyl (Dulcolax) 5 mg DAILY PRN PO .CONSTIPATION; Start 09/15/18 at 21:30 Heparin Sodium (Porcine) (Heparin (5000 Units/1ml)) 5,000 unit Q8 SC Last administered on 09/28/18 05:40; Admin Dose 5,000 UNIT; Start 09/15/18 at 22:00 Enalaprilat (Vasotec Iv) 1.25 mg Q4H PRN IV ELEVATED BLOOD PRESSURE Last administered on 09/23/18 04:28; Admin Dose 1.25 MG; Start 09/16/18 at 00:00 Atorvastatin Calcium (Lipitor) 20 mg QHS PO Last administered on 09/16/18 20:22; Admin Dose 20 MG; Start 09/16/18 at 21:00; Status Hold Dutasteride (Avodart) 0.5 mg DAILY PO Last administered on 09/28/18 09:20; Admin Dose 0.5 MG; Start 09/16/18 at 09:00 Sertraline HCl (Zoloft) 100 mg DAILY PO Last administered on 09/28/18 09:22; Admin Dose 100 MG; Start 09/16/18 at 09:00 Tamsulosin HCl (Flomax) 0.4 mg HS PO Last administered on 09/27/18 21:04; Admin Dose 0.4 MG; Start 09/16/18 at 21:00 Fish Oil (Fish Oil) 2,000 mg BID PO Last administered on 09/28/18 09:20; Admin Dose 2,000 MG; Start 09/16/18 at 09:00 Pantoprazole (Protonix Tab) 40 mg BID@0600,1800 PO Last administered on 09/28/18 05:32; Admin Dose 40 MG; Start 09/16/18 at 07:30 Losartan Potassium (Cozaar) 100 mg DAILY PO Last administered on 09/28/18 09:22; Admin Dose 100 MG; Start 09/17/18 at 09:00 Hydralazine HCl (Apresoline) 10 mg Q4H PRN IV sbp>170 Last administered on 09/23/18 20:01; Admin Dose 10 MG; Start 09/17/18 at 16:30 Amlodipine Besylate (Norvasc) 10 mg DAILY PO Last administered on 09/28/18 09:20; Admin Dose 10 MG; Start 09/19/18 at 09:00 Doxycycline Hyclate (Vibramycin) 100 mg BID PO Last administered on 09/28/18 09:20; Admin Dose 100 MG; Start 09/20/18 at 15:30 Nitroglycerin (Nitroglycerin (Sl Tab) 0.4 Mg) 1 tab Q5M PRN SL ANGINA Last administered on 09/23/18 11:33; Admin Dose 1 TAB; Start 09/21/18 at 14:00 Lorazepam (Ativan) 0.5 mg Q8H PRN IV AGITATION/ANXIETY; Start 09/21/18 at 19:00 Lidocaine (Lidoderm) 1 patch DAILY TD Last administered on 09/28/18 09:19; Admin Dose 1 PATCH; Start 09/23/18 at 13:00 Sodium Chloride (Deep Sea) 2 spray Q4H PRN NASAL congestion Last administered on 09/23/18 16:02; Admin Dose 2 SPRAY; Start 09/23/18 at 13:00 Dicyclomine HCl (Bentyl) 10 mg QID PRN PO abdominal cramping; Start 09/23/18 at 13:30 Eye Lubricant (Artificial Tears Oph) 2 drop QID BOTH EYES Last administered on 09/28/18 09:19; Admin Dose 2 DROP; Start 09/23/18 at 13:30 Olopatadine HCl (Patanol 0.1% Oph) 1 drop BID BOTH EYES Last administered on 09/28/18 09:20; Admin Dose 1 DROP; Start 09/24/18 at 12:00 Thiamine HCl (Vitamin B1) 100 mg DAILY PO Last administered on 09/28/18 09:22; Admin Dose 100 MG; Start 09/25/18 at 09:00 Folic Acid (Folic Acid) 1 mg DAILY PO Last administered on 09/28/18 09:22; Admin Dose 1 MG; Start 09/25/18 at 09:00 Multivitamins/ Minerals (Theragran-M) 1 tab DAILY PO Last administered on 09/28/18 09:20; Admin Dose 1 TAB; Start 09/25/18 at 09:00 Simethicone (Mylicon) 80 mg Q6H PRN PO DISTENSION/GAS/BLOATING; Start 09/24/18 at 16:30 Neomycin/ Polymyxin/ Bacitracin (Neosporin (Ud Pkt)) 1 applic TID TOP Last administered on 09/27/18 21:06; Admin Dose 1 APPLIC; Start 09/24/18 at 21:00 Trazodone HCl (Desyrel) 50 mg HS PRN PO insomnia Last administered on 09/28/18 00:14; Admin Dose 50 MG; Start 09/26/18 at 11:30 Melatonin (Melatonin) 5 mg HS PO Last administered on 09/27/18at 21:04; Admin Dose 5 MG; Start 09/27/18 at 21:00 Polyethylene Glycol (Miralax) 17 gm DAILY PO Last administered on 09/28/18at 09:19; Admin Dose 17 GM; Start 09/27/18 at 10:30 Methadone HCl (Methadone) 15 mg DAILY PO Last administered on 09/28/18at 09:21; Admin Dose 15 MG; Start 09/28/18 at 09:00 JOSUE MUNIZ MD Sep 28, 2018 14:43
--- NOTE | 2018-09-28 16:25 | CONS ---
Consultation Date/Type/Reason Admit Date/Time Sep 15, 2018 at 21:15 Initial Consult Date SUBJECTIVE: Pt is awake, alert, afebrile. VS: stable T: 98.0 LABS: Reviewed MICROBIOLOGY: Blood cultures negative. MRSA swab negative. ANTIMICROBIALS: Doxycycline PHYSICAL EXAMINATION: GENERAL: This is a well-developed, chronically ill-appearing, elderly man who is alert, in no distress. HEENT: Head atraumatic, normocephalic. Sclerae anicteric. Buccal mucosa pink. NECK: Supple. CHEST: Rise symmetrical. Breath sounds clear, diminished to bases. HEART: S1, S2. ABDOMEN: Soft, bowel sounds present. EXTREMITIES: Bilateral lower extremities chronic venous stasis, left lower extremity Ramirez wrapped. ASSESSMENT: 1. Bilateral lower extremities chronic venous stasis /left lower extremity cellulitis. 2. Hypertension. 3. History of polysubstance abuse. 4. Improving transaminitis. 5. History of deep venous thrombosis and pulmonary embolism. PLAN: The patient remains unchanged, stable. Continue current antbx. Wound care. Requesting Provider: STUART MATAMOROS Date/Time of Note DATE: 09/28/18 TIME: 16:23 Exam/Review of Systems Exam Vitals Vital Signs Date Temp Pulse Resp B/P (MAP) Pulse Ox O2 O2 Flow FiO2 Time Delivery Rate 09/28/18 98.0 86 18 121/57 98 Room Air 15:57 (78) Intake and Output 09/27/18 09/27/18 09/28/18 1515:00 23:00 07:00 IntakeIntake Total 1550 ml 300 ml OutputOutput Total 1200 ml BalanceBalance -1200 ml 1550 ml 300 ml Results Result Diagram: 09/26/18 0542 09/26/18 0546 Medications Medication Current Medications IV Flush (NS 3 ml) 3 ml PER PROTOCOL IV ; Start 09/15/18 at 21:30 Ondansetron HCl (Zofran Inj) 4 mg Q6H PRN IV NAUSEA/VOMITING Last administered on 09/22/18at 02:20; Admin Dose 4 MG; Start 09/15/18 at 21:30 Acetaminophen (Tylenol Tab) 650 mg Q6H PRN PO .PAIN 1-3 OR TEMP Last admi nistered on 09/28/18at 00:14; Admin Dose 650 MG; Start 09/15/18 at 21:30 Acetaminophen/ Hydrocodone Bitart ([place] (5/325)) 1 tab Q6H PRN PO .MOD PAIN 4- 6 Last administered on 09/20/18 10:02; Admin Dose 1 TAB; Start 09/15/18 at 21:30 Morphine Sulfate (morphine) 2 mg Q4H PRN IV .SEVERE PAIN 7-10; Start 09/15/18 at 21:30 Docusate Sodium (Colace) 100 mg Q12H PRN PO .CONSTIPATION Last administered on 09/18/18 20:25; Admin Dose 100 MG; Start 09/15/18 at 21:30 Bisacodyl (Dulcolax) 5 mg DAILY PRN PO .CONSTIPATION; Start 09/15/18 at 21:30 Heparin Sodium (Porcine) (Heparin (5000 Units/1ml)) 5,000 unit Q8 SC Last administered on 09/28/18 15:10; Admin Dose 5,000 UNIT; Start 09/15/18 at 22:00 Enalaprilat (Vasotec Iv) 1.25 mg Q4H PRN IV ELEVATED BLOOD PRESSURE Last administered on 09/23/18 04:28; Admin Dose 1.25 MG; Start 09/16/18 at 00:00 Atorvastatin Calcium (Lipitor) 20 mg QHS PO Last administered on 09/16/18 20:22; Admin Dose 20 MG; Start 09/16/18 at 21:00; Status Hold Dutasteride (Avodart) 0.5 mg DAILY PO Last administered on 09/28/18 09:20; Admin Dose 0.5 MG; Start 09/16/18 at 09:00 Sertraline HCl (Zoloft) 100 mg DAILY PO Last administered on 09/28/18 09:22; Admin Dose 100 MG; Start 09/16/18 at 09:00 Tamsulosin HCl (Flomax) 0.4 mg HS PO Last administered on 09/27/18 21:04; Admin Dose 0.4 MG; Start 09/16/18 at 21:00 Fish Oil (Fish Oil) 2,000 mg BID PO Last administered on 09/28/18 09:20; Admin Dose 2,000 MG; Start 09/16/18 at 09:00 Pantoprazole (Protonix Tab) 40 mg BID@0600,1800 PO Last administered on 09/28/18 05:32; Admin Dose 40 MG; Start 09/16/18 at 07:30 Losartan Potassium (Cozaar) 100 mg DAILY PO Last administered on 09/28/18 09:22; Admin Dose 100 MG; Start 09/17/18 at 09:00 Hydralazine HCl (Apresoline) 10 mg Q4H PRN IV sbp>170 Last administered on 09/23/18 20:01; Admin Dose 10 MG; Start 09/17/18 at 16:30 Amlodipine Besylate (Norvasc) 10 mg DAILY PO Last administered on 09/28/18 09:20; Admin Dose 10 MG; Start 09/19/18 at 09:00 Doxycycline Hyclate (Vibramycin) 100 mg BID PO Last administered on 09/28/18 09:20; Admin Dose 100 MG; Start 09/20/18 at 15:30 Nitroglycerin (Nitroglycerin (Sl Tab) 0.4 Mg) 1 tab Q5M PRN SL ANGINA Last administered on 09/23/18 11:33; Admin Dose 1 TAB; Start 09/21/18 at 14:00 Lorazepam (Ativan) 0.5 mg Q8H PRN IV AGITATION/ANXIETY; Start 09/21/18 at 19:00 Lidocaine (Lidoderm) 1 patch DAILY TD Last administered on 09/28/18 09:19; Admin Dose 1 PATCH; Start 09/23/18 at 13:00 Sodium Chloride (Deep Sea) 2 spray Q4H PRN NASAL congestion Last administered on 09/23/18 16:02; Admin Dose 2 SPRAY; Start 09/23/18 at 13:00 Dicyclomine HCl (Bentyl) 10 mg QID PRN PO abdominal cramping; Start 09/23/18 at 13:30 Eye Lubricant (Artificial Tears Oph) 2 drop QID BOTH EYES Last administered on 09/28/18 14:43; Admin Dose 2 DROP; Start 09/23/18 at 13:30 Olopatadine HCl (Patanol 0.1% Oph) 1 drop BID BOTH EYES Last administered on 09/28/18 09:20; Admin Dose 1 DROP; Start 09/24/18 at 12:00 Thiamine HCl (Vitamin B1) 100 mg DAILY PO Last administered on 09/28/18 09:22; Admin Dose 100 MG; Start 09/25/18 at 09:00 Folic Acid (Folic Acid) 1 mg DAILY PO Last administered on 09/28/18 09:22; Admin Dose 1 MG; Start 09/25/18 at 09:00 Multivitamins/ Minerals (Theragran-M) 1 tab DAILY PO Last administered on 09/28/18 09:20; Admin Dose 1 TAB; Start 09/25/18 at 09:00 Simethicone (Mylicon) 80 mg Q6H PRN PO DISTENSION/GAS/BLOATING; Start 09/24/18 at 16:30 Neomycin/ Polymyxin/ Bacitracin (Neosporin (Ud Pkt)) 1 applic TID TOP Last administered on 09/28/18 14:43; Admin Dose 1 APPLIC; Start 09/24/18 at 21:00 Trazodone HCl (Desyrel) 50 mg HS PRN PO insomnia Last administered on 09/28/18 00:14; Admin Dose 50 MG; Start 09/26/18 at 11:30 Melatonin (Melatonin) 5 mg HS PO Last administered on 09/27/18 21:04; Admin Dose 5 MG; Start 09/27/18 at 21:00 Polyethylene Glycol (Miralax) 17 gm DAILY PO Last administered on 09/28/18 09:19; Admin Dose 17 GM; Start 09/27/18 at 10:30 Methadone HCl (Methadone) 15 mg DAILY PO Last administered on 09/28/18 09:21; Admin Dose 15 MG; Start 09/28/18 at 09:00 SIN CROSS Sep 28, 2018 16:25
[2018-09-28] MEDS: TAMSULOSIN (SR) 0.4 MG CAP PO SCH (20:57)
[2018-09-28] MEDS: MELATONIN 5 MG TABLET PO SCH (20:57)
[2018-09-29] VITALS: PULSE 83
[2018-09-29 03:44] VITALS: BP 135/60; PULSE 86
[2018-09-29 04:00] VITALS: PULSE 80
[2018-09-29] MEDS: PANTOPRAZOLE (EC) 40 MG TAB PO SCH (05:09)
[2018-09-29] MEDS: HEPARIN 5,000 UNIT/1 ML VIAL SC SCH (05:12)
[2018-09-29 07:14] VITALS: BP 143/58; PULSE 100; RESP 19
[2018-09-29] MEDS: POLYETHYLENE GLYCOL 17 GM PACKET PO SCH (08:07)
[2018-09-29] MEDS: LIDOCAINE 5% PATCH TD SCH (08:08)
[2018-09-29] MEDS: NEOMYC/POLYMYX/BACIT 0.9 GM OINT TOP SCH (08:08)
[2018-09-29] MEDS: ARTIFICIAL TEARS 15 ML OPH BOTH EYES SCH (08:08)
[2018-09-29] MEDS: OLOPATADINE 0.1% 5 ML OPH BOTH EYES SCH (08:09)
[2018-09-29] MEDS: DOXYCYCLINE 100 MG TAB PO SCH (08:10)
[2018-09-29] MEDS: DUTASTERIDE 0.5 MG CAP PO SCH (08:10)
[2018-09-29] MEDS: METHADONE 5 MG TAB PO SCH (08:11)
[2018-09-29] MEDS: FISH OIL 1,000 MG CAP PO SCH (08:11)
[2018-09-29] MEDS: THIAMINE 100 MG TAB PO SCH (08:12)
[2018-09-29] MEDS: LOSARTAN 50 MG TAB PO SCH (08:12)
[2018-09-29] MEDS: MULTIVITAMINS/MINERALS TAB PO SCH (08:12)
[2018-09-29] MEDS: SERTRALINE 100 MG TAB PO SCH (08:12)
[2018-09-29] MEDS: AMLODIPINE 10 MG TAB PO SCH (08:12)
[2018-09-29] MEDS: FOLIC ACID 1 MG TAB PO SCH (08:12)
--- NOTE | 2018-09-29 10:05 | PN ---
Date/Time of Note Date/Time of Note DATE: 09/29/18 TIME: 10:02 Assessment/Plan VTE Prophylaxis Risk score (from Ns)>0 risk: 6 SCD applied (from Ns): No SCD contraindicated: low risk/ambulating Pharmacological prophylaxis: NA/contraindicated Pharm contraindication: low risk/ambulating Lines/Catheters IV C[facility] Type ([facility] Peripheral IV Urinary Cath still in place: No Assessment/Plan Assessment/Plan 1. LLE cellulitis- stable - ID on board and appreciate recommendations. completed 10 days of Doxycycline - most likely secondary to PAD - encouraged to keep leg elevated when in bed - US negative for DVT 2. PAD - Arterial studies noted - continue BP control - Vascular surgery consultation appreciated. 3. Uncontrolled Hypertension-resolved - Remains stable - continue current medications and will adjust as needed 4. Acute Delirium - Patient with confusion when he does not sleep well. 5. h/o alcohol abuse - alcoholic hepatitis appreciate at time of admission but resolved - no signs of DTs - discussed cessation and patient agrees to no longer drink after discharge 6. 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 Alcoholic hepatitis- resolved - imaging studies reviewed and no signs of cirrhosis 8. Acute rhinosinusitis- resolved 9. Thrombocytopenia- resolved 10. Urinary retention- resolved - Urology on board and appreciate recommendations. 11. Anxiety - Continue sertraline 12. Hyperlipidemia - Continue atorvastatin 13. Gait instability - PT on board 14. Abdominal cramping- resolved - Bentyl and simethicone PRN 15. 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 Disposition - Medically stable for discharge home Result Diagram: 09/26/18 0542 09/26/18 0546 Subjective 24 Hr Interval Summary Free Text/Dictation Patient is doing well and feels stronger this am. Does admit to not sleeping overnight Exam/Review of Systems Exam Vitals Vital Signs Date Temp Pulse Resp B/P (MAP) Pulse Ox O2 O2 Flow FiO2 Time Delivery Rate 09/29/18 98.7 100 19 143/58 98 Room Air 07:14 (86) Intake and Output 09/28/18 09/28/18 09/29/18 1515:00 23:00 07:00 IntakeIntake Total 600 ml 700 ml OutputOutput Total 1 ml BalanceBalance 600 ml 699 ml Exam General: Patient is a pleasant male, answering questions appropriately Chest: Nontender Lungs: Clear to auscultation bilaterally no crackles rales or wheezing Heart: Normal S1-S2, Regular rate and rhythm, No murmur, S3, or S4 Abdomen: Soft , nontender, protuberant , bowel sounds are present. No guarding no rebound tenderness Extremities: venous changes bilaterally. dressing on LLE with no discharge. no edema appreciated Medications Medication Current Medications IV Flush (NS 3 ml) 3 ml PER PROTOCOL IV ; Start 09/15/18 at 21:30 Ondansetron HCl (Zofran Inj) 4 mg Q6H PRN IV NAUSEA/VOMITING Last administered on 09/22/18 02:20; Admin Dose 4 MG; Start 09/15/18 at 21:30 Acetaminophen (Tylenol Tab) 650 mg Q6H PRN PO .PAIN 1-3 OR TEMP Last administered on 09/28/18 21:03; Admin Dose 650 MG; Start 09/15/18 at 21:30 Acetaminophen/ Hydrocodone Bitart ([place] (5/325)) 1 tab Q6H PRN PO .MOD PAIN 4- 6 Last administered on 09/20/18 10:02; Admin Dose 1 TAB; Start 09/15/18 at 21:30 Morphine Sulfate (morphine) 2 mg Q4H PRN IV .SEVERE PAIN 7-10; Start 09/15/18 at 21:30 Docusate Sodium (Colace) 100 mg Q12H PRN PO .CONSTIPATION Last administered on 09/18/18 20:25; Admin Dose 100 MG; Start 09/15/18 at 21:30 Bisacodyl (Dulcolax) 5 mg DAILY PRN PO .CONSTIPATION; Start 09/15/18 at 21:30 Heparin Sodium (Porcine) (Heparin (5000 Units/1ml)) 5,000 unit Q8 SC Last administered on 09/29/18 05:12; Admin Dose 5,000 UNIT; Start 09/15/18 at 22:00 Enalaprilat (Vasotec Iv) 1.25 mg Q4H PRN IV ELEVATED BLOOD PRESSURE Last administered on 09/23/18 04:28; Admin Dose 1.25 MG; Start 09/16/18 at 00:00 Atorvastatin Calcium (Lipitor) 20 mg QHS PO Last administered on 09/16/18 20:22; Admin Dose 20 MG; Start 09/16/18 at 21:00; Status Hold Dutasteride (Avodart) 0.5 mg DAILY PO Last administered on 09/29/18 08:10; Admin Dose 0.5 MG; Start 09/16/18 at 09:00 Sertraline HCl (Zoloft) 100 mg DAILY PO Last administered on 09/29/18 08:12; Admin Dose 100 MG; Start 09/16/18 at 09:00 Tamsulosin HCl (Flomax) 0.4 mg HS PO Last administered on 09/28/18 20:57; Admin Dose 0.4 MG; Start 09/16/18 at 21:00 Fish Oil (Fish Oil) 2,000 mg BID PO Last administered on 09/29/18 08:11; Admin Dose 2,000 MG; Start 09/16/18 at 09:00 Pantoprazole (Protonix Tab) 40 mg BID@0600,1800 PO Last administered on 09/29/18 05:09; Admin Dose 40 MG; Start 09/16/18 at 07:30 Losartan Potassium (Cozaar) 100 mg DAILY PO Last administered on 09/29/18 08:12; Admin Dose 100 MG; Start 09/17/18 at 09:00 Hydralazine HCl (Apresoline) 10 mg Q4H PRN IV sbp>170 Last administered on 09/23/18 20:01; Admin Dose 10 MG; Start 09/17/18 at 16:30 Amlodipine Besylate (Norvasc) 10 mg DAILY PO Last administered on 09/29/18 08:12; Admin Dose 10 MG; Start 09/19/18 at 09:00 Doxycycline Hyclate (Vibramycin) 100 mg BID PO Last administered on 09/29/18 08:10; Admin Dose 100 MG; Start 09/20/18 at 15:30 Nitroglycerin (Nitroglycerin (Sl Tab) 0.4 Mg) 1 tab Q5M PRN SL ANGINA Last adm inistered on 09/23/18 11:33; Admin Dose 1 TAB; Start 09/21/18 at 14:00 Lorazepam (Ativan) 0.5 mg Q8H PRN IV AGITATION/ANXIETY; Start 09/21/18 at 19:00 Lidocaine (Lidoderm) 1 patch DAILY TD Last administered on 09/29/18 08:08; Admin Dose 1 PATCH; Start 09/23/18 at 13:00 Sodium Chloride ([place] Sea) 2 spray Q4H PRN NASAL congestion Last administered on 09/23/18 16:02; Admin Dose 2 SPRAY; Start 09/23/18 at 13:00 Dicyclomine HCl (Bentyl) 10 mg QID PRN PO abdominal cramping Last administered on 09/29/18 03:31; Admin Dose 10 MG; Start 09/23/18 at 13:30 Eye Lubricant (Artificial Tears Oph) 2 drop QID BOTH EYES Last administered on 09/29/18 08:08; Admin Dose 2 DROP; Start 09/23/18 at 13:30 Olopatadine HCl (Patanol 0.1% Oph) 1 drop BID BOTH EYES Last administered on 09/29/18 08:09; Admin Dose 1 DROP; Start 09/24/18 at 12:00 Thiamine HCl (Vitamin B1) 100 mg DAILY PO Last administered on 09/29/18 08:12; Admin Dose 100 MG; Start 09/25/18 at 09:00 Folic Acid (Folic Acid) 1 mg DAILY PO Last administered on 09/29/18 08:12; Admin Dose 1 MG; Start 09/25/18 at 09:00 Multivitamins/ Minerals (Theragran-M) 1 tab DAILY PO Last administered on 09/29/18 08:12; Admin Dose 1 TAB; Start 09/25/18 at 09:00 Simethicone (Mylicon) 80 mg Q6H PRN PO DISTENSION/GAS/BLOATING; Start 09/24/18 at 16:30 Neomycin/ Polymyxin/ Bacitracin (Neosporin (Ud Pkt)) 1 applic TID TOP Last administered on 09/29/18 08:08; Admin Dose 1 APPLIC; Start 09/24/18 at 21:00 Trazodone HCl (Desyrel) 50 mg HS PRN PO insomnia Last administered on 09/28/18 00:14; Admin Dose 50 MG; Start 09/26/18 at 11:30 Melatonin (Melatonin) 5 mg HS PO Last administered on 09/28/18 20:57; Admin Dose 5 MG; Start 09/27/18 at 21:00 Polyethylene Glycol (Miralax) 17 gm DAILY PO Last administered on 09/29/18at 08:07; Admin Dose 17 GM; Start 09/27/18 at 10:30 Methadone HCl (Methadone) 15 mg DAILY PO Last administered on 09/29/18at 08:11; Admin Dose 15 MG; Start 09/28/18 at 09:00 JOSUE MUNIZ MD Sep 29, 2018 10:05
[2018-09-29] MEDS ORDERED: THIA100T56 PO (10:08)
[2018-09-29] MEDS ORDERED: AMLO-147 PO (10:08)
[2018-09-29] MEDS ORDERED: LOSA50TA2 PO (10:08)
[2018-09-29] MEDS ORDERED: METH-417 PO (10:08)
[2018-09-29] MEDS ORDERED: MELA5TAB4 PO (10:08)
[2018-09-29] MEDS ORDERED: OMEG100024 PO (10:08)
[2018-09-29] MEDS ORDERED: MULT-843 PO (10:08)
--- NOTE | 2018-09-29 10:17 | PDOCDIS ---
Discharge Instructions DIAGNOSIS Discharge Diagnosis 1. LLE cellulitis- stable 2. Peripheral artery disease 3. Uncontrolled Hypertension-resolved 4. Acute Delirium- resolved 5. h/o alcohol abuse 6. History of DVT/PE 7. Alcoholic hepatitis- resolved 8. Acute rhinosinusitis- resolved 9. Thrombocytopenia- resolved 10. Urinary retention- resolved 11. Anxiety 12. Hyperlipidemia 13. h/o methadone use CONDITION [id number] Patient Condition: [id number] Stable HOME CARE INSTRUCTIONS: [id number] Diet Instructions: [id number] Low Fat /Cholesterol ACTIVITY: [id number] Activity Restrictions: [id number] No Restrictions FOLLOW UP/APPOINTMENTS Follow-up Plan 1. Follow up with your Primary care physician as scheduled 2. Follow up with Vascular surgery to schedule intervention on your left lower extremity. You were found with 50-75% stenosis of your left popliteal artery and significant stenosis in the left dorsalis pedis arteries 3. Take Norvasc and Cozaar daily to help control your blood pressure 4. I recommend you take Fish Oil 4 grams daily and continue on multivitamins, folate, and thiamine as well 5. It is important to avoid alcohol use since causes issues with your liver and heart 6. Continue local wound care to your left leg and make sure not to pick the scab or irritate the skin 7. If you notice swelling of your lower extremities, it is okay to take one Lasix daily as well as Potassium supplement. You do not need to take it daily 8. When sitting, keep your legs elevated to prevent swelling and pooling of fluids 9. I recommend you continue on Methadone 15 mg daily then ask to be tapered off under observation 10. Take Melatonin as needed before bed to help you sleep 11. If experiencing any concerning symptoms. please go to the nearest emergency department JOSUE MUNIZ MD Sep 29, 2018 10:17
[2018-09-29] MEDS ORDERED: HYDROCORTISONE 1% 28 GM CR TOP PRN (10:30)
[2018-09-29] MEDS ORDERED: HYDROCORTISONE 0.5% 28.35 GM CR TOP PRN (10:30)
--- NOTE | 2018-09-29 13:24 | CONS ---
Consultation Date/Type/Reason Admit Date/Time Sep 15, 2018 at 21:15 Initial Consult Date SUBJECTIVE: Pt is awake, alert, afebrile. VS: stable T: 98.7 LABS: Reviewed MICROBIOLOGY: Blood cultures negative. MRSA swab negative. ANTIMICROBIALS: Doxycycline PHYSICAL EXAMINATION: GENERAL: This is a well-developed, chronically ill-appearing, elderly man who is alert, in no distress. HEENT: Head atraumatic, normocephalic. Sclerae anicteric. Buccal mucosa pink. NECK: Supple. CHEST: Rise symmetrical. Breath sounds clear, diminished to bases. HEART: S1, S2. ABDOMEN: Soft, bowel sounds present. EXTREMITIES: Bilateral lower extremities chronic venous stasis, left lower extremity Ramirez wrapped. ASSESSMENT: 1. Bilateral lower extremities chronic venous stasis /left lower extremity cellulitis. 2. Hypertension. 3. History of polysubstance abuse. 4. Improving transaminitis. 5. History of deep venous thrombosis and pulmonary embolism. PLAN: The patient remains stable. D/C planning today. OK to D/C off of antbx. Wound care. Requesting Provider: STUART MATAMOROS Date/Time of Note DATE: 09/29/18 TIME: 13:24 Exam/Review of Systems Exam Vitals Vital Signs Date Temp Pulse Resp B/P (MAP) Pulse Ox O2 O2 Flow FiO2 Time Delivery Rate 09/29/18 98.7 100 19 143/58 98 Room Air 07:14 (86) Intake and Output 09/28/18 09/28/18 09/29/18 1515:00 23:00 07:00 IntakeIntake Total 600 ml 700 ml OutputOutput Total 1 ml BalanceBalance 600 ml 699 ml Results Result Diagram: 09/26/18 0542 09/26/18 0546 SIN CROSS Sep 29, 2018 13:24
--- NOTE | 2018-09-29 14:52 | DS ---
Date/Time of Note Date/Time of Note DATE: 09/29/18 TIME: 14:07 Discharge Summary Admission/Discharge Info Admit Date/Time Sep 15, 2018 at 21:15 Discharge Date/Time Sep 29, 2018 at 13:06 Discharge Diagnosis 1. LLE cellulitis- stable 2. Peripheral artery disease 3. Uncontrolled Hypertension-resolved 4. Acute Delirium- resolved 5. h/o alcohol abuse 6. History of DVT/PE 7. Alcoholic hepatitis- resolved 8. Acute rhinosinusitis- resolved 9. Thrombocytopenia- resolved 10. Urinary retention- resolved 11. Anxiety 12. Hyperlipidemia 13. h/o methadone use Patient Condition: Stable Consults Vascular Surgery- Dr. Aleman Infectious disease= Dr. Arevalo Urology- Dr. [facility] Hx of Present Illness Chief complaint: Left lower extremity redness swelling times fever This is a 37-year-old male with a history of Hypertension, BPH, anxiety, hyperlipidemia, DVT/PE/thrombocytopenia who presents to the emergency department with symptoms of 1 week of left lower extremity swelling and redness. Patient states that he has had 1 week of left lower extremity leg swelling redness and erythema. He has also had fevers at home. Reports mild pain. Denies any nausea vomiting or diarrhea. Denies any history of IV drug use. Allergies: NKDA Medications: See [facility] Hospital Course Patient was admitted for treatment of lower extremity cellulitis and started on IV antibiotics. ID was consulted for antibiotic management. Imaging studies were performed and DVT was ruled out. Stenosis was noted and Vascular surgery was consulted. Patient was also experiencing uncontrolled blood pressure and adjustments were made with improvement to blood pressure control. Patient was also noted with transaminitis and workup with imaging was performed with no ac livier findings. Per family, patient drank alcohol daily and liver enzymes were determined to be from alcoholic hepatitis which resolved during hospitalization. patient was given banana bag and transition to PO MVI, thiamine and folate. Patient was also noted to be on high dose methadone prior to admission and was experiencing withdrawal symptoms. After discussion with family, low dose was started and patients confusion and abdominal discomfort resolved. Patient was also experiencing urinary retention and Urology was consulted. Rectal exam revealed normal prostate and he was continued on Avodart and Tamsulosin with improvement in urinary retention. He was started on melatonin as well given when he did not sleep he would have more confusion during the day which also improved. Patient completed course of doxycycline for treatment of his lower extremity cellulitis. His vitals remained stable and was back to baseline. He progressed well with physical therapy. Family refused SNF placement and requested HHPT and arranged for additional hours as well. Patient was discharged home in stable condition with home health services. Home Meds Active Scripts Methadone Hcl* (Methadone*) 5 Mg Tab, 15 MG PO DAILY for 30 Days, #30 TAB Prov:JOSUE MUNIZ MD 09/29/18 Melatonin (Melatonin) 5 Mg Tablet, 5 MG PO HS PRN for INSOMNIA for 30 Days, #30 TAB Prov:JOSUE MUNIZ MD 09/29/18 Multivits,Ca,Minerals/Iron/FA (Thera M Plus Tablet) 1 Each Tablet, 1 TAB PO DAILY for 30 Days, #30 TAB Prov:JOSUE MUNIZ MD 09/29/18 Thiamine* (Vitamin B-1*) 100 Mg Tablet, 100 MG PO DAILY for 30 Days, #30 TAB Prov:JOSUE MUNIZ MD 09/29/18 Losartan Potassium* (Cozaar*) 50 Mg Tablet, 100 MG PO DAILY for 30 Days, #30 TAB 3 Refills Prov:JOSUE MUNIZ MD 09/29/18 Amlodipine Besylate* (Amlodipine Besylate*) 10 Mg Tablet, 10 MG PO DAILY for 30 Days, #30 TAB 1 Refill Prov:JOSUE MUNIZ MD 09/29/18 [place]-3/Dha/Epa/Fish Oil (Fish Oil 1,000 mg Softgel) 1,000 Mg Capsule, 2000 MG PO BID for 30 Days, #60 CAP Prov:JOSUE MUNIZ MD 09/29/18 Reported Medications Azelastine/Fluticasone (DYMISTA NASAL SPRAY) 23 Gm [place].pump, 1 SPRAY NASAL BID, #1 BOTTLE TO EACH NOSTRIL 09/09/18 Tamsulosin Hcl* (Flomax*) 0.4 Mg Cap.er.24h, 0.4 MG PO HS, CAP 09/09/18 Sertraline Hcl* (Sertraline Hcl*) 100 Mg Tablet, 100 MG PO DAILY, #30 TAB 09/09/18 Atorvastatin Calcium* (Atorvastatin Calcium*) 20 Mg Tablet, 20 MG PO QHS, #30 TAB 09/09/18 Celecoxib* (Celebrex*) 200 Mg Capsule, 200 MG PO DAILY, CAP 09/09/18 Potassium Chloride* (Potassium Chloride*) 8 Meq Capsule.er, 8 MEQ PO DAILY, CAP 09/09/18 Omeprazole* (Omeprazole*) 20 Mg Capsule.dr, 20 MG PO BID, #60 CAP 09/09/18 Dutasteride* (Avodart*) 0.5 Mg Capsule, 0.5 MG PO DAILY, CAP 09/09/18 Furosemide* (Furosemide*) 40 Mg Tablet, 40 MG PO DAILY, TAB 09/09/18 Folic Acid* (Folic Acid*) 1 Mg Tablet, 1 MG PO DAILY, TAB 09/09/18 Discontinued Reported Medications Ketoconazole* (Nizoral*) 120 Ml Shampoo, 1 APPLIC TOP BID, BOTTLE WASH HAIR/SCALP AND RINSE OFF 09/09/18 Icosapent Ethyl (VASCEPA) 1 Gm Capsule, 2 GM PO BID, CAP 09/09/18 Hydrocodone/Acetaminophen ([place] 10-325 Tablet) 1 Each Tablet, 1 EACH PO BID, TAB 09/09/18 Olmesartan Medoxomil (Benicar) 40 Mg Tablet, 40 MG PO DAILY, #30 TAB 09/09/18 Discontinued Scripts Lorazepam* (Ativan*) 0.5 Mg Tablet, 0.5 MG PO Q8H PRN for CONTROL WITHDRAWAL SYMPTOMS, #10 TAB Prov:HUSSEIN SPEARS MD 09/12/18 Clindamycin Hcl* (Clindamycin Hcl*) 300 Mg Capsule, 300 MG PO QID for 10 Days, CAP Prov:MIKY THOMPSON MD 09/09/18 Follow-up Plan 1. Follow up with your Primary care physician as scheduled 2. Follow up with Vascular surgery to schedule intervention on your left lower extremity. You were found with 50-75% stenosis of your left popliteal artery and significant stenosis in the left dorsalis pedis arteries 3. Take Norvasc and Cozaar daily to help control your blood pressure 4. I recommend you take Fish Oil 4 grams daily and continue on multivitamins, folate, and thiamine as well 5. It is important to avoid alcohol use since causes issues with your liver and heart 6. Continue local wound care to your left leg and make sure not to pick the scab or irritate the skin 7. If you notice swelling of your lower extremities, it is okay to take one Lasix daily as well as Potassium supplement. You do not need to take it daily 8. When sitting, keep your legs elevated to prevent swelling and pooling of fluids 9. I recommend you continue on Methadone 15 mg daily then ask to be tapered off under observation 10. Take Melatonin as needed before bed to help you sleep 11. If experiencing any concerning symptoms. please go to the nearest emergency department Primary Care Provider Not On Staff Doctor Time spent on discharge: > 30 minutes JOSUE MUNIZ MD Sep 29, 2018 14:23
== END 2018-09-29 13:06 | disposition home health service (06) | DRG 602 ==
LOC: E/R 20:19 → PP2 21:15 → TEL 09-17 18:23
PROVIDERS: ADMIT Family Medicine; ATTEND Internal Medicine
DX: L03.116 Cellulitis of left lower limb (principal); G92 Toxic encephalopathy; D61.818 Other pancytopenia; F11.23 Opioid dependence with withdrawal; F05 Delirium due to known physiological condition; L97.929 Non-pressure chronic ulcer of unspecified part of left lower leg with unspecified severity; D69.59 Other secondary thrombocytopenia; E83.42 Hypomagnesemia; E78.5 Hyperlipidemia, unspecified; F41.9 Anxiety disorder, unspecified; I87.2 Venous insufficiency (chronic) (peripheral); I73.9 Peripheral vascular disease, unspecified; I10 Essential (primary) hypertension; J01.90 Acute sinusitis, unspecified; K70.10 Alcoholic hepatitis without ascites; N40.1 Benign prostatic hyperplasia with lower urinary tract symptoms; R39.11 Hesitancy of micturition; R53.81 Other malaise; R10.9 Unspecified abdominal pain; R26.9 Unspecified abnormalities of gait and mobility; T40.2X5A Adverse effect of other opioids, initial encounter; Z86.718 Personal history of other venous thrombosis and embolism; Z86.711 Personal history of pulmonary embolism
CPT/HCPCS: 36415; 70450; 71045; 74018; 74181; 75635; 76705; 80048; 80053; 80061; 80069; 80202; 80307; 81003; 82140; 82728; 82962; 83036; 83540; 83605; 83735; 84100; 84443; 84484; 85025; 85049; 85610; 85730; 86706; 86803; 87045; 87081; 87086; 87340; 93005; 93306; 93922; 93970; 96374; 97110; 97116; 97161; 97530; A4310; J0360; J0692; J1630; J1644; J2060; J2270; J2310; J2405; J2543; J3370; J3411; J3475; J3480; J7030; Q9967